=== PATIENT | male | born 1935 | race Caucasian/White ===

== ENCOUNTER 2016-10-05 08:56 | Emergency (ER) | payer OTHER, BC ==
[~2016-10-05] VITALS: Ht 175.3 cm; Wt 107.7 kg
[~2016-10-05 08:56] MED LIST: CHOLTAB3 PO; MULT-506 PO
[2016-10-05 08:59] VITALS: Ht 175.3 cm; Wt 107.7 kg
[2016-10-05] MEDS ORDERED: OXYC-57 PO (09:27)
[2016-10-05] MEDS ORDERED: METH1TAB81 PO (09:27)
[2016-10-05] MEDS ORDERED: MoRPHine SULFATE 10 MG/ML CARP/VIAL IM STA (09:44)
--- NOTE | 2016-10-05 09:45 | EMERGENCY ROOM VISIT NOTE ---
History Report prepared by Harlan: Mindy Ramsey Under the Supervision of: Dr. Michele Cornejo M.D. First contact with patient: 09:30 Chief Complaint: BACK PAIN Stated Complaint: PAIN IN MIDDLE AND LOWER BACK History of Present Illness The patient is a 81 year old male who presents to the Emergency Room with complaints of constant back pain beginning 1 month ago. The patient states that he has a history of back surgery over 30 years ago. The patient states that he saw his doctor this week and was put on oxycodone and Medrol dose pack. He notes that he has a history of prostate cancer but has 0.01 PSA after his most recent appointment. The patient complains of back swelling. He denies any radiation of the pain. He notes that sitting up straight worsens his pain and leaning to the right makes it better. Source of History: patient Onset: 1 month Position: back Timing: constant Modifying Factors (Worsening): other (sitting up straight) Modifying Factors (Relieving): other (leaning to the right) Note: He complains of swelling of the back.Pt denies radiation of the pain. Review of Systems All systems have been listed, reviewed, and are negative other than those previously mentioned. Please see Additional Medical History Sheet. Past Medical & Surgical Medical Problems: (1) Prostate CA Surgical Problems: (1) History of back surgery Family History Cancer Heart disease Social History Smoking Status: Former Smoker Smokeless Tobacco Use: No Alcohol Use: none Marital Status: Housing Status: lives with significant other Occupation Status: retired Current/Historical Medications Scheduled Methylprednisolone (Medrol), 4 MG PO DIRECTED Oxycodone/Acetaminophen 5MG/325MG (Percocet 5MG/325MG), 1 TABLET PO HS Allergies Coded Allergies: Iodine (Verified Allergy, Mild, HIVES/ITCHING, 10/05/16) Physical Exam Vital Signs Date Time Temp Pulse Resp B/P Pulse Ox O2 Delivery O2 Flow Rate FiO2 10/05/16 11:17 56 18 123/84 96 10/05/16 08:59 67 18 148/80 97 Room Air Physical Exam GENERAL: Patient awake, alert, oriented x 3. Patient follows commands. Patient does not appear toxic. Patient is adequately hydrated and well- nourished. In moderate to severe distress. SKIN: No erythema, pallor, cyanosis or rash HEENT: Normal head, pupils equal, reactive to light and accommodation. Ears normal. Oral cavity and posterior pharynx appear normal. Neck: Without adenopathy, no neck vein distention. LUNGS: Clear to auscultation. No wheezes, no rales, no rhonchi. HEART: No murmurs. No gallops. No rubs ABDOMEN: No masses, no rebound, no hepatomegaly or splenomegaly. BACK: Patient has tenderness over mid lumbar spine left greater than right, no stepoff, old scar present. EXTREMITIES: No signs of trauma. No pedal or pretibial edema. No calf or thigh tenderness. Deep tendon reflexes are brisk and motor sensory reflex functions are intact distally to both feet NEUROLOGIC: Cranial nerves II-XII within normal limits. No gross motor sensory function deficits. Medical Decision & Procedures ER Provider Diagnostic Interpretation: CT results are interpretations by the radiologist and per my review. LUMBAR SPINE CT FINDINGS: No fractures. No subluxation. Paraspinal soft tissues are unremarkable. No suspicious lytic or blastic osseous lesions. Large anterior osteophytes within the lumbar spine. Moderate facet degenerative changes within the lower lumbar spine. Severe disc space narrowing at L4-L5. Mild disc space narrowing at L2-L3 and L3-L4. Severe central canal narrowing at L3-L4 due to a broad-based posterior disc bulge and ligamentum and facet hypertrophy. Mild central canal narrowing at L2-L3 and L4-L5. L5 is demonstrated to be a transitional vertebra with partial sacralization within the right transverse process and a pseudoarthrosis with the sacrum at the left transverse process. Stable 14 mm lucent lesion within the L1 vertebral body favors a hemangioma. IMPRESSION: 1. No fracture or subluxation within the lumbar spine. 2. Degenerative changes as described above with severe central canal narrowing at L3-L4 due to a broad-based posterior disc bulge and ligamentum and facet hypertrophy. Electronically signed by: Yair Contreras M.D. 10/05/2016 10:23 AM Dictated Date/Time: 10/05/2016 10:16 AM Medications Administered Medications (Trade) Dose Ordered Sig/Toshia Route Start Time Stop Time Status Last Admin Dose Admin Morphine Sulfate (MoRPHine SULFATE INJ) 8 mg NOW STAT IM 10/05/16 09:44 10/05/16 09:46 DC 10/05/16 09:52 8 MG ED Course 929: Past medical records reviewed. The patient was evaluated in room B12B. A complete history and physical examination was performed. 0944: Morphine Sulfate 8mg IM. 1053: I reevaluated the patient, he is feeling much better. 1104: Upon reevaluation, the patient appeared to have improvement of his symptoms. I discussed today's findings with the patient. He verbalized agreement of the treatment plan. The patient was discharged home. Medical Decision Differential diagnosis includes lumbar strain, fracture, metastatic lesion, cauda equina syndrome. The patient has marked degenerative changes with canal narrowing and disc bulging. The patient is most likely not a surgical candidate but I believe he may benefit from pain management and possible injection. Patient felt significantly better after IM morphine. He will increase his use of oxycodone for now. Case management did speak with the patient about follow-up with pain management. Impression Primary Impression: Low back pain potentially associated with spinal stenosis Scribe Attestation The scribe's documentation has been prepared under my direction and personally reviewed by me in its entirety. I confirm that the note above accurately reflects all work, treatment, procedures, and medical decision making performed by me. Departure Information Dispostion Home / Self-Care Referrals Talon Galindo M.D. (PCP) Forms HOME CARE DOCUMENTATION FORM, IMPORTANT VISIT INFORMATION Patient Instructions My [facility] Additional Instructions Take 1 or 2 oxycodone every 4 hours as needed for moderate to severe pain. Continue taking all of your current medications as prescribed including a stool softener. Follow-up with pain management.
--- NOTE | 2016-10-05 10:25 | DIAGNOSTIC IMAGING REPORT ---
LUMBAR SPINE CT CT DOSE: 1595.86 mGy.cm HISTORY: low back pain prostate Ca TECHNIQUE: Multiaxial CT images of the lumbar spine were performed and reformatted in the sagittal and coronal plane without the use of contrast. COMPARISON: Abdomen and pelvis CT 07/13/2012. FINDINGS: No fractures. No subluxation. Paraspinal soft tissues are unremarkable. No suspicious lytic or blastic osseous lesions. Large anterior osteophytes within the lumbar spine. Moderate facet degenerative changes within the lower lumbar spine. Severe disc space narrowing at L4-L5. Mild disc space narrowing at L2-L3 and L3-L4. Severe central canal narrowing at L3-L4 due to a broad-based posterior disc bulge and ligamentum and facet hypertrophy. Mild central canal narrowing at L2-L3 and L4-L5. L5 is demonstrated to be a transitional vertebra with partial sacralization within the right transverse process and a pseudoarthrosis with the sacrum at the left transverse process. Stable 14 mm lucent lesion within the L1 vertebral body favors a hemangioma. IMPRESSION: 1. No fracture or subluxation within the lumbar spine. 2. Degenerative changes as described above with severe central canal narrowing at L3-L4 due to a broad-based posterior disc bulge and ligamentum and facet hypertrophy. Electronically signed by: Yair Contreras M.D. 10/05/2016 10:23 AM Dictated Date/Time: 10/05/2016 10:16 AM
[2016-10-05 11:17] VITALS: BP 123/84; PULSE 56; O2SAT 96
== END 2016-10-05 11:18 | disposition home or self-care (01) ==
LOC: C.EDB 08:57
DX: M54.5 Low back pain (principal); Z85.46 Personal history of malignant neoplasm of prostate; Z87.891 Personal history of nicotine dependence; Z82.49 Family history of ischemic heart disease and other diseases of the circulatory system

== ENCOUNTER 2016-10-15 03:05 | Inpatient (IN) | payer OTHER, BC ==
[~2016-10-15] VITALS: Ht 175.3 cm; Wt 103.5 kg
[~2016-10-15 03:05] MED LIST changes: -CHOLTAB3 PO; +METH1TAB81 PO; -MULT-506 PO; +OXYC-57 PO
[2016-10-15] MEDS ORDERED: ONDANSETRON INJ 2 MG/ML 2 ML VIAL IV STA (03:51)
[2016-10-15] MEDS ORDERED: KETOROLAC TROMETHAMINE 30 MG/ML VIAL IV STA (03:51)
[2016-10-15] MEDS ORDERED: MoRPHine SULFATE 10 MG/ML CARP/VIAL IV STA (03:51)
--- NOTE | 2016-10-15 03:53 | EMERGENCY ROOM VISIT NOTE ---
History Report prepared by Harlan: Daryl Gonzales Under the Supervision of: Dr. Sienna Beltran D.O. First contact with patient: 03:17 Chief Complaint: BACK PAIN Stated Complaint: BACK PAIN History of Present Illness The patient is an 81 year old male who presents to the Emergency Room with complaints of persistent lower back pain since being diagnosed with lumbar disc bulging 10 days ago. The pain is severe, and does not radiate to the legs or buttocks. The patient was diagnosed by CT lumbar spine. He is taking Oxycodone and OxyContin for pain, which have not helped. He was prescribed the narcotics by his family doctor. His last dose was at 0200 this morning. The patient has been unable to lay down secondary to pain. He noticed left lower extremity swelling last week, especially at the top of the left foot. The leg also feels numb but does not hurt. He denies leg weakness. He is scheduled to see Dr. Winn ([facility]). He had back surgery in 1981. Source of History: patient Onset: 10 days ago Position: back (lower) Symptom Intensity: severe Timing: other (persistent) Modifying Factors (Relieving): other (No relief from Oxycodone or OxyContin. ) Associated Symptoms: + numbness, No weakness Review of Systems See HPI for pertinent positives & negatives. A total of 10 systems reviewed and were otherwise negative. Past Medical & Surgical Medical Problems: (1) Prostate CA Surgical Problems: (1) History of back surgery Family History Cancer Heart disease Social History Smoking Status: Never Smoker Alcohol Use: none Marital Status: Housing Status: lives with significant other Occupation Status: retired Current/Historical Medications Scheduled Chlorzoxazone (Parafon Forte Dsc), 500 MG PO HS Cholecalciferol (Vitamin D3), 5,000 UNITS PO DAILY Krill Oil (Krill Oil), 1 CAP PO DAILY Methylprednisolone (Medrol), 4 MG PO DIRECTED Milk Thistle (Silybum Marianum (Milk Thistle), 1 DOSE PO DAILY Oxycodone HCl (Oxycontin), 10 MG PO Q12 [Mosoglycan], 1 TAB PO DAILY Scheduled PRN Oxycodone/Acetaminophen 5MG/325MG (Percocet 5MG/325MG), 1 TABLET PO QID PRN for Breakthrough Pain Allergies Coded Allergies: Iodine (Verified Allergy, Mild, HIVES/ITCHING, 10/15/16) Physical Exam Vital Signs Date Time Temp Pulse Resp B/P Pulse Ox O2 Delivery O2 Flow Rate FiO2 10/15/16 05:33 58 17 131/64 99 Room Air 10/15/16 03:15 90 22 148/77 98 Room Air Physical Exam General: Patient appears quite uncomfortable. HEENT: Head - normocephalic and atraumatic Pupils are equal, round, and reactive to light. Extraocular eye muscles are intact, and sclera are anicteric. Nose - moist nasal mucosa without discharge. Mouth - moist buccal mucosa. Oropharynx is nonerythematous and there is no tonsillar exudate or edema noted. Neck: Supple; no JVD, nuchal rigidity, cervical lymphadenopathy. Heart: Regular rate and rhythm. There is a normal S1 and S2 with no murmurs, clicks, or gallops appreciated. Lungs: Clear to auscultation bilaterally with no wheezes, rales, or rhonchi. Abdomen: Soft, completely nontender, nondistended, with good bowel sounds. There are no palpable pulsatile masses or hepatosplenomegaly. There is no guarding, rigidity, or rebound noted. Extremities: Edema to the left foot and calf, pain with palpation of the left calf. No evidence of cyanosis, or clubbing. There are easily palpable peripheral pulses. Skin: warm and dry with good turgor and no rashes. Neuro: Patellar reflexes are 3/4 bilaterally, Achilles reflexes 2/4 bilaterally. Patient has exquisite left lower back pain with straight leg raising. Medical Decision & Procedures ER Provider Diagnostic Interpretation: Radiology results as stated below per my review and the radiologist's interpretation: US VENOUS LEFT LOWER EXTREMITY: No evidence of deep venous thrombosis. Subcutaneous edema noted int he left calf. Radiologist: Sugey Cool MD. Laboratory Results 10/15/16 04:00 Red Blood Count 4.45, Mean Corpuscular Volume 91.7, Mean Corpuscular Hemoglobin 31.2, Mean Corpuscular Hemoglobin Concent 34.1, Mean Platelet Volume 9.8, Neutrophils (%) (Auto) 62.4, Lymphocytes (%) (Auto) 28.9, Monocytes (%) (Auto) 7.7, Eosinophils (%) (Auto) 0.6, Basophils (%) (Auto) 0.1, Neutrophils # (Auto) 6.39, Lymphocytes # (Auto) 2.96, Monocytes # (Auto) 0.79, Eosinophils # (Auto) 0.06, Basophils # (Auto) 0.01 10/15/16 04:00 Test 10/15/16 04:00 White Blood Count 10.24 K/uL (4.8-10.8) Red Blood Count 4.45 M/uL (4.7-6.1) Hemoglobin 13.9 g/dL (14.0-18.0) Hematocrit 40.8 % (42-52) Mean Corpuscular Volume 91.7 fL (80-100) Mean Corpuscular Hemoglobin 31.2 pg (25-34) Mean Corpuscular Hemoglobin Concent 34.1 g/dl (32-36) Platelet Count 187 K/uL (130-400) Mean Platelet Volume 9.8 fL (7.4-10.4) Neutrophils (%) (Auto) 62.4 % Lymphocytes (%) (Auto) 28.9 % Monocytes (%) (Auto) 7.7 % Eosinophils (%) (Auto) 0.6 % Basophils (%) (Auto) 0.1 % Neutrophils # (Auto) 6.39 K/uL (1.4-6.5) Lymphocytes # (Auto) 2.96 K/uL (1.2-3.4) Monocytes # (Auto) 0.79 K/uL (0.11-0.59) Eosinophils # (Auto) 0.06 K/uL (0-0.5) Basophils # (Auto) 0.01 K/uL (0-0.2) RDW Standard Deviation 46.2 fL (36.4-46.3) RDW Coefficient of Variation 13.7 % (11.5-14.5) Immature Granulocyte % (Auto) 0.3 % Immature Granulocyte # (Auto) 0.03 K/uL (0.00-0.02) Anion Gap 6.0 mmol/L (3-11) Est Creatinine Clear Calc Drug Dose 68.2 ml/min Estimated GFR () 81.9 Estimated GFR (Non- 70.6 BUN/Creatinine Ratio 27.0 (10-20) Calcium Level 8.9 mg/dl (8.5-10.1) Laboratory results per my review. Medications Administered Medications (Trade) Dose Ordered Sig/Toshia Route Start Time Stop Time Status Last Admin Dose Admin Ketorolac Tromethamine (Toradol Inj) 30 mg NOW STAT IV 10/15/16 03:51 10/15/16 03:52 DC 10/15/16 04:15 30 MG Ondansetron HCl (Zofran Inj) 4 mg NOW STAT IV 10/15/16 03:51 10/15/16 03:52 DC 10/15/16 04:15 4 MG Morphine Sulfate (MoRPHine SULFATE INJ) 4 mg STK-MED ONCE .ROUTE 10/15/16 04:11 10/15/16 04:12 DC 10/15/16 04:15 4 MG Morphine Sulfate (MoRPHine SULFATE INJ) 2 mg STK-MED ONCE .ROUTE 10/15/16 04:11 10/15/16 04:12 DC 10/15/16 04:15 2 MG Morphine Sulfate (MoRPHine SULFATE INJ) 4 mg NOW STAT IV 10/15/16 06:11 10/15/16 06:12 DC 10/15/16 06:18 4 MG Procedure Medications administered include Zofran IV, Toradol IV, Morphine Sulfate IV X2 ED Course 0320: Past medical records reviewed. The patient had a CT of the lumbar spine on October 05 that showed degenerative changes with central canal narrowing at L3-L4 due to a posterior disc bulge. 0325: The patient was evaluated in room B2. A complete history and physical exam was performed. An IV lock was initiated and labs were drawn as above. 0351: Zofran 4 mg IV, Toradol 30 mg IV, Morphine Sulfate 6 mg IV. 0420 the patient is comfortable and waiting to go for ultrasound. 0458: The patient is much more comfortable. I spoke with the mattress spring encaser about paging medicine to admit the patient for intractable pain. 0555: The patient's pain is now a 4/10 in severity. 0559: Discuss[facility] the [facility] The patient will be evaluated. 0610: The patient has discomfort that is increasing. He was given an additional dose of 4 mg of IV morphine. Medical Decision The patient is an 81 year old male who presents to the ED with back pain. Differential diagnosis includes cauda equina syndrome, lumbar radiculopathy, lumbar nerve root compression, DVT. Laboratory interpretation: Normal white count; stable H&H; BUN 27, creatinine 0.9, glucose 111 This is an 81-year-old male patient presents to the emergency with severe left- sided low back pain and lower extremity numbness and swelling. The patient was seen here one week ago and had a lumbar CT scan which showed a significant disc bulge which resulted in central canal narrowing. The patient has been trying to use multiple different pain medications at home but cannot tolerate the pain. He is scheduled to see Dr. Winn on November 08 but does not believe that he can make it to that time. He has also developed numbness to the left foot and lower leg. The patient has required multiple doses of pain medication to keep him comfortable here in the emergency department. Ultrasound of the leg was negative for DVT. I discussed the case [facility] and [facility] will evaluate for further management. Consults Time Called: 0550 Consulting Physician: Dr. Bullard [facility]. Returned Call: [phone]: Discuss[facility] the [facility] The patient will be evaluated. Impression Primary Impression: Lumbar back pain with radiculopathy affecting left lower extremity Scribe Attestation The scribe's documentation has been prepared under my direction and personally reviewed by me in its entirety. I confirm that the note above accurately reflects all work, treatment, procedures, and medical decision making performed by me. Departure Information Dispostion Being Evaluated By Hospitalist Referrals Talon Galindo M.D. (PCP) Patient Instructions My [facility]
[2016-10-15] MEDS ORDERED: MoRPHine SULFATE 2 MG/ML CARP ONE (04:11)
[2016-10-15] MEDS ORDERED: MoRPHine SULFATE 4 MG/ML 1 ML CARP\\VIAL ONE (04:11)
[2016-10-15] MEDS ORDERED: OXYSR/10 PO (04:22)
[2016-10-15] MEDS ORDERED: CHLOTAB3 PO (04:22)
[2016-10-15] MEDS ORDERED: CHOLCAP5 PO (04:26)
[2016-10-15] MEDS ORDERED: KRIL1000 PO (04:26)
[2016-10-15] MEDS ORDERED: [UNRECOGNIZED DRUG - OTHER] PO (04:26)
[2016-10-15] MEDS ORDERED: MILK1CAP9 PO (04:27)
[2016-10-15 05:28] LABS: BASO % 0.1 %; BASO ABS # 0.01 K/uL (0-0.2); COMPLETE YES; EOS % 0.6 %; HEMATOCRIT 40.8 % (42-52); IG% 0.3 %; LYMPH % 28.9 %; LYMPH ABS # 2.96 K/uL (1.2-3.4); MEAN CELL VOLUME 91.7 fL (80-100); MEAN CORPUSCULAR HEMOGLOBIN 31.2 pg (25-34); MEAN CORPUSCULAR HGB CONC 34.1 g/dl (32-36); MEAN PLATELET VOLUME 9.8 fL (7.4-10.4); MONO % 7.7 %; NEUT % 62.4 %; PLATELET COUNT 187 K/uL (130-400); RED BLOOD COUNT 4.45 M/uL (4.7-6.1); WHITE BLOOD COUNT 10.24 K/uL (4.8-10.8)
[2016-10-15 05:35] LABS: CALCIUM 8.9 mg/dl (8.5-10.1); CREATININE 0.99 mg/dl (0.60-1.40); POTASSIUM 4.2 mmol/L (3.5-5.1)
[2016-10-15] MEDS ORDERED: MoRPHine SULFATE 4 MG/ML 1 ML CARP\\VIAL IV STA (06:11)
[2016-10-15 06:38] LABS: THYROID STIMULATING HORMONE 1.65 uIu/ml (0.300-4.500)
[2016-10-15] MEDS ORDERED: LIDODERM (LIDOCAINE) PATCH 5% TD ONE (06:44)
[2016-10-15] MEDS ORDERED: ACETAMINOPHEN 325 MG TAB PO PRN (06:45)
[2016-10-15] MEDS ORDERED: ONDANSETRON INJ 2 MG/ML 2 ML VIAL IV PRN (06:45)
[2016-10-15] MEDS ORDERED: HYDROmorphone INJ 1 MG/ML SYR IV PRN (06:45)
[2016-10-15 06:48] LABS: PROTHROMBIN TIME (PATIENT) 10.5 SECONDS (9.0-12.0)
[2016-10-15] MEDS ORDERED: IBUPROFEN 200 MG TAB PO PRN (07:00)
--- NOTE | 2016-10-15 07:03 | DIAGNOSTIC IMAGING REPORT ---
CHEST ONE VIEW PORTABLE CLINICAL HISTORY: Bilateral leg swelling COMPARISON STUDY: No previous studies for comparison. FINDINGS: The heart is mildly enlarged. There is no failure. There is no lobar consolidation. There is minor basilar atelectasis.[ No pleural effusions are visualized. IMPRESSION: Cardiomegaly and mild basilar atelectasis. No evidence of failure. Electronically signed by: Breezy Torres M.D. 10/15/2016 7:01 AM Dictated Date/Time: 10/15/2016 7:01 AM
--- NOTE | 2016-10-15 07:07 | DIAGNOSTIC IMAGING REPORT ---
LEFT LOWER EXTREMITY VENOUS DOPPLER HISTORY: Left leg swelling. COMPARISON STUDY: None. FINDINGS: There is normal compressibility, flow, and augmentation within the left lower extremity deep venous system. IMPRESSION: No DVT within the left lower extremity. Electronically signed by: Yair Contreras M.D. 10/15/2016 7:05 AM Dictated Date/Time: 10/15/2016 7:04 AM
[2016-10-15 07:15] VITALS: BP 131/80; PULSE 61; TEMP 36.5; O2SAT 99; Ht 175.3 cm; Wt 103.5 kg
[2016-10-15] MEDS ORDERED: IV FLUIDS COMPLETED PRN (07:15)
--- NOTE | 2016-10-15 08:04 | HISTORY & PHYSICAL EXAMINATION ---
DATE OF ADMISSION: 10/15/2016 PRIMARY CARE PHYSICIAN: Dr. Galindo. Hx obtained from px and records. CHIEF COMPLAINT: Back pain. HISTORY OF PRESENT ILLNESS: Medical history significant for prostate cancer sp radiation, past tobacco abuse, history of back surgery, chronic anemia (baseline Hg 13) In the last month, px noted progressive achy low back pain radiating to the left leg, some numbness. No fever, no chills. Intentional weight loss. no incontinence. no recent trauma. Worsening symptoms in the last few days. Seen at the ER a few days ago. A lumbar spine CT showed no fracture or subluxation, degenerative changes, severe central canal narrowing, L3-L4, with broad based posterior disc bulge. Patient discharged home. Patient started outpatient narcotics, steroids, minimal relief. Outpatient [facility] code and test clerk referral next month. Intractable pain last night. Patient brought by son to Emergency Room. Legs somewhat swollen too. MEDICAL HISTORY: As above. SURGERIES: Back surgery, earlobe surgery, skin CA procedures HOME MEDICATIONS: Include Parafon, OxyContin, Medrol, Percocet. ALLERGIES: Iodine. FAMILY HISTORY: Family history of alcoholism and gynecologic cancer. PERSONAL AND SOCIAL HISTORY: Past tobacco abuse. No chronic intake of alcoholic beverages. 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 REVIEW OF SYSTEMS: As per HPI, all other ROS negative. PHYSICAL EXAMINATION: VITAL SIGNS: Blood pressure was noted to be 138/77, pulse rate 58, RR 17, temperature 36.6, sats 98 on room air. GENERAL: Noted to be obese, uncomfortable, no respiratory distress. SKIN: Pallor. HEENT: Pale palpebral conjunctivae. Dry mucosa. NECK: Short neck. LUNGS: Clear to auscultation. HEART: Bradycardic. ABDOMEN: Soft. BACK: Tenderness of low back. SLR negative. EXTREMITIES: Bilateral lower extremity edema. no tenderness NEUROLOGIC: No gross focality. LABS: Hemoglobin was noted to be 13, hematocrit 40, white cells 10, platelets 200. Sodium 140, potassium 4.2, chloride 106, CO2 28, BUN 27, creatinine 0.9, glucose 111. Lower extremity ultrasound negative for DVT, initial read. ASSESSMENT: 1. Intractable back pain w/ L radiculopathy sx history of back surgery () 2. Prostate cancer, status post radiation. 3. Chronic anemia, hemoglobin at baseline. 4. Past tobacco abuse. PLAN: Observation [facility] analgesia Orthopedics consult for intractable back pain. PT, OT evaluation. DVT prophylaxis with Lovenox subQ. Full code. MTDD
--- NOTE | 2016-10-15 08:39 | ORTHOPEDIC CONSULTATION ---
DATE OF CONSULTATION: 10/15/2016 DATE OF CONSULTATION: 10/15/2016. CHIEF COMPLAINT: Back and left leg pain. HISTORY OF PRESENT ILLNESS: Very pleasant 81-year-old male who has had symptoms for well over 4 weeks of severe back pain radiating into the left buttock and into the left leg. Markedly limiting his ability to lie supine, stand and ambulate. He denies any precipitating trauma, fall or event. He is status post lumbar surgery in 1981. At that time he had done well postoperatively. The pain has been incapacitating in nature. He has tried outpatient interventional pain management but was limited to the point of hospital admission last evening. This morning on exam he has good sensation to touch bilateral lower extremities, 5/5 plantarflexion, dorsiflexion and quadriceps bilaterally. However, anytime we maneuver him in the bed he gets shots of pain into the left flank and buttock. CAT scan dated 10/07/2016 of the lumbar spine performed at [facility] is available for review demonstrates severe multilevel spondylosis, evidence of significant spinal stenosis L3-4, previous surgery at L4-L5, autofusion L5-S1. ASSESSMENT: Spinal stenosis with left-sided radiculopathy. PLAN: At this time, I would like to obtain an MRI of the lumbar spine for further anatomic detail and evidence of neural encroachment. Ultimately, he may require lumbar decompression at L3-L4 to address his spinal issues and make further recommendations upon review of his MRI. As a precaution, I will make him n.p.o. after midnight in the event we decided to proceed.
[2016-10-15] MEDS: OXYCODONE HCL 10 MG TABCR (OXYCONTIN) PO SCH ×2 (09:06→20:45)
[2016-10-15] MEDS: DOCUSATE SODIUM 100 MG CAP PO SCH ×2 (09:07→20:09)
[2016-10-15] MEDS: ENOXAPARIN 40 MG/0.4 ML SYR SQ SCH (09:07)
[2016-10-15] MEDS ORDERED: LORAZEPAM INJ 0.5 MG in SYRINGE 0.25 ML IV SCH (11:00)
[2016-10-15] MEDS: KETOROLAC TROMETHAMINE 15 MG/ML VIAL IV. PRN ×2 (12:05→18:09)
[2016-10-15] MEDS: OXYCODONE/ACETAMINOPHEN 5-325 TAB PO PRN (14:00)
--- NOTE | 2016-10-15 14:18 | DIAGNOSTIC IMAGING REPORT ---
MRI LUMBAR SPINE W/O CONTRAST CLINICAL HISTORY: Back pain and left leg radiculopathy. SPINAL STENOSIS, PROSTATE CARCINOMA. TECHNIQUE: Sagittal and axial T1, T2 and STIR images were obtained. COMPARISON STUDY: CT scan dated 10/05/2016 OBSERVATIONS: The vertebral bodies and posterior elements appear intact. There is no abnormal bony signal present to suggest a marrow replacement process. L1-2: There is a mild circumferential disc bulge. There is mild spinal stenosis. There is no significant foraminal narrowing. L2-3: There is a mild circumferential disc bulge. There is minor triangular spinal canal narrowing. There is clumping of the nerve roots suggesting arachnoiditis. There is no significant foraminal narrowing L3-4: There is a circumferential disc bulge. There is moderate spinal stenosis. There is clumping of the nerve roots suggesting arachnoiditis. There is no significant foraminal narrowing L4-5: There is a circumferential disc bulge. There are postsurgical changes right posterior hemilaminectomy. There is minor bilateral foraminal narrowing. There is no significant spinal stenosis. There is clumping of the nerve roots consistent with arachnoiditis L5-S1: No disc protrusions or extrusions. No evidence of spinal canal or neural foraminal compromise. There is clumping of the nerve roots consistent with arachnoiditis. No abnormalities of the conus are visualized. There are suspected arachnoiditis. IMPRESSION: 1. Postsurgical changes at the L4-5 level. 2. Marked clumping of the nerve roots of the cauda equina, a finding consistent with arachnoiditis 3. Multiple levels spondylitic change with mild spinal stenosis at the L1-2 and L2-3 levels, and moderate spinal stenosis at the L3-4 level. Electronically signed by: Breezy Torres M.D. 10/15/2016 2:15 PM Dictated Date/Time: 10/15/2016 2:11 PM
--- NOTE | 2016-10-15 14:22 | Progress Note ---
Internal Med Progress Note Date of Service: Oct 15, 2016. Provider Documentation: siting on the chair comfortable. Pain controlled with pain meds. Afebrile. appreciate Ortho inputs ASSESSMENT & PLAN: [] DVT PROPHYLAXIS [] DISPOSITION [] Vital Signs: Date Time Temp Pulse Resp B/P Pulse Ox O2 Delivery O2 Flow Rate FiO2 10/15/16 09:30 Room Air 10/15/16 07:15 36.5 61 16 131/80 99 Room Air 10/15/16 07:15 99 Room Air 10/15/16 06:57 58 18 137/68 96 Room Air 10/15/16 05:33 58 17 131/64 99 Room Air 10/15/16 03:15 90 22 148/77 98 Room Air Lab Results: Results Past 24 Hours Test 10/15/16 04:00 Range/Units White Blood Count 10.24 4.8-10.8 K/uL Red Blood Count 4.45 4.7-6.1 M/uL Hemoglobin 13.9 14.0-18.0 g/dL Hematocrit 40.8 42-52 % Mean Corpuscular Volume 91.7 80-100 fL Mean Corpuscular Hemoglobin 31.2 25-34 pg Mean Corpuscular Hemoglobin Concent 34.1 32-36 g/dl Platelet Count 187 130-400 K/uL Mean Platelet Volume 9.8 7.4-10.4 fL Neutrophils (%) (Auto) 62.4 % Lymphocytes (%) (Auto) 28.9 % Monocytes (%) (Auto) 7.7 % Eosinophils (%) (Auto) 0.6 % Basophils (%) (Auto) 0.1 % Neutrophils # (Auto) 6.39 1.4-6.5 K/uL Lymphocytes # (Auto) 2.96 1.2-3.4 K/uL Monocytes # (Auto) 0.79 0.11-0.59 K/uL Eosinophils # (Auto) 0.06 0-0.5 K/uL Basophils # (Auto) 0.01 0-0.2 K/uL RDW Standard Deviation 46.2 36.4-46.3 fL RDW Coefficient of Variation 13.7 11.5-14.5 % Immature Granulocyte % (Auto) 0.3 % Immature Granulocyte # (Auto) 0.03 0.00-0.02 K/uL Prothrombin Time 10.5 9.0-12.0 SECONDS Prothromb Time International Ratio 1.0 0.9-1.1 Sodium Level 140 136-145 mmol/L Potassium Level 4.2 3.5-5.1 mmol/L Chloride Level 106 98-107 mmol/L Carbon Dioxide Level 28 21-32 mmol/L Anion Gap 6.0 3-11 mmol/L Blood Urea Nitrogen 27 7-18 mg/dl Creatinine 0.99 0.60-1.40 mg/dl Est Creatinine Clear Calc Drug Dose 68.2 ml/min Estimated GFR () 81.9 Estimated GFR (Non- 70.6 BUN/Creatinine Ratio 27.0 10-20 Random Glucose 111 70-99 mg/dl Calcium Level 8.9 8.5-10.1 mg/dl Total Bilirubin 0.4 0.2-1 mg/dl Direct Bilirubin 0.1 0-0.2 mg/dl Aspartate Amino Transf (AST/SGOT) 17 15-37 U/L Alanine Aminotransferase (ALT/SGPT) 33 12-78 U/L Alkaline Phosphatase 65 45-117 U/L Total Protein 7.4 6.4-8.2 gm/dl Albumin 4.0 3.4-5.0 gm/dl Lipase 88 73-393 U/L Thyroid Stimulating Hormone (TSH) 1.650 0.300-4.500 uIu/ml
[2016-10-15 15:15] VITALS: BP 111/68; PULSE 55; TEMP 36.3; O2SAT 97
[2016-10-15 16:00] VITALS: O2SAT 97
[2016-10-15 23:20] VITALS: BP 116/67; PULSE 51; TEMP 36.3; O2SAT 94
[2016-10-16] VITALS (7 sets, daily range): BP systolic 115–138; BP diastolic 68–86; PULSE 57–91; TEMP 36–36.7; O2SAT 92–100
[2016-10-16] MEDS: OXYCODONE/ACETAMINOPHEN 5-325 TAB PO PRN (00:13)
[2016-10-16] MEDS: OXYCODONE HCL 10 MG TABCR (OXYCONTIN) PO SCH ×2 (07:49→21:00)
[2016-10-16] MEDS: LIDODERM (LIDOCAINE) PATCH 5% TD SCH (07:50)
[2016-10-16 08:09] LABS: BASO % 0.3 %; BASO ABS # 0.02 K/uL (0-0.2); COMPLETE YES; HEMATOCRIT 40.8 % (42-52); IG% 0.3 %; LYMPH % 42.8 %; LYMPH ABS # 3.29 K/uL (1.2-3.4); MEAN CELL VOLUME 91.5 fL (80-100); MEAN CORPUSCULAR HEMOGLOBIN 31.2 pg (25-34); MEAN CORPUSCULAR HGB CONC 34.1 g/dl (32-36); MEAN PLATELET VOLUME 9.7 fL (7.4-10.4); MONO % 8.7 %; NEUT % 45.9 %; PLATELET COUNT 173 K/uL (130-400); RED BLOOD COUNT 4.46 M/uL (4.7-6.1); WHITE BLOOD COUNT 7.68 K/uL (4.8-10.8)
[2016-10-16] MEDS: ENOXAPARIN 40 MG/0.4 ML SYR SQ SCH (09:00)
--- NOTE | 2016-10-16 11:47 | PROGRESS NOTE ---
DATE: 10/16/2016 DATE: 10/16/2016. SUBJECTIVE: We had a lengthy discussion today regarding his MRI. He demonstrates significant central lateral recess stenosis L3-4, some modest disease at the adjacent levels, evidence of previous surgery at 4-5 level. However, these do not appear to have the significant neural encroachment that the 3-4 does. Again, his pain patterns are described involving the lumbosacral junction extending down the anterior lateral left thigh to the knee. This is markedly exacerbated by ambulation. PLAN: At this time, he would like to pursue surgical intervention. I would recommend a lumbar decompression, possible in situ fusion L3-L4. This would allow us adequate decompression of this region. Risks, benefits, pros, cons, and alternatives were outlined in detail. Risks include but not limited to from anesthesia, spinal cord process, nerve damage, blood loss requiring transfusion, infection requiring reoperation. 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 At this point he is n.p.o. and we will plan for surgery today.
[2016-10-16] MEDS ORDERED: NURSING VERBAL MED ORDER STA (14:47)
[2016-10-16] MEDS ORDERED: MIDAZOLAM HCL 1 MG/ML 2ML VIAL ONE (14:52)
[2016-10-16] MEDS ORDERED: ROCURONIUM BROMIDE 10 MG/ML 5 ML VIAL ONE (14:52)
[2016-10-16] MEDS ORDERED: DEXAMETHASONE SOD INJ 4 MG/ML VIAL ONE (14:52)
[2016-10-16] MEDS ORDERED: ONDANSETRON INJ 2 MG/ML 2 ML VIAL ONE (14:52)
[2016-10-16] MEDS ORDERED: LIDOCAINE HCL 2% 2 ML VIAL (20MG/ML) ONE (14:52)
[2016-10-16] MEDS ORDERED: FENTANYL CITRATE INJ 50 MCG/1 ML 2 ML VIAL ONE (14:53)
[2016-10-16] MEDS ORDERED: CEFAZOLIN IV 2,000 MG/60 ML D5W IV ONE (14:54)
[2016-10-16] MEDS ORDERED: ATROPINE SULFATE 0.1 MG/ML 5ML SYR IV PRN (15:00)
[2016-10-16] MEDS ORDERED: HYDROmorphone INJ 1 MG/ML SYR IV PRN (15:00)
[2016-10-16] MEDS ORDERED: EpHEDrine SULFATE INJ 50 MG/ML AMP IV PRN (15:00)
[2016-10-16] MEDS ORDERED: ONDANSETRON INJ 2 MG/ML 2 ML VIAL IV PRN ×2 (15:00→16:30)
[2016-10-16] MEDS ORDERED: FENTANYL CITRATE INJ 50 MCG/1 ML 2 ML VIAL IV PRN (15:00)
[2016-10-16] MEDS ORDERED: BUPIVACAINE/EPINEPHRINE 0.5% MPF 1:200,000 30 ML VIAL ONE (15:03)
[2016-10-16] MEDS ORDERED: SODIUM CHLORIDE 0.9% 1000ML 1,000 ML IV SCH (16:22)
[2016-10-16] MEDS ORDERED: PHENYLEPHRINE HCL INJ 10 MG/ML VIAL ONE (16:22)
[2016-10-16] MEDS ORDERED: GLYCOPYRROLATE INJ 0.2 MG/ML VIAL ONE (16:22)
[2016-10-16] MEDS ORDERED: EpHEDrine SULFATE INJ 50 MG/ML AMP ONE (16:22)
[2016-10-16] MEDS ORDERED: NEOSTIGMINE METHYLSULFATE 1 MG/ML 10ML VIAL ONE (16:23)
[2016-10-16] MEDS ORDERED: ESMOLOL HCL 10 MG/ML 10 ML VIAL ONE (16:24)
[2016-10-16] MEDS ORDERED: MoRPHine SULFATE 2 MG/ML CARP ONE (16:24)
[2016-10-16] MEDS ORDERED: ACETAMINOPHEN 500 MG TAB PO PRN (16:30)
[2016-10-16] MEDS ORDERED: BISACODYL 10 MG SUPP PR PRN (16:30)
[2016-10-16] MEDS ORDERED: PROMETHAZINE HCL INJ 12.5 MG in SODIUM CHLORIDE 0.9% 50ML 50 ML IV PRN (16:30)
[2016-10-16] MEDS ORDERED: FLOSEAL HEMOSTATIC MATRIX 5ML TOP ONE (16:30)
[2016-10-16] MEDS ORDERED: DO NOT ADMINISTER FLU VACCINE PRN ×3 (16:30)
[2016-10-16] MEDS ORDERED: NALOXONE HCL 0.4 MG/1 ML VIAL/CARP IV PRN ×2 (16:30)
[2016-10-16] MEDS ORDERED: FAMOTIDINE 20 MG TAB PO PRN (16:30)
[2016-10-16] MEDS ORDERED: SOD PHOSPHATE/SOD BIPHOSPHATE ENEMA 132 ML BTL PR PRN (16:30)
[2016-10-16] MEDS ORDERED: BACITRACIN 50,000 UNITS IR ONE (16:30)
[2016-10-16] MEDS ORDERED: ACETAMINOPHEN IV 100 ML IV PRN (16:30)
[2016-10-16] MEDS ORDERED: METOCLOPRAMIDE HCL INJ 5 MG/ML 2 ML VIAL IV PRN (16:30)
[2016-10-16] MEDS ORDERED: MAGNESIUM HYDROXIDE SUSP 30 ML UDC PO PRN (16:30)
[2016-10-16] MEDS ORDERED: hydrOXYzine HCL 25 MG TAB PO PRN (16:30)
[2016-10-16] MEDS ORDERED: DO NOT ADMINISTER PNEUMOCOCCAL VACCINE PRN ×2 (16:30)
[2016-10-16] MEDS ORDERED: ALUMINUM/MAGNESIUM SUSP 30 ML UDC PO PRN (16:30)
[2016-10-16] MEDS: HYDROmorphone HCL 0.5MG/ML 50 ML CASSETTE IV PRN ×3 (16:50→22:56)
--- NOTE | 2016-10-16 17:00 | OPERATIVE REPORT ---
DATE OF OPERATION: 10/16/2016 PREOPERATIVE DIAGNOSIS: Spinal stenosis. POSTOPERATIVE DIAGNOSIS: Same. PROCEDURES PERFORMED: 1. Lumbar decompression, bilateral medial facetectomies and foraminotomy L3-L4. 2. Posterior spinal fusion L3-L4. 3. Placement of Infuse collagen sponge combined with Mastergraft in the posterolateral gutters. SURGEON: Dr. Renny Magaña. DEMENTIA PROGRAM DIRECTOR: Alisia Arcos PA-C. Due to the complex nature of the procedure, the entire surgery was performed with the assistant coach of YUE Banks. The appeals assistant, under direct supervision, was involved in the actual performance of all aspects of the surgical procedure including hemostasis, tissue retraction and incision, instrument management, patient positioning, and wound closure. ANESTHESIA: General. DISPOSITION: The patient awakened and taken to PACU in stable condition. HISTORY OF PATIENT'S PROBLEMS: This 81-year-old male that presents with the above-mentioned diagnosis. After failing an extensive course of nonoperative care, elected to undergo the above-mentioned procedure. Risks, benefits, pros, cons, and alternatives were outlined in detail preoperatively. DESCRIPTION OF PROCEDURE: The patient was met with preoperatively, the case discussed and all questions were addressed. At that point the patient was taken back to operative suite and after undergoing successful general intubation by the department of anesthesia was placed in a prone position on Matthew table atop Nazario frame. All bony prominences were well padded and the eyes were inspected to ensure there was no external pressure placed upon them. At this point, the lumbar spine was prepped and draped in normal sterile fashion. Sharp dissection with the assistance of Bovie cautery performed down to and exposing the lamina and transverse processes of L3 and L4 bilaterally. A self-retaining retractor was placed. I then performed a midline decompression L3-L4 with bilateral medial facetectomies noting severe lateral recess and foraminal disease particularly on the left. After complete decompression, transverse processes of L3-L4 burred to subcortical bleeding bone. Infuse collagen sponge combined with Mastergraft was placed in the posterior gutters. A 7 flat KADEEM drain inserted and incision closed with 1-0 Vicryl in the fascia, 2-0 Vicryl subcutaneously, 4-0 Monocryl for final skin closure. Steri-Strips and sterile dressing placed. The patient was awakened and taken to PACU in stable condition. I attest to the content of the Intraoperative Record and any orders documented therein. Any exceptio ns are noted below.
--- NOTE | 2016-10-16 17:13 | DIAGNOSTIC IMAGING REPORT ---
LUMBAR SPINE, INTRAOPERATIVE FLUOROSCOPY HISTORY: L3-L4 decompression. FLUOROSCOPY TIME: 2.8 seconds. FINDINGS: Intraoperative fluoroscopy was provided for the lumbar spine. A single fluoroscopic spot image demonstrates a surgical instrument posterior to the L3-L4 level. IMPRESSION: Fluoroscopy provided for a L3-L4 decompression. Electronically signed by: Yair Contreras M.D. 10/16/2016 5:11 PM Dictated Date/Time: 10/16/2016 5:10 PM
--- NOTE | 2016-10-16 17:16 | Anesthesiology Progress Note ---
Anesthesia Post Op Note Date & Time Oct 16, 2016 at 17:15 Vital Signs Pain Intensity: 3 Vital Signs Past 12 Hours Date Time Temp Pulse Resp B/P Pulse Ox O2 Delivery O2 Flow Rate FiO2 10/16/16 17:02 68 12 100 10/16/16 17:02 68 12 10/16/16 17:01 156/65 10/16/16 16:57 71 12 10/16/16 16:57 71 12 100 10/16/16 16:56 154/69 10/16/16 16:52 74 18 10/16/16 16:52 74 18 100 10/16/16 16:51 160/68 10/16/16 16:47 75 18 98 10/16/16 16:47 75 18 10/16/16 16:46 154/71 10/16/16 16:42 81 16 99 10/16/16 16:42 82 16 10/16/16 16:41 151/65 10/16/16 16:38 162/64 10/16/16 16:37 36.3 99 16 162/64 99 Mask 10 10/16/16 07:30 36.3 70 18 115/68 96 Room Air 10/16/16 07:20 Room Air Notes Mental Status: alert / awake / arousable, participated in evaluation Pt Amnestic to Procedure: Yes Nausea / Vomiting: adequately controlled Pain: adequately controlled Airway Patency, RR, SpO2: stable & adequate BP & HR: stable & adequate Hydration State: stable & adequate Anesthetic Complications: no major complications apparent
[2016-10-16] MEDS: SODIUM CHLORIDE 0.9% 1000ML 1,000 ML IV SCH ×2 (17:30→22:46)
--- NOTE | 2016-10-16 18:45 | Progress Note ---
Internal Med Progress Note Date of Service: Oct 16, 2016. Provider Documentation: s/p back surgery today doing fine says back pain is much better no chest pain or sob afebrile no nausea or abdominal pain Exam; General-Alert and oriented ENT-normal hearing Neck-no neck masses Lungs-cta b/l no wheezing or crackles Heart-s1 and s2 heard regular rate and rhythm no murmurs Abdomen-soft bowel sounds present non tender no distension Extremities-no edema no erythema Musculoskeletal s/p back surgery dressing and drain intact Neuro-Alert and oriented moves extremities ASSESSMENT & PLAN: 1. Intractable back pain w/ L radiculopathy sx history of back surgery () MRI shows arachnoiditis and L3-4 stenosis s/p back surgery and fusion at L3 and L4 management as per ortho. 2. Prostate cancer, status post radiation. 3. Chronic anemia, hemoglobin at baseline. will f/u labs. 4. Past tobacco abuse DVT PROPHYLAXIS scds DISPOSITION to be determined Vital Signs: Date Time Temp Pulse Resp B/P Pulse Ox O2 Delivery O2 Flow Rate FiO2 10/16/16 18:32 36.0 61 18 138/77 98 Nasal Cannula 3.0 10/16/16 18:03 36.2 57 18 135/71 100 Nasal Cannula 3.0 10/16/16 17:30 100 Nasal Cannula 4.0 10/16/16 17:30 36.3 16 136/68 99 Nasal Cannula 4.0 10/16/16 17:20 36.3 62 16 144/68 100 Nasal Cannula 4 10/16/16 17:02 68 12 100 10/16/16 17:02 68 12 10/16/16 17:01 156/65 10/16/16 16:57 71 12 10/16/16 16:57 71 12 100 10/16/16 16:56 154/69 10/16/16 16:52 74 18 10/16/16 16:52 74 18 100 10/16/16 16:51 160/68 10/16/16 16:47 75 18 98 10/16/16 16:47 75 18 10/16/16 16:46 154/71 10/16/16 16:42 81 16 99 10/16/16 16:42 82 16 10/16/16 16:41 151/65 10/16/16 16:38 162/64 10/16/16 16:37 36.3 99 16 162/64 99 Mask 10 10/16/16 07:30 36.3 70 18 115/68 96 Room Air 10/16/16 07:20 Room Air 10/16/16 00:20 Room Air 10/15/16 23:20 36.3 51 17 116/67 94 Room Air Lab Results: Results Past 24 Hours Test 10/16/16 07:51 Range/Units White Blood Count 7.68 4.8-10.8 K/uL Red Blood Count 4.46 4.7-6.1 M/uL Hemoglobin 13.9 14.0-18.0 g/dL Hematocrit 40.8 42-52 % Mean Corpuscular Volume 91.5 80-100 fL Mean Corpuscular Hemoglobin 31.2 25-34 pg Mean Corpuscular Hemoglobin Concent 34.1 32-36 g/dl Platelet Count 173 130-400 K/uL Mean Platelet Volume 9.7 7.4-10.4 fL Neutrophils (%) (Auto) 45.9 % Lymphocytes (%) (Auto) 42.8 % Monocytes (%) (Auto) 8.7 % Eosinophils (%) (Auto) 2.0 % Basophils (%) (Auto) 0.3 % Neutrophils # (Auto) 3.53 1.4-6.5 K/uL Lymphocytes # (Auto) 3.29 1.2-3.4 K/uL Monocytes # (Auto) 0.67 0.11-0.59 K/uL Eosinophils # (Auto) 0.15 0-0.5 K/uL Basophils # (Auto) 0.02 0-0.2 K/uL RDW Standard Deviation 46.2 36.4-46.3 fL RDW Coefficient of Variation 13.7 11.5-14.5 % Immature Granulocyte % (Auto) 0.3 % Immature Granulocyte # (Auto) 0.02 0.00-0.02 K/uL
[2016-10-16] MEDS: DEXAMETHASONE INJ 6 MG in SYRINGE 0 ML IV SCH (20:45)
[2016-10-16] MEDS: CEFAZOLIN IV 2,000 MG in DEXTROSE 5% 50ML 50 ML IV SCH (21:17)
[2016-10-16] MEDS: DOCUSATE SODIUM/SENNA 50/8.6MG TAB PO SCH (21:26)
[2016-10-17] MEDS: DEXAMETHASONE INJ 6 MG in SYRINGE 0 ML IV SCH ×2 (01:26→10:42)
[2016-10-17 03:14] VITALS: BP 117/68; PULSE 80; TEMP 36.3; O2SAT 92
[2016-10-17] MEDS: CEFAZOLIN IV 2,000 MG in DEXTROSE 5% 50ML 50 ML IV SCH (05:24)
[2016-10-17] MEDS ORDERED: NURSING VERBAL MED ORDER ONE (05:30)
[2016-10-17] MEDS ORDERED: DC PCA SCH (06:00)
[2016-10-17] MEDS ORDERED: HYDROmorphone INJ 0.5 MG/0.5 ML SYR IV PRN (06:00)
[2016-10-17 06:56] LABS: COMPLETE YES; HEMATOCRIT 35.1 % (42-52); IG% 0.2 %; LYMPH % 5.4 %; LYMPH ABS # 0.85 K/uL (1.2-3.4); MEAN CELL VOLUME 89.1 fL (80-100); MEAN CORPUSCULAR HGB CONC 34.8 g/dl (32-36); MEAN PLATELET VOLUME 9.7 fL (7.4-10.4); MONO % 2.9 %; NEUT % 91.5 %; PLATELET COUNT 163 K/uL (130-400); RED BLOOD COUNT 3.94 M/uL (4.7-6.1); WHITE BLOOD COUNT 15.65 K/uL (4.8-10.8)
[2016-10-17 07:21] LABS: BUN/CREATININE RATIO 17.9 (10-20); CALCIUM 8.5 mg/dl (8.5-10.1); CREATININE 1.1 mg/dl (0.60-1.40); POTASSIUM 4.2 mmol/L (3.5-5.1)
[2016-10-17 07:30] VITALS: BP 102/61; PULSE 64; TEMP 36.6; O2SAT 92
--- NOTE | 2016-10-17 07:38 | Anesthesiology Progress Note ---
Anesthesia Post Op Note Date & Time Oct 17, 2016 at 07:37 Vital Signs Pain Intensity: 7.0 Vital Signs Past 12 Hours Date Time Temp Pulse Resp B/P Pulse Ox O2 Delivery O2 Flow Rate FiO2 10/17/16 03:14 36.3 80 17 117/68 92 Room Air 10/16/16 23:35 Room Air 10/16/16 23:29 36.3 75 16 127/69 92 Room Air 10/16/16 21:16 36.7 91 18 137/68 95 Nasal Cannula 3.0 Notes Mental Status: alert / awake / arousable, participated in evaluation Pt Amnestic to Procedure: Yes Nausea / Vomiting: adequately controlled Pain: adequately controlled Airway Patency, RR, SpO2: stable & adequate BP & HR: stable & adequate Hydration State: stable & adequate Anesthetic Complications: no major complications apparent
[2016-10-17] MEDS: OXYCODONE HCL 10 MG TABCR (OXYCONTIN) PO SCH ×2 (08:51→21:16)
[2016-10-17] MEDS: LIDODERM (LIDOCAINE) PATCH 5% TD SCH (09:02)
[2016-10-17] MEDS: DOCUSATE SODIUM 100 MG CAP PO SCH (09:03)
[2016-10-17] MEDS: ENOXAPARIN 40 MG/0.4 ML SYR SQ SCH (09:04)
[2016-10-17 16:00] VITALS: O2SAT 93
--- NOTE | 2016-10-17 16:00 | Progress Note ---
Internal Med Progress Note Date of Service: Oct 17, 2016. Provider Documentation: s/p back surgery 10/16/16 doing fine ambulated ok no sob eating fine no complaints Exam; General-Alert and oriented ENT-normal hearing Neck-no neck masses Lungs-cta b/l no wheezing or crackles Heart-s1 and s2 heard regular rate and rhythm no murmurs Abdomen-soft bowel sounds present non tender no distension Extremities-no edema no erythema Musculoskeletal s/p back surgery dressing and drain intact Neuro-Alert and oriented moves extremities ASSESSMENT & PLAN: 1. Intractable back pain w/ L radiculopathy sx history of back surgery () MRI shows arachnoiditis and L3-4 stenosis s/p back surgery and fusion at L3 and L4 management as per ortho. pt/ot 2. Prostate cancer, status post radiation. 3. Chronic anemia, hemoglobin at baseline. will f/u labs.hb 12.2 today 4. Past tobacco abuse DVT PROPHYLAXIS scds DISPOSITION to be determined pt/ot social service for d/c planning Vital Signs: Date Time Temp Pulse Resp B/P Pulse Ox O2 Delivery O2 Flow Rate FiO2 10/17/16 07:35 Room Air 10/17/16 07:30 36.6 64 18 102/61 92 Room Air 10/17/16 03:14 36.3 80 17 117/68 92 Room Air 10/16/16 23:35 Room Air 10/16/16 23:29 36.3 75 16 127/69 92 Room Air 10/16/16 21:16 36.7 91 18 137/68 95 Nasal Cannula 3.0 10/16/16 19:29 36.5 57 16 136/86 99 Nasal Cannula 4.0 10/16/16 18:32 36.0 61 18 138/77 98 Nasal Cannula 3.0 10/16/16 18:03 36.2 57 18 135/71 100 Nasal Cannula 3.0 10/16/16 17:30 100 Nasal Cannula 4.0 10/16/16 17:30 36.3 16 136/68 99 Nasal Cannula 4.0 10/16/16 17:30 99 Nasal Cannula 4.0 10/16/16 17:20 36.3 62 16 144/68 100 Nasal Cannula 4 10/16/16 17:02 68 12 100 10/16/16 17:02 68 12 10/16/16 17:01 156/65 10/16/16 16:57 71 12 10/16/16 16:57 71 12 100 10/16/16 16:56 154/69 10/16/16 16:52 74 18 10/16/16 16:52 74 18 100 10/16/16 16:51 160/68 10/16/16 16:47 75 18 98 10/16/16 16:47 75 18 10/16/16 16:46 154/71 10/16/16 16:42 81 16 99 10/16/16 16:42 82 16 10/16/16 16:41 151/65 10/16/16 16:38 162/64 10/16/16 16:37 36.3 99 16 162/64 99 Mask 10 Lab Results: Results Past 24 Hours Test 10/17/16 06:20 Range/Units White Blood Count 15.65 4.8-10.8 K/uL Red Blood Count 3.94 4.7-6.1 M/uL Hemoglobin 12.2 14.0-18.0 g/dL Hematocrit 35.1 42-52 % Mean Corpuscular Volume 89.1 80-100 fL Mean Corpuscular Hemoglobin 31.0 25-34 pg Mean Corpuscular Hemoglobin Concent 34.8 32-36 g/dl Platelet Count 163 130-400 K/uL Mean Platelet Volume 9.7 7.4-10.4 fL Neutrophils (%) (Auto) 91.5 % Lymphocytes (%) (Auto) 5.4 % Monocytes (%) (Auto) 2.9 % Eosinophils (%) (Auto) 0.0 % Basophils (%) (Auto) 0.0 % Neutrophils # (Auto) 14.31 1.4-6.5 K/uL Lymphocytes # (Auto) 0.85 1.2-3.4 K/uL Monocytes # (Auto) 0.46 0.11-0.59 K/uL Eosinophils # (Auto) 0.00 0-0.5 K/uL Basophils # (Auto) 0.00 0-0.2 K/uL RDW Standard Deviation 42.8 36.4-46.3 fL RDW Coefficient of Variation 13.2 11.5-14.5 % Immature Granulocyte % (Auto) 0.2 % Immature Granulocyte # (Auto) 0.03 0.00-0.02 K/uL Sodium Level 140 136-145 mmol/L Potassium Level 4.2 3.5-5.1 mmol/L Chloride Level 107 98-107 mmol/L Carbon Dioxide Level 26 21-32 mmol/L Anion Gap 7.0 3-11 mmol/L Blood Urea Nitrogen 20 7-18 mg/dl Creatinine 1.10 0.60-1.40 mg/dl Est Creatinine Clear Calc Drug Dose 61.4 ml/min Estimated GFR () 72.1 Estimated GFR (Non- 62.2 BUN/Creatinine Ratio 17.9 10-20 Random Glucose 150 70-99 mg/dl Calcium Level 8.5 8.5-10.1 mg/dl
[2016-10-17 16:11] VITALS: BP 130/74; PULSE 76; TEMP 36.9; O2SAT 93
--- NOTE | 2016-10-17 16:35 | PROGRESS NOTE ---
DATE: 10/17/2016 HISTORY OF PRESENT ILLNESS: Postop day 1. Back pain controlled. Leg pain improved. Vital signs stable. T-max 36.6. KADEEM drained 110 mL. Hematocrit stable at 35.1. PHYSICAL EXAMINATION: He has good strength to testing, appears much more comfortable. ASSESSMENT: Status post lumbar decompression and fusion. PLAN: At this time, we will continue physical therapy, maintain the KADEEM drain, possibly remove it Friday or Friday, but hopefully he will be able to return home in the next few days.
[2016-10-17] MEDS: DOCUSATE SODIUM/SENNA 50/8.6MG TAB PO SCH (21:16)
[2016-10-17 23:23] VITALS: BP 128/75; PULSE 74; TEMP 36.3; O2SAT 98
[2016-10-18] MEDS: OXYCODONE HCL IR 5 MG TAB (IMMEDIATE RELEASE) PO PRN ×2 (00:27→11:34)
[2016-10-18 03:10] VITALS: BP 157/77; TEMP 36.4
[2016-10-18] MEDS: POLYETHYLENE (MIRALAX) 17 GM PACK PO SCH ×2 (05:41→11:34)
[2016-10-18 07:30] VITALS: BP 137/77; PULSE 73; TEMP 36.4; O2SAT 97
[2016-10-18 07:38] LABS: HEMATOCRIT 37.3 % (42-52); MEAN CELL VOLUME 89.9 fL (80-100); MEAN CORPUSCULAR HEMOGLOBIN 31.1 pg (25-34); MEAN CORPUSCULAR HGB CONC 34.6 g/dl (32-36); MEAN PLATELET VOLUME 9.8 fL (7.4-10.4); PLATELET COUNT 170 K/uL (130-400); RED BLOOD COUNT 4.15 M/uL (4.7-6.1); WHITE BLOOD COUNT 16.88 K/uL (4.8-10.8)
[2016-10-18 08:11] LABS: CREATININE 1.1 mg/dl (0.60-1.40)
[2016-10-18] MEDS: OXYCODONE HCL 10 MG TABCR (OXYCONTIN) PO SCH (09:00)
[2016-10-18] MEDS: ENOXAPARIN 40 MG/0.4 ML SYR SQ SCH (09:10)
[2016-10-18] MEDS: LIDODERM (LIDOCAINE) PATCH 5% TD SCH (09:10)
[2016-10-18] MEDS: DOCUSATE SODIUM 100 MG CAP PO SCH (09:10)
--- NOTE | 2016-10-18 14:22 | Discharge Instructions ---
Discharge Instructions Date of Service Oct 18, 2016. Admission Reason for Admission: Back Pain Discharge Discharge Diagnosis / Problem: stenosis Discharge Goals Goal(s): Improve function Activity Recommendations Activity Limitations: per Instructions/Follow-up section . Instructions / Follow-Up Instructions / Follow-Up ACTIVITY RECOMMENDATIONS: SELF CARE INSTRUCTIONS AFTER THORACIC/LUMBAR FUSIONS 1. You may walk to your tolerance. It is good exercise for your legs and back. Expect some back and intermittent leg aches and pains. 2. You may perform "counter-top" level activities (make a sandwich, stacia with a project, etc.). 3. No bending or lifting of more than 10 pounds or back twisting of any nature (roll like a log when turning in bed). 4. You may ride in a car for 20-30 minutes at a time. No driving until after your first visit with your doctor. 5. Frequent changes of position and restricting sitting to 30 minutes at a time will help limit the amount of back spasms and stiffness you may experience. 6. You may discontinue the use of ambulatory aids (cane, crutches, etc.) once your strength and confidence allow. 7. You may knitting machine fixer head the shower and let water strike your incision when you arrive home at least once daily. Do not take a tub bath, sit in a hot tub or go into a swimming pool until after your first recheck in the office. SPECIAL CARE INSTRUCTIONS: VERY IMPORTANT TO READ AND REVIEW A. Your surgical incision has been closed with a cosmetic suture under the skin that will dissolve in about 6 weeks. In 14 days, you can use a pair of clean scissors and cut the suture that is left outside of the skin at the ends of your incision. 1. The small skin tapes can be removed 7 days after surgery if they have not fallen off by that point. 2. You may keep the wound open to air as much as possible to promote healing after post-op day number 5 unless told otherwise by your doctor. 3. If you think the wound looks like it is becoming infected (redness or worsening drainage) and/or you are experiencing fever, chill or worsening back pain and muscle spasms, contact the office so that we may evaluate you as soon as possible. B. Complications are uncommon, but please contact us if you have any signs or symptoms of: 1. wound infection (fever higher than 102.5 degrees F, redness, separation of wound, drainage, or increasing pain from the incision) 2. blood clots in legs (pain, swelling, redness and warmth in legs) 3. urinary tract infection (fever higher than 102.5 degrees F, burning upon urination or increased frequency of urination) 4. nerve problems (inability to walk on your toes or heels, numbness, loss of bowel or bladder control) 5. any other symptoms that concern you C. Please call the office at if you have any concerns or questions about your operation or recovery. D. No smoking! Smoking drastically decreases the chance of a solid fusion. E. Do not take any anti-inflammatory medications (Indocin, Advil, Motrin, Aspirin, Naprosyn, etc.) as these may inhibit the chance of a solid fusion. Tylenol is okay to take for pain. MANAGING PAIN AFTER SPINAL SURGERY 1. Narcotic medication is intended for short-term use and will be provided for surgical pain. Surgical pain usually lasts for a period of 4-6 weeks. Narcotic medication includes Percocet, Vicodin, Darvocet, Tylenol #3 or Lortab. 2. Longer-term pain is more appropriately treated with non-narcotic medication such as Tylenol ES. 3. Muscle spasm is not appropriately treated with narcotics. Muscle relaxers such as Soma, Flexeril or Skelaxin can be used along with Tylenol ES. 4. Remember that we all live with some "aches and pains". This is not unusual or uncommon after an injury or as we get older. a. Back pain is expected and may include muscle spasms for 4 to 6 weeks after surgery. The pain should gradually improve. If the pain worsens for no apparent reason, please contact the office. b. Intermittent leg pain may also be experienced and should not be concerned about unless it worsens for no apparent reason. If so, please contact the office. 5. We will provide appropriate medication within the normal guidelines of their prescribed use. We will also be very cautious and aware of potential abuse and extended duration of patients' medication needs. a. Pain medications are for your comfort and to assist with sleep and rest so that the tissue can heal. They are not provided in order to return to normal activity and should not be used through the day. To do so or worsening pain at night can result from ongoing tissue damage and development of tolerance to the prescribed medicine. 6. Please allow 2-3 days to process refills. Prescriptions will not be mailed but must be picked up at the office. FOLLOW UP VISIT: Keep your scheduled follow-up appointment. Any questions, please call the office at . Current Hospital Diet Patient's current hospital diet: Regular Diet Discharge Diet Recommended Diet: Regular Diet Procedures Procedures Performed: Decompression L3-L4 with In Situ Fusion Pending Studies Studies pending at discharge: no Medical Emergencies . Who to Call and When: Medical Emergencies: If at any time you feel your situation is an emergency, please call 911 immediately. . Non-Emergent Contact Non-Emergency issues call your: Primary Care Provider . "Provider Documentation" section prepared by Renny Magaña. . VTE Core Measure Inpt VTE Proph given/why not?: Rod Maldonado, SCD's
--- NOTE | 2016-10-18 14:27 | PROGRESS NOTE ---
DATE: 10/18/2016 DATE: 10/18/2016. SUBJECTIVE: Postop day 2. Back pain is controlled. Leg pain markedly improved. Vital signs stable. T-max 36.4. KADEEM drained 55 mL. Hematocrit this a.m. 37.3. OBJECTIVE: On exam, he is in chair at bedside. Has good strength to testing and appears comfortable. ASSESSMENT: Status post lumbar decompression and fusion. PLAN: At this time, we will allow him to go home today with home health. Discharge orders and instructions can be found on the chart for further review.
[2016-10-18 14:47] VITALS: BP 137/77; PULSE 73; TEMP 36.4; O2SAT 97
--- NOTE | 2016-10-18 15:54 | Progress Note ---
Internal Med Progress Note Date of Service: Oct 18, 2016. Provider Documentation: s/p back surgery 10/16/16 has some soreness at surgery site ambulating ok afebrile want to go home Exam; General-Alert and oriented ENT-normal hearing Neck-no neck masses Lungs-cta b/l no wheezing or crackles Heart-s1 and s2 heard regular rate and rhythm no murmurs Abdomen-soft bowel sounds present non tender no distension Extremities-no edema no erythema Musculoskeletal s/p back surgery dressing and drain intact Neuro-Alert and oriented moves extremities ASSESSMENT & PLAN: 1. Intractable back pain w/ L radiculopathy sx history of back surgery () MRI shows arachnoiditis and L3-4 stenosis s/p back surgery and fusion at L3 and L4 management as per ortho. pt/ot stable 2. Prostate cancer, status post radiation. 3. Chronic anemia, hemoglobin at baseline. will f/u labs.hb 12.9 today 4. Past tobacco abuse DVT PROPHYLAXIS scds DISPOSITION possible d/c today with home health Vital Signs: Date Time Temp Pulse Resp B/P Pulse Ox O2 Delivery O2 Flow Rate FiO2 10/18/16 14:47 36.4 73 18 97 Room Air 10/18/16 07:30 36.4 73 18 137/77 97 Room Air 10/18/16 07:25 Room Air 10/18/16 03:10 36.4 157/77 10/17/16 23:30 Room Air 10/17/16 23:23 36.3 74 17 128/75 98 Room Air 10/17/16 16:11 36.9 76 16 130/74 93 Room Air 10/17/16 16:00 93 Room Air Lab Results: Results Past 24 Hours Test 10/18/16 03:15 10/18/16 07:04 Range/Units Bedside Glucose 114 70-99 mg/dl White Blood Count 16.88 4.8-10.8 K/uL Red Blood Count 4.15 4.7-6.1 M/uL Hemoglobin 12.9 14.0-18.0 g/dL Hematocrit 37.3 42-52 % Mean Corpuscular Volume 89.9 80-100 fL Mean Corpuscular Hemoglobin 31.1 25-34 pg Mean Corpuscular Hemoglobin Concent 34.6 32-36 g/dl RDW Standard Deviation 44.6 36.4-46.3 fL RDW Coefficient of Variation 13.5 11.5-14.5 % Platelet Count 170 130-400 K/uL Mean Platelet Volume 9.8 7.4-10.4 fL Creatinine 1.10 0.60-1.40 mg/dl Est Creatinine Clear Calc Drug Dose 61.4 ml/min Estimated GFR () 72.1 Estimated GFR (Non- 62.2
--- NOTE | 2016-10-18 18:17 | Discharge Summary ---
Discharge Summary Date of Service Oct 18, 2016. Discharge Summary Admission Date: Oct 16, 2016 at 11:19 Discharge Date: Oct 18, 2016 Discharge Disposition: Home with services Principal Diagnosis: SEVERE BACK PAIN S/P BACK SURGERY Secondary Diagnoses/Problems: prostate cancer sp radiation, past tobacco abuse, history of back surgery, chronic anemia (baseline Hg 13) Procedures: LOWER EXTREMITY US: No DVT within the left lower extremity. LUMBAR SPINE MRI: 1. Postsurgical changes at the L4-5 level. 2. Marked clumping of the nerve roots of the cauda equina, a finding consistent with arachnoiditis 3. Multiple levels spondylitic change with mild spinal stenosis at the L1-2 and L2-3 levels, and moderate spinal stenosis at the L3-4 level. Consultations: ORTHOPEDICS Medication Reconciliation Continued Medications: Chlorzoxazone (Parafon Forte Dsc) 500 Mg Tab 500 MG PO HS, TAB Cholecalciferol (Vitamin D3) 5,000 Unit Cap 5000 UNITS PO DAILY Krill Oil (Krill Oil) 1 Cap Cap 1 CAP PO DAILY ACTIVE JOINT PLUS WITH KRILL OIL Methylprednisolone (Medrol) 4 Mg Tab 4 MG PO DIRECTED TAKE AFTER FOOD Milk Thistle (Silybum Marianum (Milk Thistle) Unknown Strength Cap 1 DOSE PO DAILY SILIPHOS MILKTHISTLE Oxycodone/Acetaminophen 5MG/325MG (Percocet 5MG/325MG) Tab 1 TABLET PO QID PRN for Breakthrough Pain PAIN [Mosoglycan] () 1 TAB PO DAILY Discontinued Medications: Oxycodone HCl (Oxycontin) 10 Mg Tabcr 10 MG PO Q12 Admission Information HPI (per Admitting provider): Medical history significant for prostate cancer sp radiation, past tobacco abuse, history of back surgery, chronic anemia (baseline Hg 13) In the last month, px noted progressive achy low back pain radiating to the left leg, some numbness. No fever, no chills. Intentional weight loss. no incontinence. no recent trauma. Worsening symptoms in the last few days. Seen at the ER a few days ago. A lumbar spine CT showed no fracture or subluxation, degenerative changes, severe central canal narrowing, L3-L4, with broad based posterior disc bulge. Patient discharged home. Patient started outpatient narcotics, steroids, minimal relief. Outpatient [facility] [place] nurse practitioner physicians assistant referral next month. Intractable pain last night. Patient brought by son to Emergency Room. Legs somewhat swollen too. Physical Exam (per Admitting): VITAL SIGNS: Blood pressure was noted to be 138/77, pulse rate 58, RR 17, temperature 36.6, sats 98 on room air. GENERAL: Noted to be obese, uncomfortable, no respiratory distress. SKIN: Pallor. HEENT: Pale palpebral conjunctivae. Dry mucosa. NECK: Short neck. LUNGS: Clear to auscultation. HEART: Bradycardic. ABDOMEN: Soft. BACK: Tenderness of low back. SLR negative. EXTREMITIES: Bilateral lower extremity edema. no tenderness NEUROLOGIC: No gross focality. Hospital Course 1. Intractable back pain w/ L radiculopathy sx history of back surgery () MRI shows arachnoiditis and L3-4 stenosis s/p back surgery and fusion at L3 and L4 management as per ortho. pt/ot stable 2. Prostate cancer, status post radiation. 3. Chronic anemia, hemoglobin at baseline. will f/u labs.hb 12.9 today 4. Past tobacco abuse DVT PROPHYLAXIS scds DISPOSITION possible d/c today with home health Total time spent on discharge = 30MINUTES This includes examination of the patient, discharge planning, medication reconciliation, and communication with other providers. Discharge Instructions Discharge Instructions Date of Service Oct 18, 2016. Admission Reason for Admission: Back Pain Discharge Discharge Diagnosis / Problem: stenosis Discharge Goals Goal(s): Improve function Activity Recommendations Activity Limitations: per Instructions/Follow-up section . Instructions / Follow-Up Instructions / Follow-Up ACTIVITY RECOMMENDATIONS: SELF CARE INSTRUCTIONS AFTER THORACIC/LUMBAR FUSIONS 1. You may walk to your tolerance. It is good exercise for your legs and back. Expect some back and intermittent leg aches and pains. 2. You may perform "counter-top" level activities (make a sandwich, stacia with a project, etc.). 3. No bending or lifting of more than 10 pounds or back twisting of any nature (roll like a log when turning in bed). 4. You may ride in a car for 20-30 minutes at a time. No driving until after your first visit with your doctor. 5. Frequent changes of position and restricting sitting to 30 minutes at a time will help limit the amount of back spasms and stiffness you may experience. 6. You may discontinue the use of ambulatory aids (cane, crutches, etc.) once your strength and confidence allow. 7. You may systems design engineer the shower and let water strike your incision when you arrive home at least once daily. Do not take a tub bath, sit in a hot tub or go into a swimming pool until after your first recheck in the office. SPECIAL CARE INSTRUCTIONS: VERY IMPORTANT TO READ AND REVIEW A. Your surgical incision has been closed with a cosmetic suture under the skin that will dissolve in about 6 weeks. In 14 days, you can use a pair of clean scissors and cut the suture that is left outside of the skin at the ends of your incision. 1. The small skin tapes can be removed 7 days after surgery if they have not fallen off by that point. 2. You may keep the wound open to air as much as possible to promote healing after post-op day number 5 unless told otherwise by your doctor. 3. If you think the wound looks like it is becoming infected (redness or worsening drainage) and/or you are experiencing fever, chill or worsening back pain and muscle spasms, contact the office so that we may evaluate you as soon as possible. B. Complications are uncommon, but please contact us if you have any signs or symptoms of: 1. wound infection (fever higher than 102.5 degrees F, redness, separation of wound, drainage, or increasing pain from the incision) 2. blood clots in legs (pain, swelling, redness and warmth in legs) 3. urinary tract infection (fever higher than 102.5 degrees F, burning upon urination or increased frequency of urination) 4. nerve problems (inability to walk on your toes or heels, numbness, loss of bowel or bladder control) 5. any other symptoms that concern you C. Please call the office at if you have any concerns or questions about your operation or recovery. D. No smoking! Smoking drastically decreases the chance of a solid fusion. E. Do not take any anti-inflammatory medications (Indocin, Advil, Motrin, Aspirin, Naprosyn, etc.) as these may inhibit the chance of a solid fusion. Tylenol is okay to take for pain. MANAGING PAIN AFTER SPINAL SURGERY 1. Narcotic medication is intended for short-term use and will be provided for surgical pain. Surgical pain usually lasts for a period of 4-6 weeks. Narcotic medication includes Percocet, Vicodin, Darvocet, Tylenol #3 or Lortab. 2. Longer-term pain is more appropriately treated with non-narcotic medication such as Tylenol ES. 3. Muscle spasm is not appropriately treated with narcotics. Muscle relaxers such as Soma, Flexeril or Skelaxin can be used along with Tylenol ES. 4. Remember that we all live with some "aches and pains". This is not unusual or uncommon after an injury or as we get older. a. Back pain is expected and may include muscle spasms for 4 to 6 weeks after surgery. The pain should gradually improve. If the pain worsens for no apparent reason, please contact the office. b. Intermittent leg pain may also be experienced and should not be concerned about unless it worsens for no apparent reason. If so, please contact the office. 5. We will provide appropriate medication within the normal guidelines of their prescribed use. We will also be very cautious and aware of potential abuse and extended duration of patients' medication needs. a. Pain medications are for your comfort and to assist with sleep and rest so that the tissue can heal. They are not provided in order to return to normal activity and should not be used through the day. To do so or worsening pain at night can result from ongoing tissue damage and development of tolerance to the prescribed medicine. 6. Please allow 2-3 days to process refills. Prescriptions will not be mailed but must be picked up at the office. FOLLOW UP VISIT: Keep your scheduled follow-up appointment. Any questions, please call the office at . Current Hospital Diet Patient's current hospital diet: Regular Diet Discharge Diet Recommended Diet: Regular Diet Procedures Procedures Performed: Decompression L3-L4 with In Situ Fusion Pending Studies Studies pending at discharge: no Medical Emergencies . Who to Call and When: Medical Emergencies: If at any time you feel your situation is an emergency, please call 911 immediately. . Non-Emergent Contact Non-Emergency issues call your: Primary Care Provider . "Provider Documentation" section prepared by Renny Magaña. . VTE Core Measure Inpt VTE Proph given/why not?: Rod Maldonado, ANA's
== END 2016-10-18 17:15 | disposition home or self-care (01) | DRG 459 ==
LOC: ENRESERVDT → ENRESERVTM → C.EDB 03:06 → C.MSN 06:24 → OBSVTOIN 10-16 11:19
PROVIDERS: ADMIT Internal Medicine; ATTEND Internal Medicine
PROC: 0SG00J1 Fusion of Lumbar Vertebral Joint with Synthetic Substitute, Posterior Approach, Posterior Column, Open Approach (ICD-10-PCS; principal; 2016-10-16 07:30)
DX: M48.06 Spinal stenosis, lumbar region (principal); G03.9 Meningitis, unspecified; C61 Malignant neoplasm of prostate; Z92.3 Personal history of irradiation; Z87.891 Personal history of nicotine dependence; D64.9 Anemia, unspecified

== ENCOUNTER 2018-07-11 13:16 | Inpatient (IN) ==
[2018-07-11] MEDS: MoRPHine SULFATE 4 MG/ML 1 ML CARP\\VIAL IV PRN ×3 (13:35→14:27)
--- NOTE | 2018-07-11 13:42 | Emergency Department Note ---
Entered by Dionne Abarca acting as a scribe for Lamberto Lopez DO History of Present Illness General Chief complaint: Fall Stated complaint: fall/ neck, back pain Time Seen by Provider: 07/11/18 13:19 Source: patient and family Mode of arrival: EMS Limitations: no limitations History of Present Illness Onset (ago): hour(s) 1 Radiation: non-radiation Pain Consistency: + now resolved Relieved By: + none Exacerbated By: + none Associated symptoms: + other (+neck pain, +low back pain, -LOC); no headaches The patient is an 83 year old male who presents to the Emergency Room with complaints of a fall that occurred [employer]. He was brought to the ED via EMS and is accompanied by his . She is unsure if the patient lost consciousness during the incident but notes he has experienced some memory loss and keeps asking her the same questions. He denies any headache but complains of neck pain and low back pain. His pain is worse with movement. EMS gave him 50 mg of Fentanyl, 4 Zofran and 250 of NSS in the field. The patient denies any knee pain or leg pain. His notes he did undergo back surgery about 1 year ago and broke his collarbone a few months ago. The patient does have a history of a previous brain bleed several years ago. Home Medications Home Medications Medication Instructions Recorded Confirmed Type cholecalciferol (vitamin D3) 5,000 unit PO QAM 07/11/18 07/11/18 History [Vitamin D3] ibuprofen 600 mg PO QID PRN 07/11/18 07/11/18 History axgmy-cv-[id number]-[id number]-ast 1 cap PO QAM 07/11/18 07/11/18 History [krill oil] milk thistle 150 mg PO QAM 07/11/18 07/11/18 History Allergies Allergy/AdvReac Type Severity Reaction Status Date / Time iodine Allergy Mild HIVES/ITCHI Verified 07/11/18 14:09 NG amoxicillin [From Augmentin] AdvReac Unknown diarrhea Verified 07/11/18 17:23 clavulanic acid AdvReac Unknown diarrhea Verified 07/11/18 17:23 [From Augmentin] Past Med/Surg History Medical History COPD (chronic obstructive pulmonary disease) H/O intracranial hemorrhage H/O: CVA (cerebrovascular accident) Multiple falls Prostate cancer (Chronic) s/p XRT only Surgical History Previous back surgery Family History Other No pertinent family history Social History Current Living Situation: Spouse Other Information That Helps Us Care for You: No Feels Safe at Home: Yes Safety Concerns: Feels Safe At This Time Smoking Status: Former smoker Tobacco Type: cigarettes Cigarettes per Day: 10 Do You Dip or Chew Tobacco: Yes Smoking End Date: 1959 Second Hand Exposure: No Tobacco Cessation Education Requested by Patient: No Hx Alcohol Use: No Hx Substance Use: No Beliefs That Will Affect Care: None Preferred Language: [place] Communication Ability: Effective Cleaning Porter Required: No Review of Systems See HPI for pertinent positives & negatives. and A total of 10 systems reviewed and were otherwise negative Physical Exam Vital Signs Vital Signs - 24 hr 07/11/18 13:40 07/11/18 14:08 07/11/18 14:28 Temperature 36.4 C L Temperature Source Oral Sepsis Recent Fever Within 48 Hours No Sepsis New/Unexplained Change in Mental Status No Sepsis Action Taken by Nursing No Action Required Pulse Rate 73 Pulse Rate [Apical] 81 78 Pulse Rhythm [Apical] Pulse Strength [Apical] Respiratory Rate 20 20 18 Respiratory Effort / Characteristics Non-Labored Spontaneous Respiratory Depth Normal Respiratory Pattern Regular Blood Pressure 133/67 Blood Pressure [Right Arm] 138/65 136/78 Blood Pressure Mean 89 Blood Pressure Mean [Right Arm] 89 97 Blood Pressure Position Lying Blood Pressure Position [Right Arm] Lying Lying Pulse Oximetry 97 99 95 Oxygen Delivery Method Room Air Nasal Cannula Nasal Cannula Oxygen Flow Rate 2 2 07/11/18 16:05 07/11/18 16:15 07/11/18 17:00 Temperature 36.6 C Temperature Source Oral Sepsis Recent Fever Within 48 Hours Sepsis New/Unexplained Change in Mental Status Sepsis Action Taken by Nursing Pulse Rate Pulse Rate [Apical] 73 70 Pulse Rhythm [Apical] Regular Pulse Strength [Apical] Normal Respiratory Rate 14 18 Respiratory Effort / Characteristics Non-Labored Spontaneous Respiratory Depth Normal Respiratory Pattern Regular Blood Pressure Blood Pressure [Right Arm] 128/65 121/75 Blood Pressure Mean Blood Pressure Mean [Right Arm] 86 90 Blood Pressure Position Blood Pressure Position [Right Arm] Lying Pulse Oximetry 99 96 Oxygen Delivery Method Nasal Cannula Nasal Cannula Room Air Oxygen Flow Rate 3 3 GENERAL: The patient is awake and alert. He appears to be very uncomfortable and anxious. He appears to be in very significant pain. EYES: The conjunctivae are clear. The pupils are round and reactive. EARS, NOSE, MOUTH AND THROAT: The nose is without any evidence of any deformity. Mucous membranes are moist tongue is midline NECK: The neck is nontender and supple. RESPIRATORY: Normal respiratory effort is noted there is no evidence of wheezing rhonchi or rales CARDIOVASCULAR: Regular rate and rhythm noted there no murmurs rubs or gallops normal S1 normal S2 GASTROINTESTINAL: The abdomen is soft. Bowel sounds are present in all quadrants. Abdomen is nontender Back: There is significant midline tenderness noted to palpation in the lower lumbar spine. Any range of motion testing elicits very significant pain. There is no step-off. There is no thoracic tenderness to palpation. MUSCULOSKELETAL/EXTREMITIES: There is no evidence of gross deformity full range of motion is noted in the hips and shoulders SKIN: There is no obvious evidence of any rash. There is trace pedal edema bilaterally. NEUROLOGIC: Patient is awake alert and oriented x3 strength is symmetric patellar reflexes are 1+ bilaterally Course 1325: Past medical records reviewed. The patient was evaluated in room C2, and a complete history and physical examination were performed. 1538: I reevaluated the patient. He is still having pain and cannot ambulate on his own. I discussed my recommendation he remain in the hospital for further evaluation and management and he verbalized complete understanding and agreement. 1745: I discussed the patients case with Te Phan. The patient will be further evaluated. Consultations Consultation #1: I discussed the patients case with Te Phan. The patient will be further evaluated. Time: 17:45 Administered Medications Discontinued Medications Ketorolac Tromethamine (Toradol) 15 mg IV ONE STA Stop: 07/11/18 17:03 Last Admin: 07/11/18 17:25 Dose: 15 mg Morphine Sulfate (Morphine Sulfate) 4 mg IV Q15M PRN PRN Reason: Pain Stop: 07/25/18 13:30 Last Admin: 07/11/18 14:27 Dose: 4 mg Admin: 07/11/18 14:06 Dose: 4 mg Admin: 07/11/18 13:35 Dose: 4 mg Medical Decision Making Differential Diagnosis Differential diagnoses include major intracranial, cervical, spinal, thoracic, abdominal, pelvic and neurologic injury. Fracture, contusion, sprain, strain, laceration, abrasions included as well. Medical Records Attestation: I reviewed the patient's medical records. Home Medications Current Medication List: was personally reviewed by me Laboratory Data Attestation: I reviewed the patient's lab results. Result diagrams: 07/11/18 14:29 07/11/18 14:29 Lab Results 07/11/18 07/11/18 07/11/18 Range/Units 14:29 14:29 14:29 WBC 11.37 H (4.8-10.8) K/uL RBC 4.40 L (4.7-6.1) M/uL Hgb 13.5 L (14.0-18.0) g/dL Hct 39.4 L (42-52) % MCV 89.5 (80-100) fL MCH 30.7 (25-34) pg MCHC 34.3 (32-36) g/dL RDW Std Deviation 41.8 (36.4-46.3) fL RDW Coeff of Ness 12.9 (11.5-14.5) % Plt Count 199 (130-400) K/uL MPV 9.9 (7.4-10.4) fL Immature Gran % (Auto) 0.4 % Neut % (Auto) 68.8 % Lymph % (Auto) 22.9 % [place] % (Auto) 7.4 % Eos % (Auto) 0.4 % Baso % (Auto) 0.1 % Immature Gran # (Auto) 0.05 H (0.00-0.02) K/uL Neut # (Auto) 7.83 H (1.4-6.5) K/uL Lymph # (Auto) 2.60 (1.2-3.4) K/uL [place] # (Auto) 0.84 H (0.11-0.59) K/uL Eos # (Auto) 0.04 (0-0.5) K/uL Baso # (Auto) 0.01 (0-0.2) K/uL PT 10.6 (9.0-12.0) Seconds INR 1.1 (0.9-1.1) Sodium 136 (136-145) mmol/L Potassium 3.8 (3.5-5.1) mmol/L Chloride 103 (98-107) mmol/L Carbon Dioxide 23 (21-32) mmol/L Anion Gap 10.0 (3-11) BUN 26 H (7-18) mg/dl Creatinine 1.05 (0.6-1.4) mg/dl Est Cr Clr Drug Dosing 65.0 ml/min Est GFR ( Amer) 75.2 Est GFR (Non-Af Amer) 64.9 BUN/Creatinine Ratio 24.3 H (10-20) Glucose 111 H (70-99) mg/dl Calcium 9.0 (8.5-10.1) mg/dl Total Bilirubin 0.3 (0.2-1) mg/dl AST 24 (15-37) U/L ALT 34 (12-78) U/L Alkaline Phosphatase 69 (45-117) U/L Troponin I 0.048 H* (0-0.045) ng/ml Total Protein 7.4 (6.4-8.2) gm/dl Albumin 3.8 (3.4-5.0) gm/dl Globulin 3.6 (2.5-4.0) gm/dl Albumin/Globulin Ratio 1.0 (0.9-2) Lipase 93 (73-393) U/L Imaging Data Radiologist's Impression: Radiology results as stated below per my review and the radiologist's interpretation: SINGLE VIEW PELVIS CLINICAL HISTORY: Fall. FINDINGS: An AP, portable, supine view of the pelvis is correlated with pelvic CT dated 07/13/2012. The skeletal structures are osteopenic. There is no radiographic evidence of fracture involving the hips or bony pelvis. Mild arthritic change and joint space narrowing is seen in the hips. Small enthesophytes arise from the anterior superior iliac spines. Mild degenerative sclerosis is seen in the sacroiliac joints. Lumbosacral spondylosis is partially visualized. The overlying soft tissues are normal in appearance. IMPRESSION: Osteopenia with no radiographic evidence of acute fracture. Electronically signed by: Claus Bowden M.D. 07/11/2018 2:[address] OF THE LUMBAR SPINE WITHOUT CONTRAST CLINICAL HISTORY: Fall. COMPARISON STUDY: Lumbar spine CT T. October 05 2016 and lumbar spine MRI October 15, 2016. TECHNIQUE: Axial images of the lumbar spine were obtained without IV contrast. Sagittal and coronal reconstructions were viewed. Study was performed utilizing automated exposure control for dose reduction and according to ALARA principles. FINDINGS: Alignment of the lumbar spine is anatomic. No acute fracture is identified. Vertebral body heights are maintained. There is marked disc space narrowing at L4-L5. There is moderate disc space narrowing at L3-L4. Posterior decompression at the L3-L4 level is noted. Central canal and neural foramen are suboptimally assessed by CT. There is moderate to severe multilevel facet arthrosis. Extensive anterior osteophytosis. Paravertebral soft tissues are unremarkable. Sacroiliac joints are intact. IMPRESSION: 1. No acute lumbar spine fracture or subluxation. 2. L3-L4 decompression. 3. Moderate to severe multilevel degenerative disc disease and facet arthrosis. Electronically signed by: Lupillo Wagner M.D. 07/11/2018 3:[address] OF THE LUMBAR SPINE WITHOUT CONTRAST CLINICAL HISTORY: Fall. COMPARISON STUDY: Lumbar spine CT T. October 05 2016 and lumbar spine MRI October 15, 2016. TECHNIQUE: Axial images of the lumbar spine were obtained without IV contrast. Sagittal and coronal reconstructions were viewed. Study was performed utilizing automated exposure control for dose reduction and according to ALARA principles. FINDINGS: Alignment of the lumbar spine is anatomic. No acute fracture is identified. Vertebral body heights are maintained. There is marked disc space narrowing at L4-L5. There is moderate disc space narrowing at L3-L4. Posterior decompression at the L3-L4 level is noted. Central canal and neural foramen are suboptimally assessed by CT. There is moderate to severe multilevel facet arthrosis. Extensive anterior osteophytosis. Paravertebral soft tissues are unremarkable. Sacroiliac joints are intact. IMPRESSION: 1. No acute lumbar spine fracture or subluxation. 2. L3-L4 decompression. 3. Moderate to severe multilevel degenerative disc disease and facet arthrosis. Electronically signed by: Lupillo Wagner M.D. 07/11/2018 3:07 PM SINGLE VIEW CHEST CLINICAL HISTORY: Fall. FINDINGS: An AP, portable, supine chest radiograph is compared to study dated and correlated with chest CT dated 06/13/2018. The examination is significantly degraded by portable technique and patient rotation. The heart is enlarged and there is atherosclerotic calcification of the thoracic aorta. There is pulmonary vascular congestion. Chronic interstitial thickening is similar to previous. Airspace opacities are present at both lung bases. No large pleural effusion or pneumothorax is seen. The skeletal structures are osteopenic. The bony thorax is grossly intact. Degenerative change is noted in the shoulders and thoracic spine. IMPRESSION: 1. Cardiomegaly with mild pulmonary vascular congestion. 2. There are dependent bibasilar airspace opacities which likely represent atelectasis. Correlate clinically for evidence of a superimposed infectious/ inflammatory pneumonitis. Electronically signed by: Claus Bowden M.D. 07/11/2018 2:[address] SCAN OF THE CERVICAL SPINE CLINICAL HISTORY: Fall. COMPARISON STUDY: CT scan of the cervical spine dated 06/13/2018. TECHNIQUE: CT scan of the cervical spine is performed from the skull base to the upper thoracic spine. Images are reviewed in the axial, sagittal, and coronal planes. IV contrast was not administered for this examination. A dose lowering technique was utilized adhering to the principles of ALARA. CT DOSE: 1123.95 mGy.cm FINDINGS: Skeletal structures: The skeletal structures are osteopenic. There is no evidence of fracture or subluxation involving the cervical spine. Vertebral body height and alignment are maintained. The odontoid process and lateral masses are intact. The atlantoaxial articulation is preserved noting advanced productive degenerative change. The spinous processes appear intact. Degenerative sclerosis is seen at C3-C4. Mild multilevel facet arthropathy is noted. Intervertebral discs: There is advanced disc space narrowing seen at C3-C4, C5- C6, and C6-C7. Central canal: Posterior discussed by complexes at C3-C4, C5-C6, and C6-C7 likely contribute to multilevel acquired compromise of the central canal. Soft tissues: The prevertebral and paraspinous soft tissues are within normal limits. There is atherosclerotic calcification of the carotid bulbs. Calvarium: The visualized calvarium at the skull base appears intact. Brain parenchyma: Partially visualized brain parenchyma the skull base is within normal limits. Sinuses and mastoids: The visualized paranasal sinuses are clear. The mastoid air cells are well pneumatized. Lung apices: Clear as visualized. IMPRESSION: 1. There is no evidence of fracture or subluxation involving the cervical spine. 2. Osteopenia and degenerative change as above. Electronically signed by: Claus Bowden M.D. 07/11/2018 2:57 PM ECG Data Attestation: I personally reviewed and interpreted this ECG as follows: Indication: weakness Rate (beats per minute): 70 Rhythm: normal sinus Findings: + other (No acute ST segments) and + PVC Comparison ECG Date: from (06/13/2018) Change: no significant change Blood Pressure Blood Pressure Findings: Elevated blood pressure Blood Pressure Disposition: Referred to patients primary care provider MDM Narrative The patient is an 83-year-old male who presented to the emergency department after a fall. The patient presented to the emergency department with cervical spine immobilization in place. He was very uncomfortable and complained about the cervical collar so this was removed at his request. The patient did not have any specific midline tenderness. He had no radiographic findings consistent with cervical spine fracture. The patient's is very concerned because the patient had a very significant fall and had severe back pain afterwards. I discussed the patient's laboratory and radiographic studies with him. He was treated with multiple doses of IV pain medication but still had very severe pain. For this reason I discussed his case with the on-call [facility] hospitalist. They have agreed to evaluate the patient in the emergency department for further management and disposition. Impression & Plan Fall, Head injury, Lumbar contusion, Cervical strain Discharge Plan Visit Data *Final* Discharge Date/Time: 07/11/18 16:15 Chief Complaint: Fall Stated Complaint: fall/ neck, back pain ED Provider: Lamberto Lopez Discharge Problem: Fall, Head injury, Lumbar contusion, Cervical strain Patient Disposition: Admitted As Inpatient Discharge Instructions Interventions: ED Discharge Assessment Last Done: 07/11/18 16:15 The scribe's documentation has been prepared under my direction and personally reviewed by me in its entirety. I confirm that the note above accurately reflects all work, treatment, procedures, and medical decision making performed by me.
--- NOTE | 2018-07-11 14:27 | XRay Report ---
SINGLE VIEW PELVIS CLINICAL HISTORY: Fall. FINDINGS: An AP, portable, supine view of the pelvis is correlated with pelvic CT dated 07/13/2012. Th e skeletal structures are osteopenic. There is no radiographic evidence of fracture involving the hip s or bony pelvis. Mild arthritic change and joint space narrowing is seen in the hips. Small enthesop hytes arise from the anterior superior iliac spines. Mild degenerative sclerosis is seen in the sacro iliac joints. Lumbosacral spondylosis is partially visualized. The overlying soft tissues are normal in appearance. IMPRESSION: Osteopenia with no radiographic evidence of acute fracture. Electronically signed by: Claus Bowden M.D. 07/11/2018 2:26 PM
--- NOTE | 2018-07-11 14:29 | XRay Report ---
SINGLE VIEW CHEST CLINICAL HISTORY: Fall. FINDINGS: An AP, portable, supine chest radiograph is compared to study dated 10/15/2016 and correlate d with chest CT dated 06/13/2018. The examination is significantly degraded by portable technique and patient rotation. The heart is enlarged and there is atherosclerotic calcification of the thoracic aorta. There is pulmonary vascular congestion. Chronic interstitial thickening is similar to previous . Airspace opacities are present at both lung bases. No large pleural effusion or pneumothorax is see n. The skeletal structures are osteopenic. The bony thorax is grossly intact. Degenerative change is noted in the shoulders and thoracic spine. IMPRESSION: 1. Cardiomegaly with mild pulmonary vascular congestion. 2. There are dependent bibasilar airspace opacities which likely represent atelectasis. Correlate cli nically for evidence of a superimposed infectious/inflammatory pneumonitis. Electronically signed by: Claus Bowden M.D. 07/11/2018 2:28 PM
[2018-07-11 14:37] LABS: Basophils # (auto) 0.01 K/uL (0-0.2); Basophils % (auto) 0.1 %; Eosinophils # (auto) 0.04 K/uL (0-0.5); Eosinophils % (auto) 0.4 %; Hematocrit (blood only) 39.4 % (42-52); Hemoglobin 13.5 g/dL (14.0-18.0); Immature Granulocytes # (auto) 0.05 K/uL (0.00-0.02); Immature Granulocytes % (auto) 0.4 %; Lymphocytes % (auto) 22.9 %; Mean Corpuscular Hgb Conc 34.3 g/dL (32-36); Mean Corpuscular Volume 89.5 fL (80-100); Mean Platelet Volume 9.9 fL (7.4-10.4); Monocytes # (auto) 0.84 K/uL (0.11-0.59); Monocytes % (auto) 7.4 %; Neutrophils # (auto) 7.83 K/uL (1.4-6.5); Neutrophils % (auto) 68.8 %; Platelet Count 199 K/uL (130-400); RDW Coefficient of Variation 12.9 % (11.5-14.5); RDW Standard Deviation 41.8 fL (36.4-46.3); White Blood Count 11.37 K/uL (4.8-10.8)
--- NOTE | 2018-07-11 14:52 | CT Scan Report ---
CT SCAN OF THE BRAIN WITHOUT IV CONTRAST CLINICAL HISTORY: Fall. COMPARISON STUDY: CT of the brain dated 06/13/2018. TECHNIQUE: Unenhanced axial CT scan of the brain is performed from the vertex to the skull base. A do se lowering technique was utilized adhering to the principles of ALARA. FINDINGS: Brain parenchyma: Foci of right frontal, temporal, and parietal encephalomalacia are unchanged and co nsistent with remote infarcts. A chronic lacunar infarct is seen in the left caudate head. There are age-related involutional changes noting mild to moderate subcortical and periventricular microangiop athic change. There is no hemorrhage, mass effect, or evidence of acute territorial ischemia by CT cr iteria. Mendez-white matter differentiation is preserved. No extra-axial fluid collection is seen. Ventricles, sulci, cisterns: Prominent secondary to involutional change. Intracranial vasculature: There is atherosclerotic calcification of the cavernous carotid and vertebr al arteries. Calvarium: The skeletal structures are osteopenic. There is no depressed calvarial fracture. Sinuses and mastoids: The visualized paranasal sinuses are clear. The mastoid air cells are well pneu matized. Orbits: The bony orbits are grossly intact. There are bilateral ocular lens implants. IMPRESSION: Senescent change and remote infarcts as above. There is no hemorrhage, mass effect, or ev idence of acute territorial ischemia by CT criteria. Electronically signed by: Claus Bowden M.D. 07/11/2018 2:51 PM
[2018-07-11 14:54] LABS: Albumin Level 3.8 gm/dl (3.4-5.0); BUN Creatinine Ratio 24.3 (10-20); Est GFR (African American) 75.2; Est GFR (Non-African American) 64.9; Potassium 3.8 mmol/L (3.5-5.1)
[2018-07-11 14:58] LABS: INR 1.1 (0.9-1.1); Prothrombin Time 10.6 Seconds (9.0-12.0)
--- NOTE | 2018-07-11 14:59 | CT Scan Report ---
CT SCAN OF THE CERVICAL SPINE CLINICAL HISTORY: Fall. COMPARISON STUDY: CT scan of the cervical spine dated 06/13/2018. TECHNIQUE: CT scan of the cervical spine is performed from the skull base to the upper thoracic spine . Images are reviewed in the axial, sagittal, and coronal planes. IV contrast was not administered fo r this examination. A dose lowering technique was utilized adhering to the principles of ALARA. CT DOSE: 1123.95 mGy.cm FINDINGS: Skeletal structures: The skeletal structures are osteopenic. There is no evidence of fracture or subl uxation involving the cervical spine. Vertebral body height and alignment are maintained. The odonto id process and lateral masses are intact. The atlantoaxial articulation is preserved noting advanced productive degenerative change. The spinous processes appear intact. Degenerative sclerosis is seen a t C3-C4. Mild multilevel facet arthropathy is noted. Intervertebral discs: There is advanced disc space narrowing seen at C3-C4, C5-C6, and C6-C7. Central canal: Posterior discussed by complexes at C3-C4, C5-C6, and C6-C7 likely contribute to multi level acquired compromise of the central canal. Soft tissues: The prevertebral and paraspinous soft tissues are within normal limits. There is athero sclerotic calcification of the carotid bulbs. Calvarium: The visualized calvarium at the skull base appears intact. Brain parenchyma: Partially visualized brain parenchyma the skull base is within normal limits. Sinuses and mastoids: The visualized paranasal sinuses are clear. The mastoid air cells are well pneu matized. Lung apices: Clear as visualized. IMPRESSION: 1. There is no evidence of fracture or subluxation involving the cervical spine. 2. Osteopenia and degenerative change as above. Electronically signed by: Claus Bowden M.D. 07/11/2018 2:57 PM
--- NOTE | 2018-07-11 15:09 | CT Scan Report ---
CT OF THE LUMBAR SPINE WITHOUT CONTRAST CLINICAL HISTORY: Fall. COMPARISON STUDY: Lumbar spine CT T. October 05 2016 and lumbar spine MRI October 15, 2016. TECHNIQUE: Axial images of the lumbar spine were obtained without IV contrast. Sagittal and coronal r econstructions were viewed. Study was performed utilizing automated exposure control for dose reducti on and according to ALARA principles. FINDINGS: Alignment of the lumbar spine is anatomic. No acute fracture is identified. Vertebral body heights are maintained. There is marked disc space narrowing at L4-L5. There is moderate disc space n arrowing at L3-L4. Posterior decompression at the L3-L4 level is noted. Central canal and neural fora men are suboptimally assessed by CT. There is moderate to severe multilevel facet arthrosis. Extensiv e anterior osteophytosis. Paravertebral soft tissues are unremarkable. Sacroiliac joints are intact. IMPRESSION: 1. No acute lumbar spine fracture or subluxation. 2. L3-L4 decompression. 3. Moderate to severe multilevel degenerative disc disease and facet arthrosis. Electronically signed by: Lupillo Wagner M.D. 07/11/2018 3:07 PM
[2018-07-11 15:16] LABS: Bilirubin,Total 0.3 mg/dl (0.2-1); Globulin 3.6 gm/dl (2.5-4.0); Total Protein 7.4 gm/dl (6.4-8.2); Troponin I 0.048 ng/ml (0-0.045)
[2018-07-11] MEDS ORDERED: MoRPHine SULFATE 4 MG/ML 1 ML CARP\\VIAL IV PRN (15:55)
[2018-07-11] MEDS ORDERED: ACETAMINOPHEN 325 MG TAB PO PRN (15:55)
[2018-07-11] MEDS ORDERED: POLYETHYLENE (MIRALAX) 17 GM PACK PO PRN (15:55)
[2018-07-11] MEDS ORDERED: KETOROLAC TROMETHAMINE 15 MG/ML VIAL IV STA (17:02)
[2018-07-11] MEDS ORDERED: KETOROLAC TROMETHAMINE 15 MG/ML VIAL IV PRN (17:05)
--- NOTE | 2018-07-11 17:09 | History & Physical Report ---
Date of Service July 11, 2018 Assessment & Plan (1) Back pain: Acute back pain likely secondary to musculoskeletal sprain after fall on ice today. Multiple imaging studies reveal no acute fracture. Morphine given in ER has not been effective. Despite 12 mg IV, he is still in extreme pain with minimal movement. Will start IV Toradol and scheduled diazepam to help with pain and muscle relaxation, respectively. PT/OT evaluation prior to discharge. (2) Elevated troponin: No chest pain or other concerning features for ACS. EKG is within normal limits. Mildly elevated troponin likely secondary to demand ischemia in setting of severe pain with intermittent tachycardia. As I was examining the patient he was attached to the cardiac care nurse and I witnessed his heart rate go to 150 with extreme pain after minimal movement several times. He has not been asked in pain for several hours. Repeat one more troponin to ensure no acute elevation. Evaluate on telemetry. Will not treat for ACS unless symptoms occur or troponin rises unexpectedly. (3) Prostate cancer: Status post XRT (4) Frequent falls: Recent collarbone fracture status post mechanical fall and multiple falls at home reported by . PT/OT evaluation this admission and would follow-up closely with primary care doctor. Of note patient reports some peripheral neuropathy symptoms. Will order B12/folate, TSH, iron studies, vitamin D to ensure no reversible causes are present. Also of note multiple areas of remote infarctions are present, however, the patient and his have no idea about a history of stroke. Would recommend close follow-up with primary care doctor and suggest aspirin and statin therapy be started as an outpatient for secondary prevention. Would defer this to primary care doctor. (5) History of back surgery: (6) DVT prophylaxis: Lovenox Full code as discussed with patient on admission Disposition-pending PT/OT evaluation. Lives at home with . Nettie Rush DO [facility] Hospitalist History of Present Illness Chief Complaint: severe back pain after a fall on ice Primary Care Provider: Talon Galindo 83-year-old man with history of frequent falls at home per his presents after slipping on ice at his home today. He landed on his back and hit his head. He was scanned with CT of lumbar and cervical spine as well as pelvic x- ray with no evidence of acute fracture. His head CT revealed no acute intracranial abnormality. His chest x-ray was within normal limits. He was subsequently given 12 mg of morphine IV with no improvement. The patient reports intense pain even with minimal movement which is evident on examination today. He notably has a dry mouth which he states is not chronic for him. He reports tolerating p.o. and having no nausea, vomiting, diarrhea or other issues. He has a history of prostate cancer treated with radiation. He has chronic shortness of breath that is possibly related to COPD, however, his does not agree with that diagnosis. She reports recently normal PFTs and echocardiogram. He worked in the [employer] and is since retired. He reports being screened for "black lung" but this was negative reportedly. He is a patient of Dr. Galindo and therefore records are limited. He was recently seen in the ER for a broken collarbone after a fall, and has taken ibuprofen for pain in his shoulder since then. He has a well-healed area of ecchymosis on his right anterior chest wall. Other skin could not be examined well secondary to significant pain. reports noticing some cognitive issues and possible memory loss, and states she thinks he has dementia. The patient is otherwise healthy and takes herbs and supplements but no prescription medications. He ambulates independently at baseline. He is not on oxygen at baseline. He states that he would like to sit up and feels he would think he would actually feel a little better if he could do so. Allergies Allergy/AdvReac Type Severity Reaction Status Date / Time iodine Allergy Mild HIVES/ITCHI Verified 07/11/18 14:09 NG amoxicillin [From Augmentin] AdvReac Unknown diarrhea Verified 07/11/18 17:23 clavulanic acid AdvReac Unknown diarrhea Verified 07/11/18 17:23 [From Augmentin] Home Medications Home Medications Medication Instructions Recorded Confirmed Type cholecalciferol (vitamin D3) 5,000 unit PO QAM 07/11/18 07/11/18 History [Vitamin D3] ibuprofen 600 mg PO QID PRN 07/11/18 07/11/18 History zmqty-dg-2-qmi-crw-[id number]-ast 1 cap PO QAM 07/11/18 07/11/18 History [krill oil] milk thistle 150 mg PO QAM 07/11/18 07/11/18 History Past Med/Surg History Medical History COPD (chronic obstructive pulmonary disease) H/O intracranial hemorrhage H/O: CVA (cerebrovascular accident) Multiple falls Prostate cancer (Chronic) s/p XRT only Surgical History Previous back surgery Family History Other No pertinent family history Social History Current Living Situation: Spouse Other Information That Helps Us Care for You: No Feels Safe at Home: Yes Safety Concerns: Feels Safe At This Time Smoking Status: Former smoker Tobacco Type: cigarettes Cigarettes per Day: 10 Do You Dip or Chew Tobacco: Yes Smoking End Date: 1959 Second Hand Exposure: No Tobacco Cessation Education Requested by Patient: No Hx Alcohol Use: No Hx Substance Use: No Beliefs That Will Affect Care: None Preferred Language: Singaporean Communication Ability: Effective Oyster Culturist Required: No Review of Systems At least ten systems were reviewed and negative except as indicated in HPI above and he reports intermittent bilateral foot numbness that is intermittent. Physical Exam 2 Vital Signs (Past 24 Hours): Last Vital Signs Temp 36.4 C L 07/11/18 13:40 Pulse 73 07/11/18 16:05 Resp 14 07/11/18 16:05 BP 128/65 07/11/18 16:05 Pulse Ox 99 07/11/18 16:05 CONSTITUTIONAL: WNWD, vitals as above, in acute distress with minimal movement EYES: PERRL, normal conjuctivae, no scleral icterus ENT: MM dry RESPIRATORY: coarse rhonchi at the L base, otherwise clear to auscultation bilaterally, normal respiratory effort. Limited exam as patient is supine and cannot move to accomodate examiner's position. CARDIOVASCULAR: regular rate and rhythm, S1 and 2 heard without murmurs, gallops or rubs, no JVD, no peripheral edema CHEST: inspection of chest revealed well-healing softball size area of ecchymosis. GASTROINTESTINAL: normal bowel sounds, soft, nontender, nondistended MUSCULOSKELETAL: strength 5/5 throughout but limited mobility 2/2 severe pain. Very TTP lower back in the superior gluteal region with no apparent paraspinal palpation. SKIN: warm and dry NEUROLOGIC: PERRL, EOMI, no facial palsy, no dysarthria. CN 2-12 grossly intact, decreased sensation on soles of feet bilaterally, normal speech PSYCHIATRIC: alert cooperative and answering questions appropriately. Results & Data Laboratory Results Short CBC 07/11/18 07/11/18 07/11/18 Range/Units 14:29 14:29 14:29 WBC 11.37 H (4.8-10.8) K/uL RBC 4.40 L (4.7-6.1) M/uL Hgb 13.5 L (14.0-18.0) g/dL Hct 39.4 L (42-52) % MCV 89.5 (80-100) fL MCH 30.7 (25-34) pg MCHC 34.3 (32-36) g/dL RDW Std Deviation 41.8 (36.4-46.3) fL RDW Coeff of Ness 12.9 (11.5-14.5) % Plt Count 199 (130-400) K/uL MPV 9.9 (7.4-10.4) fL Immature Gran % (Auto) 0.4 % Neut % (Auto) 68.8 % Lymph % (Auto) 22.9 % Marin % (Auto) 7.4 % Eos % (Auto) 0.4 % Baso % (Auto) 0.1 % Immature Gran # (Auto) 0.05 H (0.00-0.02) K/uL Neut # (Auto) 7.83 H (1.4-6.5) K/uL Lymph # (Auto) 2.60 (1.2-3.4) K/uL Marin # (Auto) 0.84 H (0.11-0.59) K/uL Eos # (Auto) 0.04 (0-0.5) K/uL Baso # (Auto) 0.01 (0-0.2) K/uL PT 10.6 (9.0-12.0) Seconds INR 1.1 (0.9-1.1) Sodium 136 (136-145) mmol/L Potassium 3.8 (3.5-5.1) mmol/L Chloride 103 (98-107) mmol/L Carbon Dioxide 23 (21-32) mmol/L Anion Gap 10.0 (3-11) BUN 26 H (7-18) mg/dl Creatinine 1.05 (0.6-1.4) mg/dl Est Cr Clr Drug Dosing 65.0 ml/min Est GFR ( Amer) 75.2 Est GFR (Non-Af Amer) 64.9 BUN/Creatinine Ratio 24.3 H (10-20) Glucose 111 H (70-99) mg/dl Calcium 9.0 (8.5-10.1) mg/dl Total Bilirubin 0.3 (0.2-1) mg/dl AST 24 (15-37) U/L ALT 34 (12-78) U/L Alkaline Phosphatase 69 (45-117) U/L Troponin I 0.048 H* (0-0.045) ng/ml Total Protein 7.4 (6.4-8.2) gm/dl Albumin 3.8 (3.4-5.0) gm/dl Globulin 3.6 (2.5-4.0) gm/dl Albumin/Globulin Ratio 1.0 (0.9-2) Lipase 93 (73-393) U/L BMP 07/11/18 14:29 Sodium 136 Potassium 3.8 Chloride 103 Carbon Dioxide 23 BUN 26 H Creatinine 1.05 Glucose 111 H Calcium 9.0 Cardiac Enzymes 07/11/18 Range/Units 14:29 Troponin I 0.048 H* (0-0.045) ng/ml Liver Function 07/11/18 Range/Units 14:29 Total Bilirubin 0.3 (0.2-1) mg/dl AST 24 (15-37) U/L ALT 34 (12-78) U/L Alkaline Phosphatase 69 (45-117) U/L Albumin 3.8 (3.4-5.0) gm/dl Diagnostic Findings PELVIC XRAY SINGLE VIEW: IMPRESSION: Osteopenia witih no radiographic evidence of acute fracture. L-SPINE CT WO CONTRAST: IMPRESSION: 1. No acute lumbar spine fracture or subluxation. 2. L3-L4 decompression. 3. Moderate to severe multilevel degenerative disc disease and facet arthrosis. CT SCAN OF THE BRAIN WITHOUT IV CONTRAST: IMPRESSION: Senescent change and remote infarcts as above. There is no hemorrhage, mass effect, or evidence of acute territorial ischemia by CT criteria. CXR: IMPRESSION: 1. Cardiomegaly with mild pulmonary vascular congestion. 2. There are dependent bibasilar airspace opacities which likely represent atelectasis. Correlate clinically for evidence of a superimposed infectious/ inflammatory pneumonitis. CT SCAN OF THE CERVICAL SPINE WO CONTRAST: IMPRESSION: 1. There is no evidence of fracture or subluxation involving the cervical spine. 2. Osteopenia and degenerative change as above. Medications Administered Current Inpatient Medications Acetaminophen (Tylenol) 650 mg PO Q4H PRN PRN Reason: Pain or Fever Stop: 08/10/18 15:54 Diazepam (Valium) 2 mg PO TID [facility] Stop: 08/10/18 20:59 Ketorolac Tromethamine (Toradol) 15 mg IV Q8H PRN PRN Reason: Pain Stop: 07/16/18 17:04 Ondansetron HCl (Zofran) 4 mg IV Q6H PRN PRN Reason: Nausea Stop: 08/10/18 15:54 Polyethylene Glycol (Miralax Powder Packet) 17 gm PO DAILY PRN PRN Reason: Constipation Stop: 08/10/18 15:54 Vitamin D (Vitamin D3) 5,000 units PO QAM [facility] Stop: 08/11/18 08:59 ECG Indication: back/shoulder pain Rhythm: normal sinus Change: no significant change Code Status & VTE Plan Code Status FULL CODE VTE Prophylaxis Plan VTE Prophylaxis will be ordered: Yes Critical Care Time Critical Care Time: No
[2018-07-11] MEDS ORDERED: DICLOFENAC SOD 1% GEL 100 GM TUBE EXT PRN (19:40)
[2018-07-11] MEDS: diazePAM 2 MG TABLET PO SCH (20:58)
[2018-07-12] MEDS: OXYCODONE/ACETAMINOPHEN 5mg/325mg TAB PO PRN ×2 (01:42→08:09)
[2018-07-12 02:14] LABS: Appearance Urine Clear (Clear); Bilirubin Urine Negative (Negative); Color Urine Dark Yellow; Glucose Urine UA Negative (Negative); Ketones Urine 1+ (Negative); Leukocyte Esterase Urine Negative (Negative); Nitrite Urine Negative (Negative); Protein Urine Negative (Negative); Urobilinogen Urine Negative (Negative)
[2018-07-12] MEDS: TRAMADOL HCL 50 MG TABLET PO PRN ×2 (05:11→18:06)
[2018-07-12 05:22] LABS: Hematocrit (blood only) 35.7 % (42-52); Hemoglobin 12.1 g/dL (14.0-18.0); Mean Corpuscular Hgb Conc 33.9 g/dL (32-36); Mean Corpuscular Volume 91.1 fL (80-100); Mean Platelet Volume 9.4 fL (7.4-10.4); Platelet Count 175 K/uL (130-400); RDW Coefficient of Variation 13.1 % (11.5-14.5); RDW Standard Deviation 43.9 fL (36.4-46.3); Red Blood Count 3.92 M/uL (4.7-6.1); White Blood Count 10.61 K/uL (4.8-10.8)
[2018-07-12 05:54] LABS: BUN Creatinine Ratio 26.5 (10-20); Calcium 8.7 mg/dl (8.5-10.1); Creatinine Clr Calc Pharmacy 57.9 ml/min; Est GFR (African American) 67.4; Est GFR (Non-African American) 58.1; Potassium 4.2 mmol/L (3.5-5.1)
[2018-07-12 06:02] LABS: Ferritin 326.8 ng/ml (8-388)
[2018-07-12] MEDS: CHOLECALCIFEROL 1,000 UNITS TAB PO SCH (08:09)
[2018-07-12] MEDS: diazePAM 2 MG TABLET PO SCH ×3 (08:09→22:22)
[2018-07-12] MEDS: ENOXAPARIN INJ 40 MG/0.4 ML SYR SQ SCH (08:09)
[2018-07-12 09:26] LABS: Folate (Folic Acid) 12.96 ng/ml (>5.38)
--- NOTE | 2018-07-12 12:57 | Hospitalist Progress Note ---
Date of Service July 12, 2018 Assessment & Plan (1) Back pain: Acute back pain likely secondary to musculoskeletal sprain after fall on ice. Multiple imaging studies reveal no acute fracture. Morphine given in ER has not been effective. Will schedule Motrin and cont scheduled diazepam. PRN Tramadol for breakthrough and call for PRN IV meds if severe. PT/OT today. Second day usually is more sore than the first; he will have pain. Unrealistic for pain to be completely gone, just want to make him comfortable. He understands this. (2) Elevated troponin: No chest pain or other concerning features for ACS. EKG is within normal limits. Mildly elevated troponin likely secondary to demand ischemia in setting of severe pain with intermittent tachycardia. Echo performed ruled out wall motion abnormality. Transfer to [facility] floor. No further workup or monitoring needed. (3) Prostate cancer: Status post XRT (4) Frequent falls: Recent collarbone fracture status post mechanical fall and multiple falls at home reported by . PT/OT evaluation this admission and would follow-up closely with primary care doctor. May be related to peripheral neuropathy- workup negative, idiopathic etiology--or cerebrovascular disease seen on imaging. Cont PT and work with PCP on this issue. Would recommend close follow -up with primary care doctor and suggest aspirin and statin therapy be started as an outpatient for secondary prevention. Would defer this to primary care doctor. (5) History of back surgery: (6) DVT prophylaxis: Lovenox Full code as discussed with patient on admission Disposition-med/surg DO [facility]ist Subjective pain somewhat improved but required PRN maeds overnight dilma PO otherwise denies CP, SOB, etc no events on telemetry review today. Physical Exam 2 Vital Signs (Past 24 Hours): Last Vital Signs Temp 36.4 C L 07/12/18 11:35 Pulse 60 07/12/18 11:35 Resp 18 07/12/18 11:35 BP 124/64 07/12/18 11:35 Pulse Ox 93 07/12/18 11:35 CONSTITUTIONAL: WNWD, vitals as above EYES: normal conjuctivae, no scleral icterus ENT: MMM RESPIRATORY: CTAB CARDIOVASCULAR: regular rate and rhythm, S1 and 2 heard without murmurs, gallops or rubs, no JVD, no peripheral edema CHEST: inspection of chest revealed well-healing softball size area of ecchymosis. GASTROINTESTINAL: normal bowel sounds, soft, nontender, nondistended MUSCULOSKELETAL: strength 5/5 throughout in lower extremities. Paraspinal muscle tenderness to palpation on the left lumbar area, no other areas are sore to touch. Good ROM, ambulating SKIN: warm and dry NEUROLOGIC: decreased sensation in feet bilaterally, +SLR test on the left PSYCHIATRIC: alert cooperative and answering questions appropriately. Results & Data Laboratory Results Short CBC 07/12/18 Range/Units 05:07 WBC 10.61 (4.8-10.8) K/uL Hgb 12.1 L (14.0-18.0) g/dL Hct 35.7 L (42-52) % Plt Count 175 (130-400) K/uL BMP 07/12/18 05:07 Sodium 135 L Potassium 4.2 Chloride 103 Carbon Dioxide 28 BUN 31 H Creatinine 1.15 Glucose 116 H Calcium 8.7 Cardiac Enzymes 07/11/18 Range/Units 19:43 Troponin I 0.047 H* (0-0.045) ng/ml Urine 07/12/18 Range/Units Unknown Urine Color Dark Yellow Urine Appearance Clear (Clear) Urine pH 5.0 (4.5-7.5) Ur Specific [place] 1.030 (1.000-1.030) Urine Protein Negative (Negative) Urine Glucose (UA) Negative (Negative) Medications Administered Current Inpatient Medications Acetaminophen (Tylenol) 650 mg PO Q4H PRN PRN Reason: Pain or Fever Stop: 08/10/18 15:54 Last Admin: 07/11/18 20:11 Dose: 650 mg Diazepam (Valium) 2 mg PO TID [facility] Stop: 08/10/18 20:59 Last Admin: 07/12/18 13:07 Dose: 2 mg Enoxaparin Sodium (Lovenox) 40 mg SQ QAM [facility] Stop: 08/11/18 08:59 Last Admin: 07/12/18 08:09 Dose: 40 mg Ibuprofen (Motrin) 800 mg PO TID [facility] Stop: 08/11/18 13:59 Last Admin: 07/12/18 13:54 Dose: 800 mg Ondansetron HCl (Zofran) 4 mg IV Q6H PRN PRN Reason: Nausea Stop: 08/10/18 15:54 Polyethylene Glycol (Miralax Powder Packet) 17 gm PO DAILY PRN PRN Reason: Constipation Stop: 08/10/18 15:54 Tramadol HCl (Ultram) 25 - 50 mg PO Q4H PRN PRN Reason: Pain Stop: 08/11/18 01:15 Last Admin: 07/12/18 18:06 Dose: 50 mg Vitamin D (Vitamin D3) 5,000 units PO QAM [facility] Stop: 08/11/18 08:59 Last Admin: 07/12/18 08:09 Dose: 5,000 units
[2018-07-12] MEDS: IBUPROFEN 800 MG TAB PO SCH ×2 (13:54→22:51)
[2018-07-13] MEDS: TRAMADOL HCL 50 MG TABLET PO PRN ×2 (00:14→11:44)
[2018-07-13] MEDS ORDERED: KETOROLAC TROMETHAMINE 15 MG/ML VIAL IV STA (02:14)
[2018-07-13] MEDS: IBUPROFEN 800 MG TAB PO SCH (07:35)
[2018-07-13] MEDS: diazePAM 2 MG TABLET PO SCH (07:35)
[2018-07-13] MEDS: LIDOCAINE 5% 1 PATCH TD SCH (08:06)
[2018-07-13] MEDS: MoRPHine SULFATE 4 MG/ML 1 ML CARP\\VIAL IV PRN (08:11)
[2018-07-13] MEDS: CHOLECALCIFEROL 1,000 UNITS TAB PO SCH (11:17)
[2018-07-13] MEDS: ENOXAPARIN INJ 40 MG/0.4 ML SYR SQ SCH (11:19)
--- NOTE | 2018-07-13 13:16 | Hospitalist Progress Note ---
Date of Service July 13, 2018 Assessment & Plan (1) Back pain: Acute back pain likely secondary to musculoskeletal sprain after fall on ice. Multiple imaging studies reveal no acute fracture. All meds tried are not working and pain is changed and is worse. Radiation is laterally through the back, but +SLR on right. Has baseline numbness in feet that is unchanged. Uncertain if MRI may be more helpful here in the setting of acute inflammation. In the setting of prior back surgery last year will consult Dr. Magaña for assistance with workup/treatment. Cont lidocaine patch. Increase valium for help with muscle relaxation, switch Motrin to Toradol, K-pad, ambulate as tolerated. (2) Elevated troponin: No chest pain or other concerning features for ACS. EKG is within normal limits. Mildly elevated troponin likely secondary to demand ischemia in setting of severe pain with intermittent tachycardia. Echo performed ruled out wall motion abnormality. Transfer to [facility] floor. No further workup or monitoring needed. (3) Prostate cancer: Status post XRT (4) Frequent falls: Recent clavicular fracture status post mechanical fall and multiple falls at home reported by . PT/OT evaluation this admission and would follow-up closely with primary care doctor. May be related to peripheral neuropathy- workup negative, idiopathic etiology--or cerebrovascular disease seen on imaging. Cont PT and work with PCP on this issue. Would recommend close follow -up with primary care doctor and suggest aspirin and statin therapy be started as an outpatient for secondary prevention. Would defer this to primary care doctor. (5) History of back surgery: (6) DVT prophylaxis: Lovenox Full code as discussed with patient on admission Disposition-med/surg Nettie Rush DO [facility] Hospitalist Subjective 83 yo M with recent mechanical fall on ice, landing on his back and head with subsequent unrelenting pain. No improvement with current therapy. Minimal inputs cause shooting, debilitating pain. Ambulating with PT but very guarded. Tolerating PO. Physical Exam 2 Vital Signs (Past 24 Hours): Last Vital Signs Temp 36.4 C L 07/13/18 07:34 Pulse 64 07/13/18 07:34 Resp 22 07/13/18 07:34 BP 112/60 07/13/18 07:34 Pulse Ox 96 07/13/18 07:34 CONSTITUTIONAL: WNWD, vitals as above EYES: normal conjuctivae, no scleral icterus ENT: MMM RESPIRATORY: CTAB CARDIOVASCULAR: regular rate and rhythm, S1 and 2 heard without murmurs, gallops or rubs, no JVD, no peripheral edema GASTROINTESTINAL: normal bowel sounds, soft, nontender, nondistended MUSCULOSKELETAL: could not examine secondary to severe pain SKIN: warm and dry NEUROLOGIC: decreased sensation in feet bilaterally, could not perform SLR testing today 2/2 pain, 2+ reflexes in knee yesterday. PSYCHIATRIC: alert cooperative and answering questions appropriately. Results & Data Medications Administered Current Inpatient Medications Acetaminophen (Tylenol) 650 mg PO Q4H PRN PRN Reason: Pain or Fever Stop: 08/10/18 15:54 Last Admin: 07/11/18 20:11 Dose: 650 mg Diazepam (Valium) 5 mg PO TID [facility] Stop: 08/12/18 13:59 Enoxaparin Sodium (Lovenox) 40 mg SQ [facility] Stop: 08/11/18 08:59 Last Admin: 07/13/18 11:19 Dose: 40 mg Ketorolac Tromethamine (Toradol) 30 mg IV Q6H PRN PRN Reason: Pain Stop: 07/18/18 13:11 Lidocaine (Lidoderm 5%) 1 patch TD [facility] Stop: 08/12/18 08:59 Last Admin: 07/13/18 08:06 Dose: 1 patch Miscellaneous (Remove Lidoderm Patch) 1 ea N/A DAILY@2100 [facility] Stop: 08/12/18 20:59 Morphine Sulfate (Morphine Sulfate) 4 mg IV Q2H PRN PRN Reason: severe breatkthrough pain Stop: 07/27/18 07:49 Last Admin: 07/13/18 08:11 Dose: 4 mg Ondansetron HCl (Zofran) 4 mg IV Q6H PRN PRN Reason: Nausea Stop: 08/10/18 15:54 Polyethylene Glycol (Miralax Powder Packet) 17 gm PO DAILY PRN PRN Reason: Constipation Stop: 08/10/18 15:54 Tramadol HCl (Ultram) 25 - 50 mg PO Q4H PRN PRN Reason: Pain Stop: 08/11/18 01:15 Last Admin: 07/13/18 11:44 Dose: 50 mg Vitamin D (Vitamin D3) 5,000 units PO [facility] Stop: 08/11/18 08:59 Last Admin: 07/13/18 11:17 Dose: 5,000 units
[2018-07-13] MEDS: diazePAM 5 MG TABLET PO SCH ×2 (14:25→23:14)
[2018-07-13] MEDS: KETOROLAC TROMETHAMINE 15 MG/ML VIAL IV PRN (17:28)
[2018-07-14] MEDS: MoRPHine SULFATE 4 MG/ML 1 ML CARP\\VIAL IV PRN ×2 (02:18→16:29)
[2018-07-14 06:58] LABS: Hematocrit (blood only) 36.8 % (42-52); Hemoglobin 12.4 g/dL (14.0-18.0); Mean Corpuscular Hgb Conc 33.7 g/dL (32-36); Mean Corpuscular Volume 90.6 fL (80-100); Platelet Count 188 K/uL (130-400); RDW Coefficient of Variation 13.1 % (11.5-14.5); RDW Standard Deviation 42.8 fL (36.4-46.3); Red Blood Count 4.06 M/uL (4.7-6.1); White Blood Count 9.19 K/uL (4.8-10.8)
[2018-07-14 07:29] LABS: BUN Creatinine Ratio 21.9 (10-20); Calcium 9.1 mg/dl (8.5-10.1); Creatinine Clr Calc Pharmacy 50.1 ml/min; Est GFR (African American) 56.5; Est GFR (Non-African American) 48.7; Potassium 4.1 mmol/L (3.5-5.1)
[2018-07-14] MEDS: CHOLECALCIFEROL 1,000 UNITS TAB PO SCH (08:52)
[2018-07-14] MEDS: diazePAM 5 MG TABLET PO SCH ×2 (08:52→13:54)
[2018-07-14] MEDS: ENOXAPARIN INJ 40 MG/0.4 ML SYR SQ SCH (08:53)
[2018-07-14] MEDS: LIDOCAINE 5% 1 PATCH TD SCH (08:54)
--- NOTE | 2018-07-14 09:53 | Orthopedic Consultation ---
Date of Consultation July 14, 2018 Assessment & Plan (1) Back pain: Plan at this time the CAT scan demonstrates severe multilevel arthritis. No fracture noted. On exam however he is exquisitely painful. I would like to obtain MRI lumbar spine to rule out an occult process. Present on Admission?: Yes History of Present Illness Reason for Consultation: Back pain Attending Physician: Nettie Rush DO History of Present Illness This is an 83-year-old male well-known to me having undergone decompression little over a year ago. He states that he fell this weekend landed on his head and now has excruciating lumbosacral back pain on the left. He denies any pain radiating into the buttock or bilateral lower extremities. He states he still is ambulate without difficulty. Unfortunately a few days of bedrest and pain control failed to improve his pain. Allergies Allergy/AdvReac Type Severity Reaction Status Date / Time iodine Allergy Mild HIVES/ITCHI Verified 07/11/18 14:09 NG amoxicillin [From Augmentin] AdvReac Mild diarrhea Verified 07/13/18 07:52 clavulanic acid AdvReac Mild diarrhea Verified 07/13/18 07:52 [From Augmentin] Home Medications Home Medications Medication Instructions Recorded Confirmed Type cholecalciferol (vitamin D3) 5,000 unit PO QAM 07/11/18 07/11/18 History [Vitamin D3] ibuprofen 600 mg PO QID PRN 07/11/18 07/11/18 History eptwx-mj-4-wsx-cfd-mvhidil-ast 1 cap PO QAM 07/11/18 07/11/18 History [krill oil] milk thistle 150 mg PO QAM 07/11/18 07/11/18 History Patient History Medical History COPD (chronic obstructive pulmonary disease) H/O intracranial hemorrhage H/O: CVA (cerebrovascular accident) Multiple falls Prostate cancer (Chronic) s/p XRT only Surgical History Previous back surgery Family History Other No pertinent family history Social History marital status: Current Living Situation: Spouse Other Information That Helps Us Care for You: No Feels Safe at Home: Yes Safety Concerns: Feels Safe At This Time Smoking Status: Former smoker Tobacco Type: cigarettes Cigarettes per Day: 10 Do You Dip or Chew Tobacco: Yes Smoking End Date: 1959 Second Hand Exposure: No Tobacco Cessation Education Requested by Patient: No Hx Alcohol Use: No Hx Substance Use: No Beliefs That Will Affect Care: None Communication Ability: Effective Physical Exam 2 Vital Signs (Past 24 Hours): Last Vital Signs Temp 36.4 C L 07/14/18 07:49 Pulse 75 07/14/18 07:49 Resp 20 07/14/18 07:49 BP 150/88 H 07/14/18 07:49 Pulse Ox 97 07/14/18 07:49 Physical Exam: On exam patient is in the chair at the bedside. He exhibits a negative logroll bilaterally. Sensory symmetric and intact. He does have some peripheral edema to bilateral extremities. I was able to have him stand for me. Standing does reproduce significant pain along the left SI joint region. Again no radicular component associated with his pain patterns. No strength deficits noticed.
[2018-07-14] MEDS: TRAMADOL HCL 50 MG TABLET PO PRN (13:56)
--- NOTE | 2018-07-14 15:04 | Magnetic Resonance Report ---
MR lumbar spine wo con CLINICAL HISTORY: 83 years-old Male presenting with back pain. TECHNIQUE: Multisequence, multiplanar MR imaging of the lumbar spine was performed without the use of intravenous contrast. IV contrast: None. COMPARISON: CT from 07/11/2018 and MR from 10/15/2016. FINDINGS: Localizer images: Cyst noted at the lower pole the right kidney. Straightening of normal lumbar lordosis. Benign hemangioma noted in the L1 vertebral body. Mild bony edema in the L2 vertebral body. Extensive multilevel fatty endplate changes. Intervertebral disc bonilla ccation from L1-2 through L4-5 with severe intervertebral disc height loss at L4-5. Additional multil evel degenerative changes further detailed below: L1-2: Trace disc bulge and ligamentum flavum thickening minimally effaces the thecal sac. Minimal seun ateral neural foraminal narrowing. L2-3: Disc osteophyte complex, facet arthropathy, and ligamentum flavum thickening mildly circumferen tially efface the thecal sac. Mild right and minimal left neural foraminal narrowing. L3-4: Disc osteophyte complex. Postsurgical changes of L3 laminectomy/laminotomy. Adequate posterior decompression. Facet arthropathy largely results in severe right and moderate left neural foraminal n arrowing. L4-5: Disc osteophyte complex and facet arthropathy. Effacement of the left posterior lateral recess due to ligamentum flavum thickening and mild effacement of the ventral thecal sac secondary to the di sc osteophyte complex. Moderate to severe right and moderate left neural foraminal narrowing. L5-S1: No significant neural foraminal or spinal canal narrowing. Spinal cord terminates in good position at L1. Crowding and adhesions of the cauda equina suggest litzy chnoiditis. Extensive paraspinal muscle fatty atrophy, likely in part age-related. Mild T2 hyperinten sity in the operative bed at the level of L3-4. No epidural collection or evidence of herniation of C SF. Flow voids within the visualized vasculature preserved. Remaining visualized soft tissues within normal limits. No fluid collection in the lumbar incision site. IMPRESSION: 1. Postsurgical changes of L3 laminectomy and/or hemilaminotomies. 2. Evidence of arachnoiditis, which is most likely postsurgical. 3. Multilevel neural foraminal narrowing most severe at L3-4 and L4-5. 4. No severe spinal canal stenosis. Electronically signed by: Vin Dupont M.D. 07/14/2018 3:03 PM
--- NOTE | 2018-07-14 16:19 | Hospitalist Progress Note ---
Date of Service July 14, 2018 Assessment & Plan (1) Back pain: Acute back pain likely secondary to musculoskeletal sprain after fall on ice. Multiple imaging studies reveal no acute fracture. All meds tried are not working and pain is again worse today. Radiation is laterally through the back, but +SLR on right. Has baseline numbness in feet that is unchanged. Since admission have tried scheduled NSAIDs with Diazepam, Lidocaine patch, Morphine, Kpad, nothing is working. Will switch gears and schedule Tylenol 1000mg q8h and Tramadol 50q8h. MRI of lumbar spine today-await Ortho spine interpretation and follow-up. Hold on Pain Management consult until we see how the TT regimen is working. (2) Elevated troponin: No chest pain or other concerning features for ACS. EKG is within normal limits. Mildly elevated troponin likely secondary to demand ischemia in setting of severe pain with intermittent tachycardia. Echo performed ruled out wall motion abnormality. Transferred to medical floor on HD2. No further workup or monitoring needed. (3) Prostate cancer: Status post XRT (4) Frequent falls: Recent clavicular fracture status post mechanical fall and multiple falls at home reported by . PT/OT evaluation this admission and would follow-up closely with primary care doctor. May be related to peripheral neuropathy- workup negative, idiopathic etiology--or cerebrovascular disease seen on imaging. Cont PT and work with PCP on this issue. Would recommend close follow -up with primary care doctor and suggest aspirin and statin therapy be started as an outpatient for secondary prevention. Would defer this to primary care doctor. (5) History of back surgery: (6) DVT prophylaxis: Lovenox Full code as discussed with patient on admission Disposition-med/surg Nettie Rush DO [facility] Hospitalist Subjective +pain getting worse denies F/C/BUCHA[place] denies n/v +tolerating PO MRI per Ortho Physical Exam 2 Vital Signs (Past 24 Hours): Last Vital Signs Temp 36.4 C L 07/14/18 15:28 Pulse 58 L 07/14/18 15:28 Resp 18 07/14/18 15:28 BP 151/82 H 07/14/18 15:28 Pulse Ox 93 07/14/18 15:28 CONSTITUTIONAL: WNWD, vitals as above, speaking more slowly than yesterday after increase in diazepam EYES: normal conjuctivae, no scleral icterus ENT: MMM RESPIRATORY: CTAB CARDIOVASCULAR: regular rate and rhythm, S1 and 2 heard without murmurs, gallops or rubs, no JVD, no peripheral edema GASTROINTESTINAL: normal bowel sounds, soft, nontender, nondistended MUSCULOSKELETAL: could not examine secondary to severe pain SKIN: warm and dry NEUROLOGIC: decreased sensation in feet bilaterally, could not perform SLR testing today 2/2 pain PSYCHIATRIC: alert cooperative and answering questions appropriately. Results & Data Laboratory Results Short CBC 07/14/18 Range/Units 06:38 WBC 9.19 (4.8-10.8) K/uL Hgb 12.4 L (14.0-18.0) g/dL Hct 36.8 L (42-52) % Plt Count 188 (130-400) K/uL BMP 07/14/18 06:38 Sodium 136 Potassium 4.1 Chloride 102 Carbon Dioxide 26 BUN 29 H Creatinine 1.33 Glucose 99 Calcium 9.1 Medications Administered Current Inpatient Medications Acetaminophen (Tylenol) 1,000 mg PO Q8H [facility] Stop: 08/13/18 17:59 Enoxaparin S[facility]ox) [facility] Stop: 08/11/18 08:59 Last Admin: 07/14/18 08:53 Dose: 40 mg Ketorolac Tromethamine (Toradol) 30 mg IV Q6H PRN; Protocol PRN Reason: Pain Stop: 07/18/18 13:11 Lidocaine (Lidoderm 5%) 1 patch [facility] Stop: 08/12/18 08:59 Last Admin: 07/14/18 08:54 Dose: 1 patch Miscellaneous (Remove Lidoderm Patch) 1 ea N/A DAILY@2100 [facility] Stop: 08/12/18 20:59 Last Admin: 07/13/18 23:08 Dose: 1 ea Morphine Sulfate (Morphine Sulfate) 4 mg IV Q2H PRN PRN Reason: severe breatkthrough pain Stop: 07/27/18 07:49 Last Admin: 07/14/18 16:29 Dose: 4 mg Ondansetron HCl (Zofran) 4 mg IV Q6H PRN PRN Reason: Nausea Stop: 08/10/18 15:54 Polyethylene Glycol (Miralax Powder Packet) 17 gm PO DAILY PRN PRN Reason: Constipation Stop: 08/10/18 15:54 Last Admin: 07/14/18 08:55 Dose: 17 gm Tramadol HCl (Ultram) 50 mg PO Q8H [facility]ESSIE Stop: 08/13/18 17:59 Vitamin D (Vitamin D3) 5,000 units PO QAM TESSIE Stop: 08/11/18 08:59 Last Admin: 07/14/18 08:52 Dose: 5,000 units
[2018-07-14] MEDS: KETOROLAC TROMETHAMINE 15 MG/ML VIAL IV PRN (17:06)
[2018-07-14] MEDS ORDERED: KETOROLAC TROMETHAMINE 15 MG/ML VIAL IV PRN (17:58)
[2018-07-14] MEDS: ACETAMINOPHEN 500 MG TAB PO SCH (18:24)
[2018-07-14] MEDS: TRAMADOL HCL 50 MG TABLET PO SCH (18:24)
[2018-07-14] MEDS ORDERED: LISINOPRIL 20 MG TAB PO STA (18:36)
[2018-07-15] MEDS: TRAMADOL HCL 50 MG TABLET PO SCH ×3 (05:58→21:57)
[2018-07-15] MEDS: ACETAMINOPHEN 500 MG TAB PO SCH ×3 (05:59→21:57)
[2018-07-15 07:36] LABS: Calcium 9.3 mg/dl (8.5-10.1); Creatinine Clr Calc Pharmacy 56.9 ml/min; Est GFR (Non-African American) 56.9
[2018-07-15] MEDS: ENOXAPARIN INJ 40 MG/0.4 ML SYR SQ SCH (08:50)
[2018-07-15] MEDS: CHOLECALCIFEROL 1,000 UNITS TAB PO SCH (08:51)
[2018-07-15] MEDS: LIDOCAINE 5% 1 PATCH TD SCH (08:51)
[2018-07-15] MEDS ORDERED: LISINOPRIL 20 MG TAB PO SCH (09:00)
--- NOTE | 2018-07-15 10:07 | Orthopedic Progress Note ---
Date of Service July 15, 2018 Assessment & Plan (1) Back pain: MRI is reviewed. Compared to previous films. 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 Did not appreciate any acute event that would contribute to his back pain. Suspect this is a sprain strain phenomenon secondary to a fall and should improve with time. There is no need for any surgical intervention. Present on Admission?: Yes Physical Exam 2 Vital Signs (Past 24 Hours): Last Vital Signs Temp 36.1 C L 07/15/18 06:58 Pulse 60 07/15/18 06:58 Resp 20 07/15/18 06:58 BP 124/77 07/15/18 06:58 Pulse Ox 97 07/15/18 06:58
--- NOTE | 2018-07-15 12:06 | Hospitalist Progress Note ---
Date of Service July 15, 2018 Assessment & Plan (1) Lumbar contusion: Persistent severe low back pain. Seen in consultation by Ortho Spine. MRI demonstrated multilevel degenerative changes, neural foraminal narrowing most severe at L3-4 and L4-5, chronic arachnoiditis, postsurgical changes, no acute findings. [place] to have back strain. Continue analgesics, PT, OT. (2) Frequent falls: Continue PT and OT. (3) Elevated troponin: Serum troponin slightly elevated at 0.048. No anginal symptoms or EKG changes. Elevated troponin probably secondary to demand ischemia. (4) DVT prophylaxis: SQ enoxaparin. Ambulate. (5) Discharge planning issues: To be determined. Internal Medicine follow-up with Dr. Finley. Subjective Recheck for back pain. Patient seen in his room around 1200. Persistent severe low back pain without radiation. Pain aggravated by any activity or movement. No fever. No chest pain. No cough or shortness of breath. Constipated. No nausea or vomiting. No urinary symptoms. Physical Exam 2 Vital Signs (Past 24 Hours): Last Vital Signs Temp 36.1 C L 07/15/18 06:58 Pulse 60 07/15/18 06:58 Resp 20 07/15/18 06:58 BP 124/77 07/15/18 06:58 Pulse Ox 97 07/15/18 06:58 Constitutional: no acute distress and + uncomfortable (severe back pain with any movement) Respiratory: no respiratory distress Auscultation: lungs clear to auscultation bilaterally Cardiovascular: Rate/Rhythm: regular rate and regular rhythm Heart Sounds: no gallop, no murmur and no cardiac rub Vessels: no JVD Extremities: + edema (chronic 1+ edema); no calf tenderness Gastrointestinal (Abdomen): normal bowel sounds, soft, nontender, no hepatosplenomegaly Musculoskeletal: Head/Neck/Chest: + evidence of head trauma (contusion occiput ) Spine: + paraspinal tenderness (left lower lumbar) Extremities: no cyanosis Skin: no rashes, warm and dry Psychiatric: Orientation: alert and oriented x 3 Results & Data Laboratory Results Laboratory Results - last 24 hr 07/15/18 07/15/18 06:42 07:40 Sodium 132 L Potassium 4.1 Chloride 103 Carbon Dioxide 24 Anion Gap 5.0 BUN 34 H Creatinine 1.17 Est Cr Clr Drug Dosing 56.9 Est GFR ( Amer) 66.0 Est GFR (Non-Af Amer) 56.9 BUN/Creatinine Ratio 29.0 H Glucose 92 Calcium 9.3 _ (1) Lumbar contusion Encounter type:
[2018-07-15] MEDS ORDERED: BISACODYL 5 MG TABEC PO ONE (18:45)
[2018-07-15] MEDS: DOCUSATE SODIUM/SENNA 50/8.6MG TAB PO SCH (20:06)
[2018-07-15] MEDS: KETOROLAC TROMETHAMINE 15 MG/ML VIAL IV PRN (20:07)
[2018-07-16] MEDS: ONDANSETRON INJ 2 MG/ML 2 ML VIAL IV PRN ×2 (01:03→07:08)
[2018-07-16] MEDS ORDERED: ONDANSETRON INJ 2 MG/ML 2 ML VIAL IV PRN (01:37)
[2018-07-16] MEDS: TRAMADOL HCL 50 MG TABLET PO SCH ×3 (06:17→20:34)
[2018-07-16] MEDS: ACETAMINOPHEN 500 MG TAB PO SCH ×3 (06:18→23:23)
[2018-07-16 07:23] LABS: BUN Creatinine Ratio 33.6 (10-20); Calcium 8.8 mg/dl (8.5-10.1); Creatinine Clr Calc Pharmacy 62.8 ml/min; Est GFR (African American) 74.3; Est GFR (Non-African American) 64.1
--- NOTE | 2018-07-16 08:39 | XRay Report ---
XR KUB CLINICAL HISTORY: 83 years-old Male presenting with n/v. constipation. TECHNIQUE: Single supine view of the abdomen was obtained. COMPARISON: CT from 07/13/2012. FINDINGS: Paucity of small bowel gas, nonspecific. Mild stool burden in the ascending and descending colon. No gross evidence of obstruction. No gross pneumoperitoneum. Allowing for bowel gas and stool, no calcifications to suggest nephrolithiasis. Extensive flowing osteophytosis may suggest diffuse idiopathic skeletal hyperostosis. Possible underl dileep osteopenia. Lung bases clear. IMPRESSION: 1. No acute intra-abdominal pathology. 2. Mild stool burden in the ascending and descending colon may suggest constipation in the appropria te clinical setting. Electronically signed by: Vin Dupont M.D. 07/16/2018 8:37 AM
[2018-07-16] MEDS: ENOXAPARIN INJ 40 MG/0.4 ML SYR SQ SCH (09:00)
[2018-07-16] MEDS: LIDOCAINE 5% 1 PATCH TD SCH (09:00)
[2018-07-16] MEDS: KETOROLAC TROMETHAMINE 15 MG/ML VIAL IV PRN ×2 (11:30→20:34)
[2018-07-16] MEDS: POLYETHYLENE (MIRALAX) 17 GM PACK PO PRN ×2 (11:32→18:08)
--- NOTE | 2018-07-16 11:52 | Hospitalist Progress Note ---
Date of Service July 16, 2018 Assessment & Plan (1) Lumbar contusion: Persistent severe low back pain. Seen in consultation by Ortho Spine. MRI demonstrated multilevel degenerative changes, neural foraminal narrowing most severe at L3-4 and L4-5, chronic arachnoiditis, postsurgical changes, no acute findings. [place] to have back strain. Continue analgesics, PT, OT. (2) Frequent falls: Continue PT and OT. (3) Elevated troponin: Serum troponin slightly elevated at 0.048. No anginal symptoms or EKG changes. Elevated troponin probably secondary to demand ischemia. (4) Constipation: No bowel movements for a few days. Nausea and vomiting last night. KUB demonstrated moderate amount of stool in the colon. Bowel regimen as ordered. (5) DVT prophylaxis: SQ enoxaparin. Ambulate. (6) Discharge planning issues: Limited mobility and ability to perform ADLs due to severe low back pain. Patient interested in considering skilled care, perhaps [facility]. Consult Case Management. Internal Medicine follow-up with Dr. Galindo. Subjective Recheck for back pain. Patient seen in his room around 1140. Back pain slightly improved, but still severe at times. Ambulating, albeit with difficulty. Episode of nausea and vomiting during the night. Still has not moved his bowels. No fever. No chest pain. No cough or shortness of breath. No urinary symptoms. Physical Exam 2 Vital Signs (Past 24 Hours): Last Vital Signs Temp 36.4 C L 07/16/18 07:32 Pulse 74 07/16/18 07:32 Resp 20 07/16/18 07:32 BP 113/67 07/16/18 07:32 Pulse Ox 96 07/16/18 07:32 Constitutional: no acute distress Respiratory: no respiratory distress Auscultation: lungs clear to auscultation bilaterally Cardiovascular: Rate/Rhythm: regular rate and regular rhythm Heart Sounds: no gallop, no murmur and no cardiac rub Vessels: no JVD Extremities: + edema (chronic 1+ edema); no calf tenderness Gastrointestinal (Abdomen): normal bowel sounds, soft, nontender, no hepatosplenomegaly Musculoskeletal: Head/Neck/Chest: + evidence of head trauma (contusion occiput ) Spine: + paraspinal tenderness (left lower lumbar) Extremities: no cyanosis Skin: no rashes, warm and dry Psychiatric: Orientation: alert and oriented x 3 Results & Data Laboratory Results [facility] 07/16/18 06:17 Sodium 135 L Potassium 4.0 Chloride 103 Carbon Dioxide 22 BUN 36 H Creatinine 1.06 Glucose 105 H Calcium 8.8 _ (1) Lumbar contusion Encounter type:
[2018-07-16] MEDS: CHOLECALCIFEROL 1,000 UNITS TAB PO SCH (12:55)
[2018-07-16] MEDS: DOCUSATE SODIUM/SENNA 50/8.6MG TAB PO SCH ×2 (12:56→20:19)
[2018-07-16] MEDS ORDERED: BISACODYL 5 MG TABEC PO ONE (16:00)
[2018-07-17] MEDS: ACETAMINOPHEN 500 MG TAB PO SCH ×3 (05:19→20:09)
[2018-07-17] MEDS: TRAMADOL HCL 50 MG TABLET PO SCH ×2 (05:19→13:34)
[2018-07-17] MEDS: KETOROLAC TROMETHAMINE 15 MG/ML VIAL IV PRN (05:19)
[2018-07-17] MEDS: CHOLECALCIFEROL 1,000 UNITS TAB PO SCH (08:28)
[2018-07-17] MEDS: ENOXAPARIN INJ 40 MG/0.4 ML SYR SQ SCH (08:29)
[2018-07-17] MEDS: DOCUSATE SODIUM/SENNA 50/8.6MG TAB PO SCH ×2 (08:29→20:09)
[2018-07-17] MEDS: LIDOCAINE 5% 1 PATCH TD SCH (08:30)
--- NOTE | 2018-07-17 11:59 | Hospitalist Progress Note ---
Date of Service July 17, 2018 Assessment & Plan (1) Lumbar contusion: Persistent severe low back pain. Seen in consultation by Ortho Spine. MRI demonstrated multilevel degenerative changes, neural foraminal narrowing most severe at L3-4 and L4-5, chronic arachnoiditis, postsurgical changes, no acute findings. [place] to have back strain. MRI pelvis ordered to rule out other process. Continue analgesics, PT, OT. (2) Frequent falls: Continue PT and OT. (3) Elevated troponin: Serum troponin slightly elevated at 0.048. No anginal symptoms or EKG changes. Elevated troponin probably secondary to demand ischemia. (4) Constipation: Experienced bowel movements for several days. Constipation secondary to analgesics and inactivity. Bowel regimen as ordered. (5) Edema: Worsening lower extremity edema. Suspect that edema primarily secondary to dependent edema from spending essentially all of the time in sitting position. Chest x-ray showed some vascular congestion. Echo showed normal LVEF. May have some degree of diastolic CHF. Importance of elevation of legs emphasized to patient; he is reluctant because of his back pain. Start diuretic therapy. (6) DVT prophylaxis: SQ enoxaparin. Ambulate. (7) Discharge planning issues: Limited mobility and ability to perform ADLs due to severe low back pain. Patient interested in considering skilled care, perhaps [facility]. Consult Case Management. Internal Medicine follow-up with Dr. Galindo. visiting and given update. Subjective Recheck for back pain. Patient seen in his room around 1115. visiting. Back pain still severe. Has been sitting and sleeping in chair because pain is too severe when in bed. Ambulating, albeit with difficulty. Bowel regimen effective- moderate stool yesterday, large stool today. Worsening dependent edema. Noted to have bullae on feet this mornig. No fever. No chest pain. No cough or shortness of breath. No urinary symptoms. Physical Exam 2 Vital Signs (Past 24 Hours): Last Vital Signs Temp 36.4 C L 07/17/18 08:09 Pulse 50 L 07/17/18 08:09 Resp 18 07/17/18 08:09 BP 102/70 07/17/18 08:09 Pulse Ox 96 07/17/18 08:09 Constitutional: no acute distress and + uncomfortable (severe back pain with any movement) Respiratory: no respiratory distress Auscultation: lungs clear to auscultation bilaterally Cardiovascular: Rate/Rhythm: regular rate and regular rhythm Heart Sounds: no gallop, no murmur and no cardiac rub Vessels: normal peripheral pulses; no JVD Extremities: normal capillary refill (toes ~ 2 sec) and + edema (2+ pretibial and pedal edema); no calf tenderness Gastrointestinal (Abdomen): normal bowel sounds, soft, nontender, no hepatosplenomegaly Musculoskeletal: Head/Neck/Chest: + evidence of head trauma (contusion occiput ) Spine: + paraspinal tenderness (left lower lumbar) Extremities: no cyanosis Skin: bullous lesions on feet, some open and weeping Psychiatric: Orientation: alert and oriented x 3 _ (1) Lumbar contusion Encounter type:
[2018-07-17] MEDS ORDERED: FUROSEMIDE 20 MG in SYRINGE 0 ML IV ONE (12:15)
[2018-07-17] MEDS ORDERED: POTASSIUM CHLORIDE 10 MEQ TABCR PO ONE (12:15)
--- NOTE | 2018-07-17 12:52 | XRay Report ---
XR chest 1V portable CLINICAL HISTORY: Edema. Possible congestive failure. COMPARISON STUDY: 07/11/2018 FINDINGS: The heart is mildly enlarged. There is resolving congestive failure. There are bibasilar in terstitial opacities, likely atelectatic or the result of residual edema. There are no significant pl eural effusions. IMPRESSION: 1. Resolving congestive failure 2. Basilar residual opacities, atelectatic or the result of residual edema. Electronically signed by: Breezy Torres M.D. 07/17/2018 12:51 PM
[2018-07-17] MEDS: fentaNYL 25 MCG/HR TDSY TD SCH (13:26)
--- NOTE | 2018-07-17 13:53 | Orthopedic Progress Note ---
Date of Service July 17, 2018 Assessment & Plan (1) Lumbar contusion: At this time he continues to have marked discomfort and and has not improved over the past week. I would like to obtain an MRI of the pelvis to rule out occult fracture or ligamentous injury. Pending his results we may need to consider orthopedic consultation. Present on Admission?: Yes Subjective Patient continues to complain of severe left upper buttock pain. He states that sitting is somewhat tolerable standing reasonably tolerable but he is unable to lie supine secondary to the severe pain. He denies any radicular complaints. He is having some modest numbness in the feet secondary to the significant swelling. Physical Exam 2 Vital Signs (Past 24 Hours): Last Vital Signs Temp 36.4 C L 07/17/18 08:09 Pulse 50 L 07/17/18 08:09 Resp 18 07/17/18 08:09 BP 102/70 07/17/18 08:09 Pulse Ox 96 07/17/18 08:09 Physical Exam: On physical exam he is able to stand for me on his own volition without assistance and comfortably. However with palpation of the left greater trochanteric region and upper buttock that was able to induce severe discomfort. He has no abnormal skin markings. Is asymptomatic to pressure along the left SI joint. No gross radicular complaints. He does have marked edema bilateral extremities. _ (1) Lumbar contusion Encounter type:
[2018-07-17] MEDS: HYDROmorphone INJ 0.5 MG/0.5 ML SYR IV PRN ×2 (16:02→20:09)
[2018-07-17] MEDS: CHECK FENTANYL PATCH PLACEMENT SCH (16:02)
--- NOTE | 2018-07-17 21:05 | Magnetic Resonance Report ---
MR pelvis wo con CLINICAL HISTORY: 83 years-old Male presenting with pelvic pain, slipped and fell on ice a few days a go, severe back and pelvic pain. TECHNIQUE: Multisequence, multiplanar MR imaging of the pelvis was performed without the use of intra venous contrast. IV contrast: None. COMPARISON: Plain radiograph from 07/11/[address] of abdomen and pelvis from 07/13/2012. FINDINGS: Localizer images: Unremarkable. Bladder: Incompletely evaluated secondary to underdistention. Pelvic organs: Prostate and seminal vesicles normal. Bowel: Normal. No bowel obstruction. Peritoneal cavity: No free fluid. Lymph nodes: No gross lymphadenopathy allowing for noncontrast technique. Vasculature: Normal noncontrast appearance. Abdominal wall: Nonspecific subcutaneous infiltration in the lumbar region. Additionally, bilateral s ubcutaneous fat infiltration in the lower lateral proximal and posterior lateral proximal lower extre mities. No soft tissue hematoma. Musculoskeletal: T1 hypointense, T2 hyperintense osseous lesions in the bilateral iliac bones subjace nt to the sacroiliac joints (series 5 images 30 and 28). Additional lesion in the right anterior medi al acetabulum. Minimal increased signal intensity in the parasymphyseal right superior and inferior p ubic rami without evidence of focal fracture planes. IMPRESSION: 1. Multiple osseous lesions raises concern for metastatic disease involving the bilateral iliac bone s and right acetabulum. 2. Vague bony edema in the parasymphyseal right superior and inferior pubic rami without evidence of focal fracture planes. Scattered be reactive to recent trauma or indicate more subtle developing les ions. Consider bone scan for further evaluation. Electronically signed by: Vin Dupont M.D. 07/17/2018 9:04 PM
[2018-07-18] MEDS: HYDROmorphone INJ 0.5 MG/0.5 ML SYR IV PRN ×3 (03:24→21:30)
[2018-07-18] MEDS: TRAMADOL HCL 50 MG TABLET PO SCH ×4 (03:24→21:30)
[2018-07-18] MEDS: CHECK FENTANYL PATCH PLACEMENT SCH ×3 (03:29→16:41)
[2018-07-18] MEDS: ACETAMINOPHEN 500 MG TAB PO SCH ×3 (04:52→21:37)
[2018-07-18] MEDS: LIDOCAINE 5% 1 PATCH TD SCH (08:29)
[2018-07-18] MEDS: ENOXAPARIN INJ 40 MG/0.4 ML SYR SQ SCH (08:29)
[2018-07-18] MEDS: DOCUSATE SODIUM/SENNA 50/8.6MG TAB PO SCH ×2 (08:29→21:34)
[2018-07-18] MEDS: CHOLECALCIFEROL 1,000 UNITS TAB PO SCH (08:29)
[2018-07-18 09:13] LABS: BUN Creatinine Ratio 24.4 (10-20); Calcium 9.3 mg/dl (8.5-10.1); Creatinine Clr Calc Pharmacy 52.9 ml/min; Est GFR (African American) 60.3; Potassium 4.3 mmol/L (3.5-5.1)
--- NOTE | 2018-07-18 13:50 | Hospitalist Progress Note ---
Date of Service July 18, 2018 Assessment & Plan (1) Lumbar contusion: Persistent severe low back pain. Seen in consultation by Ortho Spine. MRI demonstrated multilevel degenerative changes, neural foraminal narrowing most severe at L3-4 and L4-5, chronic arachnoiditis, postsurgical changes, no acute findings. [place] to have back strain. MRI pelvis ordered to rule out other process; multiple skeletal lesions noted in pelvis, worrisome for bone mets. Continue analgesics, PT, OT. Further evaluation of abnormal pelvic MRI as discussed below. (2) Frequent falls: Continue PT and OT. (3) Head injury: Head CT negative for intracranial hemorrhage or other acute process. (4) Elevated troponin: Serum troponin slightly elevated at 0.048. No anginal symptoms or EKG changes. No segmental wall motion abnormalities on echocardiogram. Elevated troponin probably secondary to demand ischemia vs trauma. (5) Edema: Worsening lower extremity edema. Suspect that edema primarily secondary to dependent edema from spending essentially all of the time in sitting position. Chest x-ray showed some vascular congestion. Echo showed normal LVEF. May have some degree of diastolic CHF. Importance of elevation of legs emphasized to patient; he is reluctant because of his back pain. Recliner chair and new bed requested. Diurese with caution. (6) Constipation: Constipation secondary to analgesics and inactivity. Bowel regimen as ordered. (7) Abnormal MRI, pelvis: MRI pelvis demonstrated multiple skeletal lesions worrisome for metastatic disease. Patient has history of prostate cancer-followed by Dr. Dubon, treated with radiation therapy several years ago. PSA was undetectable in 2017. Check PSA. Check bone scan. Discussed further evaluation and management with Orthopedics and/or Urology when results available. (8) DVT prophylaxis: SQ enoxaparin. Ambulate. (9) Discharge planning issues: Limited mobility and ability to perform ADLs due to severe low back pain. Patient interested in considering skilled care, perhaps [facility]. Consult Case Management. Internal Medicine follow-up with Dr. Galindo. and son visiting and given update. Dr. Galindo given update by phone. Subjective Recheck for back pain. Patient seen in his room around 1130 and reassessed in the afternoon when his family was visiting. Back pain still severe. Still sitting and sleeping in chair because pain is too severe when in bed. Persistent dependent edema. No fever. No chest pain. No cough or shortness of breath. Nausea improved. Moved bowels yesterday. No urinary symptoms. Physical Exam 2 Vital Signs (Past 24 Hours): Last Vital Signs Temp 36.6 C 07/18/18 07:13 Pulse 66 07/18/18 07:13 Resp 21 07/18/18 07:13 BP 148/62 H 07/18/18 07:13 Pulse Ox 98 07/18/18 07:13 Constitutional: no acute distress Respiratory: no respiratory distress Auscultation: lungs clear to auscultation bilaterally Cardiovascular: Rate/Rhythm: regular rate and regular rhythm Heart Sounds: no gallop, no murmur and no cardiac rub Vessels: normal peripheral pulses; no JVD Extremities: + edema (2-3+ pretibial and pedal edema); no calf tenderness Gastrointestinal (Abdomen): normal bowel sounds, soft, nontender, no hepatosplenomegaly Musculoskeletal: Spine: + paraspinal tenderness (left lower lumbar) Extremities: no cyanosis feet wrapped with gauze dressing Skin: no rashes, warm and dry Psychiatric: Orientation: alert and oriented x 3 _ (1) Lumbar contusion Encounter type: (2) Head injury Encounter type:
[2018-07-18] MEDS ORDERED: FUROSEMIDE 40 MG in SYRINGE 0 ML IV ONE (15:30)
[2018-07-18] MEDS ORDERED: ALUMINUM/MAGNESIUM/SIMETH (MAALOX MAX) 30 ML UDC PO PRN (16:54)
[2018-07-18] MEDS: ONDANSETRON INJ 2 MG/ML 2 ML VIAL IV PRN (19:20)
[2018-07-19] MEDS: CHECK FENTANYL PATCH PLACEMENT SCH ×4 (01:13→23:09)
[2018-07-19] MEDS: TRAMADOL HCL 50 MG TABLET PO SCH ×3 (06:13→21:22)
[2018-07-19] MEDS: ACETAMINOPHEN 500 MG TAB PO SCH ×3 (06:14→22:14)
[2018-07-19] MEDS: LIDOCAINE 5% 1 PATCH TD SCH (07:36)
[2018-07-19] MEDS: DOCUSATE SODIUM/SENNA 50/8.6MG TAB PO SCH ×2 (07:37→21:24)
[2018-07-19] MEDS: CHOLECALCIFEROL 1,000 UNITS TAB PO SCH (07:37)
[2018-07-19] MEDS: ENOXAPARIN INJ 40 MG/0.4 ML SYR SQ SCH (07:37)
[2018-07-19 08:34] LABS: BUN Creatinine Ratio 27.3 (10-20); Calcium 9.3 mg/dl (8.5-10.1); Creatinine Clr Calc Pharmacy 51.6 ml/min; Est GFR (African American) 58.1; Est GFR (Non-African American) 50.1; Potassium 4.7 mmol/L (3.5-5.1)
[2018-07-19 08:38] LABS: Prostate Specific Antigen 0.018 ng/ml (0-4)
[2018-07-19] MEDS: HYDROmorphone INJ 0.5 MG/0.5 ML SYR IV PRN ×3 (11:12→21:20)
[2018-07-19] MEDS: POLYETHYLENE (MIRALAX) 17 GM PACK PO PRN (11:30)
--- NOTE | 2018-07-19 11:39 | Hospitalist Progress Note ---
Date of Service July 19, 2018 Assessment & Plan (1) Lumbar contusion: Persistent severe low back pain. Seen in consultation by Ortho Spine. MRI demonstrated multilevel degenerative changes, neural foraminal narrowing most severe at L3-4 and L4-5, chronic arachnoiditis, postsurgical changes, no acute findings. [place] to have back strain. MRI pelvis ordered to rule out other process; multiple skeletal lesions noted in pelvis, worrisome for bone mets. Continue analgesics, PT, OT. Further evaluation of abnormal pelvic MRI as discussed below. (2) Frequent falls: Continue PT and OT. (3) Head injury: Head CT negative for intracranial hemorrhage or other acute process. (4) Elevated troponin: Serum troponin slightly elevated at 0.048. No anginal symptoms or EKG changes. No segmental wall motion abnormalities on echocardiogram. Elevated troponin probably secondary to demand ischemia vs trauma. (5) Edema: Worsening lower extremity edema. Suspect that edema primarily secondary to dependent edema from spending essentially all of the time in sitting position. Chest x-ray showed some vascular congestion. Echo showed normal LVEF. May have some degree of diastolic CHF. Importance of elevation of legs emphasized to patient; he is reluctant because of his back pain. Recliner chair and new bed requested. Received 2 doses of IV furosemide- hold further dosing today because of elevated BUN and creatinine. (6) Constipation: Constipation secondary to analgesics and inactivity. Bowel regimen as ordered. (7) Abnormal MRI, pelvis: MRI pelvis demonstrated multiple skeletal lesions worrisome for metastatic disease. Patient has history of prostate cancer-followed by Dr. Dubon, treated with radiation therapy several years ago. PSA was undetectable in 2017. PSA today = 0.018. Check bone scan. Discussed further evaluation and management with Orthopedics and/or Urology when results available. (8) DVT prophylaxis: SQ enoxaparin. Ambulate. (9) Discharge planning issues: Limited mobility and ability to perform ADLs due to severe low back pain. Patient interested in considering skilled care, perhaps [facility]. Consult Case Management. Internal Medicine follow-up with Dr. Galindo. given update by phone this evening. Subjective Recheck for back pain and other problems. Patient seen in his room around 1120. Back pain still severe. More comfortable using recliner chair. Staff obtained a new bed for him with a thicker mattress; patient tried to lie down in the bed twice, but was very uncomfortable and asked to go back to the recliner chair. No fever. No chest pain. No cough or shortness of breath. No nausea or vomiting today. Moved bowels early this morning. No urinary symptoms. Physical Exam 2 Vital Signs (Past 24 Hours): Last Vital Signs Temp 36.4 C L 07/19/18 08:47 Pulse 67 07/19/18 08:47 Resp 17 07/19/18 08:47 BP 115/67 07/19/18 08:47 Pulse Ox 98 07/19/18 08:47 Constitutional: no acute distress Respiratory: no respiratory distress Auscultation: lungs clear to auscultation bilaterally Cardiovascular: Rate/Rhythm: regular rate and regular rhythm Heart Sounds: no gallop, no murmur and no cardiac rub Vessels: normal peripheral pulses; no JVD Extremities: + edema (2+ pretibial and pedal edema); no calf tenderness Gastrointestinal (Abdomen): normal bowel sounds, soft, nontender, no hepatosplenomegaly Musculoskeletal: Spine: + paraspinal tenderness (left lower lumbar) Extremities: no cyanosis Skin: no rashes, warm and dry Psychiatric: Orientation: alert and oriented x 3 Results & Data Laboratory Results Laboratory Results - last 24 hr 07/19/18 07:46 Sodium 135 L Potassium 4.7 Chloride 99 Carbon Dioxide 32 Anion Gap 4.0 BUN 36 H Creatinine 1.30 Est Cr Clr Drug Dosing 51.6 Est GFR ( Amer) 58.1 Est GFR (Non-Af Amer) 50.1 BUN/Creatinine Ratio 27.3 H Glucose 92 Calcium 9.3 Prostate Specific Ag 0.018 _ (1) Lumbar contusion Encounter type: (2) Head injury Encounter type:
[2018-07-19] MEDS ORDERED: FUROSEMIDE 40 MG in SYRINGE 0 ML IV ONE (14:00)
[2018-07-19] MEDS ORDERED: BISACODYL 5 MG TABEC PO ONE (14:00)
[2018-07-20] MEDS: HYDROmorphone INJ 0.5 MG/0.5 ML SYR IV PRN ×2 (04:05→20:18)
[2018-07-20 06:26] LABS: BUN Creatinine Ratio 28.8 (10-20); Calcium 8.4 mg/dl (8.5-10.1); Creatinine Clr Calc Pharmacy 69.1 ml/min; Est GFR (African American) 82.7; Est GFR (Non-African American) 71.4; Potassium 4.1 mmol/L (3.5-5.1)
[2018-07-20] MEDS: TRAMADOL HCL 50 MG TABLET PO SCH ×3 (06:45→21:28)
[2018-07-20] MEDS: ACETAMINOPHEN 500 MG TAB PO SCH ×3 (06:46→21:28)
[2018-07-20] MEDS: LIDOCAINE 5% 1 PATCH TD SCH (08:12)
[2018-07-20] MEDS: CHECK FENTANYL PATCH PLACEMENT SCH ×2 (08:12→16:57)
[2018-07-20] MEDS: DOCUSATE SODIUM/SENNA 50/8.6MG TAB PO SCH ×2 (08:13→21:27)
[2018-07-20] MEDS: ENOXAPARIN INJ 40 MG/0.4 ML SYR SQ SCH (08:13)
[2018-07-20] MEDS: CHOLECALCIFEROL 1,000 UNITS TAB PO SCH (08:13)
[2018-07-20] MEDS: fentaNYL 25 MCG/HR TDSY TD SCH (08:17)
[2018-07-20] MEDS ORDERED: MICONAZOLE NITRATE POWDER 43 GM EXT PRN (11:47)
--- NOTE | 2018-07-20 12:13 | Hospitalist Progress Note ---
Date of Service July 20, 2018 Assessment & Plan (1) Lumbar contusion: Persistent severe low back pain. Seen in consultation by Ortho Spine. MRI demonstrated multilevel degenerative changes, neural foraminal narrowing most severe at L3-4 and L4-5, chronic arachnoiditis, postsurgical changes, no acute findings. [place] to have back strain. MRI pelvis ordered to rule out other process; multiple skeletal lesions noted in pelvis, worrisome for bone mets. Lidocaine patch has not been effective- DC. Try adding duloxetine. Continue analgesics, PT, OT. Further evaluation of abnormal pelvic MRI as discussed below. (2) Abnormal MRI, pelvis: MRI pelvis demonstrated multiple skeletal lesions worrisome for metastatic disease. Patient has history of prostate cancer-followed by Dr. Dubon, treated with radiation therapy several years ago. PSA was undetectable in 2017. PSA 05/[address] chest / abdomen / pelvis to look for evidence of primary malignancy. Check bone scan- scheduled for tomorrow. Discussed further evaluation and management with Orthopedics and/or Urology when results available. (3) Frequent falls: Continue PT and OT. (4) Head injury: Head CT negative for intracranial hemorrhage or other acute process. (5) Elevated troponin: Serum troponin slightly elevated at 0.048. No anginal symptoms or EKG changes. No segmental wall motion abnormalities on echocardiogram. Elevated troponin probably secondary to demand ischemia vs trauma. (6) Edema: Worsening lower extremity edema. Suspect that edema primarily secondary to dependent edema from spending essentially all of the time in sitting position. Chest x-ray showed some vascular congestion. Echo showed normal LVEF. May have some degree of diastolic CHF. Importance of elevation of legs emphasized to patient; he is reluctant because of his back pain. Recliner chair and new bed requested. Diurese as tolerated. (7) Constipation: Constipation secondary to analgesics and inactivity. Bowel regimen as ordered. (8) DVT prophylaxis: SQ enoxaparin. Ambulate. (9) Discharge planning issues: Limited mobility and ability to perform ADLs due to severe low back pain. Patient interested in considering skilled care, perhaps [facility]. Consult Case Management. Internal Medicine follow-up with Dr. Galindo. Subjective Recheck for back pain and other problems. Patient seen in his room around 1150. His was visiting. Back pain less severe. More comfortable using recliner chair. Still unable to lie down in bed to elevate his legs. No fever. No chest pain. No cough or shortness of breath. No nausea or vomiting today. Moved bowels yesterday. No urinary symptoms. Physical Exam 2 Vital Signs (Past 24 Hours): Last Vital Signs Temp 36.5 C 07/20/18 07:42 Pulse 60 07/20/18 07:42 Resp 18 07/20/18 07:42 BP 114/69 07/20/18 07:42 Pulse Ox 94 07/20/18 07:42 Constitutional: no acute distress Respiratory: no respiratory distress Auscultation: lungs clear to auscultation bilaterally Cardiovascular: Rate/Rhythm: regular rate and regular rhythm Heart Sounds: no gallop, no murmur and no cardiac rub Vessels: no JVD Extremities: normal capillary refill (toes < 2 sec) and + edema (2+ pretibial and pedal edema ); no calf tenderness Gastrointestinal (Abdomen): normal bowel sounds, soft, nontender, no hepatosplenomegaly Musculoskeletal: Extremities: no cyanosis Skin: no rashes, warm and dry Psychiatric: Orientation: alert and oriented x 3 Results & Data Laboratory Results BUN 28, creatinine 0.97. _ (1) Lumbar contusion Encounter type: (2) Head injury Encounter type:
--- NOTE | 2018-07-20 15:08 | CT Scan Report ---
CT chest wo con CLINICAL HISTORY: 83 years-old Male presenting with apparent skeletal mets, ? primary. TECHNIQUE: Multidetector CT imaging of the chest was performed without the use of intravenous contras t. IV contrast: None. A dose lowering technique was used consistent with the principles of ALARA (as low as reasonably achievable). COMPARISON: 06/13/2018. CT DOSE (mGy.cm): The estimated cumulative dose is 1536.74. FINDINGS: Pattern Grader Supervisor topogram: Extensive degenerative changes of the spine. On soft tissue windows, normal thyroid and thoracic inlet. Gynecomastia. No axillary, supraclavicular , or mediastinal lymphadenopathy. Evaluation of the yo[place] limited without intravenous contrast. Athero sclerosis of the aorta. Mild multichamber enlargement of the heart. Coronary artery and aortic valve calcification. No pericardial or pleural effusion. Upper abdomen normal. On lung windows, no pneumothorax. Bronchial wall thickening with a lower lobe predominance. Central a irways patent. Extensive interlobular septal thickening with bronchovascular bundle thickening in the lower lobes. Subpleural reticulation dependently in the lower lobes. Patchy groundglass opacity and/ or mosaic attenuation with a lower lobe predominance. Pulmonary arteries are not significantly enlarg ed relative to adjacent bronchi. Scattered largely punctate nodules in the right upper and right midd le lobes unchanged. Solid subpleural ovoid 6 mm nodule in the superior segment of the left lower lobe (series 4 image 120), unchanged. No new nodule. On bone windows, degenerative changes of the spine. No destructive osseous lesion. Osteopenia suspect ed. Comminuted fracture of the right clavicular head with trace periosteal reaction. IMPRESSION: 1. No evidence of osseous metastatic disease allowing for the sensitivity of CT. 2. Cardiomegaly. 3. Congestive changes at the lung bases may be due to volume overload versus chronic aspiration. The appearance is unchanged. 4. Stable solid small pulmonary nodules. No new nodule or infiltrate. 5. Trace interval healing of the comminuted right clavicular head fracture. Electronically signed by: Vin Dupont M.D. 07/20/2018 3:07 PM
--- NOTE | 2018-07-20 15:23 | CT Scan Report ---
CT abd pelvis oral con only CLINICAL HISTORY: 83 years-old Male presenting with apparent skeletal mets, ? primary. TECHNIQUE: Multidetector CT of the abdomen and pelvis was performed after the administration of oral contrast only. IV contrast: None. One or more dose lowering techniques were used consistent with the principles of ALARA (as low as reasonably achievable), including automatic exposure control, mA or kV adjustment to individual patient size, and/or use of iterative reconstruction. COMPARISON: MR pelvis from 07/17/[address] from 02/15/2008. CT DOSE (mGy.cm): The estimated cumulative dose is 1536.74 mGy.cm. FINDINGS: Weed Controller topogram: Unremarkable. Lung bases: Bronchovascular bundle thickening with interlobular septal prominence and scattered retic ular subpleural opacities, possibly related to congestive change and/or chronic aspiration. Multicham lurdes enlargement of the heart. Coronary artery and aortic valve calcification. No pericardial or pleur al effusion. Liver: Normal morphology. Normal density. Biliary: No gross biliary ductal dilatation allowing for noncontrast technique. Normal gallbladder. Pancreas: Moderate parenchymal atrophy. Spleen: Normal noncontrast appearance. Splenule noted. Adrenal glands: Normal noncontrast appearance. Kidneys and ureters: Normal noncontrast appearance. Parapelvic cyst at the lower pole the right kidne y. No nephrolithiasis. No hydronephrosis. Normal ureters. Bladder: Incompletely evaluated secondary to underdistention. Pelvic organs: Prostate enlargement likely secondary to benign prostatic hyperplasia. Bowel: Few scattered colonic diverticula. No evidence of associated inflammatory change. Mild stool b urden throughout normal caliber colon. The appendix is normal. No bowel obstruction. The stomach is d istended. Peritoneal cavity: No free fluid or intraperitoneal gas. Lymph nodes: Several subcentimeter retroperitoneal lymph nodes in the left periaortic region (for exa mple series 6 image 250). These measure up to 8 mm in short axis. No pathologically enlarged lymph no marci in abdomen or pelvis. Vasculature: Atherosclerosis of the normal caliber abdominal aorta. Abdominal wall: Diastasis of the rectus abdominis. Foci of gas in the right anterior abdominal wall l ikely relates to medication menstruation. Musculoskeletal: Degenerative changes of the spine. The apparent osseous lesions evident in the bilat eral iliac bones are not apparent on CT. Osteopenia. Degenerative changes of the sacroiliac joints. T he superior and inferior right pubic rami are also normal appearing allowing for osteopenia. IMPRESSION: 1. No convincing evidence of osseous metastatic disease allowing for the sensitivity of CT and the p resence of osteopenia. Degenerative changes of the sacroiliac joints may suggest an alternate diagnos is of the findings on MRI of potential geodes/intraosseous ganglion cysts related to degenerative geovanny nge. 2. Allowing for noncontrast technique, no evidence of malignancy in the abdomen or pelvis. 3. Nonspecific subcentimeter retroperitoneal lymph nodes. These may be reactive. 4. Findings suggest congestive change or chronic aspiration at the lung bases. Electronically signed by: Vin Dupont M.D. 07/20/2018 3:22 PM
[2018-07-20] MEDS: ONDANSETRON INJ 2 MG/ML 2 ML VIAL IV PRN (20:18)
[2018-07-21] MEDS: HYDROmorphone INJ 0.5 MG/0.5 ML SYR IV PRN ×2 (00:27→05:02)
[2018-07-21] MEDS: CHECK FENTANYL PATCH PLACEMENT SCH ×3 (00:28→17:02)
[2018-07-21] MEDS: ACETAMINOPHEN 500 MG TAB PO SCH ×3 (05:08→20:43)
[2018-07-21] MEDS: TRAMADOL HCL 50 MG TABLET PO SCH ×3 (05:09→20:39)
[2018-07-21] MEDS: DULOXETINE HCL 30 MG CAP PO SCH (08:09)
[2018-07-21] MEDS: DOCUSATE SODIUM/SENNA 50/8.6MG TAB PO SCH ×2 (08:09→20:43)
[2018-07-21] MEDS: CHOLECALCIFEROL 1,000 UNITS TAB PO SCH (08:10)
[2018-07-21] MEDS: ENOXAPARIN INJ 40 MG/0.4 ML SYR SQ SCH (08:10)
[2018-07-21] MEDS ORDERED: HYDROmorphone INJ 1 MG/ML SYRINGE IV PRN (09:00)
--- NOTE | 2018-07-21 10:14 | Hospitalist Progress Note ---
Date of Service July 21, 2018 Assessment & Plan (1) Lumbar contusion: Persistent severe low back pain. Seen in consultation by Ortho Spine. MRI demonstrated multilevel degenerative changes, neural foraminal narrowing most severe at L3-4 and L4-5, chronic arachnoiditis, postsurgical changes, no acute findings. [place] to have back strain. MRI pelvis ordered to rule out other process; multiple skeletal lesions noted in pelvis, worrisome for bone mets. Lidocaine patch has not been effective- DC. Try adding duloxetine. Continue analgesics, PT, OT. Further evaluation of abnormal pelvic MRI as discussed below. (2) Abnormal MRI, pelvis: MRI pelvis demonstrated multiple skeletal lesions worrisome for metastatic disease. Patient has history of prostate cancer-followed by Dr. Dubon, treated with radiation therapy several years ago. PSA was undetectable in 2017. PSA 05/[address] chest / abdomen / pelvis did not show any evidence of primary malignancy. Bone scan today. Discussed further evaluation and management with Orthopedics and/or Urology when results available. (3) Frequent falls: Continue PT and OT. (4) Head injury: Head CT negative for intracranial hemorrhage or other acute process. (5) Elevated troponin: Serum troponin slightly elevated at 0.048. No anginal symptoms or EKG changes. No segmental wall motion abnormalities on echocardiogram. Elevated troponin probably secondary to demand ischemia vs trauma. (6) Edema: Worsening lower extremity edema. Suspect that edema primarily secondary to dependent edema from spending essentially all of the time in sitting position. Chest x-ray showed some vascular congestion. Echo showed normal LVEF. May have some degree of diastolic CHF. Importance of elevation of legs emphasized to patient; he is reluctant because of his back pain. Recliner chair and new bed requested. Diurese as tolerated. (7) Constipation: Constipation secondary to analgesics and inactivity. Bowel regimen as ordered. (8) DVT prophylaxis: SQ enoxaparin. Ambulate. (9) Discharge planning issues: Limited mobility and ability to perform ADLs due to severe low back pain. Patient interested in considering skilled care, perhaps [facility]. Consult Case Management. Internal Medicine follow-up with Dr. Galindo. Subjective Recheck for back pain and other problems. Patient seen in his room around 1015. His was visiting. Waiting for bone scan. Ongoing back pain, severe at times. Trying to keep his legs elevated in recliner chair. No fever. No chest pain. No cough or shortness of breath. No nausea or vomiting. Moved bowels yesterday. No urinary symptoms. Physical Exam 2 Vital Signs (Past 24 Hours): Last Vital Signs Temp 36.9 C 07/21/18 07:52 Pulse 50 L 07/21/18 07:52 Resp 18 07/21/18 07:52 BP 111/62 07/21/18 07:52 Pulse Ox 96 07/21/18 07:52 Constitutional: no acute distress Respiratory: no respiratory distress Auscultation: lungs clear to auscultation bilaterally Cardiovascular: Rate/Rhythm: regular rate and regular rhythm Heart Sounds: no gallop, no murmur and no cardiac rub Vessels: no JVD Extremities: + edema (2+ pretibial and pedal edema); no calf tenderness Gastrointestinal (Abdomen): normal bowel sounds, soft, nontender, no hepatosplenomegaly Musculoskeletal: Head/Neck/Chest: + evidence of head trauma (contusion occiput ) Spine: + paraspinal tenderness (left lower lumbar) Extremities: no cyanosis Skin: no rashes, warm and dry Psychiatric: Orientation: alert and oriented x 3 _ (1) Lumbar contusion Encounter type: (2) Head injury Encounter type:
--- NOTE | 2018-07-21 13:30 | Nuclear Medicine Report ---
NM bone scan whole body HISTORY: abnormal MRI pelvis; history prostate Ca RADIOTRACER: 20 6. mCi Tc-99m MDP STUDY/IMAGES: Planar anterior and posterior whole body imaging was performed 3 hours following the i ntravenous administration of radiotracer. COMPARISON: Various CT exams, MRI exams, and routine images. FINDINGS: Increased activity medial aspect right clavicle the patient's known fracture site. Scattere d degenerative activity of the shoulders knees and feet bilaterally. Patchy increase in activity of the lumbar spine. This is suggestive of degenerative activity. No abnormal soft tissue activity. Bilateral renal activity is present. IMPRESSION: 1. Bone scan activity characteristics suggestive of a degenerative change as well as a healing right medial clavicle fracture. 2. Metastatic disease considered less likely given this distribution and appearance. The above report was generated using voice recognition software. It may contain grammatical, syntax or spelling errors. Electronically signed by: Gianluca Darling M.D. 07/21/2018 1:28 PM
[2018-07-22] MEDS: CHECK FENTANYL PATCH PLACEMENT SCH ×4 (00:27→23:21)
[2018-07-22] MEDS: HYDROmorphone INJ 0.5 MG/0.5 ML SYR IV PRN (03:22)
[2018-07-22] MEDS: ACETAMINOPHEN 500 MG TAB PO SCH ×2 (05:26→14:01)
[2018-07-22] MEDS: TRAMADOL HCL 50 MG TABLET PO SCH ×2 (05:26→14:01)
[2018-07-22 07:23] LABS: Alanine Aminotransferase 48 U/L (12-78); Albumin Level 3.2 gm/dl (3.4-5.0); Aspartate Aminotransferase 32 U/L (15-37); BUN Creatinine Ratio 22.5 (10-20); Bilirubin Direct < 0.1 mg/dl (0-0.2); Blood Urea Nitrogen 23 mg/dl (7-18); Calcium 8.7 mg/dl (8.5-10.1); Carbon Dioxide 25 mmol/L (21-32); Chloride 103 mmol/L (98-107); Creatinine Clr Calc Pharmacy 65.5 ml/min; Est GFR (African American) 77.9; Est GFR (Non-African American) 67.2; Glucose 83 mg/dl (70-99); Potassium 4.6 mmol/L (3.5-5.1); Sodium 134 mmol/L (136-145)
[2018-07-22 07:26] LABS: Albumin Globulin Ratio 0.9 (0.9-2); Alkaline Phosphatase 64 U/L (45-117); Bilirubin,Total 0.2 mg/dl (0.2-1); Globulin 3.6 gm/dl (2.5-4.0); Total Protein 6.8 gm/dl (6.4-8.2)
[2018-07-22] MEDS: CHOLECALCIFEROL 1,000 UNITS TAB PO SCH (09:01)
[2018-07-22] MEDS: ENOXAPARIN INJ 40 MG/0.4 ML SYR SQ SCH (09:01)
[2018-07-22] MEDS: DULOXETINE HCL 30 MG CAP PO SCH (09:02)
[2018-07-22] MEDS: DOCUSATE SODIUM/SENNA 50/8.6MG TAB PO SCH ×2 (09:06→20:19)
[2018-07-22] MEDS ORDERED: ACETAMINOPHEN 500 MG TAB PO PRN (14:18)
[2018-07-22] MEDS ORDERED: TRAMADOL HCL 50 MG TABLET PO PRN (14:18)
--- NOTE | 2018-07-22 14:19 | Hospitalist Progress Note ---
Date of Service July 22, 2018 Assessment & Plan (1) Lumbar contusion: Persistent severe low back pain. Seen in consultation by Ortho Spine. MRI demonstrated multilevel degenerative changes, neural foraminal narrowing most severe at L3-4 and L4-5, chronic arachnoiditis, postsurgical changes, no acute findings. [place] to have back strain. MRI pelvis ordered to rule out other process; multiple skeletal lesions noted in pelvis, worrisome for bone mets. Lidocaine patch has not been effective- DC. Try adding duloxetine. Continue analgesics, PT, OT. Further evaluation of abnormal pelvic MRI as discussed below. (2) Abnormal MRI, pelvis: MRI pelvis demonstrated multiple skeletal lesions worrisome for metastatic disease. Patient has history of prostate cancer-followed by Dr. Dubon, treated with radiation therapy several years ago. PSA was undetectable in 2017. PSA 05/[address] chest / abdomen / pelvis did not show any evidence of primary malignancy. Bone scan demonstrated uptake most consistent with degenerative disease and healing clavicular fracture. Images (CT, MRI, bone scan) reviewed with Ortho and Radiology. Consensus is that bone lesions most likely benign. No further evaluation at this time unless pt has worsening / ongoing symptoms in the pelvic region. (3) Frequent falls: Continue PT and OT. (4) Head injury: Head CT negative for intracranial hemorrhage or other acute process. (5) Elevated troponin: Serum troponin slightly elevated at 0.048. No anginal symptoms or EKG changes. No segmental wall motion abnormalities on echocardiogram. Elevated troponin probably secondary to demand ischemia vs trauma. (6) Edema: Worsening lower extremity edema. Suspect that edema primarily secondary to dependent edema from spending essentially all of the time in sitting position. Chest x-ray showed some vascular congestion. Echo showed normal LVEF. May have some degree of diastolic CHF (although diastolic dysfunction not noted on echo). Importance of elevation of legs emphasized to patient; he is reluctant because of his back pain. Recliner chair and new bed requested. Diurese as tolerated. (7) Constipation: Constipation secondary to analgesics and inactivity. Bowel regimen as ordered. (8) DVT prophylaxis: SQ enoxaparin. Ambulate. (9) Discharge planning issues: Limited mobility and ability to perform ADLs due to severe low back pain. Patient interested in considering skilled care, perhaps [facility]. Consult Case Management. Internal Medicine follow-up with Dr. Galindo. Subjective Recheck for back pain and other problems. Patient seen in his room around 1400. Pain gradually improving. Participating with PT & OT. Was able to spend some time in bed yesterday with legs elevated. Keeping his legs elevated in recliner chair. No fever. No chest pain. No cough or shortness of breath. No nausea or vomiting. No constipation. No urinary symptoms. Physical Exam 2 Vital Signs (Past 24 Hours): Last Vital Signs Temp 36.4 C L 07/22/18 08:00 Pulse 81 07/22/18 08:00 Resp 18 07/22/18 08:00 BP 124/72 07/22/18 08:00 Pulse Ox 90 07/22/18 08:00 Constitutional: no acute distress Respiratory: no respiratory distress Auscultation: lungs clear to auscultation bilaterally Cardiovascular: Rate/Rhythm: regular rate and regular rhythm Heart Sounds: no gallop, no murmur and no cardiac rub Vessels: no JVD Extremities: + edema (2+ pretibial and pedal edema); no calf tenderness Gastrointestinal (Abdomen): normal bowel sounds, soft, nontender, no hepatosplenomegaly Musculoskeletal: Head/Neck/Chest: + evidence of head trauma (contusion occiput ) Extremities: no cyanosis Skin: no rashes, warm and dry Psychiatric: Orientation: alert and oriented x 3 Results & Data Laboratory Results Laboratory Results - last 24 hr 07/22/18 06:26 Sodium 134 L Potassium 4.6 Chloride 103 Carbon Dioxide 25 Anion Gap 6.0 BUN 23 H Creatinine 1.02 Est Cr Clr Drug Dosing 65.5 Est GFR ( Amer) 77.9 Est GFR (Non-Af Amer) 67.2 BUN/Creatinine Ratio 22.5 H Glucose 83 Calcium 8.7 Total Bilirubin 0.2 Direct Bilirubin < 0.1 AST 32 ALT 48 Alkaline Phosphatase 64 Total Protein 6.8 Albumin 3.2 L Globulin 3.6 Albumin/Globulin Ratio 0.9 _ (1) Lumbar contusion Encounter type: (2) Head injury Encounter type:
--- NOTE | 2018-07-22 14:27 | Orthopedic Progress Note ---
Date of Service July 22, 2018 Assessment & Plan (1) Back pain: This afternoon we had a conference with the radiologist regarding the patient's body imaging and concern for pelvic disease. It was determined these lesions were most likely benign. This was conveyed to the patient. Is improving. Anticipate discharge home in the next few days. Present on Admission?: Yes Subjective Patient feels pain is well controlled. He is able to lie down. He is ambulate in halls without a walker. Physical Exam 2 Vital Signs (Past 24 Hours): Last Vital Signs Temp 36.4 C L 07/22/18 08:00 Pulse 81 07/22/18 08:00 Resp 18 07/22/18 08:00 BP 124/72 07/22/18 08:00 Pulse Ox 90 07/22/18 08:00 Physical Exam: On exam he is in the recliner chair. He is laying down. His lower extremity edema seems to be improving. He appears comfortable. Is neurologically intact.
[2018-07-22] MEDS ORDERED: FUROSEMIDE 40 MG TAB PO ONE (15:00)
[2018-07-23] MEDS: CHECK FENTANYL PATCH PLACEMENT SCH ×3 (08:33→23:40)
[2018-07-23] MEDS: FUROSEMIDE 40 MG TAB PO SCH (08:34)
[2018-07-23] MEDS: CHOLECALCIFEROL 1,000 UNITS TAB PO SCH (08:36)
[2018-07-23] MEDS: ENOXAPARIN INJ 40 MG/0.4 ML SYR SQ SCH (08:36)
[2018-07-23] MEDS: DULOXETINE HCL 30 MG CAP PO SCH (08:36)
[2018-07-23] MEDS: fentaNYL 25 MCG/HR TDSY TD SCH (08:42)
[2018-07-23] MEDS: DOCUSATE SODIUM/SENNA 50/8.6MG TAB PO SCH ×2 (09:04→21:23)
--- NOTE | 2018-07-23 19:42 | Hospitalist Progress Note ---
Date of Service July 23, 2018 Assessment & Plan (1) Lumbar contusion: Presented with severe low back pain. Seen in consultation by Ortho Spine. MRI demonstrated multilevel degenerative changes, neural foraminal narrowing most severe at L3-4 and L4-5, chronic arachnoiditis, postsurgical changes, no acute findings. [place] to have back strain. MRI pelvis ordered to rule out other process; multiple skeletal lesions noted in pelvis, worrisome for bone mets. Lidocaine patch not effective- discontinued. Added fentanyl patch + duloxetine. Continue analgesics, PT, OT. Further evaluation of abnormal pelvic MRI as discussed below. (2) Abnormal MRI, pelvis: MRI pelvis demonstrated multiple skeletal lesions worrisome for metastatic disease. Patient has history of prostate cancer-followed by Dr. Dubon, treated with radiation therapy several years ago. PSA was undetectable in 2017. PSA 05/[address] chest / abdomen / pelvis did not show any evidence of primary malignancy. Bone scan demonstrated uptake most consistent with degenerative disease and healing clavicular fracture. Images (CT, MRI, bone scan) reviewed with Ortho and Radiology. Consensus is that bone lesions most likely benign. No further evaluation at this time unless pt has worsening / ongoing symptoms in the pelvic region. (3) Frequent falls: Continue PT and OT. (4) Head injury: Head CT negative for intracranial hemorrhage or other acute process. (5) Elevated troponin: Serum troponin slightly elevated at 0.048. No anginal symptoms or EKG changes. No segmental wall motion abnormalities on echocardiogram. Elevated troponin probably secondary to demand ischemia vs trauma. (6) Edema: Worsening lower extremity edema. Suspect that edema primarily secondary to dependent edema from spending essentially all of the time in sitting position. Chest x-ray showed some vascular congestion. Echo showed normal LVEF. May have some degree of diastolic CHF (although diastolic dysfunction not noted on echo). Importance of elevation of legs emphasized to patient; he is reluctant because of his back pain. Recliner chair and new bed requested. Diurese as tolerated. (7) Constipation: Constipation secondary to analgesics and inactivity. Bowel regimen as ordered. (8) DVT prophylaxis: SQ enoxaparin. Ambulate. (9) Discharge planning issues: Anticipated discharge to home with home health services. Internal Medicine follow-up with Dr. Galindo. Subjective Recheck for back pain and other problems. Patient seen in his room around 1700. Pain improving. Keeping his legs elevated in recliner chair. No fever. No chest pain. No cough or shortness of breath. No nausea or vomiting. No constipation. No urinary symptoms. Physical Exam 2 Vital Signs (Past 24 Hours): Last Vital Signs Temp 36.7 C 07/23/18 15:13 Pulse 60 07/23/18 15:13 Resp 18 07/23/18 15:13 BP 132/74 07/23/18 15:13 Pulse Ox 97 07/23/18 15:13 Constitutional: no acute distress Respiratory: no respiratory distress Auscultation: lungs clear to auscultation bilaterally Cardiovascular: Rate/Rhythm: regular rate and regular rhythm Heart Sounds: no gallop, no murmur and no cardiac rub Vessels: no JVD Extremities: + edema (1-2+ pretibial and pedal edema); no calf tenderness Gastrointestinal (Abdomen): normal bowel sounds, soft, nontender, no hepatosplenomegaly Musculoskeletal: Extremities: no cyanosis Skin: no rashes, warm and dry Psychiatric: Orientation: alert and oriented x 3 _ (1) Lumbar contusion Encounter type: (2) Head injury Encounter type:
[2018-07-24 07:10] LABS: BUN Creatinine Ratio 20.9 (10-20); Calcium 8.7 mg/dl (8.5-10.1); Creatinine Clr Calc Pharmacy 65.6 ml/min; Est GFR (African American) 78.8
[2018-07-24] MEDS: FUROSEMIDE 40 MG TAB PO SCH (08:52)
[2018-07-24] MEDS: DULOXETINE HCL 30 MG CAP PO SCH (08:53)
[2018-07-24] MEDS: DOCUSATE SODIUM/SENNA 50/8.6MG TAB PO SCH (08:53)
[2018-07-24] MEDS: CHOLECALCIFEROL 1,000 UNITS TAB PO SCH (08:53)
[2018-07-24] MEDS: ENOXAPARIN INJ 40 MG/0.4 ML SYR SQ SCH (08:53)
[2018-07-24] MEDS: CHECK FENTANYL PATCH PLACEMENT SCH (08:54)
--- NOTE | 2018-07-24 11:59 | Hospitalist Progress Note ---
Date of Service July 24, 2018 Assessment & Plan (1) Lumbar contusion: Presented with severe low back pain. Seen in consultation by Ortho Spine. MRI demonstrated multilevel degenerative changes, neural foraminal narrowing most severe at L3-4 and L4-5, chronic arachnoiditis, postsurgical changes, no acute findings. [place] to have back strain. MRI pelvis ordered to rule out other process; multiple skeletal lesions noted in pelvis, worrisome for bone mets. Lidocaine patch not effective- discontinued. Added fentanyl patch + duloxetine. Further evaluation of abnormal pelvic MRI as discussed below. Continue analgesics, PT, OT. Discharge on fentanyl patch 25 mcg, taper as symptoms improved. (2) Abnormal MRI, pelvis: MRI pelvis demonstrated multiple skeletal lesions worrisome for metastatic disease. Patient has history of prostate cancer-followed by Dr. Dubon, treated with radiation therapy several years ago. PSA was undetectable in 2017. PSA 05/[address] chest / abdomen / pelvis did not show any evidence of primary malignancy. Bone scan demonstrated uptake most consistent with degenerative disease and healing clavicular fracture. Images (CT, MRI, bone scan) reviewed with Ortho and Radiology. Consensus is that bone lesions most likely benign. No further evaluation at this time unless pt has worsening / ongoing symptoms in the pelvic region. (3) Frequent falls: Continue PT and OT. (4) Head injury: Head CT negative for intracranial hemorrhage or other acute process. (5) Elevated troponin: Serum troponin slightly elevated at 0.048. No anginal symptoms or EKG changes. No segmental wall motion abnormalities on echocardiogram. Elevated troponin probably secondary to demand ischemia vs trauma. (6) Edema: Worsening lower extremity edema. Suspect that edema primarily secondary to dependent edema from spending essentially all of the time in sitting position. Chest x-ray showed some vascular congestion. Echo showed normal LVEF. May have some degree of diastolic CHF (although diastolic dysfunction not noted on echo). Importance of elevation of legs emphasized to patient; he is reluctant because of his back pain. Recliner chair and new bed requested. Diurese as tolerated. (7) Constipation: Constipation secondary to analgesics and inactivity. Bowel regimen as ordered. (8) Skin ulcers of both feet: Developed bullae of both feet due to pedal edema from sitting in dependent position due to back pain. Seen by Wound Care Nursing. Bullae opened, resulting in shallow ulcers. Arrangements made for home health nursing as well as follow-up at [facility]. (9) DVT prophylaxis: SQ enoxaparin. Ambulate. (10) Discharge planning issues: Discharge to home with home health services. Internal Medicine follow-up with Dr. Galindo. Orthopedics follow-up with Dr. Magaña. Subjective Recheck for back pain and other problems. Patient seen in his room around 1050. Back / pelvic pain improved. Keeping his legs elevated in recliner chair. No fever. No chest pain. No cough or shortness of breath. No nausea or vomiting. No constipation. No urinary symptoms. Ambulating. Ready to go home. Physical Exam 2 Vital Signs (Past 24 Hours): Last Vital Signs Temp 36.5 C 07/24/18 07:00 Pulse 55 L 07/24/18 07:00 Resp 21 07/24/18 07:00 BP 113/62 07/24/18 07:00 Pulse Ox 97 07/24/18 07:00 Constitutional: no acute distress Respiratory: no respiratory distress Auscultation: lungs clear to auscultation bilaterally Cardiovascular: Rate/Rhythm: regular rate and regular rhythm Heart Sounds: no gallop, no murmur and no cardiac rub Vessels: normal peripheral pulses; no JVD Extremities: normal capillary refill (toes < 2 sec) and + edema (1+ pretibial and pedal edema); no calf tenderness Gastrointestinal (Abdomen): normal bowel sounds, soft, nontender, no hepatosplenomegaly Musculoskeletal: Head/Neck/Chest: + evidence of head trauma (contusion occiput ) Spine: + paraspinal tenderness (left lower lumbar) Extremities: no cyanosis Skin: no rashes, warm and dry bullae bilateral feet, open, no erythema or drainage Psychiatric: Orientation: alert and oriented x 3 _ (1) Lumbar contusion Encounter type: (2) Head injury Encounter type:
--- NOTE | 2018-07-25 08:58 | Discharge Summary ---
Date of Service Date of admission: 07/11/18 Date of discharge: 07/24/18 Admission HPI Per Admitting Provider 83-year-old man with history of frequent falls at home per his presents after slipping on ice at his home today. He landed on his back and hit his head. He was scanned with CT of lumbar and cervical spine as well as pelvic x- ray with no evidence of acute fracture. His head CT revealed no acute intracranial abnormality. His chest x-ray was within normal limits. He was subsequently given 12 mg of morphine IV with no improvement. The patient reports intense pain even with minimal movement which is evident on examination today. He notably has a dry mouth which he states is not chronic for him. He reports tolerating p.o. and having no nausea, vomiting, diarrhea or other issues. He has a history of prostate cancer treated with radiation. He has chronic shortness of breath that is possibly related to COPD, however, his does not agree with that diagnosis. She reports recently normal PFTs and echocardiogram. He worked in the [employer] and is since retired. He reports being screened for "black lung" but this was negative reportedly. He is a patient of Dr. Galindo and therefore records are limited. He was recently seen in the ER for a broken collarbone after a fall, and has taken ibuprofen for pain in his shoulder since then. He has a well-healed area of ecchymosis on his right anterior chest wall. Other skin could not be examined well secondary to significant pain. reports noticing some cognitive issues and possible memory loss, and states she thinks he has dementia. The patient is otherwise healthy and takes herbs and supplements but no prescription medications. He ambulates independently at baseline. He is not on oxygen at baseline. He states that he would like to sit up and feels he would think he would actually feel a little better if he could do so. Admission Exam Per Admitting Provider CONSTITUTIONAL: WNWD, vitals as above, in acute distress with minimal movement EYES: PERRL, normal conjuctivae, no scleral icterus ENT: MM dry RESPIRATORY: coarse rhonchi at the L base, otherwise clear to auscultation bilaterally, normal respiratory effort. Limited exam as patient is supine and cannot move to accomodate examiner's position. CARDIOVASCULAR: regular rate and rhythm, S1 and 2 heard without murmurs, gallops or rubs, no JVD, no peripheral edema CHEST: inspection of chest revealed well-healing softball size area of ecchymosis. GASTROINTESTINAL: normal bowel sounds, soft, nontender, nondistended MUSCULOSKELETAL: strength 5/5 throughout but limited mobility 2/2 severe pain. Very TTP lower back in the superior gluteal region with no apparent paraspinal palpation. SKIN: warm and dry NEUROLOGIC: PERRL, EOMI, no facial palsy, no dysarthria. CN 2-12 grossly intact, decreased sensation on soles of feet bilaterally, normal speech PSYCHIATRIC: alert cooperative and answering questions appropriately. Principal Diagnosis fall with severe lumbar and pelvic pain Discharge Data Allergies Allergy/AdvReac Type Severity Reaction Status Date / Time iodine Allergy Mild HIVES/ITCHI Verified 07/11/18 14:09 NG amoxicillin [From Augmentin] AdvReac Mild diarrhea Verified 07/13/18 07:52 clavulanic acid AdvReac Mild diarrhea Verified 07/13/18 07:52 [From Augmentin] Consultations 07/11/18 15:50 ED Decision to Admit Stat 07/13/18 13:11 Consult Orthopedic Surgery Routine 07/17/18 01:38 Consult Case Management - Discharge Planning Routine 07/18/18 15:29 Burn CD for patient Routine Ordered Studies 07/11/18 13:31 CT cervical spine wo con Stat CT head/brain wo con Stat CT lumbar spine wo con Stat 07/14/18 09:49 MR lumbar spine wo con Urgent 07/17/18 07:46 MR pelvis wo con Urgent 07/20/18 12:14 CT abd pelvis oral con only Routine CT chest wo con Routine Hospital Course (1) Lumbar contusion: Presented with severe low back pain. Seen in consultation by Ortho Spine. MRI demonstrated multilevel degenerative changes, neural foraminal narrowing most severe at L3-4 and L4-5, chronic arachnoiditis, postsurgical changes, no acute findings. [place] to have back strain. MRI pelvis ordered to rule out other process; multiple skeletal lesions noted in pelvis, worrisome for bone mets. Lidocaine patch not effective- discontinued. Added fentanyl patch + duloxetine. Further evaluation of abnormal pelvic MRI as discussed below. Continue analgesics, PT, OT. Discharge on fentanyl patch 25 mcg, taper as symptoms improved. (2) Abnormal MRI, pelvis: MRI pelvis demonstrated multiple skeletal lesions worrisome for metastatic disease. Patient has history of prostate cancer-followed by Dr. Dubon, treated with radiation therapy several years ago. PSA was undetectable in 2017. PSA 05/[address] chest / abdomen / pelvis did not show any evidence of primary malignancy. Bone scan demonstrated uptake most consistent with degenerative disease and healing clavicular fracture. Images (CT, MRI, bone scan) reviewed with Ortho and Radiology. Consensus is that bone lesions most likely benign. No further evaluation at this time unless pt has worsening / ongoing symptoms in the pelvic region. (3) Frequent falls: Continue PT and OT. (4) Head injury: Head CT negative for intracranial hemorrhage or other acute process. (5) Elevated troponin: Serum troponin slightly elevated at 0.048. No anginal symptoms or EKG changes. No segmental wall motion abnormalities on echocardiogram. Elevated troponin probably secondary to demand ischemia vs trauma. (6) Edema: Worsening lower extremity edema. Suspect that edema primarily secondary to dependent edema from spending essentially all of the time in sitting position. Chest x-ray showed some vascular congestion. Echo showed normal LVEF. May have some degree of diastolic CHF (although diastolic dysfunction not noted on echo). Importance of elevation of legs emphasized to patient; he is reluctant because of his back pain. Recliner chair and new bed requested. Diurese as tolerated. (7) Constipation: Constipation secondary to analgesics and inactivity. Bowel regimen as ordered. (8) Skin ulcers of both feet: Developed bullae of both feet due to pedal edema from sitting in dependent position due to back pain. Seen by Wound Care Nursing. Bullae opened, resulting in shallow ulcers. Arrangements made for home health nursing as well as follow-up at [facility]. (9) DVT prophylaxis: SQ enoxaparin. Ambulate. (10) Discharge planning issues: Discharge to home with home health services. Internal Medicine follow-up with Dr. Galindo. Orthopedics follow-up with Dr. Magaña. Total Time Total Time Spent Total Time Spent (In Minutes): 45 Discharge Plan Discharge Items Patient Disposition: Home - Home Health Services Reason For Visit: severe pain back and pelvis Discharge Diagnosis: severe pain back and pelvis Condition: Good Discharge Goals: Decrease discomfort and Improve function Activity: As commented below Activity Comment: gradually increase activity as tolerated Lifting: No more than 10 pounds Non-emergency contact: Primary Care Provider, Hospitalist and Surgeon Call non-emergency contact if: you have any medication questions and your symptoms worsen Follow-up/Referrals: Renny Magaña, [Surgeon] - (Please call office for an appointment in 4 weeks.) Talon Galindo [Primary Care Provider] - (Please call office for appointment next week.) Diet: Heart Healthy Addtl Provider Instructions: OTHER INSTRUCTIONS: Keep legs elevated as much as possible. Keep pressure off heels. Reposition yourself at least every 2 hours. Care of foot ulcers as instructed by Wound Care Nursing. Fentanyl patch should be changed every 3 days. Current patch was placed morning. Please remove patch Friday morning and replace with a new one. You have enough patches for 15 days. Please discuss tapering dose with Dr. Galindo. Please have Dr. Galindo check labs next week (basic metabolic profile). Be careful with body mechanics. No heavy lifting. Seek medical attention if you have: * temperature above 101 * chest pain or trouble breathing * abdominal pain, nausea, vomiting * diarrhea, dark stools or bloody stools * worsening back pain * any unanswered questions or concerns Call [phone] if symptoms are severe. Call if you have any questions or problems. My cell # is [phone]. You can also reach a [facility] hospitalist on duty at [facility] 24 hours a day by calling [phone]. Prescriptions: New furosemide 40 mg tablet 40 mg PO DAILY Qty: 30 RF: 5 tramadol 50 mg tablet 50 mg PO Q8H PRN (Reason: pain, severe) Qty: 30 RF: 1 acetaminophen [Tylenol Extra Strength] 500 mg tablet 1,000 mg PO Q6H PRN (Reason: pain, moderate) Qty: 60 RF: 0 fentanyl 25 mcg/hr patch 72 hour 1 patch TD Q72H Qty: 5 RF: 0 duloxetine 30 mg capsule,delayed release(DR/EC) 30 mg PO DAILY Qty: 30 RF: 5 polyethylene glycol 3350 [Miralax] 17 gram powder in packet 17 gm PO DAILY PRN (Reason: constipation) Qty: 1 RF: 0 sennosides-docusate sodium [Senokot-S] 8.6-50 mg tablet 2 tab PO BID Qty: 60 RF: 0 potassium chloride 10 mEq capsule, extended release 10 meq PO DAILY Qty: 30 RF: 5 Continue milk thistle 150 mg Capsule 150 mg PO QAM RF: 0 cholecalciferol (vitamin D3) [Vitamin D3] 5,000 unit Tablet 5,000 unit PO QAM RF: 0 [id number] [krill oil] 1,923-515-52-80 mg Capsule 1 cap PO QAM RF: 0 Discontinued ibuprofen 600 mg Tablet 600 mg PO QID PRN (Reason: Pain) RF: 0 Stand-Alone Forms: [facility] Discharge Orders: Discharge Order (Routine); Ordered 07/24/18 Ordered By: Sohail Delatorre Admission Data Admit Date/Time: 07/12/18 15:26 Attending Provider: Sohail Delatorre Admit Provider: Nettie Rush Primary Care Provider: Talon Galindo Other Providers: Nettie Rush ; Renny Magaña Service: Medical Other Interventions: Discharge Summary Assessment (RN) Last Done: 07/24/18 14:16 DC Date/Time DO NOT enter until pt leaves facility: 07/24/18 14:32
== END 2018-07-24 14:32 | disposition home health service (06) | DRG 605 ==
LOC: 2S 13:16 → ED 13:16 → 2S 16:15 → 4W 07-12 15:20 → SUATTDRO 07-12 15:26

== ENCOUNTER 2019-04-01 18:23 | Inpatient (IN) ==
--- OUTSIDE RECORDS SUMMARY | 2019-04-01 18:26 | External Medical Summary | Continuity of Care Document ---
:1935 Author Name Evelin Lyn, Provider Address Unavailable Unavailable , Care Team Providers Name Role Phone Zahida Rene PA-C Unavailable [email or web address] Unavailable Unavailable Unavailable Unavailable Unavailable Assessments Assessed Problems:Actinic keratosis Problems Cough (786.2) (R05) Chronic obstructive pulmonary disease (496) (J44.9) Neoplasm of uncertain behavior of skin (238.2) (D48.5) Actinic keratosis (702.0) (L57.0) Lentigines (709.09) (L81.4) History of basal cell carcinoma (V10.83) (Z85.828) History of SCC (squamous cell carcinoma) of skin (V10.83) (Z 85.828) Prostate cancer (185) (C61) Back pain (724.5) (M54.9) Gross hematuria (599.71) (R31.0) Hyperlipidemia (272.4) (E78.5) Chronic bronchitis (491.9) (J42) Obstructive sleep apnea (327.23) (G47.33) Allergies and Adverse Reactions Iodine SOLN (Allergy) Medications Tylenol CAPS Refills: 0 Vitamin D (Ergocalciferol) CAPS Refills: 0 Multi-Vitamin TABS Refills: 0 Fluorouracil 5 % External Cream; Apply t o right restorationist and right forehead once daily at bedtime for 3 weeks LAVONNE Rene Start: 16-Sep-2017 Quantity: 1 40 GM Tube Refills: 0 Procedures History of Laminectomy Decompressive Up To Two Lumbar Segmen ts Status: Completed History of Mohs Micrographic Surgery Face Status: Completed History of Back Surgery Status: Complete d History of Prostate Surgery Status: Comp leted Immunizations Immunizations not documented Family History Mother Family history of Dementia Status: Active Father Family history of Acute Myocardial Infarction (V17.3) Status : Active Family history of cardiac disorder (V17.49) (Z82.49) Status: Active Social History - Smoking Status Former smoker Never smoker Interventions Discussion/SummaryActinic keratoses: He treated the forehead and temples with Efudex. Reaction noted. He is advised touse Polysporin or Neosporin 2-3 times daily until the redness resolves. He will use sunscreen & sun protection through the summer. Recheck areas treated at next visit in early fall.1 thicker lesion on hand is again reported as a prior work injury from acid burn - incident happenednearly 20 years ago per patient. I explained that it does appear to look similar to other actinic lesions on the hand. This lesion and 3 others are treated with cryo today (see procedure note). Recheckareas at next visit - if no improvement of thicker lesions, consider biopsy vs Efudex.He is in agreement w/ this plan. Plan of Treatment Planned Observations Planned Goals not documented Results No Known Results Results not documented Encounters Appointment; Zahida Rene PA-C 16-Sep-2017 9:00 Encounter Diagnosis: Problem not documented Appointment; Pradip Dubon M.D. 09-May-2017 11:00 Encounter Diagnosis: Problem not documented Appointment; Zahida Rene PA-C 14-Nov-2017 8:45 Encounter Diagnosis: Problem not documented
[2019-04-01] MEDS ORDERED: SODIUM CHLORIDE 0.9% 1000ML 1,000 ML IV SCH (18:45)
[2019-04-01 18:54] LABS: Basophils # (auto) 0.02 K/uL (0-0.2); Basophils % (auto) 0.2 %; Eosinophils # (auto) 0.11 K/uL (0-0.5); Eosinophils % (auto) 1.3 %; Hemoglobin 13.3 g/dL (14.0-18.0); Immature Granulocytes # (auto) 0.02 K/uL (0.00-0.02); Immature Granulocytes % (auto) 0.2 %; Lymphocytes # (auto) 3.86 K/uL (1.2-3.4); Mean Corpuscular Hemoglobin 30.7 pg (25-34); Mean Corpuscular Hgb Conc 34.1 g/dL (32-36); Mean Corpuscular Volume 90.1 fL (80-100); Mean Platelet Volume 9.7 fL (7.4-10.4); Monocytes # (auto) 0.78 K/uL (0.11-0.59); Monocytes % (auto) 8.9 %; Neutrophils # (auto) 3.98 K/uL (1.4-6.5); Neutrophils % (auto) 45.4 %; Platelet Count 225 K/uL (130-400); RDW Coefficient of Variation 12.8 % (11.5-14.5); RDW Standard Deviation 41.8 fL (36.4-46.3); Red Blood Count 4.33 M/uL (4.7-6.1); White Blood Count 8.77 K/uL (4.8-10.8)
[2019-04-01 18:58] LABS: iSTAT Creatinine 1.1 mg/dl (0.6-1.3); iSTAT Hemoglobin 12.9 g/dl (14.0-18.0); iSTAT Ionized Calcium 1.13 mmol/l (1.12-1.32); iSTAT Potassium 4.4 mEq/L (3.3-5.0)
--- NOTE | 2019-04-01 19:00 | CT Scan Report ---
HEAD CT NONCONTRAST CT DOSE: 537.48 mGy.cm HISTORY: Left-sided weakness. Stroke evaluation TECHNIQUE: Multiaxial CT images of the head were performed without the use of intravenous contrast. A utomated exposure control was utilized for this study. A dose lowering technique was utilized adheri ng to the principles of ALARA. Comparison: Head CT 07/11/2018. Findings: The paranasal sinuses and mastoid air cells are clear. The calvarium and skull base are int act. There is no mass, hematoma, midline shift, acute infarct. White matter hypodensity is nonspecifi c but suggestive of microvascular ischemic change. The ventricles and sulci demonstrate mild age-rela lele involutional changes. Encephalomalacia within the right frontal lobe and right upper lobe remains unchanged. 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 Impression: No significant change compared to the prior study. No acute intracranial abnormality. Electronically signed by: Yair Contreras M.D. 04/01/2019 6:58 PM
--- NOTE | 2019-04-01 19:24 | XRay Report ---
XR chest 1V portable HISTORY: left numbness COMPARISON: Chest 07/17/2018. FINDINGS: No pneumothorax. No pleural effusions. The heart remains mildly enlarged. Diffuse interstit ial thickening which is likely chronic. A few bibasilar linear densities suggesting subsegmental atel ectasis or scarring. No evidence for pulmonary edema. IMPRESSION: No significant change compared to the prior study. No acute process. Bibasilar linear densities favor subsegmental atelectasis/scarring. Electronically signed by: Yair Contreras M.D. 04/01/2019 7:23 PM
[2019-04-01 19:32] LABS: Albumin Level 3.8 gm/dl (3.4-5.0); BUN Creatinine Ratio 15.7 (10-20); Bilirubin,Total 0.5 mg/dl (0.2-1); Calcium 9.1 mg/dl (8.5-10.1); Creatinine Clr Calc Pharmacy 59.9 ml/min; Est GFR (African American) 72.7; Est GFR (Non-African American) 62.7; Globulin 3.7 gm/dl (2.5-4.0); Total Protein 7.5 gm/dl (6.4-8.2); Troponin I 0.707 ng/ml (0-0.045)
[2019-04-01] MEDS ORDERED: ASPIRIN CHEW 324 MG PO STA (19:38)
[2019-04-01 19:57] LABS: Potassium 4.6 mmol/L (3.5-5.1)
[2019-04-01 19:57] LABS: Partial Thromboplastin Ratio 0.9; Partial Thromboplastin Time 24.6 Seconds (21.0-31.0); Prothrombin Time 10.6 Seconds (9.0-12.0)
[2019-04-01 20:02] LABS: Magnesium 2.2 mg/dl (1.8-2.4)
--- NOTE | 2019-04-01 21:37 | History & Physical Report ---
Date of Service April 01, 2019 Assessment & Plan (1) Stroke-like symptoms: Presented with paresthesiae of left upper and left lower extremities; possible mild left-sided weakness. No acute findings on CT of head without contrast (although chronic right frontal encephalomalacia and small vessel white matter ischemic changes were noted). Neurology consultation via telestroke with [facility] [place]. Thrombolytic therapy not recommended because of (1) mild neurologic symptoms and (2) history of spontaneous intracranial hemorrhage. Recent episodes of apparent dysarthria or aphasia. Possible TIA's. Spouse concerned about recent problems with short-term memory. Check MRI brain, carotid duplex, echocardiogram. Monitor for arrhythmias. Check lipid profile and hemoglobin A1c. Antiplatelet therapy with aspirin 81 mg daily. PT/OT/WELFARE INVESTIGATOR evaluations. Consult Neurology. (2) Elevated troponin: Serum troponin I = 0.707. No chest pain. No acute EKG changes. Troponins were elevated in June in setting of a fall with musculoskeletal injuries. Check serial troponins. Check lipid profile. Check echocardiogram. Antiplatelet therapy with aspirin. Consult Cardiology. (3) Back pain: Chronic since fall in Jun 2018. Has been evaluated and followed by Ortho Spine. Symptoms stable for several months. Unable to lie in supine position due to pain- sleeps in recliner chair. (4) Carcinoma of prostate: S/P XRT. Followed by Dr. Dubon. (5) DVT prophylaxis: Will not use anticoagulants because of history of spontaneous intracranial hemorrhage. SCDs. Ambulate. (6) Discharge planning issues: Anticipated discharge to home. Internal Medicine follow-up with Dr. Galindo. History of Present Illness Chief Complaint: numbness of left arm and left leg Primary Care Provider: Talon Galindo 83-year-old male followed by Dr. Galindo. History of prostate cancer and chronic back pain. History of spontaneous/nontraumatic intracranial hemorrhage about 20 years ago. Patient and spouse indicate that etiology was uncertain. About 2 months ago the patient was noted to have an episode of garbled speech. Patient was not very concerned, but family felt that the episode was significant. He had a recurrent episode of abnormal speech a few weeks ago. This afternoon around 1630 he was shopping and developed paresthesiae of his left upper and left lower extremities. Possible mild left-sided weakness. He drove home with his spouse; she reports that driving was somewhat erratic. They got home safely, but he seemed to be weak after getting out of the car. No headache, facial droop, visual changes, abnormal speech today. concerned about recent problems with short-term memory. Patient does not take aspirin or other antiplatelet medications. He does take multiple [id number] vitamins/herbal supplements. Allergies Allergy/AdvReac Type Severity Reaction Status Date / Time iodine Allergy Mild HIVES/ITCHI Verified 04/01/19 19:47 NG amoxicillin [From Augmentin] AdvReac Mild diarrhea Verified 04/01/19 19:47 clavulanic acid AdvReac Mild diarrhea Verified 04/01/19 19:47 [From Augmentin] Home Medications Home Medications Medication Instructions Recorded Confirmed Type Other Herbals 1 ea PO QAM 04/01/19 History cholecalciferol (vitamin D3) 0 unit PO QAM 04/01/19 04/01/19 History [Vitamin D3] coQ10 (ubiquinol) 200 mg PO Q12H 04/01/19 04/01/19 History omega 1-cis-ych-fish oil [Fish Oil] 1 cap PO QAM 04/01/19 04/01/19 History vitamin E 400 unit PO QAM 04/01/19 04/01/19 History Past Med/Surg History Medical History Prostate cancer (Chronic) s/p XRT only COPD (chronic obstructive pulmonary disease) H/O intracranial hemorrhage H/O: CVA (cerebrovascular accident) Multiple falls Surgical History Previous back surgery Family History Father Coronary heart disease Sister Cancer Other No pertinent family history Social History Preferred Language: Faroese Communication Ability: Effective Radiator Tester Required: No Beliefs That Will Affect Care: None marital status: Current Living Situation: Spouse Other Information That Helps Us Care for You: No Feels Safe at Home: Yes Safety Concerns: Feels Safe At This Time Smoking Status: Former smoker Tobacco Type: cigarettes ; Cigarettes Per Day: 10 ; Do You Dip or Chew Tobacco: No ; Second Hand Exposure: No ; Hx Alcohol Use: No Hx Substance Use: No Review of Systems Constitutional: no fever and no weight loss Eyes: no diplopia and no worsening vision Ear, Nose, Mouth, Throat: no nasal congestion, no sinus pain/pressure and no sore throat (dry) Respiratory: + cough (occasional, mild); no dyspnea Cardiovascular: + edema (chronic dependent edema); no chest pain and no palpitations Gastrointestinal: + diarrhea/loose stools (few days ago, resolved); no nausea, no vomiting, no constipation, no blood in stools and no melena Genitourinary: no dysuria and no hematuria Musculoskeletal: + joint pain (chronic low back pain); no myalgia Integumentary: followed by Derm for skin lesions Neurologic: as per Subjective / HPI Psychiatric: + anxiety Endocrine: no polydipsia and no polyuria Hematologic / Lymphatic: + easy bruising; no easy bleeding and no lymphadenopathy Physical Exam Constitutional: WD/WN, vitals as above no acute distress Eyes: PERRL, conjunctivae normal, anicteric sclerae ENMT: external ear and nose normal, oropharynx normal Neck: trachea midline, no thyromegaly Respiratory: normal respiratory effort, lungs clear to auscultation Cardiovascular: Rate/Rhythm: regular rate Heart Sounds: no gallop, no murmur and no cardiac rub Vessels: no JVD Extremities: normal capillary refill and + edema (trace-1+ pretibial edema bilat); no calf tenderness Gastrointestinal (Abdomen): normal bowel sounds, soft, nontender, no hepatosplenomegaly Musculoskeletal: Head/Neck/Chest: neck supple Extremities: strength 5/5 throughout; no cyanosis and no clubbing Skin: no rashes, warm and dry Neurologic: PERRL, EOMI no facial palsy tongue midline speech hesitant; no dysarthria or aphasia motor strength upper and lower extremities 5/5 bilat patellar DTR's 1/2 bilat plantar reflexes downgoing bilaterally no difficulty with finger --> nose bilaterally alert, essentially oriented x 3 (oriented to person, place, and Mar 2019, but unable to state exact date); able to name current and last 2 presidents Psychiatric: Orientation: alert and oriented x 3 (knows that it is Mar 2019, but unable to state exact date) Affect: euthymic affect Lymphatic: no cervical lymphadenopathy Results & Data Vital Signs (Past 12 Hours) Vital Signs Temp Pulse Resp BP Pulse Ox 04/01/19 21:15 67 19 97 04/01/19 21:01 66 19 144/70 H 95 10/10/19 21:00 66 19 96 04/01/19 20:45 65 16 95 04/01/19 20:31 68 12 136/75 98 04/01/19 20:30 66 19 98 04/01/19 20:15 62 17 98 04/01/19 20:00 65 21 150/77 H 96 04/01/19 19:45 67 14 98 04/01/19 19:40 67 14 147/93 H 99 04/01/19 19:30 71 15 98 04/01/19 19:15 66 12 98 04/01/19 19:13 100 04/01/19 19:00 63 20 100 04/01/19 18:58 62 18 140/80 100 04/01/19 18:49 36.4 C L 66 18 148/59 H 99 04/01/19 18:45 63 22 100 04/01/19 18:38 66 19 95 04/01/19 18:32 70 18 148/59 H 100 Laboratory Results Laboratory Results - last 24 hr 04/01/19 04/01/19 04/01/19 18:40 18:40 18:40 WBC 8.77 RBC 4.33 L Hgb 13.3 L POC Hgb Hct 39.0 L POC Hct MCV 90.1 MCH 30.7 MCHC 34.1 RDW Std Deviation 41.8 RDW Coeff of Ness 12.8 Plt Count 225 MPV 9.7 Immature Gran % (Auto) 0.2 Neut % (Auto) 45.4 Lymph % (Auto) 44.0 Wise % (Auto) 8.9 Eos % (Auto) 1.3 Baso % (Auto) 0.2 Immature Gran # (Auto) 0.02 Neut # (Auto) 3.98 Lymph # (Auto) 3.86 H Wise # (Auto) 0.78 H Eos # (Auto) 0.11 Baso # (Auto) 0.02 PT Cancelled INR Cancelled APTT Cancelled PTT Ratio Cancelled POC Sodium Sodium 138 POC Potassium Potassium POC Chloride Chloride 105 Carbon Dioxide 25 POC Total CO2 Anion Gap 8.0 POC Anion Gap POC BUN BUN 17 Creatinine 1.08 POC Creatinine Est Cr Clr Drug Dosing 59.9 Est GFR ( Amer) 72.7 Est GFR (Non-Af Amer) 62.7 BUN/Creatinine Ratio 15.7 Glucose 81 POC Glucose POC Glucose (other) Calcium 9.1 POC Ioniz Calcium Jaida Magnesium Total Bilirubin 0.5 AST ALT 20 Alkaline Phosphatase 65 Troponin I 0.707 H* Total Protein 7.5 Albumin 3.8 Globulin 3.7 Albumin/Globulin Ratio 1.0 Blood Type Antibody Screen 04/01/19 04/01/19 04/01/19 18:42 18:45 18:46 WBC RBC Hgb POC Hgb 12.9 L Hct POC Hct 38 L MCV MCH MCHC RDW Std Deviation RDW Coeff of Ness Plt Count MPV Immature Gran % (Auto) Neut % (Auto) Lymph % (Auto) Wise % (Auto) Eos % (Auto) Baso % (Auto) Immature Gran # (Auto) Neut # (Auto) Lymph # (Auto) Wise # (Auto) Eos # (Auto) Baso # (Auto) PT INR APTT PTT Ratio POC Sodium 139 Sodium POC Potassium 4.4 Potassium POC Chloride 102 Chloride Carbon Dioxide POC Total CO2 27 Anion Gap POC Anion Gap 15.0 L POC BUN 22 H BUN Creatinine POC Creatinine 1.1 Est Cr Clr Drug Dosing Est GFR ( Amer) Est GFR (Non-Af Amer) BUN/Creatinine Ratio Glucose POC Glucose 87 POC Glucose (other) 87 Calcium POC Ioniz Calcium Jaida 1.13 Magnesium Total Bilirubin AST ALT Alkaline Phosphatase Troponin I Total Protein Albumin Globulin Albumin/Globulin Ratio Blood Type B Positive Antibody Screen NEGATIVE 04/01/19 04/01/19 04/01/19 19:31 19:32 23:24 WBC RBC Hgb POC Hgb Hct POC Hct MCV MCH MCHC RDW Std Deviation RDW Coeff of Ness Plt Count MPV Immature Gran % (Auto) Neut % (Auto) Lymph % (Auto) Wise % (Auto) Eos % (Auto) Baso % (Auto) Immature Gran # (Auto) Neut # (Auto) Lymph # (Auto) Wise # (Auto) Eos # (Auto) Baso # (Auto) PT 10.6 INR 1.0 APTT 24.6 PTT Ratio 0.9 POC Sodium Sodium POC Potassium Potassium 4.6 POC Chloride Chloride Carbon Dioxide POC Total CO2 Anion Gap POC Anion Gap POC BUN BUN Creatinine POC Creatinine Est Cr Clr Drug Dosing Est GFR ( Amer) Est GFR (Non-Af Amer) BUN/Creatinine Ratio Glucose POC Glucose POC Glucose (other) Calcium POC Ioniz Calcium Jaida Magnesium 2.2 Total Bilirubin AST 14 L ALT Alkaline Phosphatase Troponin I 0.694 H* Total Protein Albumin Globulin Albumin/Globulin Ratio Blood Type Antibody Screen Diagnostic Findings PORTABLE CHEST X-RAY FINDINGS: No pneumothorax. No pleural effusions. The heart remains mildly enlarged. Diffuse interstitial thickening which is likely chronic. A few bibasilar linear densities suggesting subsegmental atelectasis or scarring. No evidence for pulmonary edema. IMPRESSION: No significant change compared to the prior study. No acute process. Bibasilar linear densities favor subsegmental atelectasis/scarring. Electronically signed by: Yair Contreras M.D. 04/01/2019 7:[address] HEAD WITHOUT CONTRAST Findings: The paranasal sinuses and mastoid air cells are clear. The calvarium and skull base are intact. There is no mass, hematoma, midline shift, acute infarct. White matter hypodensity is nonspecific but suggestive of microvascular ischemic change. The ventricles and sulci demonstrate mild age-related involutional changes. Encephalomalacia within the right frontal lobe and right upper lobe remains unchanged. 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 Impression: No significant change compared to the prior study. No acute intracranial abnormality. Electronically signed by: Yair Contreras M.D. 04/01/2019 6:58 PM ECG Additional Comments: EKG performed at 1845 reviewed and demonstrated sinus bradycardia 59/minute, intraventricular conduction delay, left axis deviation, [address] elevation in lead I similar to EKG performed on 07/11/2018. Code Status & VTE Plan Code Status Discussed with patient and his family. states that he has a living well. He does not want extraordinary measures initiated or continued if he is terminally ill. However, he would like resuscitation attempted in the event of a cardiopulmonary arrest and other aggressive measures if there is a reasonable chance of a meaningful recovery. Resuscitation status, therefore, is full resuscitation. VTE Prophylaxis Plan VTE Prophylaxis will be ordered: Yes
[2019-04-01] MEDS ORDERED: ACETAMINOPHEN 500 MG TAB PO PRN (22:12)
[2019-04-01] MEDS ORDERED: PHARMACIST DISCHARGE MED REC CONSULT PRN (22:12)
[2019-04-01] MEDS ORDERED: OXYCODONE HCL IR 5 MG TAB (IMMEDIATE RELEASE) PO ONE (22:12)
[2019-04-01] MEDS ORDERED: TRAMADOL HCL 50 MG TABLET PO PRN (22:12)
[2019-04-02] MEDS ORDERED: OXYCODONE HCL IR 5 MG TAB (IMMEDIATE RELEASE) ONE (00:43)
--- NOTE | 2019-04-02 01:45 | Emergency Department Note ---
Entered by Spring Ernandez acting as a scribe for ED Provider Note CHIEF COMPLAINT: Neuro Symptoms HISTORY OF PRESENT ILLNESS: The patient is a 83 year old male who presents to the Emergency Room with complaints of neuro symptoms beginning around 1629 today. He is accompanied by his who reports that around 1629 today, they were at [employer] when the patient's left arm and left leg suddenly went numb. She states her was driving towards [employer] and was "going all over the highway." She reports the ambulance was then called and took him to the ED. Currently, the patient states he has numbness in his left arm and some in his left leg. His states that about 20 years ago, the patient had 3 ICH's. His also reports that 6 weeks ago, he had difficulty speaking as his speech was slurred an indecipherable She notes that her has experienced panic attacks and sudden personality changes over the past 2 weeks. His PCP is Nicolás [place] Pt denies LOC, headache, fevers, chills, diaphoresis, visual changes, neck pain, chest pain, breathing difficulties, nausea, vomiting, abdominal pain, back pain, melena, hematochezia, urinary symptoms, lymphadenopathy, rash, or other complai nts. REVIEW OF SYSTEMS: See HPI for pertinent positives and negatives. A total of ten systems were reviewed and were otherwise negative. PMHx/PSHx: Hx of ICH (3) COPD CVA History of back surgery SOCIAL HISTORY: Patient lives at home. Patient is . PHYSICAL EXAM: GENERAL: Awake, alert, well-appearing, in no distress HENT: Normocephalic, atraumatic. Oropharynx unremarkable. EYES: PERRL. Normal conjunctiva. Sclera non-icteric. NECK: Inspection normal. Non-tender. Supple. No nuchal rigidity. FROM. No masses. RESPIRATORY: Clear to auscultation. No wheezes. No rales. Normal respiratory effort. CARDIAC: Normal rate. Normal rhythm. No murmurs. No rubs. Extremities warm and well perfused. Pulses equal. No JVD. GI: Soft, non-distended. No tenderness to palpation. No rebound or guarding. No masses. RECTAL: Deferred. MUSCULOSKELETAL: Atraumatic. Chest examination reveals no tenderness. The back is symmetrical on inspection without obvious abnormality. There is no CVA tenderness to palpation. No joint edema. LOWER EXTREMITIES: Calves are equal size bilaterally and non-tender. No edema. No discoloration. NEURO: Subjective decreased sensation in the left arm. Mild weakness of the left leg. Slight 4.5/5 strength in the LLE. RLE and BUE were normal. SKIN: No rash or jaundice noted. EMERGENCY DEPARTMENT COURSE: 183: Past medical records reviewed. The patient was evaluated in room C8, and a complete history and physical examination were performed. 184: Discussed the patient's case with [facility]. She agrees he hadhasa concerning history. She will evaluate. She did not recommend mixing tPA or administering tPA given the current situation. 1926: Discussed the patient's case with [facility]. She recommends a full medical workup, MRI, and further evaluation. 1935: [facility] He recommends the patient be evaluated for further management. 2014: Discussed the patient's case with Dr. Delatorre [facility]. The patient will be evaluated for further management. MEDICAL DECISION MAKING: B1 Prior records/ancillary studies reviewed. Nursing notes reviewed and agree them. Additional history obtained from family. The patient's history was concerning for left-sided numbness. Differential diagnosis: Etiologies such as CVA, TIA, metabolic, infection, hypo/hyperglycemia, electrolyte abnormalities, cardiac sources, intracerebral event, toxicologic, neurologic, as well as others were entertained. Physical examination: As above. Mild left leg weakness noted. Subjective left arm and leg numbness. ER treatment provided: IV Lock Normal saline hydration at 50 mL an hour Oral aspirin On reassessment the patient felt that the same. Diagnostics interpretation by me: ECG: No evidence of acute ischemic change or dysrhythmia. The labs revealed an unremarkable CBC and chemistry panel. The patient's troponin is elevated. Imaging studies: Chest x-ray negative for acute process. Head CT negative for acute process. The patient presented with strokelike symptoms. He did not have any chest pain. He has been having intermittent neurologic symptoms per the family. He does have a history of ICH. Given the circumstances he did not appear to be a good candidate for TPA. Consultation: Consult placed with Dr. Gonsalez of [facility]. The case was discussed. She agreed by the history and presentation that the patient is not a ideal TPA candidate. She did evaluate the patient via tele-stroke and recommended medical admission and further work-up. No TPA recommended. A consultation was placed with the hospitalist. The case was discussed and diagnostics were reviewed. The patient was evaluated in the ER for further treatment. IMPRESSION: Stroke like symptoms Elevated troponin Left sided numbness Left leg weakness PLAN: Being evaluated by hospitalist The scribe's documentation has been prepared under my direction and personally reviewed by me in its entirety. I confirm that the note above accurately reflects all work, treatment, procedures, and medical decision making performed by me. CRITICAL CARE: I have personally spent 35 minutes of critical care time in the direct management of this patient. This includes bedside care, interpretation of d iagnostic studies, and testing, discussion with consultants, patient, and family members, and other required patient management activities. This 35 minutes is in excess of all separately billable procedures. Impression & Plan Stroke-like symptoms, Elevated troponin, Left sided numbness, Left leg weakness Past Med/Surg History Medical History Prostate cancer (Chronic) s/p XRT only COPD (chronic obstructive pulmonary disease) H/O intracranial hemorrhage H/O: CVA (cerebrovascular accident) Multiple falls Surgical History Previous back surgery Family History Other No pertinent family history Social History Preferred Language: Haitian Communication Ability: Effective Rol[employer] Supervisor Required: No Beliefs That Will Affect Care: None marital status: Current Living Situation: Spouse Other Information That Helps Us Care for You: No Feels Safe at Home: Yes Safety Concerns: Feels Safe At This Time Smoking Status: Former smoker Tobacco Type: cigarettes ; Cigarettes Per Day: 10 ; Do You Dip or Chew Tobacco: No ; Second Hand Exposure: No ; Hx Alcohol Use: No Hx Substance Use: No Results & Data Vital Signs Vital Signs - 24 hr 04/01/19 18:32 04/01/19 18:38 04/01/19 18:45 Temperature Temperature Source Sepsis Recent Fever Within 48 Hours Sepsis New/Unexplained Change in Mental Status Sepsis Action Taken by Nursing Pulse Rate 70 66 63 Pulse Rate from SpO2 Sensor 67 65 64 Respiratory Rate 18 19 22 Respiratory Effort / Characteristics Respiratory Depth Blood Pressure 148/59 H Blood Pressure Mean 88 Pulse Oximetry 100 95 100 Oxygen Delivery Method 04/01/19 18:49 04/01/19 18:58 04/01/19 19:00 Temperature 36.4 C L Temperature Source Oral Sepsis Recent Fever Within 48 Hours No Sepsis New/Unexplained Change in Mental Status No Sepsis Action Taken by Nursing No Action Required Pulse Rate 66 62 63 Pulse Rate from SpO2 Sensor 63 64 Respiratory Rate 18 18 20 Respiratory Effort / Characteristics Non-Labored Spontaneous Respiratory Depth Normal Blood Pressure 148/59 H 140/80 Blood Pressure Mean 88 100 Pulse Oximetry 99 100 100 Oxygen Delivery Method Room Air 04/01/19 19:13 04/01/19 19:15 04/01/19 19:30 Temperature Temperature Source Sepsis Recent Fever Within 48 Hours Sepsis New/Unexplained Change in Mental Status Sepsis Action Taken by Nursing Pulse Rate 66 71 Pulse Rate from SpO2 Sensor 66 71 Respiratory Rate 12 15 Respiratory Effort / Characteristics Respiratory Depth Blood Pressure Blood Pressure Mean Pulse Oximetry 100 98 98 Oxygen Delivery Method Room Air 04/01/19 19:40 04/01/19 19:45 04/01/19 20:00 Temperature Temperature Source Sepsis Recent Fever Within 48 Hours Sepsis New/Unexplained Change in Mental Status Sepsis Action Taken by Nursing Pulse Rate 67 67 65 Pulse Rate from SpO2 Sensor 65 66 62 Respiratory Rate 14 14 21 Respiratory Effort / Characteristics Respiratory Depth Blood Pressure 147/93 H 150/77 H Blood Pressure Mean 111 101 Pulse Oximetry 99 98 96 Oxygen Delivery Method 04/01/19 20:15 04/01/19 20:30 04/01/19 20:31 Temperature Temperature Source Sepsis Recent Fever Within 48 Hours Sepsis New/Unexplained Change in Mental Status Sepsis Action Taken by Nursing Pulse Rate 62 66 68 Pulse Rate from SpO2 Sensor 62 67 67 Respiratory Rate 17 19 12 Respiratory Effort / Characteristics Respiratory Depth Blood Pressure 136/75 Blood Pressure Mean 95 Pulse Oximetry 98 98 98 Oxygen Delivery Method 04/01/19 20:45 04/01/19 21:00 04/01/19 21:01 Temperature Temperature Source Sepsis Recent Fever Within 48 Hours Sepsis New/Unexplained Change in Mental Status Sepsis Action Taken by Nursing Pulse Rate 65 66 66 Pulse Rate from SpO2 Sensor 66 66 67 Respiratory Rate 16 19 19 Respiratory Effort / Characteristics Respiratory Depth Blood Pressure 144/70 H Blood Pressure Mean 94 Pulse Oximetry 95 96 95 Oxygen Delivery Method 04/01/19 21:15 04/01/19 21:30 Temperature Temperature Source Sepsis Recent Fever Within 48 Hours Sepsis New/Unexplained Change in Mental Status Sepsis Action Taken by Nursing Pulse Rate 67 60 Pulse Rate from SpO2 Sensor 66 62 Respiratory Rate 19 19 Respiratory Effort / Characteristics Respiratory Depth Blood Pressure 151/80 H Blood Pressure Mean 103 Pulse Oximetry 97 100 Oxygen Delivery Method Home Medications Current Medication List: was personally reviewed by me Laboratory Data Attestation: I reviewed the patient's lab results. Result diagrams: 04/01/19 18:40 04/01/19 19:32 Lab Results 04/01/19 04/01/19 04/01/19 Range/Units 18:40 18:40 18:40 WBC 8.77 (4.8-10.8) K/uL RBC 4.33 L (4.7-6.1) M/uL Hgb 13.3 L (14.0-18.0) g/dL POC Hgb (14.0-18.0) g/dl Hct 39.0 L (42-52) % POC Hct (42-52) % MCV 90.1 (80-100) fL MCH 30.7 (25-34) pg MCHC 34.1 (32-36) g/dL RDW Std Deviation 41.8 (36.4-46.3) fL RDW Coeff of Ness 12.8 (11.5-14.5) % Plt Count 225 (130-400) K/uL MPV 9.7 (7.4-10.4) fL Immature Gran % (Auto) 0.2 % Neut % (Auto) 45.4 % Lymph % (Auto) 44.0 % Sanders % (Auto) 8.9 % Eos % (Auto) 1.3 % Baso % (Auto) 0.2 % Immature Gran # (Auto) 0.02 (0.00-0.02) K/uL Neut # (Auto) 3.98 (1.4-6.5) K/uL Lymph # (Auto) 3.86 H (1.2-3.4) K/uL Sanders # (Auto) 0.78 H (0.11-0.59) K/uL Eos # (Auto) 0.11 (0-0.5) K/uL Baso # (Auto) 0.02 (0-0.2) K/uL PT Cancelled INR Cancelled APTT Cancelled PTT Ratio Cancelled POC Sodium (135-144) mEq/L Sodium 138 (136-145) mmol/L POC Potassium (3.3-5.0) mEq/L Potassium (3.5-5.1) mmol/L POC Chloride (101-112) mEq/L Chloride 105 (98-107) mmol/L Carbon Dioxide 25 (21-32) mmol/L POC Total CO2 (24-31) mEq/l Anion Gap 8.0 (3-11) POC Anion Gap (16-25) mmol/L POC BUN (7-18) mg/dl BUN 17 (7-18) mg/dl Creatinine 1.08 (0.6-1.4) mg/dl POC Creatinine (0.6-1.3) mg/dl Est Cr Clr Drug Dosing 59.9 ml/min Est GFR ( Amer) 72.7 Est GFR (Non-Af Amer) 62.7 BUN/Creatinine Ratio 15.7 (10-20) Glucose 81 (70-99) mg/dl POC Glucose (70-99) POC Glucose (other) (70-99) mg/dl Calcium 9.1 (8.5-10.1) mg/dl POC Ioniz Calcium Jaida (1.12-1.32) mmol/l Magnesium (1.8-2.4) mg/dl Total Bilirubin 0.5 (0.2-1) mg/dl AST (15-37) U/L ALT 20 (12-78) U/L Alkaline Phosphatase 65 (45-117) U/L Troponin I 0.707 H* (0-0.045) ng/ml Total Protein 7.5 (6.4-8.2) gm/dl Albumin 3.8 (3.4-5.0) gm/dl Globulin 3.7 (2.5-4.0) gm/dl Albumin/Globulin Ratio 1.0 (0.9-2) Blood Type Antibody Screen 04/01/19 04/01/19 04/01/19 Range/Units 18:42 18:45 18:46 WBC (4.8-10.8) K/uL RBC (4.7-6.1) M/uL Hgb (14.0-18.0) g/dL POC Hgb 12.9 L (14.0-18.0) g/dl Hct (42-52) % POC Hct 38 L (42-52) % MCV (80-100) fL MCH (25-34) pg MCHC (32-36) g/dL RDW Std Deviation (36.4-46.3) fL RDW Coeff of Ness (11.5-14.5) % Plt Count (130-400) K/uL MPV (7.4-10.4) fL Immature Gran % (Auto) % Neut % (Auto) % Lymph % (Auto) % Sanders % (Auto) % Eos % (Auto) % Baso % (Auto) % Immature Gran # (Auto) (0.00-0.02) K/uL Neut # (Auto) (1.4-6.5) K/uL Lymph # (Auto) (1.2-3.4) K/uL Sanders # (Auto) (0.11-0.59) K/uL Eos # (Auto) (0-0.5) K/uL Baso # (Auto) (0-0.2) K/uL PT INR APTT PTT Ratio POC Sodium 139 (135-144) mEq/L Sodium (136-145) mmol/L POC Potassium 4.4 (3.3-5.0) mEq/L Potassium (3.5-5.1) mmol/L POC Chloride 102 (101-112) mEq/L Chloride (98-107) mmol/L Carbon Dioxide (21-32) mmol/L POC Total CO2 27 (24-31) mEq/l Anion Gap (3-11) POC Anion Gap 15.0 L (16-25) mmol/L POC BUN 22 H (7-18) mg/dl BUN (7-18) mg/dl Creatinine (0.6-1.4) mg/dl POC Creatinine 1.1 (0.6-1.3) mg/dl Est Cr Clr Drug Dosing ml/min Est GFR ( Amer) Est GFR (Non-Af Amer) BUN/Creatinine Ratio (10-20) Glucose (70-99) mg/dl POC Glucose 87 (70-99) POC Glucose (other) 87 (70-99) mg/dl Calcium (8.5-10.1) mg/dl POC Ioniz Calcium Jaida 1.13 (1.12-1.32) mmol/l Magnesium (1.8-2.4) mg/dl Total Bilirubin (0.2-1) mg/dl AST (15-37) U/L ALT (12-78) U/L Alkaline Phosphatase (45-117) U/L Troponin I (0-0.045) ng/ml Total Protein (6.4-8.2) gm/dl Albumin (3.4-5.0) gm/dl Globulin (2.5-4.0) gm/dl Albumin/Globulin Ratio (0.9-2) Blood Type B Positive Antibody Screen NEGATIVE 04/01/19 04/01/19 Range/Units 19:31 19:32 WBC (4.8-10.8) K/uL RBC (4.7-6.1) M/uL Hgb (14.0-18.0) g/dL POC Hgb (14.0-18.0) g/dl Hct (42-52) % POC Hct (42-52) % MCV (80-100) fL MCH (25-34) pg MCHC (32-36) g/dL RDW Std Deviation (36.4-46.3) fL RDW Coeff of Ness (11.5-14.5) % Plt Count (130-400) K/uL MPV (7.4-10.4) fL Immature Gran % (Auto) % Neut % (Auto) % Lymph % (Auto) % Sanders % (Auto) % Eos % (Auto) % Baso % (Auto) % Immature Gran # (Auto) (0.00-0.02) K/uL Neut # (Auto) (1.4-6.5) K/uL Lymph # (Auto) (1.2-3.4) K/uL Sanders # (Auto) (0.11-0.59) K/uL Eos # (Auto) (0-0.5) K/uL Baso # (Auto) (0-0.2) K/uL PT 10.6 INR 1.0 APTT 24.6 PTT Ratio 0.9 POC Sodium (135-144) mEq/L Sodium (136-145) mmol/L POC Potassium (3.3-5.0) mEq/L Potassium 4.6 (3.5-5.1) mmol/L POC Chloride (101-112) mEq/L Chloride (98-107) mmol/L Carbon Dioxide (21-32) mmol/L POC Total CO2 (24-31) mEq/l Anion Gap (3-11) POC Anion Gap (16-25) mmol/L POC BUN (7-18) mg/dl BUN (7-18) mg/dl Creatinine (0.6-1.4) mg/dl POC Creatinine (0.6-1.3) mg/dl Est Cr Clr Drug Dosing ml/min Est GFR ( Amer) Est GFR (Non-Af Amer) BUN/Creatinine Ratio (10-20) Glucose (70-99) mg/dl POC Glucose (70-99) POC Glucose (other) (70-99) mg/dl Calcium (8.5-10.1) mg/dl POC Ioniz Calcium Jaida (1.12-1.32) mmol/l Magnesium 2.2 (1.8-2.4) mg/dl Total Bilirubin (0.2-1) mg/dl AST 14 L (15-37) U/L ALT (12-78) U/L Alkaline Phosphatase (45-117) U/L Troponin I (0-0.045) ng/ml Total Protein (6.4-8.2) gm/dl Albumin (3.4-5.0) gm/dl Globulin (2.5-4.0) gm/dl Albumin/Globulin Ratio (0.9-2) Blood Type Antibody Screen Administered Medications Discontinued Medications Aspirin (Aspirin) 324 mg PO NOW STA Stop: 04/01/19 19:39 Last Admin: 04/01/19 19:45 Dose: 324 mg Documented by: [id number] Sodium Chloride (Nss 1000ml) 1,000 mls @ 50 mls/hr IV .Q20H TESSIE Stop: 05/01/19 18:44 Last Infusion: 04/02/19 00:50 Dose: 0 mls/hr Documented by: [id number] Admin: 04/01/19 19:07 Dose: 50 mls/hr Documented by: [id number] Oxycodone HCl (Roxicodone Immediate Rel) 5 mg PO ONE ONE Stop: 04/01/19 22:13 Last Admin: 04/02/19 00:45 Dose: Not Given Documented by: [id number] Oxycodone HCl (Roxicodone Immediate Rel) Confirm Administered Dose 5 mg .ROUTE .K-MED ONE Stop: 04/02/19 00:44 Last Admin: 04/02/19 00:44 Dose: 5 mg Documented by: [id number] Imaging Data Radiologist's Impression: Radiology results as stated below per my review and the radiologist's interpretation: HEAD CT NONCONTRAST CT DOSE: 537.48 mGy.cm HISTORY: Left-sided weakness. Stroke evaluation TECHNIQUE: Multiaxial CT images of the head were performed without the use of intravenous contrast. Automated exposure control was utilized for this study. A dose lowering technique was utilized adhering to the principles of ALARA. Comparison: Head CT 07/11/2018. Findings: The paranasal sinuses and mastoid air cells are clear. The calvarium and skull base are intact. There is no mass, hematoma, midline shift, acute infarct. White matter hypodensity is nonspecific but suggestive of microvascular ischemic change. The ventricles and sulci demonstrate mild age-related involutional changes. Encephalomalacia within the right frontal lobe and right upper lobe remains unchanged. 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 Impression: No significant change compared to the prior study. No acute intracranial abnormality. Electronically signed by: Yair Contreras M.D. 04/01/2019 6:58 PM XR chest 1V portable HISTORY: left numbness COMPARISON: Chest 07/17/2018. FINDINGS: No pneumothorax. No pleural effusions. The heart remains mildly enlarged. Diffuse interstitial thickening which is likely chronic. A few bibasilar linear densities suggesting subsegmental atelectasis or scarring. No evidence for pulmonary edema. IMPRESSION: No significant change compared to the prior study. No acute process. Bibasilar linear densities favor subsegmental atelectasis/scarring. Electronically signed by: Yair Contreras M.D. 04/01/2019 7:23 PM Blood Pressure Blood Pressure Findings: Elevated blood pressure Blood Pressure Disposition: further management by hospitalist Discharge Plan Visit Data *Final* Discharge Date/Time: 04/01/19 21:56 Chief Complaint: Neuro Symptoms/Deficit Stated Complaint: LEFT SIDED WEAKNESS ED Provider: Sohail Faust Discharge Problem: Stroke-like symptoms, Elevated troponin, Left sided numbness, Left leg weakness Patient Disposition: Being Evaluated by Hospitalist Discharge Instructions Interventions: ED Discharge Assessment Last Done: 04/01/19 21:56 The karinibe's documentation has been prepared under my direction and personally reviewed by me in its entirety. I confirm that the note above accurately reflects all work, treatment, procedures, and medical decision making performed by me.
--- NOTE | 2019-04-02 07:13 | Ultrasound Report ---
ULTRASOUND OF THE CAROTID ARTERIES CLINICAL HISTORY: Strokelike symptoms. Left arm numbness. COMPARISON STUDY: No priors. TECHNIQUE: Real-time, grayscale, and color Doppler sonography of the carotid arteries is performed. I mages are reviewed in the transverse and longitudinal planes. FINDINGS: Blood pressure in the right arm measures 132/79 and blood pressure in the left arm measures 136/83. The carotid arteries are patent bilaterally and demonstrate antegrade flow. There is moderate atheros clerotic plaque seen in the carotid bulbs. Normal doppler arterial waveforms are seen throughout. George ocity measurements are listed below. Common carotid peak systolic velocity (cm/sec): RIGHT: 79 LEFT: 82 ICA proximal peak systolic velocity (cm/sec): RIGHT: 44 LEFT: 83 ICA mid peak systolic velocity (cm/sec): RIGHT: 65 LEFT: 84 ICA distal peak systolic velocity (cm/sec): RIGHT: 52 LEFT: 74 ICA/CC peak systolic ratio: RIGHT: 0.8 LEFT: 1.1 Antegrade flow was shown in the vertebral arteries. The external carotid arteries are patent. IMPRESSION: 1. There is no sonographic evidence of hemodynamically significant stenosis in the right or left ceron tid arterial system. 2. Antegrade flow is shown in the vertebral arteries. Electronically signed by: Claus Bowden M.D. 04/02/2019 7:12 AM
[2019-04-02 07:30] LABS: Chol HDL Ratio 4; Cholesterol 187 mg/dl (0-200); HDL Cholesterol 45 mg/dl; LDL Cholesterol Calculated 117 mg/dl; Triglycerides 123 mg/dl (0-150); VLDL Cholesterol 25 mg/dl
--- NOTE | 2019-04-02 07:44 | Magnetic Resonance Report ---
Brain MRI WITHOUT CONTRAST HISTORY: Left arm numbness. stroke-like symptoms TECHNIQUE: Multiplanar multisequence MRI of the brain was performed without the use of contrast. COMPARISON STUDY: Head CT 04/01/2019. FINDINGS: Possible focus of restricted diffusion within the right thalamus on image 12 measuring 6 mm . This could represent a subacute lacunar infarct. No additional areas of restricted diffusion within the brain. The midline structures are intact. There is no mass, hematoma, midline shift. Patchy harris ventricular white matter T2 hyperintensity is nonspecific but favors mild microvascular ischemic regalado ge. The ventricles and sulci demonstrate moderate age-related involutional changes. No significant ch denys in the focal areas of encephalitis within the right frontal lobe and right temporal lobe consist ent with old MCA territory infarcts. The major vascular flow voids at the skull base are well-maintai britton. Old lacunar infarct within the left caudate head. Small left mastoid effusion. The paranasal sin uses are clear. IMPRESSION: 1. Possible 6 mm focus of restricted diffusion within the right thalamus which raises the possibility of a subacute lacunar infarct. 2. Atrophy and microvascular ischemic changes. 3. 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 Electronically signed by: Yair Contreras M.D. 04/02/2019 7:43 AM
[2019-04-02 08:03] LABS: Estimated Average Glucose 123 mg/dl; Hemoglobin A1C 5.9 % (4.5-5.6)
[2019-04-02] MEDS ORDERED: ASPIRIN 81 MG ECTAB PO SCH (09:00)
--- NOTE | 2019-04-02 10:09 | Cardiology Consultation ---
Date of Consultation April 02, 2019 Assessment & Plan (1) Elevated troponin: Elevated troponin concentration in the absence of an acute coronary syndrome Asymptomatic EKG without acute changes Resting echocardiogram pending Recommend utilization of antiplatelet therapy, moderate intensity statin therapy, risk factor, and lifestyle modification. (2) CVA (cerebral vascular accident): Management as per hospitalist and/or neurology Continue telemetry monitoring Consider outpatient Zio monitoring (3) Dyslipidemia, goal LDL below 70: Recommend addition of moderate intensity statin therapy, rosuvastatin 20 mg/day or atorvastatin 40 mg/day Supervising Physician Co-Signing Physician Notes Patient seen and examined with Gianluca Linder PA-C. Agree with findings and assessment as above. Currently very anxious for discharge, at bedside. States that he feels fine. Denies cp, sob, palpitations. Echocardiogram re viewed; normal wall motion and overall systolic function. Troponin elevation does not represent active cardiac ischemia, likely due to cva. No further cardiac testing or intervention necessary. ok to d/c to home from cardiac standpoint. History of Present Illness Reason for Consultation: Elevated troponin Requesting Physician: Dr. Sohail Delatorre Attending Physician: Nettie Rush, History of Present Illness Mr. Keith Raygoza is an 83-year-old male followed by Dr. Galindo. Mr. Israel is being seen today in cardiology consultation at the request of Dr. Sohail Delatorre. Reason for consultation is elevated troponin. The patient notes that his Awa had an appointment around 4 PM yesterday. After having a test they went to [facility]. While walking into [facility] he notes that he started to push the cart, experiencing left upper extremity than left lower extremity numbness. He notes driving home with some difficulty though was able to make it home safely. The patient was taken to the [facility] emergency room via ambulance. CT on presentation showed no acute findings. Thrombolytic therapy was not recommended due to mild neurologic symptoms as well as his history of spontaneous intracranial hemorrhage. Carotid duplex showed no hemodynamically significant stenosis bilaterally. MRI of the brain revealed a possible 6 mm focus of restricted diffusion within the right thalamus raising concern for a subacute lacunar infarct. It also showed atrophy, microvascular ischemic changes, and old right MCA territory infarcts. Resting echocardiogram is currently pending. Continuous telemetry monitoring shows sinus/sinus bradycardia with heart rates in the 50s and 60s. No atrial arrhythmias observed. Troponin was mildly elevated on July 11, 2018. Troponin on this admission was 0.070, 0.694, and 0.602 ng/mL. EKG x2 shows no acute change. Patient asymptomatic in regards to symptoms suggestive of an acute coronary syndrome. He denies chest pain or discomfort, new or worsening dyspnea, or palpitations. He denies prior cardiac history. He specifically denies history of [place], CAD, CHF, arrhythmias, heart murmur, rheumatic fever, or scarlet fever. His son notes that 2 months ago he had an episode of garbled speech. He also had an episode of garbled speech a few weeks ago. Short-term memory issues reported by his . Past Medical and Surgical History History of spontaneous/nontraumatic intracranial hemorrhage circa 20 years ago Prostate cancer status post radiation Dyslipidemia Chart history of COPD Chart history of hereditary hemochromatosis Chart history of anemia Vitamin D deficiency Osteoarthritis Obesity Chronic back pain Status post lumbar spine surgery in the Ankylosing spondylitis Family History: Father was an alcoholic, dying at the age of 68 with a myocardial infarction. His mother lived into her mid 80s; cause of unknown. He has 7 brothers and sisters, 4 remaining. 2 with unknown forms of cancer. Social History: He is a remote tobacco abuser, smoking cigarettes in the 1950s, in the service, at the end of the [place] conflict. No smokeless tobacco use. alcohol: None. Illegal drug use: None. x61 years. 5 children. His son, who was present for the entire evaluation, has a history of atrial fibrillation. 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 Complete Review of Systems: Glasses. Cataracts. Skin cancer. Prostate cancer status post radiation. No amaurosis fugax. No thyroid issues. No history of diabetes. No kidney or liver issues. No seizure history. No history of DVT or PE. Complete review of systems is otherwise as stated above, negative, or noncontributory. Data: EKG on April 01, 2019 revealed sinus bradycardia at 59 bpm with a first-degree AV block and left axis deviation EKG this morning reveals sinus rhythm at 71 bpm with a first-degree AV block and left axis deviation Continuous telemetry monitoring reveals sinus/sinus bradycardia with heart rates in the 50s and 60s Resting echocardiography is pending interpretation by Dr. Angel Avila Allergies Allergy/AdvReac Type Severity Reaction Status Date / Time iodine Allergy Mild HIVES/ITCHI Verified 04/01/19 19:47 NG amoxicillin [From Augmentin] AdvReac Mild diarrhea Verified 04/01/19 19:47 clavulanic acid AdvReac Mild diarrhea Verified 04/01/19 19:47 [From Augmentin] Home Medications Home Medications Medication Instructions Recorded Confirmed Type Other Herbals 1 ea PO QAM 04/01/19 History cholecalciferol (vitamin D3) 0 unit PO QAM 04/01/19 04/01/19 History [Vitamin D3] coQ10 (ubiquinol) 200 mg PO Q12H 04/01/19 04/01/19 History omega 7-cvi-chd-fish oil [Fish Oil] 1 cap PO QAM 04/01/19 04/01/19 History vitamin E 400 unit PO QAM 04/01/19 04/01/19 History aspirin [Ecotrin Low Strength] 81 mg PO QAM #90 tab 04/02/19 Rx atorvastatin [Lipitor] 80 mg PO HS #30 tab 04/02/19 Rx Patient History Medical History Prostate cancer (Chronic) s/p XRT only COPD (chronic obstructive pulmonary disease) H/O intracranial hemorrhage H/O: CVA (cerebrovascular accident) Multiple falls Surgical History Previous back surgery Family History Father Coronary heart disease Sister Cancer Other No pertinent family history Social History Preferred Language: Somali Communication Ability: Effective Lead Electrical 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 NAD. HEENT: Normocephalic. Atraumatic. PER. Conjunctiva pink, sclera clear. Neck: No carotid bruits. No JVD. Heart: RRR. No murmur. No rub. No gallop. PMI is nondisplaced. Lungs: Clear to auscultation. Abdomen: Obese. +BS. Soft. Nontender. No masses or organomegaly. Extremities: Trivial edema. No clubbing. No cyanosis. Limited neurological examination is without focal deficits. Pulses: radial=2/4, posterior tibial=2/4. Results & Data Vital Signs (Past 12 Hours) Vital Signs Temp Pulse Pulse Resp BP Pulse Ox 04/02/19 07:19 66 04/02/19 07:03 36.4 C L 62 18 116/69 96 04/02/19 03:08 36.6 C 67 18 113/73 97 04/02/19 00:00 67 04/01/19 23:32 36.4 C L 66 18 135/69 95 04/01/19 22:12 36.6 C 63 18 166/86 H 99 Laboratory Results - last 24 hr 04/01/19 04/01/19 04/01/19 18:40 18:40 18:40 WBC 8.77 RBC 4.33 L Hgb 13.3 L POC Hgb Hct 39.0 L POC Hct MCV 90.1 MCH 30.7 MCHC 34.1 RDW Std Deviation 41.8 RDW Coeff of Ness 12.8 Plt Count 225 MPV 9.7 Immature Gran % (Auto) 0.2 Neut % (Auto) 45.4 Lymph % (Auto) 44.0 [place] % (Auto) 8.9 Eos % (Auto) 1.3 Baso % (Auto) 0.2 Immature Gran # (Auto) 0.02 Neut # (Auto) 3.98 Lymph # (Auto) 3.86 H [place] # (Auto) 0.78 H Eos # (Auto) 0.11 Baso # (Auto) 0.02 PT Cancelled INR Cancelled APTT Cancelled PTT Ratio Cancelled POC Sodium Sodium 138 POC Potassium Potassium POC Chloride Chloride 105 Carbon Dioxide 25 POC Total CO2 Anion Gap 8.0 POC Anion Gap POC BUN BUN 17 Creatinine 1.08 POC Creatinine Est Cr Clr Drug Dosing 59.9 Est GFR ( Amer) 72.7 Est GFR (Non-Af Amer) 62.7 BUN/Creatinine Ratio 15.7 Glucose 81 POC Glucose POC Glucose (other) Estimat Average Glucose Hemoglobin A1c Calcium 9.1 POC Ioniz Calcium Jaida Magnesium Total Bilirubin 0.5 AST ALT 20 Alkaline Phosphatase 65 Troponin I 0.707 H* Total Protein 7.5 Albumin 3.8 Globulin 3.7 Albumin/Globulin Ratio 1.0 Triglycerides Cholesterol LDL Cholesterol, Calc VLDL Cholesterol, Calc HDL Cholesterol Cholesterol/HDL Ratio Blood Type Antibody Screen 04/01/19 04/01/19 04/01/19 18:42 18:45 18:46 WBC RBC Hgb POC Hgb 12.9 L Hct POC Hct 38 L MCV MCH MCHC RDW Std Deviation RDW Coeff of Ness Plt Count MPV Immature Gran % (Auto) Neut % (Auto) Lymph % (Auto) [place] % (Auto) Eos % (Auto) Baso % (Auto) Immature Gran # (Auto) Neut # (Auto) Lymph # (Auto) [place] # (Auto) Eos # (Auto) Baso # (Auto) PT INR APTT PTT Ratio POC Sodium 139 Sodium POC Potassium 4.4 Potassium POC Chloride 102 Chloride Carbon Dioxide POC Total CO2 27 Anion Gap POC Anion Gap 15.0 L POC BUN 22 H BUN Creatinine POC Creatinine 1.1 Est Cr Clr Drug Dosing Est GFR ( Amer) Est GFR (Non-Af Amer) BUN/Creatinine Ratio Glucose POC Glucose 87 POC Glucose (other) 87 Estimat Average Glucose Hemoglobin A1c Calcium POC Ioniz Calcium Jaida 1.13 Magnesium Total Bilirubin AST ALT Alkaline Phosphatase Troponin I Total Protein Albumin Globulin Albumin/Globulin Ratio Triglycerides Cholesterol LDL Cholesterol, Calc VLDL Cholesterol, Calc HDL Cholesterol Cholesterol/HDL Ratio Blood Type B Positive Antibody Screen NEGATIVE 04/01/19 04/01/19 04/01/19 19:31 19:32 23:24 WBC RBC Hgb POC Hgb Hct POC Hct MCV MCH MCHC RDW Std Deviation RDW Coeff of Ness Plt Count MPV Immature Gran % (Auto) Neut % (Auto) Lymph % (Auto) [place] % (Auto) Eos % (Auto) Baso % (Auto) Immature Gran # (Auto) Neut # (Auto) Lymph # (Auto) [place] # (Auto) Eos # (Auto) Baso # (Auto) PT 10.6 INR 1.0 APTT 24.6 PTT Ratio 0.9 POC Sodium Sodium POC Potassium Potassium 4.6 POC Chloride Chloride Carbon Dioxide POC Total CO2 Anion Gap POC Anion Gap POC BUN BUN Creatinine POC Creatinine Est Cr Clr Drug Dosing Est GFR ( Amer) Est GFR (Non-Af Amer) BUN/Creatinine Ratio Glucose POC Glucose POC Glucose (other) Estimat Average Glucose Hemoglobin A1c Calcium POC Ioniz Calcium Jaida Magnesium 2.2 Total Bilirubin AST 14 L ALT Alkaline Phosphatase Troponin I 0.694 H* Total Protein Albumin Globulin Albumin/Globulin Ratio Triglycerides Cholesterol LDL Cholesterol, Calc VLDL Cholesterol, Calc HDL Cholesterol Cholesterol/HDL Ratio Blood Type Antibody Screen 04/02/19 04/02/19 04/02/19 06:31 06:31 06:31 WBC RBC Hgb POC Hgb Hct POC Hct MCV MCH MCHC RDW Std Deviation RDW Coeff of Ness Plt Count MPV Immature Gran % (Auto) Neut % (Auto) Lymph % (Auto) [place] % (Auto) Eos % (Auto) Baso % (Auto) Immature Gran # (Auto) Neut # (Auto) Lymph # (Auto) [place] # (Auto) Eos # (Auto) Baso # (Auto) PT INR APTT PTT Ratio POC Sodium Sodium POC Potassium Potassium POC Chloride Chloride Carbon Dioxide POC Total CO2 Anion Gap POC Anion Gap POC BUN BUN Creatinine POC Creatinine Est Cr Clr Drug Dosing Est GFR ( Amer) Est GFR (Non-Af Amer) BUN/Creatinine Ratio Glucose POC Glucose POC Glucose (other) Estimat Average Glucose 123 Hemoglobin A1c 5.9 H Calcium POC Ioniz Calcium Jaida Magnesium Total Bilirubin AST ALT Alkaline Phosphatase Troponin I 0.602 H* Total Protein Albumin Globulin Albumin/Globulin Ratio Triglycerides 123 Cholesterol 187 LDL Cholesterol, Calc 117 VLDL Cholesterol, Calc 25 HDL Cholesterol 45 Cholesterol/HDL Ratio 4 Blood Type Antibody Screen
[2019-04-02] MEDS ORDERED: ATORVASTATIN 40 MG TAB PO SCH (10:30)
--- NOTE | 2019-04-02 13:57 | Hospitalist Progress Note ---
Date of Service April 02, 2019 Assessment & Plan (1) Stroke-like symptoms: Presented with paresthesiae of left upper and left lower extremities; possible mild left-sided weakness. No acute findings on CT of head without contrast (although chronic right frontal encephalomalacia and small vessel white matter ischemic changes were noted). [place]rology [place] [facility] [place]. Thrombolytic therapy not recommended because of (1) mild neurologic symptoms and (2) history of spontaneous intracranial hemorrhage. Recent episodes of apparent dysarthria or aphasia. Possible TIA's. Spouse concerned about recent problems with short-term memory. Check MRI brain, carotid duplex, echocardiogram. Monitor for arrhythmias. Check lipid profile and hemoglobin A1c. Antiplatelet therapy with aspirin 81 mg daily. PT/OT/UNDERGROUND ELECTRICIAN evaluations. Consult Neurology. (2) Elevated troponin: Serum troponin I = 0.707. No chest pain. No acute EKG changes. Troponins were elevated in June in setting of a fall with musculoskeletal injuries. Check serial troponins. Check lipid profile. Check echocardiogram. Antiplatelet therapy with aspirin. Consult Cardiology. (3) Back pain: Chronic since fall in Jun 2018. Has been evaluated and followed by Ortho Spine. Symptoms stable for several months. Unable to lie in supine position due to pain- sleeps in recliner chair. (4) Carcinoma of prostate: S/P XRT. Followed by Dr. Dubon. (5) DVT prophylaxis: Will not use anticoagulants because of history of spontaneous intracranial hemorrhage. SCDs. Ambulate. (6) Discharge planning issues: Anticipated discharge to home. Internal Medicine follow-up with Dr. Galindo. Results & Data Vital Signs (Past 12 Hours) Vital Signs Temp Pulse Pulse Resp BP Pulse Ox 04/02/19 11:38 36.6 C 66 20 136/76 97 04/02/19 07:19 66 04/02/19 07:03 36.4 C L 62 18 116/69 96 04/02/19 03:08 36.6 C 67 18 113/73 97 Laboratory Results Short CBC 04/01/19 Range/Units 18:40 WBC 8.77 (4.8-10.8) K/uL Hgb 13.3 L (14.0-18.0) g/dL Hct 39.0 L (42-52) % Plt Count 225 (130-400) K/uL BMP 04/01/19 04/01/19 18:40 19:32 Sodium 138 Potassium 4.6 Chloride 105 Carbon Dioxide 25 BUN 17 Creatinine 1.08 Glucose 81 Calcium 9.1 Cardiac Enzymes 04/01/19 04/01/19 04/02/19 Range/Units 18:40 23:24 06:31 Total Creatine Kinase (39-308) U/L Troponin I 0.707 H* 0.694 H* 0.602 H* (0-0.045) ng/ml 04/02/19 Range/Units 06:31 Total Creatine Kinase 75 (39-308) U/L Troponin I (0-0.045) ng/ml Liver Function 04/01/19 04/01/19 Range/Units 18:40 19:32 Total Bilirubin 0.5 (0.2-1) mg/dl AST 14 L (15-37) U/L ALT 20 (12-78) U/L Alkaline Phosphatase 65 (45-117) U/L Albumin 3.8 (3.4-5.0) gm/dl Medications Administered Current Inpatient Medications Acetaminophen (Tylenol) 1,000 mg PO Q6H PRN PRN Reason: Moderate Pain Stop: 05/01/19 22:11 Aspirin (Ecotrin Ectab) 81 mg PO [facility] Stop: 05/02/19 08:59 Last Admin: 04/02/19 08:27 Dose: 81 mg Documented by: Atorvastatin Calcium ([facility]) [facility] Stop: 05/02/19 10:29 Last Admin: 04/02/19 11:25 Dose: 80 mg Documented by: Miscellaneous Information (Pharmacist Discharge Med Rec Consult) 1 ea N/A UD PRN PRN Reason: Consult Stop: 05/01/19 22:11 Tramadol HCl (Ultram) 50 mg PO Q6H PRN PRN Reason: Severe Pain Stop: 05/01/19 22:11
--- NOTE | 2019-04-02 14:16 | Neurology Consultation ---
Date of Consultation April 02, 2019 Assessment & Plan (1) CVA (cerebral vascular accident): 1. MRI brain- 6 mm focus of restricted diffusion R thalamus, sub acute lacunar infarct, old R MCA infarcts 2. TTE no ASD 3. PT/OT speech for any discharge needs 4. aspirin 81 mg and plavix 75 mg daily x 21 days then stop plavix and continue aspirin 81 mg for life 5. carotid doppler - no significant stenosis 6. optimize HTN, HLD, DM LDL <70 7. troponin elevation- cardiology on board 8. needs ZIO as outpatient follow up with Ese Moulton PAC, neurology 4-6 weeks after discharge. Supervising Physician Co-Signing Physician Notes Patient was seen and examined. I agree with Ese Moulton PA-C as note below. A 83 year old male with Hx of spontaneous ICH admitted with acute left upper and lower extremity sensory changes. MRI brain reviewed and confirms a right thalamic lacunar infarct. Patient report he has not been compliant with his ASA. He has a contrast dye allergy. On examine he has gross hearing impai rment with hearing aides. Strength is 5/5. Sensation is intact. Carotid US reviewed and showed no signs of high grade stenosis. TTE showed no cardiac source of embolism. Telemetry reported to shows no cardiac abnormalities. Patient reports feeling better. Recommend to start ASA 81 mg daily. Agree with high intensity statin. PAtient can follow up with me in [facility] ins 8-weeks or sooner if needed. History of Present Illness Reason for Consultation: stroke like symptoms Requesting Physician: Nettie Rush DO Attending Physician: Nettie Rush DO History of Present Illness Keith is an 83 year old male followed by Dr. Galindo in [place] with a PMH HLD, CVA, carcinoma of prostrate, lumbar stenosis who presented with numbness in his left arm and leg around 4 PM yesterday. He noted some left upper extremity than left lower extremity numbness and started driving home and his states he was swerving. His thought he may be having a stroke and took him to [facility] [place] and the was transported by ambulance to [facility]. MRI of the brain revealed a possible 6 mm focus of restricted diffusion within the right thalamus raising concern for a subacute lacunar infarct and old right MCA territory infarcts. He had some garbled speech a few weeks ago. He has ongoing issues with memory according to his who is bedside. He states he is still having numbness of his arm and leg denies weakness, N, V, vision changes, CP, SOB, abdominal pain, new bowel or bladder issues. Allergies Allergy/AdvReac Type Severity Reaction Status Date / Time iodine Allergy Mild HIVES/ITCHI Verified 04/01/19 19:47 NG amoxicillin [From Augmentin] AdvReac Mild diarrhea Verified 04/01/19 19:47 clavulanic acid AdvReac Mild diarrhea Verified 04/01/19 19:47 [From Augmentin] Home Medications Home Medications Medication Instructions Recorded Confirmed Type Other Herbals 1 ea PO QAM 04/01/19 History cholecalciferol (vitamin D3) 0 unit PO QAM 04/01/19 04/01/19 History [Vitamin D3] coQ10 (ubiquinol) 200 mg PO Q12H 04/01/19 04/01/19 History omega 9-asd-fkq-fish oil [Fish Oil] 1 cap PO QAM 04/01/19 04/01/19 History vitamin E 400 unit PO QAM 04/01/19 04/01/19 History aspirin [Ecotrin Low Strength] 81 mg PO QAM #90 tab 04/02/19 Rx atorvastatin [Lipitor] 80 mg PO HS #30 tab 04/02/19 Rx Patient History Medical History Prostate cancer (Chronic) s/p XRT only COPD (chronic obstructive pulmonary disease) H/O intracranial hemorrhage H/O: CVA (cerebrovascular accident) Multiple falls Surgical History Previous back surgery Family History Father Coronary heart disease Sister Cancer Other No pertinent family history Social History Preferred Language: Macedonian Communication Ability: Effective 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 Beliefs That Will Affect Care: None marital status: Current Living Situation: Spouse Other Information That Helps Us Care for You: No Feels Safe at Home: Yes Safety Concerns: Feels Safe At This Time Smoking Status: Former smoker Tobacco Type: cigarettes ; Cigarettes Per Day: 10 ; Do You Dip or Chew Tobacco: No ; Second Hand Exposure: No ; Hx Alcohol Use: No Hx Substance Use: No Physical Exam Physical Exam: Physical Exam: Constitutional: appearance over nourished Ears, Nose, Mouth and Throat: mucous membranes moist, no injection and skin normal, eyes normal Cardiovascular: normal S-1 and S-2 and regular rate and rhythm Respiratory: course breath sounds Musculoskeletal: peripheral edema and distand pulses Skin: no stigmata of neurocutaneous disease noted and normal and intact Eyes: extraocular muscles intact (EOMI) and pupils equal, round and reactive to light (PERRL) NEUROLOGIC EXAMINATION: Mental status: Alert and interactive Oriented to [place],, hospital, where he lives, [place] president Oriented to person Speech fluent with no evidence of aphasia Cranial Nerves smile slightly a symmetric Reflexes: Deep tendon reflexes were symmetrical and graded 2/5. down going toes. Sensory: decrease sensation left lateral aspect of arm, leg Coordination: finger to nose no bi pass, rapid hand movements intact Gait/Stance: Posture normal. lying bed Motor: Negative for pronator drift of out stretched arms with eyes closed. Strength: biceps triceps deltoids hand belt fixer 5/5, hip flex patellar, plantar flex ext 5/5 Results & Data Vital Signs (Past 12 Hours) Vital Signs Temp Pulse Pulse Resp BP Pulse Ox 04/02/19 11:38 36.6 C 66 20 136/76 97 04/02/19 07:19 66 04/02/19 07:03 36.4 C L 62 18 116/69 96 04/02/19 03:08 36.6 C 67 18 113/73 97 Laboratory Results Abnormal lab results 04/01/19 04/01/19 04/01/19 Range/Units 18:40 18:40 18:46 RBC 4.33 L (4.7-6.1) M/uL Hgb 13.3 L (14.0-18.0) g/dL POC Hgb 12.9 L (14.0-18.0) g/dl Hct 39.0 L (42-52) % POC Hct 38 L (42-52) % Lymph # (Auto) 3.86 H (1.2-3.4) K/uL [place] # (Auto) 0.78 H (0.11-0.59) K/uL POC Anion Gap 15.0 L (16-25) mmol/L POC BUN 22 H (7-18) mg/dl Hemoglobin A1c (4.5-5.6) % AST (15-37) U/L Troponin I 0.707 H* (0-0.045) ng/ml 04/01/19 04/01/19 04/02/19 Range/Units 19:32 23:24 06:31 RBC (4.7-6.1) M/uL Hgb (14.0-18.0) g/dL POC Hgb (14.0-18.0) g/dl Hct (42-52) % POC Hct (42-52) % Lymph # (Auto) (1.2-3.4) K/uL [place] # (Auto) (0.11-0.59) K/uL POC Anion Gap (16-25) mmol/L POC BUN (7-18) mg/dl Hemoglobin A1c 5.9 H (4.5-5.6) % AST 14 L (15-37) U/L Troponin I 0.694 H* (0-0.045) ng/ml 04/02/19 Range/Units 06:31 RBC (4.7-6.1) M/uL Hgb (14.0-18.0) g/dL POC Hgb (14.0-18.0) g/dl Hct (42-52) % POC Hct (42-52) % Lymph # (Auto) (1.2-3.4) K/uL [place] # (Auto) (0.11-0.59) K/uL POC Anion Gap (16-25) mmol/L POC BUN (7-18) mg/dl Hemoglobin A1c (4.5-5.6) % AST (15-37) U/L Troponin I 0.602 H* (0-0.045) ng/ml Diagnostic Findings CT head-No significant change compared to the prior study. No acute intracranial abnormality. CXR- No significant change compared to the prior study. No acute process. Bibasilar linear densities favor subsegmental atelectasis/scarring. carotid doppler-There is no sonographic evidence of hemodynamically significant stenosis in the right or left carotid arterial system. Antegrade flow is shown in the vertebral arteries. MRI brain - Possible 6 mm focus of restricted diffusion within the right thalamus which raises the possibility of a subacute lacunar infarct. Atrophy and microvascular ischemic changes. 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 TTE - No ASD, EF 55-60%
[2019-04-02] MEDS ORDERED: CLOPIDOGREL BISULFATE 75 MG TAB PO SCH (15:00)
--- NOTE | 2019-04-02 15:18 | Discharge Summary ---
Date of Service April 02, 2019 Admission HPI Per Admitting Provider 83-year-old male followed by Dr. Galindo. History of prostate cancer and chronic back pain. History of spontaneous/nontraumatic intracranial hemorrhage about 20 years ago. Patient and spouse indicate that etiology was uncertain. About 2 months ago the patient was noted to have an episode of garbled speech. Patient was not very concerned, but family felt that the episode was significant. He had a recurrent episode of abnormal speech a few weeks ago. This afternoon around 1630 he was shopping and developed paresthesiae of his left upper and left lower extremities. Possible mild left-sided weakness. He drove home with his spouse; she reports that driving was somewhat erratic. They got home safely, but he seemed to be weak after getting out of the car. No headache, facial droop, visual changes, abnormal speech today. concerned about recent problems with short-term memory. Patient does not take aspirin or other antiplatelet medications. He does take multiple ugwi-vbz-uokdtgy vitamins/herbal supplements. Admission Exam Per Admitting Provider Constitutional: WD/WN, vitals as above no acute distress Eyes: PERRL, conjunctivae normal, anicteric sclerae ENMT: external ear and nose normal, oropharynx normal Neck: trachea midline, no thyromegaly Respiratory: normal respiratory effort, lungs clear to auscultation Cardiovascular: Rate/Rhythm: regular rate Heart Sounds: no gallop, no murmur and no cardiac rub Vessels: no JVD Extremities: normal capillary refill and + edema (trace-1+ pretibial edema bilat); no calf tenderness Gastrointestinal (Abdomen): normal bowel sounds, soft, nontender, no hepatosplenomegaly Musculoskeletal: Head/Neck/Chest: neck supple Extremities: strength 5/5 throughout; no cyanosis and no clubbing Skin: no rashes, warm and dry Neurologic: PERRL, EOMI no facial palsy tongue midline speech hesitant; no dysarthria or aphasia motor strength upper and lower extremities 5/5 bilat patellar DTR's 1/2 bilat plantar reflexes downgoing bilaterally no difficulty with finger --> nose bilaterally alert, essentially oriented x 3 (oriented to person, place, and Mar 2019, but unable to state exact date); able to name current and last 2 presidents Psychiatric: Orientation: alert and oriented x 3 (knows that it is Mar 2019, but unable to state exact date) Affect: euthymic affect Lymphatic: no cervical lymphadenopathy Principal Diagnosis Acute R thalamic stroke Discharge Data Allergies Allergy/AdvReac Type Severity Reaction Status Date / Time iodine Allergy Mild HIVES/ITCHI Verified 04/01/19 19:47 NG amoxicillin [From Augmentin] AdvReac Mild diarrhea Verified 04/01/19 19:47 clavulanic acid AdvReac Mild diarrhea Verified 04/01/19 19:47 [From Augmentin] Consultations 04/01/19 19:39 ED Decision to Admit Stat 04/01/19 22:12 Consult Cardiology Routine Consult Case Management - Discharge Planning Routine Consult Neurology Routine Ordered Studies 04/01/19 18:42 CT head/brain wo con Stat 04/01/19 22:12 US carotid doppler BI Routine 04/02/19 01:11 MR brain wo con Routine Hospital Course (1) Acute ischemic stroke: The patient was admitted to the Hospitalist service and placed on telemetry. Cardiology was consulted secondary to his elevated troponin which was in the absence of acute coronary syndrome. As he was asymptomatic and EKG was without acute changes a resting echocardiogram was performed. This revealed an EF 55 to 60%, no segmental left ventricular wall motion abnormality is noted, grade 1 diastolic dysfunction and aortic valve sclerosis mild without significant aortic valve stenosis. Neurology was consulted. A brain MRI revealed 6 mm focus of restricted diffusion in the right thalamus consistent with a subacute left lacunar infarct. Old right MCA infarcts were present. Aspirin was recommended. Plavix was considered but not given the setting of prior reported intracranial bleed 20 years ago. Carotid Doppler revealed no significant stenosis. It was recommended to obtain an outpatient event monitor, ZIO Patch after discharge. Neurology follow-up in 4 to 6 weeks was recommended after discharge. At time of discharge the patient was reporting resolution of symptoms aside from palmar paresthesias on his left hand. He was otherwise neurologically intact and ambulating and mentating at baseline. He was tolerating p.o. Physical exam was otherwise unremarkable. He was discharged in stable condition with close primary care follow-up recommended. Total Time Total Time Spent Total Time Spent (In Minutes): 60 Total Time Includes: Examination of the Patient, Discharge Planning, Medication Reconciliation and Communication With Other Providers Discharge Plan Discharge Items Patient Disposition: Home - Self-Care Reason For Visit: STROKE-LIKE SYMPTOMS Discharge Diagnosis: Acute right thalamic stroke Condition on Discharge: Good Activity: Resume your previous activity Non-emergency contact: Primary Care Provider Call non-emergency contact if: you have any medication questions, your symptoms worsen, your pain is not controlled, your pain is worsening, your pain is unusual for you, your pain is concerning for you and you have a fever Follow-up/Referrals: Talon Galindo [Primary Care Provider] - Dominick Jaramillo DO [Physician] - Diet: Heart Healthy Addtl Attending Provider Instructions: Please take all medications as instructed on discharge list below. You are being prescribed two new medications to help prevent a future stroke i ncluding aspirin (baby) and atorvastatin. A one week follow-up with your primary care physician is recommended. It is recommended that you have an event monitor (ZIO patch) for 10-14 days to ensure you don't have an occult underlying arrhythmia that may have contributed to your stroke. This may be ordered through your primary care physician. A 4-6 week follow-up is recommended with [facility] Neurology to ensure you are doing well on medical therapy after your stroke. It was a pleasure taking care of you! Please call if you have any questions or problems. You can reach a [facility] hospitalist on duty at [facility] 24 hours a day by calling [phone]. Take care of yourself. Nettie Rush DO [facility] Hospitalist Pending Studies at Discharge: No Stand-Alone Forms: Medications to Prevent Stroke, My [facility] Medications and DC Order Prescriptions: New atorvastatin [Lipitor] 80 mg tablet 80 mg PO HS Qty: 30 RF: 1 aspirin [Ecotrin Low Strength] 81 mg Tablet,Delayed Release (Dr/Ec) 81 mg PO QAM Qty: 90 RF: 1 Continued vitamin E 400 unit Capsule 400 unit PO QAM RF: 0 cholecalciferol (vitamin D3) [Vitamin D3] 1,000 unit Capsule PO QAM RF: 0 coQ10 (ubiquinol) 200 mg Capsule 200 mg PO Q12H RF: 0 omega 9-nof-twz-fish oil [Fish Oil] 1,000 mg (120 mg-180 mg) Capsule 1 cap PO QAM RF: 0 Other Herbals 1 ea PO QAM RF: 0 Discharge Orders: Discharge Order (Routine); Ordered 04/02/19 Ordered By: Nettie Rush Admission Data Admit Date/Time: 04/01/19 21:36 Attending Provider: Nettie Rush Admit Provider: Sohail Delatorre Primary Care Provider: Talon Galindo Other Providers: Dominick Jaramillo ; Gianluca Linder Other Interventions: Discharge Summary Assessment (RN) Last Done: 04/02/19 16:54 DC Date/Time DO NOT enter until pt leaves facility: 04/02/19 17:27
[2019-04-02] MEDS ORDERED: STROKE PATIENT DISCHARGE STA (15:34)
--- NOTE | 2019-04-02 16:07 | Pharmacy Report ---
Pharmacist Stroke Counseling - Date of Service April 02, 2019 - Scope: Pharmacy has been consulted to provide medication discharge counseling for this patient admitted with [ischemic stroke] [hemorrhagic stroke] [transient ischemic attack] as per the Pharmacist Discharge Counseling for Stroke Patients Prot ocol. - Medications on Discharge: Home Medications Medication Instructions Recorded Confirmed Other Herbals 1 ea PO QAM 04/01/19 cholecalciferol (vitamin D3) 0 unit PO QAM 04/01/19 04/01/19 [Vitamin D3] coQ10 (ubiquinol) 200 mg PO Q12H 04/01/19 04/01/19 omega 0-kpe-lwv-fish oil [Fish Oil] 1 cap PO QAM 04/01/19 04/01/19 vitamin E 400 unit PO QAM 04/01/19 04/01/19 New Rx's Medication Instructions Recorded aspirin [Ecotrin Low Strength] 81 mg PO QAM #90 tab 04/02/19 atorvastatin [Lipitor] 80 mg PO HS #30 tab 04/02/19 - Action: The above medications, specifically ones for stroke treatment/prophylaxis, have been reviewed in detail with the patient and/or patient customer field representative(s) prior to discharge. This includes indication, common adverse reactions, drug interactions, and medication administration. Medication counseling has been employed using the teach-back method to ensure understanding. - Outcome: The patient and/or patient customer field representative(s) have demonstrated understanding of the medications. Please note, they are aware that the pharmacist will call them within 72 hours post-discharge to confirm that the appropriate medications are being taken and answer any further medication related questions the patient might have at that time. Contact information Individual to be contacted: [] Relationship to patient (if applicable): [] Phone number: [] Best time to call: [] Additional comments: [] Thank you for allowing pharmacy to be involved in the care of this patient. Please call [phone] or [phone] with any additional questions
--- NOTE | 2019-04-02 19:15 | Pharmacy Report ---
Pharmacist Stroke Counseling - Date of Service April 02, 2019 - Scope: Pharmacy has been consulted to provide medication discharge counseling for this patient admitted with ischemic stroke as per the Pharmacist Discharge Counseling for Stroke Patients Protocol. - Medications on Discharge: Home Medications Medication Instructions Recorded Confirmed Other Herbals 1 ea PO QAM 04/01/19 cholecalciferol (vitamin D3) 0 unit PO QAM 04/01/19 04/01/19 [Vitamin D3] coQ10 (ubiquinol) 200 mg PO Q12H 04/01/19 04/01/19 omega 1-jvu-ogn-fish oil [Fish Oil] 1 cap PO QAM 04/01/19 04/01/19 vitamin E 400 unit PO QAM 04/01/19 04/01/19 New Rx's Medication Instructions Recorded aspirin [Ecotrin Low Strength] 81 mg PO QAM #90 tab 04/02/19 atorvastatin [Lipitor] 80 mg PO HS #30 tab 04/02/19 - Action: The above medications, specifically ones for stroke treatment/prophylaxis, have been reviewed in detail with the patient and/or patient bottling equipment sales representative(s) prior to discharge. This includes indication, common adverse reactions, drug interactions, and medication administration. Medication counseling has been employed using the teach-back method to ensure understanding. - Outcome: The patient and/or patient bottling equipment sales representative(s) have demonstrated understanding of the medications. Please note, they are aware that the pharmacist will call them within 72 hours post-discharge to confirm that the appropriate medications are being taken and answer any further medication related questions the patient might have at that time. Contact information Individual to be contacted: Keith (patient is hard of hearing); may also speak with patient's , Awa. Phone number: Best time to call: Afternoon Additional comments: - Patient was educated on new medications - atorvastatin 80 mg PO daily and aspirin 81 mg PO daily (no dual-antiplatelet therapy with clopidogrel due to history of ICH) - Instructions for use and potential side effects of these new medications discussed with patient - Of note: Patient currently takes several OTC vitamins and herbal supplements. I reviewed that fish oil, krill oil, CoQ10, and vitamin E are not recommended by ACC/AHA to help prevent stroke or heart attack and may increase the bleeding risk with his aspirin. I recommended that he discuss with his primary care doctor, but he dismissed this idea since he started taking them on his own accord and not under the supervision of a physician in the first place. Patient agreeable to discontinuation of these drugs upon discharge due to potential cost-savings and lack of potential benefit. Patient's very much in favor of discontinuation of these medications. Thank you for allowing pharmacy to be involved in the care of this patient. Please call [phone] or [phone] with any additional questions
--- NOTE | 2019-04-05 14:06 | Pharmacy Report ---
Pharmacist Post D/C Phone Note - Phone Note: Date of phone call: April 05, 2019. Individual with whom pharmacist spoke to: AWA HADLEY (pt's ) The following questions were reviewed during the phone call with responses listed below each: Can you tell me the medications that you are currently taking as well as when and how you take each medication? -See Table Below When have you missed any doses of your medications? - none What side effects are you having from your medications, specifically, the new medications you were started on? - none What questions do you have about your medications? - none What problems are you having obtaining your medications? - none When is your next appointment with your primary care doctor? - 04/14 @ 2pm Additional comments: - Had a very pleasant conversation with Awa Raygoza. Keith is no longer taking his OTC meds (fish oil, vitamin E). He has been taking his new Rx daily and willingly. They both seemed very positive. As per the Pharmacist Discharge Counseling for Stroke Patients Protocol, this phone call has been completed within 72 hours of discharge. Thank you for allowing us to be involved in the care of this patient. - Home Medications: Home Medications Medication Instructions Recorded Confirmed Other Herbals 1 ea PO QAM 04/01/19 cholecalciferol (vitamin D3) 0 unit PO QAM 04/01/19 04/01/19 [Vitamin D3] coQ10 (ubiquinol) 200 mg PO Q12H 04/01/19 04/01/19 omega 1-kaa-ppx-fish oil [Fish Oil] 1 cap PO QAM 04/01/19 04/01/19 vitamin E 400 unit PO QAM 04/01/19 04/01/19 New Rx's Medication Instructions Recorded aspirin [Ecotrin Low Strength] 81 mg PO QAM #90 tab 04/02/19 atorvastatin [Lipitor] 80 mg PO HS #30 tab 04/02/19
== END 2019-04-02 17:27 | disposition home or self-care (01) | DRG 66 ==
LOC: ED 18:23 → SUATTDRO 21:36 → 2N 21:36

== ENCOUNTER 2020-03-07 07:32 | Observation (INO) ==
--- NOTE | 2020-02-15 08:54 | History & Physical Report ---
Date of Service February 15, 2020 date of procedure: 03/07/20 Right Total Knee Arthroplasty Assessment & Plan (1) Arthritis of right knee: Further care discussed with patient and at this point in time has failed conservative measures and would like to proceed with a Right total knee replace ment. Plan on discharge will be home with home health physical therapy. DVT prophalaxis with TEDs, SCDs and will also place on aspirin 81 mg p.o. b.i.d. for a month postop. Patient will have follow up appointment in our office two weeks post op for staple removal and re-evaluation. Patient otherwise has no other questions or concerns. History of Present Illness Chief Complaint: Right knee pain Primary Care Provider: Talon Galindo Mr Israel is a 84 year old male who is here for a follow up of right knee pain, presents for preop eval prior to a right total knee replacement at [facility]. He presents with pain and stiffness on the right side. He states that the symptoms have been chronic non-traumatic and his symptoms have gradually worsened.Currently the patient states that the symptoms are moderate-severe and is described as aching, sharp and throbbing. His symptoms are aggravated by ascending stairs, descending stairs, daily activities, driving, exercise, first steps while awake, jumping, kneeling, movement, repetitive activities, sleeping on the affected side, squatting, standing, walking and weight bearing. In addition to right knee pain the patient is also experiencing decreased mobility, difficulty bending, difficulty going to sleep, instability, limping, nighttime awakening, pain, stiffness, tenderness and weakness. He has been treated with a corticosteroid injection on the right side. Patient has been teated with previous visco supplementation, Gel One. No relief with injections. Allergies Allergy/AdvReac Type Severity Reaction Status Date / Time iodine Allergy Mild HIVES/ITCHI Verified 04/01/19 19:47 NG amoxicillin [From Augmentin] AdvReac Mild diarrhea Verified 04/01/19 19:47 clavulanic acid AdvReac Mild diarrhea Verified 04/01/19 19:47 [From Augmentin] Home Medications Home Medications Medication Instructions Recorded Confirmed Type Other Herbals 1 ea PO QAM 04/01/19 History cholecalciferol (vitamin D3) 0 unit PO QAM 04/01/19 04/01/19 History [Vitamin D3] coQ10 (ubiquinol) 200 mg PO Q12H 04/01/19 04/01/19 History omega 0-hay-guq-fish oil [Fish Oil] 1 cap PO QAM 04/01/19 04/01/19 History vitamin E 400 unit PO QAM 04/01/19 04/01/19 History aspirin [Ecotrin Low Strength] 81 mg PO QAM #90 tab 04/02/19 Rx atorvastatin [Lipitor] 80 mg PO HS #30 tab 04/02/19 Rx Past Med/Surg History Medical History COPD (chronic obstructive pulmonary disease) H/O intracranial hemorrhage H/O: CVA (cerebrovascular accident) Multiple falls Prostate cancer s/p XRT only Surgical History Previous back surgery Family History Father Coronary heart disease Sister Cancer Other No pertinent family history Social History Smoking Status: Former smoker Cigarettes Per Day: 10; Second Hand Exposure: No; Hx Alcohol Use: No Hx Substance Use: No Preferred Language: Micronesian Communication Ability: Effective Pest Control Service Technician Required: No Beliefs That Will Affect Care: None marital status: Current Living Situation: Spouse Feels Safe at Home: Yes Review of Systems Review of Systems: All systems reviewed & are unremarkable except as noted in HPI & below Constitutional: no fever, no chills and no sweats Respiratory: no cough and no dyspnea Cardiovascular: no chest pain, no dyspnea and no orthopnea Gastrointestinal: no abdominal pain, no nausea and no vomiting Musculoskeletal: as per Subjective / HPI Physical Exam Physical Exam: Ht: 70in Wt: 235lb BP: 122/68 Constitutional: WD/WN, vitals as above no acute distress Respiratory: normal respiratory effort, lungs clear to auscultation no respiratory distress, no labored breathing and does not use accessory muscles Cardiovascular: RRR, no murmur, no edema Gastrointestinal (Abdomen): normal bowel sounds, soft, nontender, no hepatosplenomegaly Musculoskeletal: Knee: + knee abnormal to inspection (Right knee- ), + effusion (+1 effusion), + limited ROM of knee (ROM 0/3/110), + knee ROM with crepitation, + joint line tenderness (medial joint line) and + Betty's sign positive; no deformity, no skin erythema, no ecchymosis, no valgus laxity, no varus laxity, anterior drawer test negative, Tiara's sign negative and pivot shift test negative Results & Data Results & Data ([facility]) Diagnostic Findings Right Knee X-ray: Right knee series showing advanced degenerative changes to the right knee, narrowing of the medial compartment and patello-femoral joint with patellar spurring noted, findings showing joint space narrowing of the medial compartment and patello-femoral joint, osteophyte formation and subchondral sclerosis noted. overall varus alignment. no acute bony pathology noted.
--- NOTE | 2020-02-18 15:49 | PAT Medication Instructions ---
Medication Instructions Date of Service February 18, 2020 Home Medications Medication Instructions Recorded aspirin [Ecotrin Low Strength] 81 mg PO QAM #90 tab 04/02/19 atorvastatin [Lipitor] 80 mg PO HS #30 tab 04/02/19 cholecalciferol (vitamin D3) [Vitamin D3] 0 unit PO QAM coQ10 (ubiquinol) 200 mg PO Q12H omega 6-qtb-oxa-fish oil [Fish Oil] 1 cap PO QAM vitamin E 400 unit PO QAM aspirin [Ecotrin Low Strength] 81 mg PO QAM atorvastatin [Lipitor] 80 mg PO HS Gsh Defense 3 1 dose PO QAM Joint Comfort Supplement 1 dose PO QAM [place] Aged Black Garlic 1 dose PO QAM Neuro Support Plus 1 dose PO QAM Synergistic Eye Health 1 dose PO QAM Vision Essentials 1 dose PO QAM apple cider vinegar 1 dose PO QAM calcium 1 dose PO QAM gabapentin 100 mg PO HS STOP taking 2 weeks before surgery If surgery is within 2 weeks, stop taking as soon as possible. coQ10 (ubiquinol) 200 mg PO Q12H omega 7-pbv-tpv-fish oil [Fish Oil] 1 cap PO QAM vitamin E 400 unit PO QAM Gsh Defense 3 1 dose PO QAM Joint Comfort Supplement 1 dose PO QAM [place] Aged Black Garlic 1 dose PO QAM Neuro Support Plus 1 dose PO QAM Synergistic Eye Health 1 dose PO QAM Vision Essentials 1 dose PO QAM apple cider vinegar 1 dose PO QAM DO NOT take the morning of surgery cholecalciferol (vitamin D3) [Vitamin D3] 0 unit PO QAM aspirin [Ecotrin Low Strength] 81 mg PO QAM calcium 1 dose PO QAM Take morning of surgery With a small sip of water, OTHERWISE NOTHING TO EAT OR DRINK AFTER MIDNIGHT: aspirin [Ecotrin Low Strength] 81 mg PO QAM Take evening before surgery atorvastatin [Lipitor] 80 mg PO HS gabapentin 100 mg PO HS Other Notes If you have any questions please call us at [phone] or [phone] or [phone] or [phone]
--- NOTE | 2020-02-22 09:37 | Anesthesiology Consultation ---
Date of Service February 22, 2020 Assessment & Plan (1) Encounter for pre-operative examination: COVID Status: As of 02/21 assessment, patient denies travel to endemic area, known exposure/sick contacts, or symptoms of COVID19. Patient instructed that they and their household members must follow strict social distancing guidelines, wear a mask in public and avoid travel for 14 days prior to surgery. Preoperative COVID19 testing to be completed prior to surgery per surgeon's arr angements. Patient made aware to self-isolate as much as possible between COVID testing and surgery. A1C ordered by surgeon for pre-op. Due to lab error, A1C not completed. Patient does not have h/o DM, and pre-op glucose 105. A1C from 04/02/19 5.9%. Spoke to surgeon's office. Still need to do A1C, but OK to do AM DOS. Chart Review Chart Review: Acceptable Risk for Surgery and Patient seen in Pre Admission Testing Teaching & Discussion Instructed NPO after midnight before surgery, except medications with 15 cc of water. Medication instructions provided according to the PAT guidelines. History Surgery Operation Date: 03/07/20 11:00 Proposed Procedures p Right Total Knee Arthroplasty - Nii Motta DO Height/Weight Height: 5 ft 8.5 in Weight: 104.9 kg Allergies Allergy/AdvReac Type Severity Reaction Status Date / Time iodine Allergy Mild HIVES/ITCHI Verified 02/18/20 10:57 NG amoxicillin [From Augmentin] AdvReac Mild diarrhea Verified 02/18/20 10:57 clavulanic acid AdvReac Mild diarrhea Verified 02/18/20 10:57 [From Augmentin] Medications Home Medications Medication Instructions Recorded Confirmed Last Taken cholecalciferol (vitamin D3) 0 unit PO QAM 04/01/19 02/18/20 04/01/19 [Vitamin D3] coQ10 (ubiquinol) 200 mg PO Q12H 04/01/19 02/18/20 04/01/19 omega 8-ngb-jmm-fish oil [Fish Oil] 1 cap PO QAM 04/01/19 02/18/20 04/01/19 vitamin E 400 unit PO QAM 04/01/19 02/18/20 04/01/19 aspirin [Ecotrin Low Strength] 81 mg PO QAM #90 tab 04/02/19 02/18/20 Unknown atorvastatin [Lipitor] 80 mg PO HS #30 tab 04/02/19 02/18/20 Unknown Gsh Defense 3 1 dose PO QAM 02/18/20 02/18/20 Unknown Joint Comfort Supplement 1 dose PO QAM 02/18/20 02/18/20 Unknown [place] Aged Black Garlic 1 dose PO QAM 02/18/20 02/18/20 Unknown Neuro Support Plus 1 dose PO QAM 02/18/20 02/18/20 Unknown Synergistic Eye Health 1 dose PO QAM 02/18/20 02/18/20 Unknown Vision Essentials 1 dose PO QAM 02/18/20 02/18/20 Unknown apple cider vinegar 1 dose PO QAM 02/18/20 02/18/20 Unknown calcium 1 dose PO QAM 02/18/20 02/18/20 Unknown gabapentin 100 mg PO HS 02/18/20 02/18/20 Unknown Past Medical History Medical History Anemia Chronic back pain Chronic bronchitis Chronic cough COPD (chronic obstructive pulmonary disease) history obtained from ; reports prescibed inhalers but pt doesn't use them. H/O intracranial hemorrhage 20 + years ago H/O: CVA (cerebrovascular accident) 03/2019 -- [facility]; memory problems Hearing deficit [place] Hereditary hemochromatosis Labs WNL, no longer following with heme, no current treatment. History of basal cell carcinoma History of squamous cell carcinoma History of TIA (transient ischemic attack) 1.5 years ago Hyperlipidemia Obesity Osteoarthritis Poor historian Prostate cancer s/p XRT only - 15 years ago Exercise / Class Metabolic Activity III < 4 Walking/Shop/Light housework (Gets SOB due to COPD, denies any chest pain, does light exercise at the gym weekly) Has not been able to go to the gym for the past 2 months due to knee pain, but was previously walking on treadmill and lifting weights several times per week. Past Family History Family History Father Coronary heart disease Sister Cancer Other No family history of adverse response to anesthesia No pertinent family history Past Surgical History Surgical History History of basal cell carcinoma (BCC) excision History of cataract surgery History of colonoscopy History of lumbar surgery History of prostate biopsy History of squamous cell carcinoma excision History of tooth extraction Past Anesthesia History No Hx of Anesthesia Complications and No Family Hx of Anesthesia Complications (unsure) History of PONV No Hx of PONV and No Hx of Motion Sickness Social History Smoking Status: Former smoker tobacco type: cigarettes Smoking cigarettes per day: 10 Do You Dip or Chew Tobacco: No Smoking End Date: 60 years ago - cigars Hx Alcohol Use: No Hx Substance Use: No substance use type: does not use Review of Systems Pt denies any recent chest pain, shortness of breath, palpitations, cough, fever, URI, or uncontrolled acid reflux. Physical Exam Vital Signs BP: 108/68 P: 66bpm SPO2: 98% RA T: 98.1 F R: 18 ENMT Mouth: + dental restorations (few crowns on molars) and + chipped teeth; no loose teeth Thyromental Distance: < 3.5 Finger Breadths (3) Mallampati Class: II Neck normal visual inspection and + limited neck extension (pain with extension) Respiratory normal respiratory effort Auscultation: lungs clear to auscultation bilaterally Cardiovascular Rate/Rhythm: regular rate and regular rhythm Heart Sounds: no murmur Testing Laboratory Results PT 10.9 Seconds (9.0-12.0) 02/22/20 10:00 INR 1.0 (0.9-1.1) 02/22/20 10:00 APTT 24.3 Seconds (21.0-31.0) 02/22/20 10:00 Hemoglobin A1c Cancelled 02/22/20 10:00 Urine Color Dark Yellow 02/22/20 10:00 Urine Appearance Clear (Clear) 02/22/20 10:00 Urine pH 5.5 (4.5-7.5) 02/22/20 10:00 Ur Specific [place] 1.017 (1.000-1.030) 02/22/20 10:00 Urine Protein Negative (Negative) 02/22/20 10:00 Urine Glucose (UA) Negative (Negative) 02/22/20 10:00 Urine Ketones Negative (Negative) 02/22/20 10:00 Urine Nitrite Negative (Negative) 02/22/20 10:00 Ur Leukocyte Esterase Negative (Negative) 02/22/20 10:00 Blood Type B Positive 02/22/20 10:00 Antibody Screen NEGATIVE 02/22/20 10:00 Electrocardiogram Date: 04/02/19 Findings: + NSR @ (71bpm with 1st degree AV block) Left axis deviation. Chest X-Ray Date: 04/01/19 No significant change compared to the prior study. No acute process. Bibasilar linear densities favor subsegmental atelectasis/scarring. Echocardiogram Date: 04/02/19 EF: 55-60% Normal LV chamber size with mild concentric LVH. No segmental LV wall motion abnormalities are noted. Grade 1 diastolic dysfunction. Aortic valve sclerosis mild, without significant aortic valvular stenosis.
[2020-02-22 10:52] LABS: Appearance Urine Clear (Clear); Bilirubin Urine Negative (Negative); Blood Urine Negative (Negative); Color Urine Dark Yellow; Glucose Urine UA Negative (Negative); Ketones Urine Negative (Negative); Leukocyte Esterase Urine Negative (Negative); Nitrite Urine Negative (Negative); Protein Urine Negative (Negative); Specific Gravity Urine 1.017 (1.000-1.030); Urobilinogen Urine Negative (Negative); pH Urine 5.5 (4.5-7.5)
[2020-02-22 11:02] LABS: Partial Thromboplastin Ratio 0.9; Partial Thromboplastin Time 24.3 Seconds (21.0-31.0); Prothrombin Time 10.9 Seconds (9.0-12.0)
[~2020-03-07 07:32] MED LIST changes: +ACETAMINOPHEN 500 MG TAB PO SCH; +BUPIVACAINE 0.5 % 5 MG/1 ML PF 10ML VIAL ONE; +CEFAZOLIN 2000MG 2,000 MG/15 ML SYR IV SCH; +CeleBREX 200 MG CAP PO SCH; +FAMOTIDINE 20 MG TAB PO SCH; +GABAPENTIN 300 MG CAP PO SCH; +LR 500ML BOLUS, THEN 15ML/HR IV SCH; -METH1TAB81 PO; +METOCLOPRAMIDE HCL 10 MG TABLET PO SCH; -OXYC-57 PO; +ROPIVACAINE 0.5% HCL/PF 150 MG, BUPIVACAINE 0.5% MPF 30 ML, EPINEPHrine 30MG/30ML (OR U... INSTIL SCH; +TRANEXAMIC ACID 1,000 MG **IV Intra-op IV SCH; +TRANEXAMIC ACID 1,000 MG **IV Pre-op IV SCH; +dexAMETHasone 4 MG TAB PO SCH
--- NOTE | 2020-03-07 08:01 | History & Physical Bridge Note ---
Date of Service March 07, 2020 History & Physical Bridge Note I have examined the patient, reviewed the History & Physical and in the interval since the performance of the History & Physical I have noted the following changes of clinical significance: no changes noted
[2020-03-07] MEDS ORDERED: MIDAZOLAM HCL 1 MG/ML 2ML VIAL ONE ×2 (08:23→10:23)
[2020-03-07] MEDS ORDERED: BACITRACIN INJ 50,000 UNIT VIAL ONE (08:33)
[2020-03-07] MEDS ORDERED: ORTHO JOINT ANESTHETIC ONE (08:33)
[2020-03-07] MEDS ORDERED: fentaNYL citrate 100 MCG/2 ML VIAL IV PRN (08:37)
[2020-03-07] MEDS ORDERED: ePHEDrine sulfate 50 MG/ML AMP IV PRN (08:37)
[2020-03-07] MEDS ORDERED: ATROPINE SULFATE 0.1 MG/ML 10ML SYR IV PRN (08:37)
[2020-03-07] MEDS ORDERED: ONDANSETRON INJ 2 MG/ML 2 ML VIAL IV PRN ×2 (08:37→12:24)
[2020-03-07 08:38] LABS: Estimated Average Glucose 123 mg/dl; Hemoglobin A1C 5.9 % (4.5-5.6)
[2020-03-07] MEDS ORDERED: PHENYLEPHRINE HCL 10 MG/ML VIAL ONE (09:17)
[2020-03-07] MEDS ORDERED: PROPOFOL IV EMULSION 10 MG/ML 20 ML VIAL IV ONE (10:04)
--- NOTE | 2020-03-07 10:21 | Operative Report ---
Post Operative Report Pre & Post Diagnosis Operation Date: 03/07/20 10:35 Pre-Op Diagnosis: Osteoarthritis, Right Knee Post-Op Diagnosis: Osteoarthritis, Right Knee I identified the patient and participated in the time-out.: Yes Procedure Operation Date: 03/07/20 10:35 Actual Procedures p Right Total Knee Arthroplasty(Right)utilizing Positron journey 2 non blockFemur 8 tibia 7 poly 9 pat 38 - Nii Motta DO Surgeon Nii Motta DO Willow Worker Nehemias TURNER Estimated Blood Loss 5 Findings Consistent with Post-Op Diagnosis sever djd subchondral cysta eburnated bone marginal osteophytes large effusion Specimens bone and cartilage Drains medium bore hemovac Anesthesia Type MAC Spinal Regional Complications none Disposition Accompanied Patient To Recovery: No Disposition: Recovery Room Indications patient failed attempts at conservatiove management including injections PT rest activity modification Description of Procedure After proper prepping and draping of the Right lower extremity anterior midline incision was made over the region of the extensor extensor mechanism after meticulous hemostasis was obtained and maintained in subcutaneous tissues a medial parapatellar incision was made The patella was subluxed lateralward the medial lateral gutter were cleaned from any hypertrophic synovitis and scar tissue of the distal femoral block was placed and the distal femoral osteotomy cut was made subsequently the chamfers anterior and posterior osteotomy cuts were made utilizing the 4-in-1 block the tibia was subsequently subluxed anteriorward medial and ateral meniscal remnants were excised in their entirety remnants of the anterior and posterior cruciate ligaments were excised in their entirety excellent exposure of the proximal tibia was obtained the tibial osteotomy guide was placed on the proximal tibial osteotomy cut was made once again the knee was irrigated with copious amounts of sterile saline solution the patella was subsequently everted lateralward thickened scar tissue around the patella was removed the patella was subsequently cut utilizing a freehand technique and was drilled prepared for final preparation and placement of patella socially flexion-extension gaps were checked and the equal and symmetric trials were placed to the appropriate femoral and tibial trials with poly-spacer being placed for equal flexion and extension gaps and full range of motion including extension to 0 and flexion to 140 the trial components after having been taken to recovery range of motion was subsequently removed meticulous hemostasis was obtained and maintained subsequently a knee block injection of joint cocktail including ropivacaine 0.5% 150 mg. Bupivacaine 0.5% epinephrine 1-200,030 mL's toradol 30 mg dexamethasone 4 mg ketamine 10 mg clonidine 100 micrograms normal saline solution 30 mg was infiltrated into the soft tissues of the posterior knee medial lateral gutters and periosteal synovium special attention was paid to protect neurovascular structures at all times subsequently trial components having been removed the knee was irrigated with sterile saline solution. debris was removed the proximal tibia was subsequently prepared and was made ready for the placement of the tibial component tibial component was also cemented and tamped into position the femoral component was subsequently placed and cemented in the position the patellar component was subsequently cemented in position because hemostasis once again obtained and maintained wound having been thoroughly irrigated with debridement and debridement lavage was performed as well as a medial parapatellar incision closed with #1 Vicryl in interrupted fashion subcutaneous was closed with #2 Vicryl skin was closed with skin clips. PA-C was necessary for prepping and drapping as well as wound closure of deep fascia Sub cutaneous tissue and skin and was necessary for the case. A sterile compressive dressing was placed patient was taken to recovery in stable condition of report dictated by Kalia I attest to the content of the Intraoperative Record and any orders documented therein. Any exceptions are noted below. I attest to the content of the Intraoperative Record and any orders documented therein. Any exceptions are noted below.
[2020-03-07] MEDS ORDERED: GLYCOPYRROLATE 0.2 MG/ML VIAL ONE (10:25)
--- NOTE | 2020-03-07 11:31 | XRay Report ---
XR knee RT 1 or 2V routine CLINICAL HISTORY: Surgical Post Op COMPARISON: None. DISCUSSION: There are postsurgical changes of a total right knee arthroplasty and patellar resurfacin g. Overlying skin moiz and surgical drains are evident. The femoral tibial components appear well seated. There is gas present within the soft tissues consistent with recent surgery. IMPRESSION: Postsurgical changes of a total right knee arthroplasty. ACT 112: Negative or not required by law. Electronically signed by: Breezy Torres M.D. 03/07/2020 11:30 AM
--- NOTE | 2020-03-07 11:51 | Anesthesiology Progress Note ---
Date of Service March 07, 2020 Anesthesia Post Procedure Vital Signs Vital Signs: Temp Pulse Pulse Resp BP BP Pulse Ox 03/07/20 11:45 73 15 122/61 96 03/07/20 11:35 75 17 109/57 L 92 03/07/20 11:25 77 18 110/57 L 95 03/07/20 11:20 97.3 F L 03/07/20 11:15 79 22 105/61 95 03/07/20 11:05 80 22 103/55 L 95 03/07/20 10:55 97.0 F L 95 H 24 97/60 L 100 03/07/20 08:49 65 18 128/62 98 03/07/20 08:12 97.9 F 70 18 144/66 H 94 Pain Intensity Right Knee: Pain Intensity: 0 Transfer of Care Handoff Completed per policy Notes Mental Status: alert / awake / arousable and participated in evaluation Patient Amnestic to Procedure: Yes Nausea / Vomiting: adequately controlled Pain: adequately controlled Airway Patency, RR, SpO2: stable & adequate BP & HR: stable & adequate Hydration State: stable & adequate Neuraxial Anesthesia: was administered and sensory block is resolving Anesthetic Complications: no major complications apparent and Pt Satisfied with anesthetic care
[2020-03-07] MEDS ORDERED: NON-FORMULARY MEDICATION (Coq10 (Ubiquinol) 200 MG) PO SCH (12:24)
[2020-03-07] MEDS ORDERED: NALOXONE HCL 0.4 MG/1 ML VIAL/CARP IV PRN (12:24)
[2020-03-07] MEDS ORDERED: bisacodyL 10 MG SUPP PR PRN (12:24)
[2020-03-07] MEDS ORDERED: OXYCODONE HCL IR 5 MG TAB (IMMEDIATE RELEASE) PO PRN (12:24)
[2020-03-07] MEDS ORDERED: HYDROmorphone INJ 0.5 MG/0.5 ML SYR IV PRN (12:24)
[2020-03-07] MEDS ORDERED: MAGNESIUM HYDROXIDE SUSP 30 ML UDC PO PRN (12:24)
[2020-03-07] MEDS: SODIUM CHLORIDE 0.9% 1000ML 1,000 ML IV SCH ×2 (12:30→21:37)
--- NOTE | 2020-03-07 13:19 | Hospitalist Consultation ---
Date of Consultation March 07, 2020 Assessment & Plan (1) Status post knee replacement: This is an 84yo M with a PMH of COPD, h/o remote ICH 20 + years ago, h/o CVA in 2019 with residual memory deficit, HLD and other medical problems listed below who is POD#0 s/p R TKA by Dr. Motta. -POD#0 s/p R TKA by Dr. Motta -Pt is doing well post-operatively -Per ortho for pain control, wound care, anticoagulation and activities -Monitor H&H (EBL: 5ml), continue incentive spirometry, PT/OT when appropriate (2) COPD (chronic obstructive pulmonary disease): At respiratory baseline. Does not use home inhalers (3) H/O: CVA (cerebrovascular accident): CVA in 2019 with residual memory deficit. Receiving ASA 81mg BID for VTE ppx. Continue statin (4) Dyslipidemia, goal LDL below 70: Continue statin DVT Ppx: ASA 81mg BID per primary service PCP: Mateo Patient seen in collaboration with Dr. Leblanc. Please see addendum. Supervising Physician Co-Signing Physician Notes Pt seen and examined. Agreed with Eugenie BANERJEE exam, assessment and plan. 84yo M with a PMH of COPD, h/o remote ICH 20 + years ago, h/o CVA in 2019 with residual memory deficit, HLD, S/P right Total Knee Arthroplasty performed today by Dr. Motta. Pt said that he feels ok. Denies any pain, palpitation, dizziness and SOB. No pos-op complication. Continue pain control as per ortho. Incentive spirometry. Will monitor H/H and transfuse if needs. PT/OT evaluation. Fall precaution. Continue monitor closely during the hospital course. MD Benji History of Present Illness Reason for Consultation: post op medical mgmt Attending Physician: Nii Motta DO History of Present Illness This is an 84yo M with a PMH of COPD, h/o remote ICH 20 + years ago, h/o CVA in 2019 with residual memory deficit, HLD and other medical problems listed below who is POD#0 s/p R TKA by Dr. Motta. Patient is feeling well postoperatively. Still has some residual numbness in lower extremities from anesthesia but able to move BLE. Denies any fever, chills, lightheadedness, visual changes, chest pain, palpitation shortness of breath. No nausea vomiting or abdominal pain. No urinary difficulties. Last bowel movement was yesterday evening. PCP is Dr. Galindo. Allergies Allergy/AdvReac Type Severity Reaction Status Date / Time iodine Allergy Mild HIVES/ITCHI Verified 03/07/20 07:53 NG amoxicillin [From Augmentin] AdvReac Mild diarrhea Verified 03/07/20 07:53 clavulanic acid AdvReac Mild diarrhea Verified 03/07/20 07:53 [From Augmentin] Home Medications Home Medications Medication Instructions Recorded Confirmed Type cholecalciferol (vitamin D3) 0 unit PO QAM 04/01/19 03/07/20 History [Vitamin D3] coQ10 (ubiquinol) 200 mg PO Q12H 04/01/19 03/07/20 History omega 7-egi-eda-fish oil [Fish Oil] 1 cap PO QAM 04/01/19 03/07/20 History vitamin E 400 unit PO QAM 04/01/19 03/07/20 History aspirin [Ecotrin Low Strength] 81 mg PO QAM #90 tab 04/02/19 03/07/20 Rx atorvastatin [Lipitor] 80 mg PO HS #30 tab 04/02/19 03/07/20 Rx Gsh Defense 3 1 dose PO QAM 02/18/20 03/07/20 History Joint Comfort Supplement 1 dose PO QAM 02/18/20 03/07/20 History [place] Aged Black Garlic 1 dose PO QAM 02/18/20 03/07/20 History Neuro Support Plus 1 dose PO QAM 02/18/20 03/07/20 History Synergistic Eye Health 1 dose PO QAM 02/18/20 03/07/20 History Vision Essentials 1 dose PO QAM 02/18/20 03/07/20 History apple cider vinegar 1 dose PO QAM 02/18/20 03/07/20 History calcium 1 dose PO QAM 02/18/20 03/07/20 History gabapentin 100 mg PO HS 02/18/20 03/07/20 History Patient History Medical History (Updated 03/07/20 @ 13:27 by Eugenie Gutierrez PA-C) Anemia Chronic back pain Chronic bronchitis Chronic cough COPD (chronic obstructive pulmonary disease) history obtained from ; reports prescibed inhalers but pt doesn't use them. H/O intracranial hemorrhage 20 + years ago H/O: CVA (cerebrovascular accident) 03/2019 -- [facility]; memory problems Hearing deficit [place] Hereditary hemochromatosis Labs WNL, no longer following with heme, no current treatment. History of basal cell carcinoma History of squamous cell carcinoma History of TIA (transient ischemic attack) 1.5 years ago Hyperlipidemia Obesity Osteoarthritis Poor historian Prostate cancer s/p XRT only - 15 years ago Surgical History (Updated 03/07/20 @ 13:27 by Eugenie Gutierrez PA-C) History of basal cell carcinoma (BCC) excision History of cataract surgery History of colonoscopy History of lumbar surgery History of prostate biopsy History of squamous cell carcinoma excision History of tooth extraction Family History (Updated 03/07/20 @ 13:25 by Eugenie Gutierrez PA-C) Father Coronary heart disease Sister Cancer Other No family history of adverse response to anesthesia Social History Smoking Status: Former smoker Cigarettes Per Day: 10; Smoking End Date: 60 years ago - cigars; Second Hand Exposure: No; Do You Dip or Chew Tobacco: No; Tobacco Cessation Education Requested by Patient: No Hx Alcohol Use: No Hx Substance Use: No Preferred Language: Tuvaluan Communication Ability: Effective It Network Architect Required: No Beliefs That Will Affect Care: None marital status: Current Living Situation: Spouse Feels Safe at Home: Yes Safety Concerns: Feels Safe At This Time Review of Systems Review of Systems: At least ten systems reviewed and negative except as noted in the HPI. Physical Exam Physical Exam: General Appearance: WD/WN, vitals as above, NAD, sitting up in bed, pleasant, conversing easily Head: normocephalic, atraumatic Eyes: normal inspection, PERRL, anicteric sclerae ENT: external ear and nose normal, oropharynx normal Neck: normal visual inspection, trachea midline, no thyromegaly Respiratory: normal respiratory effort, lungs clear to auscultation, no wheeze, rales, rhonchi Cardiovascular: regular rate, rhythm, no murmur, normal peripheral pulses, no BLE edema Abdomen/GI: normal bowel sounds, soft, nontender, no hepatosplenomegaly Extremities/Musculoskeletal: + R knee surgical dressing in place, drain visualized. Bilateral LE NVI. No cyanosis or clubbing, extremities motor strength 5/5 Neurologic: PERRL, CN's II-XI intact bilaterally and moves all extremities Psychiatric: A+Ox3, euthymic affect Skin: no rashes, normal color, warm/dry Results & Data Results & Data ([facility]) Vital Signs (Past 12 Hours) Vital Signs Temp Pulse Pulse Resp BP BP Pulse Ox 03/07/20 12:44 35.9 C L 67 16 115/69 92 03/07/20 12:05 73 17 106/55 L 93 03/07/20 11:55 36.3 C L 73 17 111/57 L 94 03/07/20 11:45 73 15 122/61 96 03/07/20 11:35 75 17 109/57 L 92 03/07/20 11:25 77 18 110/57 L 95 03/07/20 11:20 36.3 C L 03/07/20 11:15 79 22 105/61 95 03/07/20 11:05 80 22 103/55 L 95 03/07/20 10:55 36.1 C L 95 H 24 97/60 L 100 03/07/20 08:49 65 18 128/62 98 03/07/20 08:12 36.6 C 70 18 144/66 H 94 Laboratory Results Short CBC 03/07/20 Range/Units 07:52 Estimat Average Glucose 123 mg/dl
[2020-03-07] MEDS: ACETAMINOPHEN 500 MG TAB PO SCH ×2 (14:37→21:35)
[2020-03-07] MEDS ORDERED: CHLORASEPTIC 1.4% SOLN 180 ML BTL MT PRN (16:27)
[2020-03-07] MEDS: CEFAZOLIN 2000MG 2,000 MG/15 ML SYR IV SCH (17:45)
[2020-03-07] MEDS: FERROUS GLUCONATE 324 MG TAB PO SCH (17:45)
[2020-03-07] MEDS: SENNA 8.6 MG TAB PO SCH (19:53)
[2020-03-07] MEDS: DOCUSATE SODIUM 100 MG CAP PO SCH (19:53)
[2020-03-07] MEDS: ASPIRIN 81 MG ECTAB PO SCH (19:53)
[2020-03-07] MEDS: GABAPENTIN 100 MG CAP PO SCH (19:53)
[2020-03-07] MEDS: ATORVASTATIN 40 MG TAB PO SCH (19:54)
[2020-03-07] MEDS ORDERED: COUGH DROP (SUGAR FREE) LOZ 24 LOZ/1 BOX BUCCAL ONE (21:34)
[2020-03-08] MEDS: CEFAZOLIN 2000MG 2,000 MG/15 ML SYR IV SCH (00:44)
[2020-03-08 05:21] LABS: Hematocrit (blood only) 33.6 % (42-52); Hemoglobin 11.4 g/dL (14.0-18.0); Mean Corpuscular Hgb Conc 33.9 g/dL (32-36); Mean Corpuscular Volume 91.3 fL (80-100); Mean Platelet Volume 9.3 fL (7.4-10.4); Platelet Count 213 K/uL (130-400); RDW Coefficient of Variation 12.8 % (11.5-14.5); RDW Standard Deviation 42.9 fL (36.4-46.3); Red Blood Count 3.68 M/uL (4.7-6.1); White Blood Count 18.32 K/uL (4.8-10.8)
[2020-03-08 05:47] LABS: BUN Creatinine Ratio 18.9 (10-20); Calcium 8.3 mg/dl (8.5-10.1); Creatinine Clr Calc Pharmacy 60.5 ml/min; Est GFR (African American) 72.2; Est GFR (Non-African American) 62.3; Potassium 4.2 mmol/L (3.5-5.1)
[2020-03-08] MEDS: ACETAMINOPHEN 500 MG TAB PO SCH ×3 (06:19→21:32)
--- NOTE | 2020-03-08 08:43 | Orthopedic Progress Note ---
Date of Service March 08, 2020 Assessment & Plan (1) Arthritis of right knee: POD 1 s/p Right TKA PT/OT protocols. WBAT DVT prophylaxis - ASA bid, SCD's,IRENE's Pain management as written. Leukocytosis - Likely due to surgical stress/preop steroids. Pt currently asymptomatic. DC planning - pt to decide btw HH vs Outpt. Admission and Anticipated Discharge Date Admission Date: March 07, 2020 Subjective POD 1 Pt sitting up in chair at bedside. Alert, oriented. Having some knee pain this AM but tolerating well. Discussed use of pain medications. Denies SOB,CP,LH. Physical Exam Physical Exam: Dressings C/D/I. Calves soft,NT. NV intact. Toes mobile. Good DF/PF. HV drainage 125ml from the latest shift. Results & Data ([facility]) Vital Signs (Past 12 Hours) Vital Signs Temp Pulse Pulse Resp BP Pulse Ox 03/08/20 07:37 36.5 C 76 18 144/65 H 95 03/08/20 03:50 36.6 C 64 16 120/59 L 97 03/07/20 23:09 36.5 C 64 16 116/67 96 Laboratory Results Laboratory Results WBC 18.32 K/uL (4.8-10.8) H 03/08/20 05:00 RBC 3.68 M/uL (4.7-6.1) L 03/08/20 05:00 Hgb 11.4 g/dL (14.0-18.0) L 03/08/20 05:00 Hct 33.6 % (42-52) L 03/08/20 05:00 MCV 91.3 fL (80-100) 03/08/20 05:00 MCH 31.0 pg (25-34) 03/08/20 05:00 MCHC 33.9 g/dL (32-36) 03/08/20 05:00 RDW Std Deviation 42.9 fL (36.4-46.3) 03/08/20 05:00 RDW Coeff of Ness 12.8 % (11.5-14.5) 03/08/20 05:00 Plt Count 213 K/uL (130-400) 03/08/20 05:00 MPV 9.3 fL (7.4-10.4) 03/08/20 05:00 PT 10.9 Seconds (9.0-12.0) 02/22/20 10:00 INR 1.0 (0.9-1.1) 02/22/20 10:00 APTT 24.3 Seconds (21.0-31.0) 02/22/20 10:00 PTT Ratio 0.9 02/22/20 10:00 Sodium 140 mmol/L (136-145) 03/08/20 05:00 Potassium 4.2 mmol/L (3.5-5.1) 03/08/20 05:00 Chloride 110 mmol/L (98-107) H 03/08/20 05:00 Carbon Dioxide 23 mmol/L (21-32) 03/08/20 05:00 Anion Gap 7.0 (3-11) 03/08/20 05:00 BUN 20 mg/dl (7-18) H 03/08/20 05:00 Creatinine 1.08 mg/dl (0.6-1.4) 03/08/20 05:00 Est Cr Clr Drug Dosing 60.5 ml/min 03/08/20 05:00 Est GFR ( Amer) 72.2 03/08/20 05:00 Est GFR (Non-Af Amer) 62.3 03/08/20 05:00 BUN/Creatinine Ratio 18.9 (10-20) 03/08/20 05:00 Glucose 125 mg/dl (70-99) H 03/08/20 05:00 Estimat Average Glucose 123 mg/dl 03/07/20 07:52 Hemoglobin A1c 5.9 % (4.5-5.6) H 03/07/20 07:52 Calcium 8.3 mg/dl (8.5-10.1) L 03/08/20 05:00 Urine Color Dark Yellow 02/22/20 10:00 Urine Appearance Clear (Clear) 02/22/20 10:00 Urine pH 5.5 (4.5-7.5) 02/22/20 10:00 Ur Specific [place] 1.017 (1.000-1.030) 02/22/20 10:00 Urine Protein Negative (Negative) 02/22/20 10:00 Urine Glucose (UA) Negative (Negative) 02/22/20 10:00 Urine Ketones Negative (Negative) 02/22/20 10:00 Urine Blood Negative (Negative) 02/22/20 10:00 Urine Nitrite Negative (Negative) 02/22/20 10:00 Urine Bilirubin Negative (Negative) 02/22/20 10:00 Urine Urobilinogen Negative (Negative) 02/22/20 10:00 Ur Leukocyte Esterase Negative (Negative) 02/22/20 10:00 Blood Type B Positive 02/22/20 10:00 Antibody Screen NEGATIVE 02/22/20 10:00
[2020-03-08] MEDS: ASPIRIN 81 MG ECTAB PO SCH ×2 (09:12→21:32)
[2020-03-08] MEDS: DOCUSATE SODIUM 100 MG CAP PO SCH ×2 (09:12→21:33)
[2020-03-08] MEDS: MULTIVITAMIN TAB PO SCH (09:12)
[2020-03-08] MEDS: FERROUS GLUCONATE 324 MG TAB PO SCH ×2 (09:12→17:40)
--- NOTE | 2020-03-08 18:43 | Hospitalist Progress Note ---
Date of Service March 08, 2020 Assessment & Plan (1) Status post knee replacement: POD # 1. (2) COPD (chronic obstructive pulmonary disease): Pulmonary status stable. (3) H/O: CVA (cerebrovascular accident): Neuro status stable. (4) Leukocytosis: WBC 18,000. No fever. No signs or symptoms of infection. Leukocytosis probably due to dexamethasone. Follow. (5) DVT prophylaxis: Per Ortho protocol. (6) Discharge planning issues: Medical follow-up with Dr. Galindo. (7) Encounter for consultation: Thank you for this consultation. We will follow the patient with you during their hospital stay. My cell # is [phone]. You can reach a member of the [facility] Medicine Team 13/01 via pager @ [phone]. Admission and Anticipated Discharge Date Admission Date: March 07, 2020 Subjective Recheck for medical management. Patient seen in their room around 0940. Experiencing postop pain, otherwise doing well. Passing flatus and stool. Voiding without difficulty. Review of Systems: Constitutional- no fever. Cardiac- no chest pain. Pulmonary- no cough or SOB. GI- no nausea, vomiting, diarrhea, melena, hematochezia. - no urinary symptoms. Otherwise, as noted above. Physical Exam Constitutional: no acute distress Respiratory: no respiratory distress Auscultation: lungs clear to auscultation bilaterally Cardiovascular: Rate/Rhythm: regular rate and regular rhythm Vessels: no JVD Extremities: + edema (trace pretibial); no calf tenderness Gastrointestinal (Abdomen): normal bowel sounds, soft, nontender, no hepatosp lenomegaly Musculoskeletal: Extremities: no cyanosis IRENE stocking applied to LLE, RLE wrapped with elastic bandage Skin: no rashes, warm and dry Psychiatric: Orientation: alert and oriented x 3 Results & Data Results & Data ([facility]) Vital Signs (Past 12 Hours) Vital Signs Temp Pulse Pulse Resp BP Pulse Ox 03/08/20 15:17 36.8 C 61 18 127/67 98 03/08/20 12:20 36.6 C 73 16 136/71 99 03/08/20 07:37 36.5 C 76 18 144/65 H 95 03/08/20 05:00 03/08/20 05:00
[2020-03-08] MEDS: GABAPENTIN 100 MG CAP PO SCH (21:32)
[2020-03-08] MEDS: ATORVASTATIN 40 MG TAB PO SCH (21:32)
[2020-03-08] MEDS: SENNA 8.6 MG TAB PO SCH (21:33)
[2020-03-09] MEDS: ACETAMINOPHEN 500 MG TAB PO SCH (04:59)
[2020-03-09] MEDS: MULTIVITAMIN TAB PO SCH (07:29)
[2020-03-09] MEDS: FERROUS GLUCONATE 324 MG TAB PO SCH (07:29)
[2020-03-09] MEDS: DOCUSATE SODIUM 100 MG CAP PO SCH (07:29)
[2020-03-09] MEDS: ASPIRIN 81 MG ECTAB PO SCH (08:38)
--- NOTE | 2020-03-09 10:28 | Orthopedic Progress Note ---
Date of Service March 09, 2020 Assessment & Plan (1) Arthritis of right knee: POD 2 s/p Right TKA PT/OT protocols. WBAT DVT prophylaxis - ASA bid, SCD's,IRENE's Pain management as written. Leukocytosis - Likely due to surgical stress/preop steroids. Pt currently asymptomatic. DC planning - Home with HHPT later today Admission and Anticipated Discharge Date Admission Date: March 07, 2020 Subjective POD#2. Doing okay this morning, has pain but controlled. He is sitting in bedside chair, daughter is present. No complaints. Denies chest pain, sob, n/v/d, fever or chills. Review of Systems Review of Systems: All systems reviewed & are unremarkable except as noted in HPI & below Physical Exam Physical Exam: Right knee-Tiesha wound vac is functioning, c/d/i. Dressing to hemovac site. No calf tenderness, calves soft. Toes are mobile with good dorsiflexion. Distally n/v status and sensation intact. Constitutional: well developed and well nourished; no acute distress Results & Data ([facility]) Vital Signs (Past 12 Hours) Vital Signs Temp Pulse Resp BP Pulse Ox 03/09/20 06:52 36.6 C 69 16 132/70 97
--- NOTE | 2020-03-13 08:20 | Discharge Summary ---
Date of Service March 13, 2020 Admission HPI Per Admitting Provider Mr Israel is a 84 year old male who is here for a follow up of right knee pain, presents for preop eval prior to a right total knee replacement at [facility]. He presents with pain and stiffness on the right side. He states that the symptoms have been chronic non-traumatic and his symptoms have gradually worsened.Currently the patient states that the symptoms are moderate-severe and is described as aching, sharp and throbbing. His symptoms are aggravated by ascending stairs, descending stairs, daily activities, driving, exercise, first steps while awake, jumping, kneeling, movement, repetitive activities, sleeping on the affected side, squatting, standing, walking and weight bearing. In addition to right knee pain the patient is also experiencing decreased mobility, difficulty bending, difficulty going to sleep, instability, limping, nighttime awakening, pain, stiffness, tenderness and weakness. He has been treated with a corticosteroid injection on the right side. Patient has been teated with previous visco supplementation, Gel One. No relief with injections. Admission Exam Per Admitting Provider Physical Exam: Ht: 70in Wt: 235lb BP: 122/68 Constitutional: WD/WN, vitals as above no acute distress Respiratory: normal respiratory effort, lungs clear to auscultation no respiratory distress, no labored breathing and does not use accessory muscles Cardiovascular: RRR, no murmur, no edema Gastrointestinal (Abdomen): normal bowel sounds, soft, nontender, no hepatosplenomegaly Musculoskeletal: Knee: + knee abnormal to inspection (Right knee- ), + effusion (+1 effusion), + limited ROM of knee (ROM 0/3/110), + knee ROM with crepitation, + joint line tenderness (medial joint line) and + Betty's sign positive; no deformity, no skin erythema, no ecchymosis, no valgus laxity, no varus laxity, anterior drawer test negative, Tiara's sign negative and pivot shift test negative Principal Diagnosis Right knee DJD Discharge Data Allergies Allergy/AdvReac Type Severity Reaction Status Date / Time iodine Allergy Mild HIVES/ITCHI Verified 03/07/20 07:53 NG amoxicillin [From Augmentin] AdvReac Mild diarrhea Verified 03/07/20 07:53 clavulanic acid AdvReac Mild diarrhea Verified 03/07/20 07:53 [From Augmentin] Consultations 03/07/20 12:24 Consult Case Management - Discharge Planning Routine Consult Hospitalist Routine Procedures Performed Operation Date: 03/07/20 10:35 Actual Procedures p Right Total Knee Arthroplasty(Right) - Nii Motta DO Ordered Studies 03/07/20 05:00 US - OR guided needle placemen Routine US guide needle placement Routine Hospital Course (1) Arthritis of right knee: Patient was admitted on the above-noted date and had the above-noted surgery performed which he tolerated well. On his first postoperative day, he was remaining stable. Alert and oriented. Complaining of some knee pain in the operative knee. No other complaints. Dressings were intact and dry, calves soft nontender. Neurovascular intact. Toes mobile. Vital signs were stable. Patient was started on PT and OT protocols and continued on DVT prophylaxis and pain management. Patient was noted to have an increased white count but was asymptomatic and was felt to be secondary to surgical stress and preoperative steroids. Hemoglobin was 11.4. By his second postoperative day, he continue remained stable. He was progressing with his physical therapy. Alvarez dressing was remaining intact. Pain was controlled. It was felt that he could be discharged home with home health services. Total Time Total Time Spent Total Time Spent (In Minutes): 5 Discharge Plan Discharge Items Patient Disposition: Home - Home Health Services Reason For Visit: Osteoarthritis, Right Knee Discharge Diagnosis: Right Knee Osteoarthritis Activity: Per Instructions section Weightbearing: Right weightbearing Weightbearing Comment: as tolerated with walker Non-emergency contact: Surgeon Call non-emergency contact if: your pain is not controlled, you have a fever, your temperature is above 101.5, your wound has increased redness and your wound has increased drainage Follow-up/Referrals: Talon Galindo [Primary Care Provider] - Diet: Regular Addtl Attending Provider Instructions: ACTIVITY RECOMMENDATIONS: SELF CARE INSTRUCTIONS AFTER TOTAL KNEE REPLACEMENT A. You may need to continue a physical therapy program after discharge from the hospital. There are several options available to you. Your doctor will assist you in selecting the best one for you. 1. An out-patient facility 2 to 3 times a week for therapy or home therapy. 2. Continue working on all exercises taught to you in the hospital. Your goals should be to increase bending of your knee to 90 degrees and beyond and to fully straighten your knee. B. You may progress at your own pace from walking with a walker or crutches to a cane; then to no assistive devices. C. Make walking a part of your daily routine. Be up as much as comfortable with rest periods throughout the day. Rest with leg elevation is very important. Use the ice wrap frequently for the first 3-4 weeks. D. There are no restrictions on activities. You may ride in a car, shop, participate in director of environmental services and all social activities. E. Wear the long elastic stockings (IRENE hose) 20 hours a day for 2 weeks after surgery. They can be removed several times a day for laundering and for a bath. F. You may shower, no tub baths until cleared by your doctor. SPECIAL CARE INSTRUCTIONS: VERY IMPORTANT TO READ AND REVIEW A. There are a few signs you need to watch for after you are home. Call [facility] if you notice any of the followin. Increased severe knee pain. Some pain is expected especially when you exercise. 2. Increased swelling in your leg or knee; pain or swelling of the calf muscle in either lower leg. 3. Any fluid drainage from the incision. 4. Shortness of breath or chest pain. B. Please call [facility] at if you have any concerns or questions about your operation or recovery. The doctor or his nurse will return your call promptly. C. You must take antibiotics before dental work, bladder, bowel or other surgery. Your doctor will provide you with a permanent care to carry describing this precaution. IMPORTANT: * REMEMBER TO TAKE ASPIRIN, 81 MG, TWICE DAILY FOR 4 WEEKS UNLESS OTHERWISE DIRECTED. THIS IS YOUR BLOOD THINNER. * CALL IF INCREASED PAIN, REDNESS, DRAINAGE OR FEVER GREATER THAT 101. * WEAR IRENE HOSE 20 HOURS PER DAY FOR 2 WEEKS. ALVAREZ Dressing - This is a large suction dressing covering your incision. This will help pull any excess drainage from the wound and allow your incision to heal properly. You may shower with this if you can keep the unit outside of the shower. If any bleeding or leakage is noted please call your doctor's office. This will remain on your incision for 7 days and then should be removed. This can be done yourself or by the home nursing staff if applicable. The entire unit is disposable once removed. Once removed, keep incision clean and dry. If redness or drainage is noted, please call your surgeon. . FOLLOW UP VISIT: If appointment is not already scheduled: Please call [facility] to make a follow-up appointment for 2 weeks after your surgery at . Stand-Alone Forms: My [employer], Opioid Pain Management, Smoking Cessation Medications and DC Order Prescriptions: New aspirin 81 mg Tablet,Delayed Release (Dr/Ec) 81 mg PO BID 30 Days Qty: 60 RF: 0 acetaminophen 500 mg Tablet 1,000 mg PO Q8 14 Days Qty: 84 RF: 0 polyethylene glycol 3350 [Miralax] 17 gram powder in packet 17 g PO DAILY PRN (Reason: constipation) Qty: 5 RF: 0 oxycodone 5 mg Tablet 5 - 10 mg PO .Q4h-6h MDD 6 PRN (Reason: pain) Qty: 30 RF: 0 Continued vitamin E 400 unit Capsule 400 unit PO QAM RF: 0 cholecalciferol (vitamin D3) [Vitamin D3] 1,000 unit Capsule 0 unit PO QAM RF: 0 coQ10 (ubiquinol) 200 mg Capsule 200 mg PO Q12H RF: 0 atorvastatin [Lipitor] 80 mg tablet 80 mg PO HS Qty: 30 RF: 1 gabapentin 100 mg Tablet 100 mg PO HS RF: 0 Gsh Defense 3 1 dose PO QAM RF: 0 [place] Aged Black Garlic 1 dose PO QAM RF: 0 Neuro Support Plus 1 dose PO QAM RF: 0 Synergistic Eye Health 1 dose PO QAM RF: 0 Vision Essentials 1 dose PO QAM RF: 0 apple cider vinegar 1 dose PO QAM RF: 0 calcium 1 dose PO QAM RF: 0 Discontinued omega 9-dss-sti-fish oil [Fish Oil] 1,000 mg (120 mg-180 mg) Capsule 1 cap PO QAM RF: 0 aspirin [Ecotrin Low Strength] 81 mg Tablet,Delayed Release (Dr/Ec) 81 mg PO QAM Qty: 90 RF: 1 Joint Comfort Supplement 1 dose PO QAM RF: 0 Discharge Orders: Discharge Order (Routine); Ordered 03/09/20 Ordered By: Sohail Patel/Other Patient Handouts: After Knee Replacement: Back at Home, Knee Replace After Hospital Admission Data Admit Date/Time: 03/07/20 11:06 Attending Provider: Nii Motta Admit Provider: Nii Motta Primary Care Provider: Talon Galindo Other Providers: Eugenie Gutierrez ; Sohail Delatorre Other Interventions: Discharge Summary Assessment (RN) Last Done: 03/09/20 10:40
== END 2020-03-09 12:00 | disposition home health service (06) ==
LOC: ASU 07:32 → 3N 07:32

== ENCOUNTER 2024-01-01 06:55 | Inpatient (IN) ==
--- NOTE | 2024-01-01 07:14 | Emergency Department Note ---
Impression & Plan Acute knee pain, Ambulatory dysfunction, Fall, Abrasion ED Provider Note NAME: ARCHANA HADLEY AGE: 88 SEX: M : 1935 ARRIVES VIA: Ambulance INFORMANT: Patient ED PROVIDER(S): Jose Rubio DO CHIEF COMPLAINT: Unable to walk HPI: Patient is an 88-year-old male with a past medical history of constipation, back surgery, CVA who presents the ER following a fall on 12 December. Shortly after then he started having pain in his knee and left leg. He no longer could walk and get around. He cannot make it to the bathroom. The pain has gotten worse over the past 7 to 10 days. Denies any fevers. No headache or change in vision. No chest pain or shortness of breath. No nausea vomiting or diarrhea. No dysuria urgency or frequency. No new weakness or numbness. ADDITIONAL HISTORY OBTAINED: Per HPI Chronic Medical/Social Conditions Affecting Care: Per HPI PAST MEDICAL HISTORY:See Below PAST SURGICAL HISTORY:See Below FAMILY HISTORY:See Below SOCIAL HISTORY:See Below HOME MEDICATIONS:See Below ALLERGIES:See Below VITALS:See Below PHYSICAL EXAMINATION: GENERAL: Sitting up in bed, alert, well appearing, well nourished, no distress, non-toxic EYE EXAM: normal conjunctiva. PERRL and EOM's grossly intact. OROPHARYNX: no exudate, no erythema, lips, buccal mucosa, and tongue normal and mucous membranes are moist NECK: supple, no nuchal rigidity, no adenopathy, non-tender LUNGS: Clear to auscultation. Normal chest wall mechanics HEART: no murmurs, S1 normal and S2 normal ABDOMEN: abdomen soft, non-tender, normo-active bowel sounds, no masses, no rebound or guarding. BACK: Back is symmetrical on inspection and there is no deformity, no midline tenderness, no CVA tenderness. SKIN: no rashes and no bruising UPPER EXTREMITIES: upper extremities are grossly normal. LOWER EXTREMITIES: Flexion-extension right hip knee ankle and EHL intact. Flexion of the left hip without tenderness. Moderate pain with flexion of the right and left knee. No pain with flexion or extension of the left ankle. DP and PT 2 out of 4 bilaterally. Gross sensation intact. Abrasions over the patella and left lateral tibial plateau. No surrounding erythema or induration. NEURO EXAM: Normal sensorium, cranial nerves II-XII grossly intact, normal speech, no gross weakness of arms, no gross weakness of legs. MEDICAL DECISION MAKING: Patient is an 88-year-old male who presents the ER for left knee pain. Patient notes that he is unable to walk as the pain has been getting worse since the fall. X-rays of the knee and tib-fib showed no acute fractures. Venous duplex was negative. X-rays of the hip and pelvis and ribs show a questionable rib fracture. IV was established blood work was obtained. Labs show no significant leukocytosis and a mild anemia at 12.1. BMP along with LFTs bilirubin was unremarkable. Patient was given IV morphine updated bedside discussed with the hospitalist for further evaluation management treatment as he was unable to ambulate. Consults/Care Managements Discussions: Per [facility] Triage Nursing notes reviewed. Limited review of prior medical records performed Vital Signs: reviewed and remarkable for no significant abnormalities Differential diagnosis: Fracture, subluxation, dislocation, contusion, ligamentous injury, neurovascular, compartment syndrome, rhabdomyolysis, as well as other pathologies. ER treatment provided: See below Diagnostics interpreted by me include EKG and cardiac monitoring as listed below: -Cardiac Monitoring: An order was placed for continuous cardiac monitoring. The monitor shows a rate of 80 with sinus rhythm. -ECG: none -Laboratory studies:Interpreted by me as stated above in MDM and shown below. Imaging studies: Xrays: As interpreted by me: X-ray of the left knee shows no acute fracture or dislocation X-ray of the tib-fib shows no acute fracture or dislocation X-rays of the chest shows a questionable 10th rib fracture Venous duplex was unremarkable for any DVT in the left lower extremity CTs show: none Procedures:none Critical Care: None Past Med/Surg History Problem List (Updated 01/01/24 @ 12:46 by Jose Rubio DO) Abrasion (Acute) Fall (Acute) Ambulatory dysfunction (Acute) Acute knee pain (Acute) Right rib fracture Ambulatory dysfunction Left leg pain Left knee pain Encounter for pre-operative examination Back pain Lumbar stenosis with neurogenic claudication (Chronic) Head injury (Acute) Lumbar contusion (Acute) Frequent falls (Chronic) Constipation Edema (Chronic) Abnormal MRI, pelvis Skin ulcers of both feet Traumatic wound (Acute) Stroke-like symptoms (Acute) Elevated troponin (Acute) Left sided numbness (Acute) Left leg weakness (Acute) Carcinoma of prostate (Chronic) DVT prophylaxis Discharge planning issues CVA (cerebral vascular accident) Dyslipidemia, goal LDL below 70 Arthritis of right knee Status post knee replacement Encounter for consultation Leukocytosis Urethral stricture Acute urinary retention COPD (chronic obstructive pulmonary disease) H/O: CVA (cerebrovascular accident) 2019 ([facility]), residual memory problems and shuffling of feet Medical History History of urinary incontinence "wears depends" History of COVID-19 Approximately 2020 > all symptoms resolved Poor historian History of squamous cell carcinoma History of basal cell carcinoma Hearing deficit B/L [place] Chronic bronchitis Chronic cough "worked in the [employer]" Osteoarthritis Obesity Hereditary hemochromatosis Monitoring, labs have been "WNL" History of TIA (transient ischemic attack) 3.5 years ago Anemia Chronic back pain Hyperlipidemia H/O intracranial hemorrhage 20 + years ago Prostate cancer s/p XRT only - 15 years ago Surgical History History of total knee arthroplasty History of colonoscopy History of prostate biopsy History of tooth extraction History of cataract surgery History of lumbar surgery History of squamous cell carcinoma excision History of basal cell carcinoma (BCC) excision Family History Father Coronary heart disease Sister Cancer Other No family history of adverse response to anesthesia Social History Smoking Status: Never smoker Cigarettes Per Day: on on occasion; Second Hand Exposure: No; Do You Dip or Chew Tobacco: No; Hx Alcohol Use: No Hx Substance Use: No Preferred Language: Serbian Communication Ability: Effective Claims Sorter Required: No Beliefs That Will Affect Care: None marital status: Current Living Situation: Spouse Other Information That Helps Us Care for You: No Feels Safe at Home: Yes Safety Concerns: Feels Safe At This Time Assistive Devices: Glasses, Hearing Aid - Bilateral and Walker Allergies Allergies Allergy/AdvReac Type Severity Reaction Status Date / Time amoxicillin [From Augmentin] Allergy Mild diarrhea Verified 01/01/24 08:35 clavulanic acid Allergy Mild diarrhea Verified 01/01/24 08:35 [From Augmentin] mirtazapine [From Remeron] Allergy Confusion Unverified 01/01/24 08:35 Home Meds Home Medications Medication Instructions Recorded Confirmed aspirin 81 mg tablet,delayed 81 mg PO QAM 04/11/22 01/01/24 release atorvastatin 10 mg tablet 10 mg PO QAM 04/11/22 01/01/24 cholecalciferol (vitamin D3) 125 125 mcg PO QAM 04/11/22 01/01/24 mcg (5,000 unit) tablet (Vitamin D3) melatonin 10 mg tablet 20 mg PO HS 04/11/22 01/01/24 vit C 250 mg-vit E 90 mg-zinc 40 1 tab PO QAM 04/11/22 01/01/24 mg-copper 1 [id number] capsule (PreserVision AREDS-2) clopidogrel 75 mg tablet 75 mg PO QAM 06/09/22 01/01/24 acetaminophen 500 mg tablet 500 mg PO Q6H PRN PAIN/FEVER 01/01/24 01/01/24 ciclopirox 8 % topical solution 1 applic topical BID 01/01/24 01/01/24 diclofenac sodium 1 % topical gel 1 g topical DAILY 01/01/24 01/01/24 psyllium 1 tbsp PO QAM 01/01/24 01/01/24 Results & Data (ED) Vital Signs Vital Signs - 24 hr 01/01/24 07:06 01/01/24 07:18 01/01/24 07:33 Temperature 36.6 C Temperature Source Oral Pulse Rate 70 65 Pulse Rate from SpO2 Sensor 65 Pulse Rhythm Regular Regular Pulse Strength Normal Respiratory Rate 20 14 Respiratory Effort / Characteristics Non-Labored Respiratory Depth Normal Respiratory Pattern Regular Blood Pressure 150/83 H Blood Pressure Mean 105 Blood Pressure Position Lying Pulse Oximetry 98 98 99 Oxygen Delivery Method Room Air Room Air Sepsis Recent Fever Within 48 Hours No Sepsis New/Unexplained Change in Mental Status N/A Sepsis Action Taken by Nursing No Action Required 01/01/24 07:42 01/01/24 07:48 01/01/24 08:32 Temperature Temperature Source Pulse Rate 64 61 Pulse Rate from SpO2 Sensor 64 62 Pulse Rhythm Pulse Strength Respiratory Rate 17 22 Respiratory Effort / Characteristics Respiratory Depth Respiratory Pattern Blood Pressure 165/91 H Blood Pressure Mean 130 Blood Pressure Position Pulse Oximetry 98 99 Oxygen Delivery Method Sepsis Recent Fever Within 48 Hours Sepsis New/Unexplained Change in Mental Status Sepsis Action Taken by Nursing 01/01/24 08:32 01/01/24 08:33 Temperature Temperature Source Pulse Rate 65 Pulse Rate from SpO2 Sensor Pulse Rhythm Pulse Strength Respiratory Rate 15 Respiratory Effort / Characteristics Respiratory Depth Respiratory Pattern Blood Pressure 165/91 H Blood Pressure Mean 130 Blood Pressure Position Pulse Oximetry Oxygen Delivery Method Sepsis Recent Fever Within 48 Hours Sepsis New/Unexplained Change in Mental Status Sepsis Action Taken by Nursing Laboratory Data 01/01/24 07:19 01/01/24 07:19 Lab Results 01/01/24 Range/Units 07:19 WBC 8.86 (4.8-10.8) K/ul RBC 4.13 L (4.70-6.10) M/uL Hgb 12.1 L (14.0-18.0) g/dl Hct 37.1 L (42.0-52.0) % MCV 89.8 (80.0-100.0) fL MCH 29.3 (25.0-34.0) pg MCHC 32.6 (32.0-36.0) g/dL RDW Std Deviation 44.3 (36.4-46.3) fL RDW Coeff of Ness 13.4 (11.5-14.5) % Plt Count 286 (130-400) K/uL MPV 9.2 L (9.4-12.4) fL Immature Gran % (Auto) 0.5 % Neut % (Auto) 47.8 % Lymph % (Auto) 39.4 % Reynolds % (Auto) 10.2 % Eos % (Auto) 1.8 % Baso % (Auto) 0.3 % Neut # (Auto) 4.24 (1.40-6.50) K/uL Lymph # (Auto) 3.49 H (1.20-3.40) K/uL Reynolds # (Auto) 0.90 H (0.11-0.59) K/uL Eos # (Auto) 0.16 (0.00-0.50) K/uL Baso # (Auto) 0.03 (0.00-0.20) K/uL Immature Gran # (Auto) 0.04 (0.01-0.20) K/uL Sodium 139 (136-145) mmol/L Potassium 4.8 (3.5-5.1) mmol/L Chloride 104 (98-107) mmol/L Carbon Dioxide 28 (21-32) mmol/L Anion Gap 7 (3-11) BUN 21 (6-23) mg/dl Creatinine 0.99 (0.6-1.4) mg/dl Est Cr Clr Drug Dosing 63.1 ml/min Est GFR ( Amer) 77.9 ml/min Est GFR (Non-Af Amer) 67.2 ml/min BUN/Creatinine Ratio 21.2 H (10-20) Glucose 100 H (70-99(Fasting)) mg/dl Calcium 9.1 (8.6-10.3) mg/dl Total Bilirubin 0.4 (0.2-1.0) mg/dl AST 15 (13-39) U/L ALT 12 (7-52) U/L Alkaline Phosphatase 105 H (34-104) U/L Total Protein 6.9 (6.0-8.3) gm/dl Albumin 3.8 (3.4-5.0) gm/dl Globulin 3.1 (2.5-4.0) gm/dl Albumin/Globulin Ratio 1.2 (0.9-2) Administered Medications Discontinued Medications Morphine Sulfate (Morphine Sulfate 2 Mg/Ml Carp) 2 mg IV NOW STA Stop: 01/01/24 08:48 Last Admin: 01/01/24 08:49 Dose: 2 mg Documented By: [facility] [place] Imaging Data Radiologist's Impression: Knee X-Ray 01/01/24 07:10 LEFT KNEE 3 VIEWS CLINICAL HISTORY: Left knee pain. FINDINGS: AP, crosstable lateral, and sunrise views of the left knee are compared to study dated 12/13/2023. The skeletal structures are osteopenic. No acute fracture is seen. There is [id number] tricompartmental degenerative joint space narrowing, greatest in the medial and patellofemoral compartments. There is chondrocalcinosis within the medial and lateral compartments. Nonspecific sclerotic change in the medial tibial metaphysis is similar to previous. Patellar enthesophytes are observed. There is no significant joint effusion. Mild soft tissue swelling is seen around the knee. Atherosclerotic calcification is observed in the popliteal artery. IMPRESSION: 1. No acute bony abnormality is identified. 2. Osteopenia with degenerative change and chondrocalcinosis as above. Electronically signed by: Claus Bowden M.D. 01/01/2024 9:12 AM Tibia/Fibula X-Ray 01/01/24 07:11 XR tibia fibula LT 2V HISTORY: 88 years-old Male [place] pain acute pain in the left lower leg COMPARISON: Knee radiographs 12/13/2023 TECHNIQUE: 2 views of the left tibia and fibula FINDINGS: Diffuse soft tissue swelling. Demineralized appearance of the bones. Osteoarthritis of the knee and ankle. 1.4 cm sclerotic focus in the medial proximal tibia is unchanged. No acute fracture or dislocation identified. IMPRESSION: No acute fracture or dislocation. ACT 112: Negative or not required by law. The above report was generated using voice recognition software. It may contain grammatical, syntax or spelling errors. Electronically signed by: William Chan M.D. 01/01/2024 8:55 AM Venous Doppler Study 01/01/24 07:11 ULTRASOUND LEFT LOWER EXTREMITY VENOUS CLINICAL HISTORY: Left calf pain. Recent injury. COMPARISON STUDY: Left lower extremity venous ultrasound dated 10/15/2016. TECHNIQUE: Real-time, grayscale, and color Doppler sonography of the deep veins of the left lower extremity was performed from the inguinal crease to the calf. Compression and augmentation were utilized. FINDINGS: There is no sonographic evidence of deep venous thrombosis identified in the left lower extremity. The common femoral, superficial femoral, and popliteal veins are patent and normally compressible. The greater saphenous vein and the profunda femoris vein at the junction with the common femoral vein are clear. The visualized calf veins are patent. IMPRESSION: There is no sonographic evidence of deep venous thrombosis identified in the left lower extremity. ACT 112: Negative or not required by law. Electronically signed by: Claus Bowden M.D. 01/01/2024 8:17 AM Hip/Pelvis X-Ray 01/01/24 08:46 XR hip VEE 2v w pelvis HISTORY: 88 years-old Male fall acute pelvic pain status post fall COMPARISON: CT 04/11/2022 TECHNIQUE: AP view of the pelvis with 2 views of the hips FINDINGS: Demineralized appearance of the bones. Mild osteoarthritis of the hips. No acute fracture, dislocation or avascular necrosis. IMPRESSION: No acute fracture identified. ACT 112: Negative or not required by law. The above report was generated using voice recognition software. It may contain grammatical, syntax or spelling errors. Electronically signed by: William Chan M.D. 01/01/2024 9:48 AM Ribs w/Chest X-Ray 01/01/24 08:46 AP CHEST WITH RIGHT-SIDED RIB SERIES CLINICAL HISTORY: Recent fall. Right-sided chest wall pain. FINDINGS: An AP upright chest radiograph with 4 additional views from a right sided rib series is compared to study dated 06/19/2022. Correlation is made with chest CT dated 07/20/2018. The heart is enlarged noting atherosclerotic calcification of the thoracic aorta. The pulmonary vasculature is noncongested. Chronic interstitial thickening is similar to previous. There is chronic elevation of the left hemidiaphragm noting bibasilar scarring/atelectasis. No airspace consolidation or large pleural effusion is identified. No pneumothorax is seen. The skeletal structures are osteopenic. Question nondisplaced fracture of the right anterior 10th rib. No additional findings are suspicious for acute/displaced right-sided rib fractures on the rib series. The remainder of the bony thorax is grossly intact. Degenerative change is noted in the shoulders and spine. IMPRESSION: 1. Cardiomegaly with no acute cardiopulmonary abnormality identified. 2. Question a nondisplaced fracture of the right anterior 10th rib. Correlate for point tenderness. 3. No additional findings are suspicious for acute/displaced right-sided rib fracture on the rib series. ACT 112: Negative or not required by law. Electronically signed by: Claus Bowden M.D. 01/01/2024 9:43 AM Discharge Plan Visit Data Chief Complaint: Leg Injury/Pain Stated Complaint: LEG PAIN ED Provider: Jose Rubio Discharge Problem: Acute knee pain, Ambulatory dysfunction, Fall, Abrasion Patient Disposition: Admitted As Inpatient Discharge Instructions Interventions: ED Discharge Assessment Last Done: 01/01/24 10:14 Discharge Problem: Acute knee pain Qualifiers: Laterality: left Qualified Code(s): M25.562 - Pain in left knee Fall Qualifiers: Encounter type: initial encounter Qualified Code(s): W19.XXXA - Unspecified fall, initial encounter
[2024-01-01 07:48] LABS: Basophils # (auto) 0.03 K/uL (0.00-0.20); Basophils % (auto) 0.3 %; Eosinophils # (auto) 0.16 K/uL (0.00-0.50); Eosinophils % (auto) 1.8 %; Hematocrit (blood only) 37.1 % (42.0-52.0); Hemoglobin 12.1 g/dl (14.0-18.0); Immature Granulocytes # (auto) 0.04 K/uL (0.01-0.20); Immature Granulocytes % (auto) 0.5 %; Lymphocytes # (auto) 3.49 K/uL (1.20-3.40); Lymphocytes % (auto) 39.4 %; Mean Corpuscular Hemoglobin 29.3 pg (25.0-34.0); Mean Corpuscular Hgb Conc 32.6 g/dL (32.0-36.0); Mean Corpuscular Volume 89.8 fL (80.0-100.0); Mean Platelet Volume 9.2 fL (9.4-12.4); Monocytes % (auto) 10.2 %; Neutrophils # (auto) 4.24 K/uL (1.40-6.50); Neutrophils % (auto) 47.8 %; Platelet Count 286 K/uL (130-400); RDW Coefficient of Variation 13.4 % (11.5-14.5); RDW Standard Deviation 44.3 fL (36.4-46.3); Red Blood Count 4.13 M/uL (4.70-6.10); White Blood Count 8.86 K/ul (4.8-10.8)
[2024-01-01 08:00] LABS: Albumin Level 3.8 gm/dl (3.4-5.0); Bilirubin,Total 0.4 mg/dl (0.2-1.0); Calcium 9.1 mg/dl (8.6-10.3); Potassium 4.8 mmol/L (3.5-5.1)
[2024-01-01 08:06] LABS: Albumin Globulin Ratio 1.2 (0.9-2); BUN Creatinine Ratio 21.2 (10-20); Creatinine Clr Calc Pharmacy 63.1 ml/min; Est GFR (African American) 77.9 ml/min; Est GFR (Non-African American) 67.2 ml/min; Globulin 3.1 gm/dl (2.5-4.0); Total Protein 6.9 gm/dl (6.0-8.3)
--- NOTE | 2024-01-01 08:19 | Ultrasound Report ---
ULTRASOUND LEFT LOWER EXTREMITY VENOUS CLINICAL HISTORY: Left calf pain. Recent injury. COMPARISON STUDY: Left lower extremity venous ultrasound dated 10/15/2016. TECHNIQUE: Real-time, grayscale, and color Doppler sonography of the deep veins of the left lower ext remity was performed from the inguinal crease to the calf. Compression and augmentation were utilized . FINDINGS: There is no sonographic evidence of deep venous thrombosis identified in the left lower ext remity. The common femoral, superficial femoral, and popliteal veins are patent and normally compress ible. The greater saphenous vein and the profunda femoris vein at the junction with the common femora l vein are clear. The visualized calf veins are patent. IMPRESSION: There is no sonographic evidence of deep venous thrombosis identified in the left lower e xtremity. ACT 112: Negative or not required by law. Electronically signed by: Claus Bowden M.D. 01/01/2024 8:17 AM
[2024-01-01] MEDS: MoRPHine SULFATE 2 MG/ML CARP IV STA (08:49)
--- NOTE | 2024-01-01 08:58 | XRay Report ---
XR tibia fibula LT 2V HISTORY: 88 years-old Male [place] pain acute pain in the left lower leg COMPARISON: Knee radiographs 12/13/2023 TECHNIQUE: 2 views of the left tibia and fibula FINDINGS: Diffuse soft tissue swelling. Demineralized appearance of the bones. Osteoarthritis of the knee and a nkle. 1.4 cm sclerotic focus in the medial proximal tibia is unchanged. No acute fracture or dislocat ion identified. IMPRESSION: No acute fracture or dislocation. ACT 112: Negative or not required by law. The above report was generated using voice recognition software. It may contain grammatical, syntax o r spelling errors. Electronically signed by: William Chan M.D. 01/01/2024 8:55 AM
--- NOTE | 2024-01-01 09:03 | History & Physical Report ---
Date of Service January 01, 2024 Assessment & Plan (1) Ambulatory dysfunction: (2) Right rib fracture: Plan Keith Israel is an 88y/o M with PMHx of hyperlipidemia, history of CVA, COPD and other problems listed below who presented to the ED for evaluation secondary to left knee and leg pain. Patient had a fall that occurred on December 12 - shortly after that fall, he started having pain in his left knee and leg. Patient was seen and evaluated in the ED on 12/12 following the fall. Patient never lost consciousness during the fall or struck his head. He was ultimately trying to stand up and ambulate with his walker and subsequently tripped and landed on his left knee. X-ray of the left knee at that time was negative. Ambulatory Dysfunction Left Knee & Lower Leg Pain L tibia/fibula XR reveals diffuse soft tissue swelling, no acute fracture or dislocation. L knee XR w/ no acute bony abnormality. LLE venous doppler negative for DVT. L hip XR showing no acute fracture, dislocation or avascular necrosis. Pt w/ L ankle swelling on exam; XR L ankle ordered - follow results. Ordered CT of L hip, femur and knee - results pending, follow. No evidence of leukocytosis, Hgb stable at 12.1 (baseline ~11-13). No acute electrolyte abnormalities; Alk Phos only slightly bumped at 105. Repeat CBC in AM; CMP, mag and phos in AM as well - trend LFTs. Pt received 2mg of IV morphine in ED - pt notes improvement in pain. PRN pain regimen ordered; IV morphine 2mg for breakthrough pain PRN. OOB w/ assistance, fall precautions. PT/OT evaluations. R 10th Rib Fracture Pt c/o R-sided rib pain in ED - XR was ordered. Pt w/ R-sided tenderness overlying ribs on exam. AP chest w/ R-sided rib series showing the following: * Cardiomegaly w/ no acute cardiopulmonary abnormality, nondisplaced fracture of the right anterior 10th rib. Pt received 2mg of IV morphine in ED - pt notes improvement in pain. PRN pain regimen in place; IV morphine 2mg for breakthrough pain PRN. Incentive spirometry Q2H ordered; pt denies any SOB or chest pain. 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 H/O CVA: Can continue B[employer] OPERATOR aspirin and clopidogrel; monitor Hgb. DVT Prophylaxis: SCDs/TEDs - For now Code Status: FULL CODE - Per discussion w/ patient at bedside. PCP: Ewa Galindo MD Disposition: Admit to Med/Surg Patient seen in collaboration with Dr. Romero. Please see addendum. I spent a total of 60 minutes coordinating, documenting, and providing care for this patient excluding time spent in the performance of separately billed services. This included personally reviewing all current laboratories and imaging studies, medical reconciliation, outpatient chart review and discussion with specialists. This chart was completed in part utilizing Speech Voice Recognition Software. Grammatical errors, random word insertions, pronoun errors, and incomplete sentences are an occasional consequence of this system due to software limitations, ambient noise, and hardware issues. Any formal questions or concerns about the content, text, or information contained within the body of this dictation should be directly addressed to the provider for clarification. History of Present Illness Chief Complaint: Left Knee & Lower Leg Pain Primary Care Provider: Ewa Galindo MD Keith Israel is an 88y/o M with PMHx of hyperlipidemia, history of CVA, COPD and other problems listed below who presented to the ED for evaluation secondary to left knee and leg pain. History obtained from patient and associated chart review. Patient had a fall that occurred on December 12 - shortly after that fall, he started having pain in his left knee and leg. Patient was seen and evaluated in the ED on 12/12 following the fall. Patient never lost consciousness during the fall or struck his head. He was ultimately trying to stand up and ambulate with his walker and subsequently tripped and landed on his left knee. X-ray of the left knee at that time was negative and patient was discharged home with instructions for supportive care. Now - the pain in his left knee has gotten significantly worse over the past 7-10 days. He can no longer ambulate without difficulty. States "he no longer can get around or walk." Of note, patient does use a walker at baseline. He reports having at-home caregivers who visit him intermittently to help with ADLs. Spoke with his over the phone. She has a video of this fall available on her phone - states it was "really bad." She reports that his walking has been worse ever since - pain uncontrollable when walking. Mentions his left knee and ankle have become increasingly more swollen. Can hardly walk to the restroom and subsequently he has been dealing with incontinence secondary to that. mentions that he is a very active individual at baseline, so this is very abnormal for him to have this much difficulty ambulating/moving around. Patient reports limited movement of the left lower extremity secondary to pain and swelling. He denies any SOB, chest pain or urinary/bowel habit issues. No recent illnesses, fevers or sick c ontacts. Allergies Allergy/AdvReac Type Severity Reaction Status Date / Time amoxicillin [From Augmentin] Allergy Mild diarrhea Verified 01/01/24 08:35 clavulanic acid Allergy Mild diarrhea Verified 01/01/24 08:35 [From Augmentin] mirtazapine [From Remeron] Allergy Confusion Unverified 01/01/24 08:35 Home Medications Medication Instructions Recorded Confirmed Type aspirin 81 mg tablet,delayed 81 mg PO QAM 04/11/22 01/01/24 History release atorvastatin 10 mg tablet 10 mg PO QAM 04/11/22 01/01/24 History cholecalciferol (vitamin D3) 125 125 mcg PO QAM 04/11/22 01/01/24 History mcg (5,000 unit) tablet (Vitamin D3) melatonin 10 mg tablet 20 mg PO HS 04/11/22 01/01/24 History vit C 250 mg-vit E 90 mg-zinc 40 1 tab PO QAM 04/11/22 01/01/24 History mg-copper 1 no-eorqef-qsvlst capsule (PreserVision AREDS-2) clopidogrel 75 mg tablet 75 mg PO QAM 06/09/22 01/01/24 History acetaminophen 500 mg tablet 500 mg PO Q6H PRN PAIN/FEVER 01/01/24 01/01/24 History ciclopirox 8 % topical solution 1 applic topical BID 01/01/24 01/01/24 History diclofenac sodium 1 % topical gel 1 g topical DAILY 01/01/24 01/01/24 History psyllium 1 tbsp PO QAM 01/01/24 01/01/24 History Past Med/Surg History Problem List (Updated 01/01/24 @ 12:46 by Jose Rubio DO) Abrasion (Acute) Fall (Acute) Ambulatory dysfunction (Acute) Acute knee pain (Acute) Right rib fracture Ambulatory dysfunction Left leg pain Left knee pain Encounter for pre-operative examination Back pain Lumbar stenosis with neurogenic claudication (Chronic) Head injury (Acute) Lumbar contusion (Acute) Frequent falls (Chronic) Constipation Edema (Chronic) Abnormal MRI, pelvis Skin ulcers of both feet Traumatic wound (Acute) Stroke-like symptoms (Acute) Elevated troponin (Acute) Left sided numbness (Acute) Left leg weakness (Acute) Carcinoma of prostate (Chronic) DVT prophylaxis Discharge planning issues CVA (cerebral vascular accident) Dyslipidemia, goal LDL below 70 Arthritis of right knee Status post knee replacement Encounter for consultation Leukocytosis Urethral stricture Acute urinary retention COPD (chronic obstructive pulmonary disease) H/O: CVA (cerebrovascular accident) 2019 ([facility]), residual memory problems and shuffling of feet Medical History History of urinary incontinence "wears depends" History of COVID-19 Approximately 2020 > all symptoms resolved Poor historian History of squamous cell carcinoma History of basal cell carcinoma Hearing deficit B/L [place] Chronic bronchitis Chronic cough "worked in the [employer]" Osteoarthritis Obesity Hereditary hemochromatosis Monitoring, labs have been "WNL" History of TIA (transient ischemic attack) 3.5 years ago Anemia Chronic back pain Hyperlipidemia H/O intracranial hemorrhage 20 + years ago Prostate cancer s/p XRT only - 15 years ago Surgical History History of total knee arthroplasty History of colonoscopy History of prostate biopsy History of tooth extraction History of cataract surgery History of lumbar surgery History of squamous cell carcinoma excision History of basal cell carcinoma (BCC) excision Family History Father Coronary heart disease Sister Cancer Other No family history of adverse response to anesthesia Social History Smoking Status: Never smoker Cigarettes Per Day: on on occasion; Second Hand Exposure: No; Do You Dip or Chew Tobacco: No; Hx Alcohol Use: No Hx Substance Use: No Preferred Language: Divehi Communication Ability: Effective 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 Physical Exam Physical Exam: General: NAD, sitting up in bed, pleasant, conversing appropriately. A+Ox3, euthymic affect. HEENT: Normocephalic, atraumatic. Normal inspection, PERRL, conjunctivae normal, anicteric sclerae. External ear and nose normal, oropharynx normal. Respiratory: Normal respiratory effort, lungs clear to auscultation, no wheeze, rales, rhonchi. No accessory muscle use. Cardiovascular: Regular rate, rhythm, no murmur, normal peripheral pulses, no BLE edema. Vessels: No JVD. Abdomen/GI: Normal bowel sounds, soft, nontender, no hepatosplenomegaly. Extremities/Musculoskeletal: No cyanosis or clubbing. Limited mobility of LLE, pain w/ movement of LLE. Neurologic: PERRL, EOMI, accommodation nl, no face palsy, no dysarthria. Skin: No rashes, normal color, warm/dry. Swelling of L knee and ankle, no overlying erythema. Results & Data Results & Data Vital Signs (Past 12 Hours) Vital Signs Temp Pulse Resp BP Pulse Ox O2 Del Method 01/01/24 08:33 65 15 01/01/24 08:32 165/91 H 01/01/24 08:32 165/91 H 01/01/24 07:48 61 22 99 01/01/24 07:42 64 17 98 01/01/24 07:33 99 Room Air 01/01/24 07:18 65 14 98 01/01/24 07:06 36.6 C 70 20 150/83 H 98 Room Air Laboratory Results Short CBC 01/01/24 Range/Units 07:19 WBC 8.86 (4.8-10.8) K/ul Hgb 12.1 L (14.0-18.0) g/dl Hct 37.1 L (42.0-52.0) % Plt Count 286 (130-400) K/uL BMP 01/01/24 07:19 Sodium 139 Potassium 4.8 Chloride 104 Carbon Dioxide 28 BUN 21 Creatinine 0.99 Glucose 100 H Calcium 9.1 Liver Function 01/01/24 Range/Units 07:19 Total Bilirubin 0.4 (0.2-1.0) mg/dl AST 15 (13-39) U/L ALT 12 (7-52) U/L Alkaline Phosphatase 105 H (34-104) U/L Albumin 3.8 (3.4-5.0) gm/dl Diagnostic Findings Knee X-Ray 01/01/24 07:10 LEFT KNEE 3 VIEWS CLINICAL HISTORY: Left knee pain. FINDINGS: AP, crosstable lateral, and sunrise views of the left knee are compared to study dated 12/13/2023. The skeletal structures are osteopenic. No acute fracture is seen. There is [id number] tricompartmental degenerative joint space narrowing, greatest in the medial and patellofemoral compartments. There is chondrocalcinosis within the medial and lateral compartments. Nonspecific sclerotic change in the medial tibial metaphysis is similar to previous. Patellar enthesophytes are observed. There is no significant joint effusion. Mild soft tissue swelling is seen around the knee. Atherosclerotic calcification is observed in the popliteal artery. IMPRESSION: 1. No acute bony abnormality is identified. 2. Osteopenia with degenerative change and chondrocalcinosis as above. Electronically signed by: Claus Bowden M.D. 01/01/2024 9:12 AM Tibia/Fibula X-Ray 01/01/24 07:11 XR tibia fibula LT 2V HISTORY: 88 years-old Male [place] pain acute pain in the left lower leg COMPARISON: Knee radiographs 12/13/2023 TECHNIQUE: 2 views of the left tibia and fibula FINDINGS: Diffuse soft tissue swelling. Demineralized appearance of the bones. Osteoarthritis of the knee and ankle. 1.4 cm sclerotic focus in the medial proximal tibia is unchanged. No acute fracture or dislocation identified. IMPRESSION: No acute fracture or dislocation. ACT 112: Negative or not required by law. The above report was generated using voice recognition software. It may contain grammatical, syntax or spelling errors. Electronically signed by: William Chan M.D. 01/01/2024 8:55 AM Venous Doppler Study 01/01/24 07:11 ULTRASOUND LEFT LOWER EXTREMITY VENOUS CLINICAL HISTORY: Left calf pain. Recent injury. COMPARISON STUDY: Left lower extremity venous ultrasound dated 10/15/2016. TECHNIQUE: Real-time, grayscale, and color Doppler sonography of the deep veins of the left lower extremity was performed from the inguinal crease to the calf. Compression and augmentation were utilized. FINDINGS: There is no sonographic evidence of deep venous thrombosis identified in the left lower extremity. The common femoral, superficial femoral, and popliteal veins are patent and normally compressible. The greater saphenous vein and the profunda femoris vein at the junction with the common femoral vein are clear. The visualized calf veins are patent. IMPRESSION: There is no sonographic evidence of deep venous thrombosis identified in the left lower extremity. ACT 112: Negative or not required by law. Electronically signed by: Claus Bowden M.D. 01/01/2024 8:17 AM Hip/Pelvis X-Ray 01/01/24 08:46 XR hip VEE 2v w pelvis HISTORY: 88 years-old Male fall acute pelvic pain status post fall COMPARISON: CT 04/11/2022 TECHNIQUE: AP view of the pelvis with 2 views of the hips FINDINGS: Demineralized appearance of the bones. Mild osteoarthritis of the hips. No acute fracture, dislocation or avascular necrosis. IMPRESSION: No acute fracture identified. ACT 112: Negative or not required by law. The above report was generated using voice recognition software. It may contain grammatical, syntax or spelling errors. Electronically signed by: William Chan M.D. 01/01/2024 9:48 AM Ribs w/Chest X-Ray 01/01/24 08:46 AP CHEST WITH RIGHT-SIDED RIB SERIES CLINICAL HISTORY: Recent fall. Right-sided chest wall pain. FINDINGS: An AP upright chest radiograph with 4 additional views from a right sided rib series is compared to study dated 06/19/2022. Correlation is made with chest CT dated 07/20/2018. The heart is enlarged noting atherosclerotic calcification of the thoracic aorta. The pulmonary vasculature is noncongested. Chronic interstitial thickening is similar to previous. There is chronic elevation of the left hemidiaphragm noting bibasilar scarring/atelectasis. No airspace consolidation or large pleural effusion is identified. No pneumothorax is seen. The skeletal structures are osteopenic. Question nondisplaced fracture of the right anterior 10th rib. No additional findings are suspicious for acute/displaced right-sided rib fractures on the rib series. The remainder of the bony thorax is grossly intact. Degenerative change is noted in the shoulders and spine. IMPRESSION: 1. Cardiomegaly with no acute cardiopulmonary abnormality identified. 2. Question a nondisplaced fracture of the right anterior 10th rib. Correlate for point tenderness. 3. No additional findings are suspicious for acute/displaced right-sided rib fracture on the rib series. ACT 112: Negative or not required by law. Electronically signed by: Claus Bowden M.D. 01/01/2024 9:43 AM Medications Administered Discontinued Medications Morphine Sulfate (Morphine Sulfate 2 Mg/Ml Carp) 2 mg IV NOW STA Stop: 01/01/24 08:48 Last Admin: 01/01/24 08:49 Dose: 2 mg Documented By: VME Code Status & VTE Plan Code Status FULL CODE VTE Prophylaxis Plan VTE Prophylaxis will be ordered: Yes Supervising Physician Co-Signing Physician Notes Attending Addendum: Case reviewed with the advanced practitioner. I have personally performed a history and physical examination on the patient. I have reviewed the advanced practitioner's documentation on the date of service referenced in note, and I agree with, and take responsibility for the plan of care. please refer to her notes for full details patient seen and examined, records reviewed by myself as well on exam, patient Seen sitting up in bed, comfortable, not in distress Having some right upper leg discomfort as well as knee Pain medications helping No chest pain, shortness of breath, palpitations, dizziness, abdominal pain, nausea no other symptoms VS noted and reviewed oriented x 3 , not in distress, speaks in sentences with no effort nor accessory muscle use normal rate, regular rhythm, no murmurs clear breath sounds bilaterally non distended, soft, nontender Mild left lower extremity edema, no warmth, no tenderness, no erythema no neuro deficits all labs, imaging noted and reviewed ASSESSMENT AND PLAN Status post mechanical fall Right Lower Extremity Pain Ambulatory dysfunction CT hip, femur, knee: No acute fractures Continue pain control with scheduled Tylenol, as needed Toradol, as needed oxycodone PT and OT evaluation Right 10th rib fracture incentive spirometry, pain control other diagnoses and plan of care as per advanced practitioner's notes Sincere Romero MD (2) Right rib fracture Encounter type: initial encounter Fracture type: closed Rib fracture type: single rib Qualified Code(s): S22.31XA - Fracture of one rib, right side, initial encounter for closed fracture
--- NOTE | 2024-01-01 09:14 | XRay Report ---
LEFT KNEE 3 VIEWS CLINICAL HISTORY: Left knee pain. FINDINGS: AP, crosstable lateral, and sunrise views of the left knee are compared to study dated 12/12. The skeletal structures are osteopenic. No acute fracture is seen. There is [id number] t ricompartmental degenerative joint space narrowing, greatest in the medial and patellofemoral compart ments. There is chondrocalcinosis within the medial and lateral compartments. Nonspecific sclerotic c hange in the medial tibial metaphysis is similar to previous. Patellar enthesophytes are observed. Th ere is no significant joint effusion. Mild soft tissue swelling is seen around the knee. Atherosclero tic calcification is observed in the popliteal artery. IMPRESSION: 1. No acute bony abnormality is identified. 2. Osteopenia with degenerative change and chondrocalcinosis as above. Electronically signed by: Claus Bowden M.D. 01/01/2024 9:12 AM
--- NOTE | 2024-01-01 09:45 | XRay Report ---
AP CHEST WITH RIGHT-SIDED RIB SERIES CLINICAL HISTORY: Recent fall. Right-sided chest wall pain. FINDINGS: An AP upright chest radiograph with 4 additional views from a right sided rib series is com pared to study dated 06/19/2022. Correlation is made with chest CT dated 07/20/2018. The heart is enla rged noting atherosclerotic calcification of the thoracic aorta. The pulmonary vasculature is noncong ested. Chronic interstitial thickening is similar to previous. There is chronic elevation of the left hemidiaphragm noting bibasilar scarring/atelectasis. No airspace consolidation or large pleural effu solo is identified. No pneumothorax is seen. The skeletal structures are osteopenic. Question nondisp laced fracture of the right anterior 10th rib. No additional findings are suspicious for acute/displa con right-sided rib fractures on the rib series. The remainder of the bony thorax is grossly intact. Degenerative change is noted in the shoulders and spine. IMPRESSION: 1. Cardiomegaly with no acute cardiopulmonary abnormality identified. 2. Question a nondisplaced fracture of the right anterior 10th rib. Correlate for point tenderness. 3. No additional findings are suspicious for acute/displaced right-sided rib fracture on the rib seri es. ACT 112: Negative or not required by law. Electronically signed by: Claus Bowden M.D. 01/01/2024 9:43 AM
--- NOTE | 2024-01-01 09:49 | XRay Report ---
XR hip VEE 2v w pelvis HISTORY: 88 years-old Male fall acute pelvic pain status post fall COMPARISON: CT 04/11/2022 TECHNIQUE: AP view of the pelvis with 2 views of the hips FINDINGS: Demineralized appearance of the bones. Mild osteoarthritis of the hips. No acute fracture, dislocatio n or avascular necrosis. IMPRESSION: No acute fracture identified. ACT 112: Negative or not required by law. The above report was generated using voice recognition software. It may contain grammatical, syntax o r spelling errors. Electronically signed by: William Chan M.D. 01/01/2024 9:48 AM
[2024-01-01] MEDS ORDERED: POLYETHYLENE (MIRALAX) 17 GM PACK PO PRN (10:58)
[2024-01-01] MEDS ORDERED: KETOROLAC TROMETHAMINE 15 MG/ML VIAL IV PRN (10:58)
[2024-01-01] MEDS ORDERED: ONDANSETRON INJ 2 MG/ML 2 ML VIAL IV PRN (10:58)
[2024-01-01] MEDS ORDERED: MoRPHine SULFATE 2 MG/ML CARP IV PRN (10:58)
[2024-01-01] MEDS ORDERED: ACETAMINOPHEN 325 MG TAB PO PRN (10:58)
[2024-01-01] MEDS ORDERED: MELATONIN 3 MG TAB PO PRN (11:07)
[2024-01-01] MEDS ORDERED: oxyCODONE HCL IR 5 MG TAB (IMMEDIATE RELEASE) PO PRN (12:31)
--- NOTE | 2024-01-01 13:40 | XRay Report ---
LEFT ANKLE 3 VIEWS CLINICAL HISTORY: Fall. Left ankle injury. FINDINGS: 3 views of the left ankle are obtained. No prior studies are available for comparison at th e time of dictation. The skeletal structures are osteopenic. No fracture is seen. The ankle mortise i s intact. There is no significant joint effusion. Soft tissue swelling is seen around the ankle. Ther e is a large plantar heel spur. Soft tissue calcifications are seen along the course of the plantar f ascia. IMPRESSION: Soft tissue swelling with no fracture identified. Electronically signed by: Claus Bowden M.D. 01/01/2024 1:39 PM
[2024-01-01] MEDS: LIDOCAINE 5% 1 PATCH TD SCH (14:14)
[2024-01-01] MEDS: ACETAMINOPHEN 500 MG TAB PO SCH (14:15)
--- NOTE | 2024-01-01 14:37 | CT Scan Report ---
CT hip LT wo con HISTORY: 88 years-old Male Recent fall, pain acute left hip pain status post fall COMPARISON: Femur CT of same day TECHNIQUE: Multiple axial CT images of the left hip were obtained without IV contrast. A dose lowerin g technique was used consistent with the principals of MARVIN. FINDINGS: Colonic diverticulosis. No acute intrapelvic abnormality. No intramuscular fluid collections. Mild la teral subcutaneous edema. Demineralized appearance of the bones. Mild left hip osteoarthritis. No acu te fracture, dislocation or avascular necrosis. Likely benign 3 cm sclerotic focus of the left iliac bone on image 37 series 3. IMPRESSION: No acute fracture or dislocation. ACT 112: Negative or not required by law. The above report was generated using voice recognition software. It may contain grammatical, syntax o r spelling errors. Electronically signed by: William Chan M.D. 01/01/2024 2:35 PM
--- NOTE | 2024-01-01 14:54 | CT Scan Report ---
CT knee LT wo con HISTORY: 88 years-old Male Recent fall, pain/swelling acute pain of the left knee status post fall COMPARISON: Radiographs of same day TECHNIQUE: Multiple axial CT images of the left knee were obtained without IV contrast. A dose loweri ng technique was used consistent with the principals of MARVIN. FINDINGS: Demineralization appearance of the bones. Trace joint effusion. Chondrocalcinosis tricompartment oste oarthritis, moderate moderate within the medial and patellofemoral compartments and mild within the l ateral compartment. No intra-articular loose body. Arterial calcifications.. Benign-appearing linear sclerosis of the medial proximal tibia. No acute fracture or dislocation. IMPRESSION: Tricompartmental osteoarthritis without acute fracture or dislocation. ACT 112: Negative or not required by law. The above report was generated using voice recognition software. It may contain grammatical, syntax o r spelling errors. Electronically signed by: William Chan M.D. 01/01/2024 2:53 PM
--- NOTE | 2024-01-01 15:12 | CT Scan Report ---
CT SCAN OF THE LEFT FEMUR WITHOUT IV CONTRAST CLINICAL HISTORY: Fall. Left leg pain. COMPARISON STUDY: Radiographs of the left knee dated 01/01/2024. TECHNIQUE: CT scan of the left femur is performed from the bony pelvis to the knee. Images are review ed in the axial, sagittal, and coronal planes. IV contrast was not administered for this examination. A dose lowering technique was utilized adhering to the principles of ALARA. Note that interpretation is suboptimal without plain film correlate. FINDINGS: The skeletal structures are osteopenic. There is no evidence of left femoral fracture. The visualized left hemipelvis appears intact. The hip and knee joints appear maintained noting mild arth ritic change. A benign-appearing sclerotic focus is again seen in the medial aspect of the proximal t ibial metaphysis. There is no avascular necrosis of the left femoral head. There is a trace knee join t effusion. Generalized atrophy is observed in the regional musculature. Atherosclerotic calcificatio n is noted in the femoral artery. No left inguinal lymphadenopathy is seen. Imaged portions of the bl adder are normal in appearance. IMPRESSION: There is no evidence of left femoral fracture. ACT 112: Negative or not required by law. Dictated: 01/01/2024 2:03 PM Transcribed: 01/01/2024 2:10 PM Rafael [id number] [email or web address] Electronically signed by: Claus Bowedn M.D. 01/01/2024 3:11 PM
[2024-01-01] MEDS: KETOROLAC TROMETHAMINE 15 MG/ML VIAL IV PRN (21:06)
[2024-01-02] MEDS ORDERED: ARTIFICIAL TEARS OP PRN (04:29)
[2024-01-02 06:52] LABS: Hematocrit (blood only) 35.1 % (42.0-52.0); Hemoglobin 11.6 g/dl (14.0-18.0); Mean Corpuscular Hemoglobin 29.3 pg (25.0-34.0); Mean Corpuscular Volume 88.6 fL (80.0-100.0); Mean Platelet Volume 9.3 fL (9.4-12.4); Platelet Count 272 K/uL (130-400); RDW Coefficient of Variation 13.4 % (11.5-14.5); RDW Standard Deviation 43.8 fL (36.4-46.3); Red Blood Count 3.96 M/uL (4.70-6.10)
[2024-01-02 07:15] LABS: Alanine Aminotransferase 12 U/L (7-52); Albumin Globulin Ratio 1.2 (0.9-2); Albumin Level 3.4 gm/dl (3.4-5.0); Alkaline Phosphatase 92 U/L (34-104); Anion Gap 7 (3-11); BUN Creatinine Ratio 23.1 (10-20); Bilirubin,Total 0.4 mg/dl (0.2-1.0); Blood Urea Nitrogen 27 mg/dl (6-23); Calcium 8.7 mg/dl (8.6-10.3); Carbon Dioxide 25 mmol/L (21-32); Chloride 104 mmol/L (98-107); Creatinine Clr Calc Pharmacy 51.1 ml/min; Est GFR (African American) 63.7 ml/min; Est GFR (Non-African American) 54.9 ml/min; Globulin 2.9 gm/dl (2.5-4.0); Glucose 95 mg/dl (70-99(Fasting)); Magnesium 2.2 mg/dl (1.7-2.4); Phosphorus 4.6 mg/dl (2.5-4.9); Sodium 136 mmol/L (136-145); Total Protein 6.3 gm/dl (6.0-8.3)
[2024-01-02] MEDS: [UNRECOGNIZED DRUG - OTHER] OP PRN (08:20)
[2024-01-02] MEDS: PSYLLIUM or GUAR GUM FIBER 4GM PACKET PO SCH (08:20)
[2024-01-02] MEDS: CLOPIDOGREL BISULFATE 75 MG TAB PO SCH (08:20)
[2024-01-02] MEDS: CHOLECALCIFEROL 125 MCG (5,000 UNITS) TAB PO SCH (08:20)
[2024-01-02] MEDS: ATORVASTATIN 10 MG TAB PO SCH (08:20)
[2024-01-02] MEDS: ASPIRIN 81 MG ECTAB PO SCH (08:20)
[2024-01-02 09:00] LABS: Potassium 4.5 mmol/L (3.5-5.1)
--- NOTE | 2024-01-02 14:47 | Hospitalist Progress Note ---
Date of Service January 02, 2024 Assessment & Plan (1) Ambulatory dysfunction: (2) Right rib fracture: Plan Patient with multiple contusions, rib fracture and musculoskeletal pain due to arthritis exacerbated by recent fall significantly of limiting his ability to ambulate Continue therapies Care management to pursue possible placement options Pain control Admission and Anticipated Discharge Date Admission Date: January 01, 2024 Subjective Patient frustrated by the fact that he has multiple pains and is difficult for him to ambulate Physical Exam Physical Exam: Constitutional: Alert HEENT: Mucous membranes moist. Lungs: Clear to auscultation, decreased, no wheezes rales or rhonchi CV: S1-S2, regular Chest: Tenderness chest wall Abdomen: Soft, nontender, nondistended Extremities: No significant edema, tenderness left knee, no erythema, no warmth Neuro: No focal deficits Psych: Cooperative, normal mood Results & Data Results & Data Vital Signs (Past 12 Hours) Vital Signs Temp Pulse Resp BP Pulse Ox O2 Del Method 01/02/24 07:51 36.4 C L 57 L 16 149/75 H 95 Room Air Diagnostic Findings Reviewed imaging, laboratory and diagnostic studies. Pertinent findings as below. Reviewed imaging reports, significant arthritis, rib fracture, no other additional fractures (2) Right rib fracture Encounter type: initial encounter Rib fracture type: single rib Fracture type: closed Qualified Code(s): S22.31XA - Fracture of one rib, right side, i nitial encounter for closed fracture
[2024-01-02] MEDS ORDERED: oxyCODONE HCL IR 5 MG TAB (IMMEDIATE RELEASE) PO PRN ×2 (14:48→14:50)
[2024-01-02] MEDS: CELECOXIB 100 MG CAP PO SCH (21:11)
[2024-01-02] MEDS: ACETAMINOPHEN 500 MG TAB PO SCH (21:11)
--- NOTE | 2024-01-03 12:20 | Discharge Summary ---
Discharge Summary Date of Service January 03, 2024 Principal Dx & Hospital Course #1 = Principal Diagnosis (1) Ambulatory dysfunction: (2) Right rib fracture: (3) Contusion of left knee: (4) Osteoarthritis involving multiple joints on both sides of body: Plan Patient presented to the emergency room with increasing pain and ambulatory dysfunction after sustaining a fall multiple days prior to presentation. Patient was admitted to the hospital. He was placed on scheduled pain medication regimen including Tylenol, Celebrex and Lidoderm patch. With these interventions his pain significantly improved. Did not require any narcotic as needed medications. He is seen by physical therapy and Occupational Therapy. His mobility improved with his pain control improving. However he still required a fair amount of assistance. Case management was involved in his care. Discussions were held with the patient and the family. Ultimately everyone felt he would do better with some short-term rehabilitation. This was arranged for him to go to the [facility] for ongoing therapies as he continues to recover from acute exacerbation of his chronic joint pains and a rib fracture after his recent fall. Notes For Next Care Provider Medication Changes From Visit Tylenol scheduled Celebrex scheduled Lidoderm patch scheduled Admission HPI Per Admitting Provider Keith Israel is an 88y/o M with PMHx of hyperlipidemia, history of CVA, COPD and other problems listed below who presented to the ED for evaluation secondary to left knee and leg pain. History obtained from patient and associated chart review. Patient had a fall that occurred on December 12 - shortly after that fall, he started having pain in his left knee and leg. Patient was seen and evaluated in the ED on 12/12 following the fall. Patient never lost consciousness during the fall or struck his head. He was ultimately trying to stand up and ambulate with his walker and subsequently tripped and landed on his left knee. X-ray of the left knee at that time was negative and patient was discharged home with instructions for supportive care. Now - the pain in his left knee has gotten significantly worse over the past 7-10 days. He can no longer ambulate without difficulty. States "he no longer can get around or walk." Of note, patient does use a walker at baseline. He reports having at-home caregivers who visit him intermittently to help with ADLs. Spoke with his over the phone. She has a video of this fall available on her phone - states it was "really bad." She reports that his walking has been worse ever since - pain uncontrollable when walking. Mentions his left knee and ankle have become increasingly more swollen. Can hardly walk to the restroom and subsequently he has been dealing with incontinence secondary to that. mentions that he is a very active individual at baseline, so this is very abnormal for him to have this much difficulty ambulating/moving around. Patient reports limited movement of the left lower extremity secondary to pain and swelling. He denies any SOB, chest pain or urinary/bowel habit issues. No recent illnesses, fevers or sick contacts. Admission Exam Per Admitting Provider I refer you to the spine physical Discharge Exam Constitutional: Alert HEENT: Mucous membranes moist. Lungs: Clear to auscultation, decreased, no wheezes rales or rhonchi CV: S1-S2, regular Abdomen: Soft, nontender, nondistended Extremities: No significant edema, Musculoskeletal: Left knee tenderness significantly improved, chest/rib tenderness minimal to palpation Neuro: No focal deficits Psych: Cooperative, normal mood Updated Medication List Medication Instructions Recorded Confirmed Type aspirin 81 mg tablet,delayed 81 mg PO QAM 04/11/22 01/01/24 History release atorvastatin 10 mg tablet 10 mg PO QAM 04/11/22 01/01/24 History cholecalciferol (vitamin D3) 125 125 mcg PO QAM 04/11/22 01/01/24 History mcg (5,000 unit) tablet (Vitamin D3) melatonin 10 mg tablet 20 mg PO HS 04/11/22 01/01/24 History vit C 250 mg-vit E 90 mg-zinc 40 1 tab PO QAM 04/11/22 01/01/24 History mg-copper 1 [id number] capsule (PreserVision AREDS-2) clopidogrel 75 mg tablet 75 mg PO QAM 06/09/22 01/01/24 History acetaminophen 500 mg tablet 500 mg PO Q6H PRN PAIN/FEVER 01/01/24 01/01/24 History ciclopirox 8 % topical solution 1 applic topical BID 01/01/24 01/01/24 History diclofenac sodium 1 % topical gel 1 g topical DAILY 01/01/24 01/01/24 History psyllium 1 tbsp PO QAM 01/01/24 01/01/24 History acetaminophen 500 mg tablet 1,000 mg (2 x 500 mg) PO TID #90 01/03/24 Rx (Tylenol Extra Strength) tabs celecoxib 100 mg capsule (Celebrex) 100 mg PO BID 30 days #60 caps 01/03/24 Rx lidocaine 5 % topical patch 1 patch transdermal QAM #10 ea 01/03/24 Rx Hospital Stay Data Consultations 01/01/24 08:40 ED Decision to Admit Stat Diagnostic Imagining Performed 01/01/24 07:11 US venous doppler LE LT Stat 01/01/24 12:28 CT femur LT wo con Stat CT hip LT wo con Stat CT knee LT wo con Stat [facility] Multiple imaging revealed only 10th rib fracture. Hemoglobin 11.6 Creatinine 1.17 Pending Results Patient Have Any Pending Studies at Discharge: No Discharge Instructions Given to Patient (Per Discharging Provider) Recommend ongoing therapies Total Time Total Time Spent Total Time Spent (In Minutes): 25
== END 2024-01-03 16:27 | DRG 605 ==
LOC: ED 06:55 → 3N 08:51 → SUATTDRO 08:51 → 3N 10:14

== ENCOUNTER 2024-02-11 08:24 | Inpatient (IN) ==
--- NOTE | 2024-02-11 08:40 | Emergency Department Note ---
Impression & Plan Lumbar contusion, Frequent falls, Spinal stenosis, Sciatica, Closed fracture of left proximal tibia ED Provider Note NAME: ARCHANA HADLEY AGE: 88 SEX: M : 1935 ARRIVES VIA: Ambulance INFORMANT: Patient, EMS ED PROVIDER(S): Lamberto Lopez DO CHIEF COMPLAINT: Back pain HPI: The patient is an 88-year-old male who presented to the emergency department for back pain. The patient states he had a fall several weeks ago. He was seen in our facility initially. He fell onto his left leg. Ever since that time he has been having low back pain. The patient states the pain goes to his left leg. He denies having any nausea or vomiting. He denies having any chest pain. Over the last 3 days the pain has become severe and the patient is unable to ambulate without significant difficulty. He denies having any numbness or weakness in the legs but he does have trouble walking because of the pain. The patient has not recently been seen by his doctor. He was taking pain medication but he is unsure what he is taking. He denies having any head injury. He denies having any headache. The patient arrived via ambulance. ROS: See above HPI for pertinent positives & negatives. A total of 10 systems reviewed and were otherwise negative. PAST MEDICAL HISTORY: See Below PAST SURGICAL HISTORY: See Below FAMILY HISTORY: See Below SOCIAL HISTORY: See Below HOME MEDICATIONS: See Below ALLERGIES: See Below VITALS: See Below PHYSICAL EXAMINATION: GENERAL: The patient is awake and alert. The patient is very anxious and appears to be uncomfortable. EYES: The conjunctivae are clear. The pupils are round and reactive. EARS, NOSE, MOUTH AND THROAT: The nose is without any evidence of any deformity. NECK: The neck is nontender and supple. RESPIRATORY: Normal respiratory effort is noted there is no evidence of wheezing rhonchi or rales CARDIOVASCULAR: Regular rate and rhythm noted there no murmurs rubs or gallops normal S1 normal S2. GASTROINTESTINAL: The abdomen is soft. Abdomen is nontender. BACK: There is midline tenderness in the low lumbar spine. Range of motion elicits severe pain. There is no definite step-off. MUSCULOSKELETAL/EXTREMITIES: There is no evidence of gross deformity full range of motion is noted in the hips and shoulders. The patient does have palpable tenderness over the left thigh and left leg but range of motion appears intact. SKIN: Skin was warm and dry. Pedal edema was noted bilaterally. Pulses are symmetric in both feet. NEUROLOGIC: Patient is awake alert and oriented x3. There is no facial droop. Speech is clear. MEDICAL DECISION MAKING: The patient is an 88-year-old male who presented to the emergency department for an evaluation of lower extremity pain and back pain. He had a fall in December. He was seen in our facility twice at that time. He was admitted to the hospital the second time and then was discharged to [facility] for inpatient therapy. The patient has not been doing well especially over the last few days. He did not have any reinjury but has severe pain especially in his low back into his left leg. I discussed the patient's laboratory and radiographic studies with him. He was found to have significant degenerative disease in the lumbar spine. He was also found to have a possible fracture in the left proximal tibia. I discussed the patient's condition with the keycase assembler. She was evaluated by the keycase assembler. He does not appear to be a good candidate for outpatient management and there are no rooms at inpatient rehab. For this reason I discussed his condition with the [facility]. They have agreed to evaluate the patient in the emergency department for further management and disposition. Triage Nursing notes reviewed. Prior medical records reviewed Vital Signs: reviewed and remarkable for no significant abnormalities Differential diagnosis: Musculoskeletal, disc herniation, fracture, metastatic disease, cord compression, discitis, sciatica, cauda equina, infection, aortic disease, renal colic, gastrointestinal, as well as other pathologies. ER treatment provided: See below Diagnostics interpreted by me: ECG: EKG was obtained in the emergency department. My interpretation is sinus rhythm at 83 bpm. First-degree AV block was noted. There was no ectopy. Early transition was noted. This was compared to a tracing from June 19, 2022. No changes were noted. Cardiac Monitoring: An order was placed for continuous cardiac monitoring. The monitor shows a rate of 85 bpm with sinus rhythm. Laboratory studies: As stated above and show below. Imaging studies: See below. Radiographic imaging was reviewed by myself Consultation(s): I discussed this case with Manohar who is on-call for the [facility] group. Past Med/Surg History Problem List (Updated 02/11/24 @ 12:15 by Shannan Aldana PA-C) Bilateral lower extremity edema Closed fracture of left proximal tibia (Acute) Sciatica (Acute) Spinal stenosis (Acute) Closed left tibial fracture Osteoarthritis involving multiple joints on both sides of body Contusion of left knee Abrasion (Acute) Fall (Acute) Ambulatory dysfunction (Acute) Acute knee pain (Acute) Right rib fracture Ambulatory dysfunction Left leg pain Left knee pain Encounter for pre-operative examination Back pain Lumbar stenosis with neurogenic claudication (Chronic) Head injury (Acute) Lumbar contusion (Acute) Frequent falls (Chronic) Constipation Edema (Chronic) Abnormal MRI, pelvis Skin ulcers of both feet Traumatic wound (Acute) Stroke-like symptoms (Acute) Elevated troponin (Acute) Left sided numbness (Acute) Left leg weakness (Acute) Carcinoma of prostate (Chronic) DVT prophylaxis Discharge planning issues CVA (cerebral vascular accident) Dyslipidemia, goal LDL below 70 Arthritis of right knee Status post knee replacement Encounter for consultation Leukocytosis Urethral stricture Acute urinary retention COPD (chronic obstructive pulmonary disease) H/O: CVA (cerebrovascular accident) 2019 ([facility]), residual memory problems and shuffling of feet Medical History History of urinary incontinence "wears depends" History of COVID-19 Approximately 2020 > all symptoms resolved Poor historian History of squamous cell carcinoma History of basal cell carcinoma Hearing deficit B/L [place] Chronic bronchitis Chronic cough "worked in the [employer]" Osteoarthritis Obesity Hereditary hemochromatosis Monitoring, labs have been "WNL" History of TIA (transient ischemic attack) 3.5 years ago Anemia Chronic back pain Hyperlipidemia H/O intracranial hemorrhage 20 + years ago Prostate cancer s/p XRT only - 15 years ago Surgical History History of total knee arthroplasty History of colonoscopy History of prostate biopsy History of tooth extraction History of cataract surgery History of lumbar surgery History of squamous cell carcinoma excision History of basal cell carcinoma (BCC) excision Family History Father Coronary heart disease Sister Cancer Other No family history of adverse response to anesthesia Social History Smoking Status: Never smoker Cigarettes Per Day: on on occasion; Second Hand Exposure: No; Do You Dip or Chew Tobacco: No; Hx Alcohol Use: No Hx Substance Use: No Preferred Language: Erit[place]an Communication Ability: Effective Medical Attendant Required: No Beliefs That Will Affect Care: None marital status: Current Living Situation: Spouse Feels Safe at Home: Yes Safety Concerns: Feels Safe At This Time Assistive Devices: Walker Allergies Allergies Allergy/AdvReac Type Severity Reaction Status Date / Time amoxicillin [From Augmentin] Allergy Mild diarrhea Verified 02/11/24 10:34 clavulanic acid Allergy Mild diarrhea Verified 02/11/24 10:34 [From Augmentin] mirtazapine [From Remeron] Allergy Confusion Unverified 02/11/24 10:34 Home Meds Home Medications Medication Instructions Recorded Confirmed aspirin 81 mg tablet,delayed 81 mg PO QAM 04/11/22 02/11/24 release atorvastatin 10 mg tablet 10 mg PO QAM 04/11/22 02/11/24 cholecalciferol (vitamin D3) 125 125 mcg PO QAM 04/11/22 02/11/24 mcg (5,000 unit) tablet (Vitamin D3) melatonin 10 mg tablet 20 mg PO HS 04/11/22 02/11/24 vit C 250 mg-vit E 90 mg-zinc 40 1 tab PO QAM 04/11/22 02/11/24 mg-copper 1 [id number] capsule (PreserVision AREDS-2) clopidogrel 75 mg tablet 75 mg PO QAM 06/09/22 02/11/24 ciclopirox 8 % topical solution 1 applic topical BID 01/01/24 02/11/24 psyllium 1 tbsp PO QAM 01/01/24 02/11/24 celecoxib 200 mg capsule 200 mg PO DAILY 02/11/24 02/11/24 prednisone 20 mg tablet See Rx Instructions .Route .COMPLEX 02/11/24 02/11/24 Previous Rx's Medication Instructions Recorded acetaminophen 500 mg tablet 1,000 mg (2 x 500 mg) PO TID #90 01/03/24 (Tylenol Extra Strength) tabs lidocaine 5 % topical patch 1 patch transdermal QAM #10 ea 01/03/24 Results & Data (ED) Vital Signs Vital Signs - 24 hr 02/11/24 08:39 02/11/24 08:39 02/11/24 08:45 Temperature 36.4 C L Temperature Source Oral Pulse Rate 91 H 89 Pulse Rate [Apical] Pulse Rate from SpO2 Sensor Respiratory Rate 18 Blood Pressure 175/86 H Blood Pressure [Right Arm] Blood Pressure Mean 115 Blood Pressure Mean [Right Arm] Pulse Oximetry 96 Oxygen Delivery Method Room Air Room Air Sepsis New/Unexplained Change in Mental Status No Sepsis Action Taken by Nursing No Action Required 02/11/24 09:19 02/11/24 09:30 02/11/24 09:30 Temperature Temperature Source Pulse Rate 79 Pulse Rate [Apical] 71 Pulse Rate from SpO2 Sensor 79 Respiratory Rate 14 20 Blood Pressure 147/77 H Blood Pressure [Right Arm] 139/72 Blood Pressure Mean 99 Blood Pressure Mean [Right Arm] 94 Pulse Oximetry 94 98 Oxygen Delivery Method Room Air Sepsis New/Unexplained Change in Mental Status Sepsis Action Taken by Nursing 02/11/24 09:45 02/11/24 10:00 02/11/24 10:06 Temperature Temperature Source Pulse Rate 92 H 87 Pulse Rate [Apical] Pulse Rate from SpO2 Sensor 89 Respiratory Rate 25 H 21 Blood Pressure 140/85 Blood Pressure [Right Arm] Blood Pressure Mean 102 Blood Pressure Mean [Right Arm] Pulse Oximetry 99 Oxygen Delivery Method Room Air Sepsis New/Unexplained Change in Mental Status Sepsis Action Taken by Nursing 02/11/24 10:21 02/11/24 10:30 02/11/24 10:45 Temperature Temperature Source Pulse Rate 86 79 Pulse Rate [Apical] Pulse Rate from SpO2 Sensor 77 Respiratory Rate 16 20 Blood Pressure 146/87 H Blood Pressure [Right Arm] Blood Pressure Mean 102 Blood Pressure Mean [Right Arm] Pulse Oximetry 98 Oxygen Delivery Method Sepsis New/Unexplained Change in Mental Status Sepsis Action Taken by Nursing 02/11/24 11:00 Temperature Temperature Source Pulse Rate 83 Pulse Rate [Apical] Pulse Rate from SpO2 Sensor 83 Respiratory Rate 19 Blood Pressure Blood Pressure [Right Arm] Blood Pressure Mean Blood Pressure Mean [Right Arm] Pulse Oximetry 95 Oxygen Delivery Method Sepsis New/Unexplained Change in Mental Status Sepsis Action Taken by [facility]dc Medications Current Medication List: was personally reviewed by me Laboratory Data Attestation: I reviewed the patient's lab results. 02/11/24 08:47 02/11/24 08:47 Lab Results 02/11/24 02/11/24 Range/Units 08:41 08:47 WBC 12.05 H (4.8-10.8) K/ul RBC 4.10 L (4.70-6.10) M/uL Hgb 11.9 L (14.0-18.0) g/dl Hct 36.7 L (42.0-52.0) % MCV 89.5 (80.0-100.0) fL MCH 29.0 (25.0-34.0) pg MCHC 32.4 (32.0-36.0) g/dL RDW Std Deviation 45.7 (36.4-46.3) fL RDW Coeff of Ness 14.1 (11.5-14.5) % Plt Count 233 (130-400) K/uL MPV 9.5 (9.4-12.4) fL Immature Gran % (Auto) 0.3 % Neut % (Auto) 68.1 % Lymph % (Auto) 22.2 % [place] % (Auto) 8.5 % Eos % (Auto) 0.7 % Baso % (Auto) 0.2 % Neut # (Auto) 8.21 H (1.40-6.50) K/uL Lymph # (Auto) 2.67 (1.20-3.40) K/uL [place] # (Auto) 1.03 H (0.11-0.59) K/uL Eos # (Auto) 0.08 (0.00-0.50) K/uL Baso # (Auto) 0.02 (0.00-0.20) K/uL Immature Gran # (Auto) 0.04 (0.01-0.20) K/uL PT 10.9 (9.0-12.0) Seconds INR 1.0 (0.9-1.1) APTT 25 (21-31) Seconds PTT Ratio 0.9 Sodium 139 (136-145) mmol/L Potassium 4.4 (3.5-5.1) mmol/L Chloride 105 (98-107) mmol/L Carbon Dioxide 27 (21-32) mmol/L Anion Gap 7 (3-11) BUN 22 (6-23) mg/dl Creatinine 0.99 (0.6-1.4) mg/dl Est Cr Clr Drug Dosing 62.7 ml/min Est GFR ( Amer) 77.9 ml/min Est GFR (Non-Af Amer) 67.2 ml/min BUN/Creatinine Ratio 22.2 H (10-20) Glucose 132 H (70-99(Fasting)) mg/dl Calcium 9.3 (8.6-10.3) mg/dl Total Bilirubin 0.5 (0.2-1.0) mg/dl AST 14 (13-39) U/L ALT 12 (7-52) U/L Alkaline Phosphatase 98 (34-104) U/L Troponin I High Sens 7.0 (0-20) pg/ml B-Natriuretic Peptide 104 H (0-100) pg/ml Total Protein 7.1 (6.0-8.3) gm/dl Albumin 4.1 (3.4-5.0) gm/dl Globulin 3.0 (2.5-4.0) gm/dl Albumin/Globulin Ratio 1.4 (0.9-2) Lipase 18 (11-82) U/L Procalcitonin 0.03 (0-0.5) ng/ml Urine Color Yellow Urine Appearance Clear (Clear) Urine pH 6.0 (4.5-7.5) Ur Specific [place] 1.010 (1.000-1.030) Urine Protein Negative (Negative) Urine Glucose (UA) Negative (Negative) Urine Ketones Negative (Negative) Urine Blood Negative (Negative) Urine Nitrite Negative (Negative) Urine Bilirubin Negative (Negative) Urine Urobilinogen Negative (Negative) Ur Leukocyte Esterase Negative (Negative) Administered Medications Discontinued Medications Morphine Sulfate (Morphine Sulfate 4 Mg/Ml 1 Ml Carp\\Vial) 4 mg IV Q15M PRN PRN Reason: Pain Stop: 02/25/24 08:32 Last Admin: 02/11/24 11:23 Dose: 4 mg Documented By: Admin: 02/11/24 08:47 Dose: 4 mg Documented By: ADARSH Ondansetron HCl (Ondansetron Inj 2 Mg/Ml 2 Ml Vial) 4 mg IV NOW STA Stop: 02/11/24 08:34 Last Admin: 02/11/24 08:47 Dose: 4 mg Documented By: ADARSH Imaging Data Attestation: I personally reviewed and interpreted this imaging study as follows: My Impression: CT scan of the abdomen pelvis was obtained in the emergency department. My interpretation is no free air or signs of bowel obstruction, final report below. X-ray of the left femur was obtained in the emergency department. My interpretation is no definite fracture, final report below. X-ray of the tib-fib was obtained in the emergency department. My interpretation is cortical abnormality noted in the proximal tibia, final report below. Radiologist's Impression: Abdomen/Pelvis CT 02/11/24 08:34 CT SCAN OF THE ABDOMEN AND PELVIS WITHOUT IV CONTRAST CLINICAL HISTORY: Recent fall. Low back pain. COMPARISON STUDY: Abdominal CT dated 04/11/2022. TECHNIQUE: CT scan of the abdomen and pelvis is performed from the lung bases to the proximal femora. Images are reviewed in the axial, sagittal, and coronal planes. IV contrast was not administered for this examination. A dose lowering technique was utilized adhering to the principles of ALARA. CT DOSE: 1475.07 mGy.cm FINDINGS: Lung bases: The heart is mildly enlarged and without pericardial effusion. The coronary arteries are densely calcified. There is elevation of the left hemidiaphragm. Scarring/atelectasis is seen at both lung bases. There are scattered calcified granulomas. No pleural effusion is identified. Liver: The unenhanced liver is normal in size, contour, and attenuation. There is no intrahepatic biliary ductal dilatation. Gallbladder: Unremarkable. Spleen: Normal in size and attenuation. Pancreas: The unenhanced pancreas is atrophic and grossly unremarkable. Adrenal glands: Unremarkable. Kidneys: The unenhanced kidneys demonstrate cortical atrophy and are without hydronephrosis. A 2.1 cm renal sinus cyst is seen on the right. No renal calculi are identified and there is no ureteral stone. There is no evidence of contour deforming renal mass lesion. Abdominal vasculature: The abdominal aorta is normal in course and caliber noting [id number] atherosclerotic calcification. Bowel: There is mild colonic fecal retention. No bowel obstruction is seen. The appendix is well-visualized and normal. Peritoneum: There is no intraperitoneal free air or abdominal ascites. There is a small fat-containing umbilical hernia. Lymphadenopathy: None. Pelvic viscera: The prostate gland is diminutive and heterogeneous. The bladder is normal as visualized. Skeletal structures: The skeletal structures are osteopenic. There is no evidence of acute fracture involving the lumbosacral spine, bony pelvis, or proximal femora. There is advanced lumbosacral spondylosis. Laminectomy change is degenerative change and fusion is seen in the sacroiliac joints. Suggested in the lower lumbar region. Sclerotic change in the medial michelle is similar to previous. No lytic or blastic lesions are seen. IMPRESSION: 1. No acute infectious or inflammatory findings are identified in the abdomen or pelvis. 2. There is no evidence of solid organ injury in the abdomen or pelvis on this unenhanced examination. 3. Additional findings as above. ACT 112: Negative or not required by law. Electronically signed by: Claus Bowden M.D. 02/11/2024 9:40 AM Chest X-Ray 02/11/24 08:34 XR chest 1V portable CLINICAL HISTORY: fall TECHNIQUE: Single frontal radiograph of the chest was obtained. Comparison: Comparison is made to rib series 01/01/2024 FINDINGS: No lines and tubes are seen. Cardiomegaly is noted. Reticular interstitial opacities are seen. No evidence of pleural effusion or pneumothorax. IMPRESSION: No acute chest disease. Cardiomegaly is noted. ACT 112: Negative or not required by law. Electronically signed by: Adrian Sands M.D. 02/11/2024 10:09 AM Femur X-Ray 02/11/24 08:40 LEFT FEMUR 3 VIEWS CLINICAL HISTORY: Fall. Left leg pain. FINDINGS: AP, frog-leg, and lateral views of the left femur are obtained. No prior studies are available for comparison at the time of dictation. The skeletal structures are osteopenic. There is no radiographic evidence of left femoral fracture. The visualized left hemipelvis appears intact. Degenerative change is seen in the hip and knee joints. There is a acute to subacute appearing fracture of the proximal tibial metadiaphysis. Soft tissue swelling is seen in the distal thigh. Atherosclerotic calcification is observed in the regional arteries. IMPRESSION: 1. There is no radiographic evidence of left femoral fracture. 2. There is a acute to subacute appearing horizontal fracture of the proximal left tibial metadiaphysis. Electronically signed by: Claus Bowden M.D. 02/11/2024 10:24 AM Tibia/Fibula X-Ray 02/11/24 08:40 XR tibia fibula LT 2V CLINICAL HISTORY: fall COMPARISON STUDY: None. FINDINGS: There is an acute to subacute nondisplaced transverse fracture within the proximal metadiaphysis of the left tibia. The fibula appears intact. Soft tissue swelling within the proximal left lower leg. Plantar and posterior calcaneal spurs are noted. No knee effusion. IMPRESSION: An acute to subacute transverse fracture within the proximal left tibial metadiaphysis. This may represent an insufficiency fracture. ACT 112: Negative or not required by law. Electronically signed by: Yair Contreras M.D. 02/11/2024 10:[address] 02/11/24 11:03 CT SCAN OF THE LEFT KNEE WITHOUT IV CONTRAST CLINICAL HISTORY: Tibial fracture. COMPARISON STUDY: Radiographs of the left tibia and fibula dated 02/11/2024. TECHNIQUE: CT scan of the left knee is performed from the distal femur to the proximal tibia and fibula. Images are reviewed in the axial, sagittal, and coronal planes. IV contrast was not administered for this examination. A dose lowering technique was utilized adhering to the principles of ALARA. CT DOSE: 1659.61 mGy.cm FINDINGS: The skeletal structures are heterogeneously osteopenic. The distal femur, the patella, and the proximal fibula appear intact. A horizontal/transverse fracture of the proximal tibial metadiaphysis is partially imaged. Question hemorrhage within the medullary cavity. A component of this fracture likely extends superiorly to the articular surface of the lateral tibial plateau. This is best seen on axial images #207 and #208. The tibial plateau is not depressed. There is no knee joint effusion or lipohemarthrosis. Soft tissue edema is seen in the upper calf. Degenerative joint space narrowing is seen in the knee. There is generalized atrophy of the regional musculature. There is atherosclerotic calcification of the regional arteries. IMPRESSION: 1. An acute to subacute transverse fracture of the proximal tibial metadiaphysis is partially imaged. 2. A component of this fracture likely extends to the articular surface of the lateral tibial plateau. This is difficult to evaluate due to the degree of severe osteopenia. 3. No additional fracture is seen. 4. There is no knee joint effusion or lipohemarthrosis. 5. Soft tissue edema is noted in the upper calf. ACT 112: Negative or not required by law. Dictated: 02/11/2024 12:51 PM Transcribed: 02/11/2024 1:05 PM Breana [id number] JACQUIE_Stephon [id number] Electronically signed by: Claus Bowden M.D. 02/11/2024 2:13 PM Discharge Plan Visit Data Chief Complaint: Illness Stated Complaint: BACK PAIN, LEG PAIN ED Provider: Lamberto Lopez Discharge Problem: Lumbar contusion, Frequent falls, Spinal stenosis, Sciatica, Closed fracture of left proximal tibia Patient Disposition: Admitted As Inpatient Discharge Instructions Interventions: ED Discharge Assessment Last Done: 02/11/24 11:56 Discharge Problem: Lumbar contusion Qualifiers: Encounter type: subsequent encounter Qualified Code(s): S30.0XXD - Contusion of lower back and pelvis, subsequent encounter Spinal stenosis Qualifiers: Spinal region: lumbar Neurogenic claudication status: unspecified Qualified Code(s): M48.061 - Spinal stenosis, lumbar region without neurogenic claudication Sciatica Qualifiers: Laterality: left Qualified Code(s): M54.32 - Sciatica, left side Closed fracture of left proximal tibia Qualifiers: Encounter type: initial encounter Fracture morphology: unspecified fracture morphology Qualified Code(s): S82.102A - Unspecified fracture of upper end of left tibia, initial encounter for closed fracture
[2024-02-11] MEDS: MoRPHine SULFATE 4 MG/ML 1 ML CARP\\VIAL IV PRN (08:47)
[2024-02-11] MEDS: ONDANSETRON INJ 2 MG/ML 2 ML VIAL IV STA (08:47)
[2024-02-11 08:59] LABS: Appearance Urine Clear (Clear); Bilirubin Urine Negative (Negative); Blood Urine Negative (Negative); Color Urine Yellow; Glucose Urine UA Negative (Negative); Ketones Urine Negative (Negative); Leukocyte Esterase Urine Negative (Negative); Nitrite Urine Negative (Negative); Protein Urine Negative (Negative); Urobilinogen Urine Negative (Negative)
[2024-02-11 09:17] LABS: Albumin Globulin Ratio 1.4 (0.9-2); Albumin Level 4.1 gm/dl (3.4-5.0); BUN Creatinine Ratio 22.2 (10-20); Bilirubin,Total 0.5 mg/dl (0.2-1.0); Calcium 9.3 mg/dl (8.6-10.3); Creatinine Clr Calc Pharmacy 62.7 ml/min; Est GFR (African American) 77.9 ml/min; Est GFR (Non-African American) 67.2 ml/min; Potassium 4.4 mmol/L (3.5-5.1); Total Protein 7.1 gm/dl (6.0-8.3)
[2024-02-11 09:20] LABS: Basophils # (auto) 0.02 K/uL (0.00-0.20); Basophils % (auto) 0.2 %; Eosinophils # (auto) 0.08 K/uL (0.00-0.50); Eosinophils % (auto) 0.7 %; Hematocrit (blood only) 36.7 % (42.0-52.0); Hemoglobin 11.9 g/dl (14.0-18.0); Immature Granulocytes # (auto) 0.04 K/uL (0.01-0.20); Immature Granulocytes % (auto) 0.3 %; Lymphocytes # (auto) 2.67 K/uL (1.20-3.40); Lymphocytes % (auto) 22.2 %; Mean Corpuscular Hgb Conc 32.4 g/dL (32.0-36.0); Mean Corpuscular Volume 89.5 fL (80.0-100.0); Mean Platelet Volume 9.5 fL (9.4-12.4); Monocytes # (auto) 1.03 K/uL (0.11-0.59); Monocytes % (auto) 8.5 %; Neutrophils # (auto) 8.21 K/uL (1.40-6.50); Neutrophils % (auto) 68.1 %; Platelet Count 233 K/uL (130-400); RDW Coefficient of Variation 14.1 % (11.5-14.5); RDW Standard Deviation 45.7 fL (36.4-46.3); White Blood Count 12.05 K/ul (4.8-10.8)
[2024-02-11 09:27] LABS: Partial Thromboplastin Ratio 0.9; Partial Thromboplastin Time 25 Seconds (21-31); Prothrombin Time 10.9 Seconds (9.0-12.0)
--- NOTE | 2024-02-11 09:41 | CT Scan Report ---
CT SCAN OF THE ABDOMEN AND PELVIS WITHOUT IV CONTRAST CLINICAL HISTORY: Recent fall. Low back pain. COMPARISON STUDY: Abdominal CT dated 04/11/2022. TECHNIQUE: CT scan of the abdomen and pelvis is performed from the lung bases to the proximal femora. Images are reviewed in the axial, sagittal, and coronal planes. IV contrast was not administered for this examination. A dose lowering technique was utilized adhering to the principles of ALARA. CT DOSE: 1475.07 mGy.cm FINDINGS: Lung bases: The heart is mildly enlarged and without pericardial effusion. The coronary arteries are densely calcified. There is elevation of the left hemidiaphragm. Scarring/atelectasis is seen at both lung bases. There are scattered calcified granulomas. No pleural effusion is identified. Liver: The unenhanced liver is normal in size, contour, and attenuation. There is no intrahepatic seun iary ductal dilatation. Gallbladder: Unremarkable. Spleen: Normal in size and attenuation. Pancreas: The unenhanced pancreas is atrophic and grossly unremarkable. Adrenal glands: Unremarkable. Kidneys: The unenhanced kidneys demonstrate cortical atrophy and are without hydronephrosis. A 2.1 cm renal sinus cyst is seen on the right. No renal calculi are identified and there is no ureteral ston e. There is no evidence of contour deforming renal mass lesion. Abdominal vasculature: The abdominal aorta is normal in course and caliber noting [id number] at herosclerotic calcification. Bowel: There is mild colonic fecal retention. No bowel obstruction is seen. The appendix is well-vis ualized and normal. Peritoneum: There is no intraperitoneal free air or abdominal ascites. There is a small fat-containin g umbilical hernia. Lymphadenopathy: None. Pelvic viscera: The prostate gland is diminutive and heterogeneous. The bladder is normal as visualiz ed. Skeletal structures: The skeletal structures are osteopenic. There is no evidence of acute fracture i nvolving the lumbosacral spine, bony pelvis, or proximal femora. There is advanced lumbosacral spondy losis. Laminectomy change is degenerative change and fusion is seen in the sacroiliac joints. Suggest ed in the lower lumbar region. Sclerotic change in the medial michelle is similar to previous. No lytic o r blastic lesions are seen. IMPRESSION: 1. No acute infectious or inflammatory findings are identified in the abdomen or pelvis. 2. There is no evidence of solid organ injury in the abdomen or pelvis on this unenhanced examination . 3. Additional findings as above. ACT 112: Negative or not required by law. Electronically signed by: Claus Bowden M.D. 02/11/2024 9:40 AM
--- NOTE | 2024-02-11 10:11 | XRay Report ---
XR chest 1V portable CLINICAL HISTORY: fall TECHNIQUE: Single frontal radiograph of the chest was obtained. Comparison: Comparison is made to rib series 01/01/2024 FINDINGS: No lines and tubes are seen. Cardiomegaly is noted. Reticular interstitial opacities are seen. No torsten dence of pleural effusion or pneumothorax. IMPRESSION: No acute chest disease. Cardiomegaly is noted. ACT 112: Negative or not required by law. Electronically signed by: Adrian Sands M.D. 02/11/2024 10:09 AM
--- NOTE | 2024-02-11 10:26 | XRay Report ---
LEFT FEMUR 3 VIEWS CLINICAL HISTORY: Fall. Left leg pain. FINDINGS: AP, frog-leg, and lateral views of the left femur are obtained. No prior studies are availa ble for comparison at the time of dictation. The skeletal structures are osteopenic. There is no radi ographic evidence of left femoral fracture. The visualized left hemipelvis appears intact. Degenerati ve change is seen in the hip and knee joints. There is a acute to subacute appearing fracture of the proximal tibial metadiaphysis. Soft tissue swelling is seen in the distal thigh. Atherosclerotic calc ification is observed in the regional arteries. IMPRESSION: 1. There is no radiographic evidence of left femoral fracture. 2. There is a acute to subacute appearing horizontal fracture of the proximal left tibial metadiaphys is. Electronically signed by: Claus Bowden M.D. 02/11/2024 10:24 AM
--- NOTE | 2024-02-11 10:39 | XRay Report ---
XR tibia fibula LT 2V CLINICAL HISTORY: fall COMPARISON STUDY: None. FINDINGS: There is an acute to subacute nondisplaced transverse fracture within the proximal metadiap hysis of the left tibia. The fibula appears intact. Soft tissue swelling within the proximal left low er leg. Plantar and posterior calcaneal spurs are noted. No knee effusion. IMPRESSION: An acute to subacute transverse fracture within the proximal left tibial metadiaphysis. This may represent an insufficiency fracture. ACT 112: Negative or not required by law. Electronically signed by: Yair Contreras M.D. 02/11/2024 10:38 AM
--- NOTE | 2024-02-11 10:40 | History & Physical Report ---
Date of Service February 11, 2024 Assessment & Plan (1) Ambulatory dysfunction: (2) Closed left tibial fracture: (3) Bilateral lower extremity edema: Plan Keith Israel is an 88y/o M with PMHx of hyperlipidemia, history of CVA [2019], COPD, osteoarthritis, hereditary hemochromatosis, history of prostate cancer, urinary incontinence and other problems listed below who presented from home to the ED via EMS for evaluation secondary to back pain and ambulatory difficulty. Most recent confinement 12/31-01/02 for ambulatory dysfunction and right rib fracture. He was ultimately discharged to [facility] for rehabilitation services. Patient had a fall that occurred on December 12. He was seen and evaluated in the ED following that fall. X-ray of the left knee at that time was negative and patient was discharged home with instructions for supportive care. Ambulatory Dysfunction Closed Left Tibial Fracture CTAP negative. CXR negative, though cardiomegaly is noted. L femur XR w/ an acute to subacute fx of the proximal tibial metadiaphysis. L tib/fib XR once again shows the tibial fx, may represent an insufficiency fracture. MRI lumbar spine, CT LLE pending - follow results. Leukocytosis likely reactive ISO pain, UA neg. Hgb stable (baseline ~11-13). Routine ortho consult, PT/OT evals, pain regimen, fall precautions, orthostatic vitals. Condom catheter ordered given limited mobility. NPO for now pending ortho evaluation. Will resume normal diet if no surgery is required. BLE Edema Pt w/ 1-2+ pitting edema in BLE on exam. 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 BNP and echo pending - follow results. Hyperlipidemia: Continue SPONGE PACKER atorvastatin, LFTs WNL. H/O CVA: Continue SPONGE PACKER aspirin and clopidogrel. DVT Prophylaxis: TEDs for now pending orthopedic evaluation. Will initiate either SQ Lovenox or Heparin if no surgical intervention is warranted. Code Status: FULL CODE PCP: Ewa Galindo MD Disposition: Admit to Med/Surg + Telemetry Patient seen in collaboration with Dr. Arita. Please see addendum. I spent a total of 55 minutes coordinating, documenting, and providing care for this patient excluding time spent in the performance of separately billed services. This included personally reviewing all current laboratories and imaging studies, medical reconciliation, outpatient chart review and discussion with specialists. This chart was completed in part utilizing Speech Voice Recognition Software. Grammatical errors, random word insertions, pronoun errors, and incomplete sentences are an occasional consequence of this system due to software limitations, ambient noise, and hardware issues. Any formal questions or concerns about the content, text, or information contained within the body of this dictation should be directly addressed to the provider for clarification. History of Present Illness Chief Complaint: Back Pain, Ambulatory Difficulty Primary Care Provider: Ewa Galindo MD Keith Israel is an 88y/o M with PMHx of hyperlipidemia, history of CVA [2019], COPD, osteoarthritis, hereditary hemochromatosis, history of prostate cancer, urinary incontinence and other problems listed below who presented from home to the ED via EMS for evaluation secondary to back pain and ambulatory difficulty. History obtained from patient, family at bedside and associated chart review. Most recent confinement 12/31-01/02 for ambulatory dysfunction and right rib fracture. He was ultimately discharged to [facility] for rehabilitation services. Patient had a fall that occurred on December 12. He was seen and evaluated in the ED following that fall. X-ray of the left knee at that time was negative and patient was discharged home with instructions for supportive care. He is back in for evaluation today due to low back pain and ambulatory difficulty. Patient reports that he has had ongoing lower back pain for the past couple of months since his fall in November, but it is now getting worse and he is complaining of radiculopathy symptoms down his left lower extremity. reports that he is unable to ambulate much at all, he has a bedside commode available and sleeps in the recliner in their living room primarily with limited mobility overall. Son states that he can no longer bear any weight on his left lower extremity. mentions that he almost fell last night when he stood up from his recliner, but she ended up catching him and he did not strike his body off of the floor. No recent falls since being home from [facility] reported. Patient denies any lightheadedness or dizziness when standing. No SOB, chest pain or abdominal pain. Patient has been dealing with urinary incontinence secondary to his immobility. expresses that his ambulation has not significantly improved since his stay at [facility] for rehabilitation therapy. Patient wears an incontinence diaper at baseline due to his urinary incontinence and also some stool incontinence as well. Allergies Allergy/AdvReac Type Severity Reaction Status Date / Time amoxicillin [From Augmentin] Allergy Mild diarrhea Verified 02/11/24 10:34 clavulanic acid Allergy Mild diarrhea Verified 02/11/24 10:34 [From Augmentin] mirtazapine [From Remeron] Allergy Confusion Unverified 02/11/24 10:34 Home Medications Medication Instructions Recorded Confirmed Type aspirin 81 mg tablet,delayed 81 mg PO QAM 04/11/22 02/11/24 History release atorvastatin 10 mg tablet 10 mg PO QAM 04/11/22 02/11/24 History cholecalciferol (vitamin D3) 125 125 mcg PO QAM 04/11/22 02/11/24 History mcg (5,000 unit) tablet (Vitamin D3) melatonin 10 mg tablet 20 mg PO HS 04/11/22 02/11/24 History vit C 250 mg-vit E 90 mg-zinc 40 1 tab PO QAM 04/11/22 02/11/24 History mg-copper 1 [id number] capsule (PreserVision AREDS-2) clopidogrel 75 mg tablet 75 mg PO QAM 06/09/22 02/11/24 History ciclopirox 8 % topical solution 1 applic topical BID 01/01/24 02/11/24 History psyllium 1 tbsp PO QAM 01/01/24 02/11/24 History acetaminophen 500 mg tablet 1,000 mg (2 x 500 mg) PO TID #90 01/03/24 02/11/24 Rx (Tylenol Extra Strength) tabs lidocaine 5 % topical patch 1 patch transdermal QAM #10 ea 01/03/24 02/11/24 Rx celecoxib 200 mg capsule 200 mg PO DAILY 02/11/24 02/11/24 History prednisone 20 mg tablet See Rx Instructions .Route .COMPLEX 02/11/24 02/11/24 History Past Med/Surg History Problem List (Updated 02/11/24 @ 12:15 by Shannan Aldana PA-C) Bilateral lower extremity edema Closed fracture of left proximal tibia (Acute) Sciatica (Acute) Spinal stenosis (Acute) Closed left tibial fracture Osteoarthritis involving multiple joints on both sides of body Contusion of left knee Abrasion (Acute) Fall (Acute) Ambulatory dysfunction (Acute) Acute knee pain (Acute) Right rib fracture Ambulatory dysfunction Left leg pain Left knee pain Encounter for pre-operative examination Back pain Lumbar stenosis with neurogenic claudication (Chronic) Head injury (Acute) Lumbar contusion (Acute) Frequent falls (Chronic) Constipation Edema (Chronic) Abnormal MRI, pelvis Skin ulcers of both feet Traumatic wound (Acute) Stroke-like symptoms (Acute) Elevated troponin (Acute) Left sided numbness (Acute) Left leg weakness (Acute) Carcinoma of prostate (Chronic) DVT prophylaxis Discharge planning issues CVA (cerebral vascular accident) Dyslipidemia, goal LDL below 70 Arthritis of right knee Status post knee replacement Encounter for consultation Leukocytosis Urethral stricture Acute urinary retention COPD (chronic obstructive pulmonary disease) H/O: CVA (cerebrovascular accident) 2019 ([facility]), residual memory problems and shuffling of feet Medical History History of urinary incontinence "wears depends" History of COVID-19 Approximately 2020 > all symptoms resolved Poor historian History of squamous cell carcinoma History of basal cell carcinoma Hearing deficit B/L [place] Chronic bronchitis Chronic cough "worked in the [employer]" Osteoarthritis Obesity Hereditary hemochromatosis Monitoring, labs have been "WNL" History of TIA (transient ischemic attack) 3.5 years ago Anemia Chronic back pain Hyperlipidemia H/O intracranial hemorrhage 20 + years ago Prostate cancer s/p XRT only - 15 years ago Surgical History History of total knee arthroplasty History of colonoscopy History of prostate biopsy History of tooth extraction History of cataract surgery History of lumbar surgery History of squamous cell carcinoma excision History of basal cell carcinoma (BCC) excision Family History Father Coronary heart disease Sister Cancer Other No family history of adverse response to anesthesia Social History Smoking Status: Former smoker Cigarettes Per Day: on on occasion; Second Hand Exposure: No; Do You Dip or Chew Tobacco: No; Hx Alcohol Use: No Hx Substance Use: No Preferred Language: Albanian Communication Ability: Effective 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 Physical Exam Physical Exam: General: NAD, laying down in bed, pleasant, conversing appropriately, appears uncomfortable w/ movement. A+Ox3, euthymic affect. HEENT: Normocephalic, atraumatic. PERRL, conjunctivae normal, anicteric sclerae. External ear and nose normal, oropharynx normal. Respiratory: Normal respiratory effort, lung sounds decreased throughout, no wheeze, rales, rhonchi. No accessory muscle use. Cardiovascular: Regular rate, rhythm, no murmur, normal peripheral pulses, no BLE edema. Vessels: No JVD. Abdomen/GI: Normal bowel sounds, soft, nontender, no hepatosplenomegaly. Extremities/Musculoskeletal: Very limited mobility of LLE, significant pain w/ palpation of L park region. Neurologic: EOMI, accommodation nl, no face palsy, no dysarthria. CN's II-XI not formally tested but appear grossly intact bilaterally. Skin: No rashes, normal color, warm/dry. Area of swelling overlying anterior proximal L park region, minor bruising noted as well. Results & Data Results & Data Vital Signs (Past 12 Hours) Vital Signs Temp Pulse Pulse Resp BP BP Pulse Ox 02/11/24 10:06 87 21 02/11/24 10:00 140/85 02/11/24 09:45 92 H 25 H 99 02/11/24 09:30 79 20 98 02/11/24 09:30 147/77 H 02/11/24 09:19 71 14 139/72 94 02/11/24 08:45 89 02/11/24 08:39 02/11/24 08:39 36.4 C L 91 H 18 175/86 H 96 O2 Del Method 02/11/24 10:06 02/11/24 10:00 02/11/24 09:45 Room Air 02/11/24 09:30 Room Air 02/11/24 09:30 02/11/24 09:19 02/11/24 08:45 02/11/24 08:39 Room Air 02/11/24 08:39 Room Air Laboratory Results Short CBC 02/11/24 Range/Units 08:47 WBC 12.05 H (4.8-10.8) K/ul Hgb 11.9 L (14.0-18.0) g/dl Hct 36.7 L (42.0-52.0) % Plt Count 233 (130-400) K/uL BMP 02/11/24 08:47 Sodium 139 Potassium 4.4 Chloride 105 Carbon Dioxide 27 BUN 22 Creatinine 0.99 Glucose 132 H Calcium 9.3 Liver Function 02/11/24 Range/Units 08:47 Total Bilirubin 0.5 (0.2-1.0) mg/dl AST 14 (13-39) U/L ALT 12 (7-52) U/L Alkaline Phosphatase 98 (34-104) U/L Albumin 4.1 (3.4-5.0) gm/dl Urine 02/11/24 Range/Units 08:47 Urine Color Yellow Urine Appearance Clear (Clear) Urine pH 6.0 (4.5-7.5) Ur Specific [place] 1.010 (1.000-1.030) Urine Protein Negative (Negative) Urine Glucose (UA) Negative (Negative) Diagnostic Findings Abdomen/Pelvis CT 02/11/24 08:34 CT SCAN OF THE ABDOMEN AND PELVIS WITHOUT IV CONTRAST CLINICAL HISTORY: Recent fall. Low back pain. COMPARISON STUDY: Abdominal CT dated 04/11/2022. TECHNIQUE: CT scan of the abdomen and pelvis is performed from the lung bases to the proximal femora. Images are reviewed in the axial, sagittal, and coronal planes. IV contrast was not administered for this examination. A dose lowering technique was utilized adhering to the principles of ALARA. CT DOSE: 1475.07 mGy.cm FINDINGS: Lung bases: The heart is mildly enlarged and without pericardial effusion. The coronary arteries are densely calcified. There is elevation of the left hemidiaphragm. Scarring/atelectasis is seen at both lung bases. There are scattered calcified granulomas. No pleural effusion is identified. Liver: The unenhanced liver is normal in size, contour, and attenuation. There is no intrahepatic biliary ductal dilatation. Gallbladder: Unremarkable. Spleen: Normal in size and attenuation. Pancreas: The unenhanced pancreas is atrophic and grossly unremarkable. Adrenal glands: Unremarkable. Kidneys: The unenhanced kidneys demonstrate cortical atrophy and are without hydronephrosis. A 2.1 cm renal sinus cyst is seen on the right. No renal calculi are identified and there is no ureteral stone. There is no evidence of contour deforming renal mass lesion. Abdominal vasculature: The abdominal aorta is normal in course and caliber noting [id number] atherosclerotic calcification. Bowel: There is mild colonic fecal retention. No bowel obstruction is seen. The appendix is well-visualized and normal. Peritoneum: There is no intraperitoneal free air or abdominal ascites. There is a small fat-containing umbilical hernia. Lymphadenopathy: None. Pelvic viscera: The prostate gland is diminutive and heterogeneous. The bladder is normal as visualized. Skeletal structures: The skeletal structures are osteopenic. There is no evidence of acute fracture involving the lumbosacral spine, bony pelvis, or p roximal femora. There is advanced lumbosacral spondylosis. Laminectomy change is degenerative change and fusion is seen in the sacroiliac joints. Suggested in the lower lumbar region. Sclerotic change in the medial michelle is similar to previous. No lytic or blastic lesions are seen. IMPRESSION: 1. No acute infectious or inflammatory findings are identified in the abdomen or pelvis. 2. There is no evidence of solid organ injury in the abdomen or pelvis on this unenhanced examination. 3. Additional findings as above. ACT 112: Negative or not required by law. Electronically signed by: Claus Bowden M.D. 02/11/2024 9:40 AM Chest X-Ray 02/11/24 08:34 XR chest 1V portable CLINICAL HISTORY: fall TECHNIQUE: Single frontal radiograph of the chest was obtained. Comparison: Comparison is made to rib series 01/01/2024 FINDINGS: No lines and tubes are seen. Cardiomegaly is noted. Reticular interstitial opacities are seen. No evidence of pleural effusion or pneumothorax. IMPRESSION: No acute chest disease. Cardiomegaly is noted. ACT 112: Negative or not required by law. Electronically signed by: Adrian Sands M.D. 02/11/2024 10:09 AM Femur X-Ray 02/11/24 08:40 LEFT FEMUR 3 VIEWS CLINICAL HISTORY: Fall. Left leg pain. FINDINGS: AP, frog-leg, and lateral views of the left femur are obtained. No prior studies are available for comparison at the time of dictation. The skeletal structures are osteopenic. There is no radiographic evidence of left femoral fracture. The visualized left hemipelvis appears intact. Degenerative change is seen in the hip and knee joints. There is a acute to subacute appearing fracture of the proximal tibial metadiaphysis. Soft tissue swelling is seen in the distal thigh. Atherosclerotic calcification is observed in the regional arteries. IMPRESSION: 1. There is no radiographic evidence of left femoral fracture. 2. There is a acute to subacute appearing horizontal fracture of the proximal left tibial metadiaphysis. Electronically signed by: Claus Bwoden M.D. 02/11/2024 10:24 AM Tibia/Fibula X-Ray 02/11/24 08:40 XR tibia fibula LT 2V CLINICAL HISTORY: fall COMPARISON STUDY: None. FINDINGS: There is an acute to subacute nondisplaced transverse fracture within the proximal metadiaphysis of the left tibia. The fibula appears intact. Soft tissue swelling within the proximal left lower leg. Plantar and posterior calcaneal spurs are noted. No knee effusion. IMPRESSION: An acute to subacute transverse fracture within the proximal left tibial metadiaphysis. This may represent an insufficiency fracture. ACT 112: Negative or not required by law. Electronically signed by: Yair Contreras M.D. 02/11/2024 10:38 AM Medications Administered Morphine Sulfate (Morphine Sulfate 4 Mg/Ml 1 Ml Carp\\Vial) 4 mg IV Q15M PRN PRN Reason: Pain Stop: 02/25/24 08:32 Last Admin: 02/11/24 08:47 Dose: 4 mg Documented By: ADARSH Discontinued Medications Ondansetron HCl (Ondansetron Inj 2 Mg/Ml 2 Ml Vial) 4 mg IV NOW STA Stop: 02/11/24 08:34 Last Admin: 02/11/24 08:47 Dose: 4 mg Documented By: ADARSH Code Status & VTE Plan Code Status FULL CODE Supervising Physician Co-Signing Physician Notes 88-year-old male with PMH of HLD, CVA 2019, COPD, osteoarthritis, hereditary hemochromatosis, prostate cancer, urinary incontinence presented with complaint of progressive ambulatory dysfunction. 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 He was admitted in the hospital and had been discharged to rehab. Patient reports worsening ambulatory dysfunction in the form of severe left lower extremity pain and some back pain since 2 days ago SPONGE PACKER. patient denies any febrile illness or increased cough from baseline or sore throat or chest pain or lightheadedness or dizziness or palpitation. Patient denies any acute changes in his appetite/bowel/bladder habit. Patient denies incontinence symptoms. Patient denies any headache/dizziness/chest pain/palpitation during fall about 3 to 4 weeks ago SPONGE PACKER, he reports he missed his walker and then lost balance and fell hitting left side of his body as described already. Denied hitting head. Admitting labs fairly WNL, leukocytosis likely secondary to acute pain. Will get Pro-Fernando. Monitor off antibiotic. Admitting imaging with closed left tibial fracture, CT LLE pending. Orthopedic consult. PT/OT when able. BLE edema noted during exam, 1+2 pitting edema, BNP elevated, will get echo. Given ambulatory dysfunction, will get BLE venous Doppler to rule out DVT. Given history of fall, will get orthostatic vitals. Patient also reports low back pain with numbness and tingling down LLE. Will get MRI lumbar spine. Pain management, as needed bowel regimen. On examination: GENERAL: Alert and oriented x3. NAD, on 2L NC O2. HEENT: No pallor, no icterus. Pupils equal, round and reactive to light. Oral mucosa moist. NECK: No JVD, no neck masses. HEART: S1 and S2 heard. Regular rate and rhythm. No murmur, no gallop. RESPIRATORY SYSTEM: Normal AP diameter. No accessory muscle use. No wheezing, no crackles. ABDOMEN: Soft, bowel sounds present, nontender, no distention. CENTRAL NERVOUS SYSTEM: No facial droop. Speech is clear. Obeys simple commands. Moves extremities. EXTREMITIES: 1-2+ BLE edema, no erythema seen. Left proximal tibia tenderness, painful rom at left knee. Lower back non tender on palpation, couldn't inspect as pt not able to roll due to severe LLE pain. I have seen and examined the patient and have discussed the case with the provider above. I agree with the assessment and plan as stated. (2) Closed left tibial fracture Encounter type: initial encounter Fracture morphology: unspecified fracture m orphology Tibia location: proximal Qualified Code(s): S82.102A - Unspecified fracture of upper end of left tibia, initial encounter for closed fracture
--- NOTE | 2024-02-11 10:45 | Electrocardiogram Report ---
Test Reason : Blood Pressure : */* mmHG Vent. Rate : 82 BPM Atrial Rate : 82 BPM P-R Int : 320 ms QRS Dur : 94 ms QT Int : 370 ms P-R-T Axes : 77 -42 43 degrees QTcB Int : 432 ms Sinus rhythm with 1st degree A-V block Left axis deviation Abnormal ECG When compared with ECG of 19-Jun-2022 12:30, No significant change was found Confirmed by Heraclio Jovel ([id number]) on 02/11/2024 10:45:25 AM Referred By: Confirmed By: Heraclio Jovel
--- NOTE | 2024-02-11 13:13 | CT Scan Report ---
LEFT TIBIA/FIBULA CT CT DOSE: HISTORY: L tibial fx, ambulatory dysfunction TECHNIQUE: Multiaxial CT images of the left tibia/fibula were performed and reformatted in the sagitt al and coronal plane without the use of contrast. A dose lowering technique was utilized adhering to the principles of ALARA. COMPARISON: Left lower leg radiograph 02/11/2024. FINDINGS: Confirmation of the proximal left tibial fracture to slightly comminuted. The fracture appe ars to be subacute/healing and is nondisplaced. There is mild surrounding callus formation. There is a transverse component involving the proximal metadiaphysis of the tibia with a vertical component th at extends to the articular surface at the lateral tibial spine. No significant knee effusion. No dis location. Subcutaneous edema within the left lower leg. The fibula appears intact. IMPRESSION: Slightly comminuted and healing proximal left tibial fracture as described above which extends to the articular surface. ACT 112: Negative or not required by law. Electronically signed by: Yair Contreras M.D. 02/11/2024 1:12 PM
[2024-02-11] MEDS ORDERED: MAGNESIUM HYDROXIDE SUSP 30 ML UDC PO PRN (13:40)
[2024-02-11] MEDS ORDERED: ONDANSETRON INJ 2 MG/ML 2 ML VIAL IV PRN (13:40)
--- NOTE | 2024-02-11 13:43 | Magnetic Resonance Report ---
MR lumbar spine wo con CLINICAL HISTORY: Low back pain TECHNIQUE: Multiplanar sequences through the lumbar spine were obtained, without intravenous contrast . Comparison: Comparison is made to MRI lumbar spine 07/14/2018 FINDINGS: Exam is limited by patient motion. The alignment is anatomical. L1-L2: No significant abnormality. L2-L3: Degenerative changes are seen with no significant canal or neuroforaminal stenosis. L3-L4: Disc osteophyte complexes seen with moderate bilateral neural foraminal stenosis. L4-L5: Disc osteophyte complex is seen with moderate bilateral neuroforaminal stenosis. L5-S1: No significant abnormality. The spinal ligaments are intact, without evidence of disruption or abnormal signal intensity. The spi nal cord is normal in signal intensity and there is no evidence of cord contusion. There is no eviden ce of an extradural, intradural, extramedullary or intramedullary lesion. Visualized soft tissues are normal. IMPRESSION: Limited exam due to patient intolerance. Multilevel degenerative changes are seen with up to moderate canal stenosis, similar to prior exam. ACT 112: Negative or not required by law. Electronically signed by: Adrian Sands M.D. 02/11/2024 1:42 PM
--- NOTE | 2024-02-11 14:14 | CT Scan Report ---
CT SCAN OF THE LEFT KNEE WITHOUT IV CONTRAST CLINICAL HISTORY: Tibial fracture. COMPARISON STUDY: Radiographs of the left tibia and fibula dated 02/11/2024. TECHNIQUE: CT scan of the left knee is performed from the distal femur to the proximal tibia and fibu la. Images are reviewed in the axial, sagittal, and coronal planes. IV contrast was not administered for this examination. A dose lowering technique was utilized adhering to the principles of ALARA. CT DOSE: 1659.61 mGy.cm FINDINGS: The skeletal structures are heterogeneously osteopenic. The distal femur, the patella, and the proximal fibula appear intact. A horizontal/transverse fracture of the proximal tibial metadiaphy sis is partially imaged. Question hemorrhage within the medullary cavity. A component of this fractur e likely extends superiorly to the articular surface of the lateral tibial plateau. This is best seen on axial images #207 and #208. The tibial plateau is not depressed. There is no knee joint effusion or lipohemarthrosis. Soft tissue edema is seen in the upper calf. Degenerative joint space narrowing is seen in the knee. There is generalized atrophy of the regional musculature. There is atherosclerot ic calcification of the regional arteries. IMPRESSION: 1. An acute to subacute transverse fracture of the proximal tibial metadiaphysis is partially imaged. 2. A component of this fracture likely extends to the articular surface of the lateral tibial plateau . This is difficult to evaluate due to the degree of severe osteopenia. 3. No additional fracture is seen. 4. There is no knee joint effusion or lipohemarthrosis. 5. Soft tissue edema is noted in the upper calf. ACT 112: Negative or not required by law. Dictated: 02/11/2024 12:51 PM Transcribed: 02/11/2024 1:05 PM Breana [id number] JACQUIE_Stephon [id number] Electronically signed by: Claus Bowden M.D. 02/11/2024 2:13 PM
[2024-02-11] MEDS: ACETAMINOPHEN 325 MG TAB PO SCH (14:32)
[2024-02-11] MEDS: DICLOFENAC SOD 1% GEL 100 GM TUBE EXT SCH (14:33)
--- NOTE | 2024-02-11 15:30 | Ultrasound Report ---
US venous doppler LE BI CLINICAL HISTORY: ambu dysfxn, ro dvt TECHNIQUE: Bilateral lower extremity real-time compression venous ultrasound with Color Doppler imagi ng. Utilizing real-time ultrasonic imaging multiple real time high-resolution ultrasonic images with compression and noncompression maneuvers of the deep venous system in addition to color doppler imagi ng were performed from the common femoral vein through the proximal calf veins. COMPARISON: Comparison is made to venous ultrasound 01/19/2024 FINDINGS/IMPRESSION: Currently there is normal compressibility of the deep venous system from the common femoral vein thro ugh the proximal calf veins. No superficial venous thrombosis is identified. Soft tissue edema is se en. ACT 112: Negative or not required by law. Electronically signed by: Adrian Sands M.D. 02/11/2024 3:28 PM
[2024-02-11] MEDS: HYDROmorphone INJ 0.5 MG/0.5 ML SYR IV PRN (16:18)
--- NOTE | 2024-02-11 20:23 | Orthopedic Consultation ---
Date of Service February 11, 2024 Assessment & Plan (1) Closed fracture of left proximal tibia: He is doing with a nondisplaced insufficiency fracture of his proximal tibia. This should heal well on its own. It has been 8 weeks since his initial fall. I am unsure how long this fracture has been here. He continues to have pain. He has continued to ambulate on it throughout the process and has not gotten better. Fortunately this will not require surgery. It should heal. I think he needs some time off his leg to give it a chance to heal. I want a keep him nonweightbearing on his left leg. He can use a knee immobilizer for comfort only. He can eat a full diet from my point of view. With regards to his lumbar MRI and his spine workup, please consult the orthopedic spine to take a look at the MRI. History of Present Illness Reason for Consultation: Insufficiency fracture left proximal tibia. Requesting Physician: . Attending Physician: Ko Arita MD Keith is a 88-year-old male who fell about 2 months ago. He was having left leg pain. He was admitted to [facility] about a month ago. He was here for generalized ambulatory dysfunction and leg pain. He was then discharged to [facility] and then discharged to home. I spoke with his son. He normally ambulates at home with a walker. He lives in a house with his . Unfortunately his leg pain was getting worse. He returned to [facility] and x-rays of his left leg showed an insufficiency fracture of the metadiaphyseal region of the left proximal tibia. He is also complaining of pain rating down the left leg. He had an MRI of his lumbar spine. He was admitted to the medical service. Orthopedics was consulted to evaluate and treat.. Allergies Allergy/AdvReac Type Severity Reaction Status Date / Time amoxicillin [From Augmentin] Allergy Mild diarrhea Verified 02/11/24 10:34 clavulanic acid Allergy Mild diarrhea Verified 02/11/24 10:34 [From Augmentin] mirtazapine [From Remeron] Allergy Confusion Unverified 02/11/24 10:34 Home Medications Medication Instructions Recorded Confirmed Type aspirin 81 mg tablet,delayed 81 mg PO QAM 04/11/22 02/11/24 History release atorvastatin 10 mg tablet 10 mg PO QAM 04/11/22 02/11/24 History cholecalciferol (vitamin D3) 125 125 mcg PO QAM 04/11/22 02/11/24 History mcg (5,000 unit) tablet (Vitamin D3) melatonin 10 mg tablet 20 mg PO HS 04/11/22 02/11/24 History vit C 250 mg-vit E 90 mg-zinc 40 1 tab PO QAM 04/11/22 02/11/24 History mg-copper 1 [id number] capsule (PreserVision AREDS-2) clopidogrel 75 mg tablet 75 mg PO QAM 06/09/22 02/11/24 History ciclopirox 8 % topical solution 1 applic topical BID 01/01/24 02/11/24 History psyllium 1 tbsp PO QAM 01/01/24 02/11/24 History acetaminophen 500 mg tablet 1,000 mg (2 x 500 mg) PO TID #90 01/03/24 02/11/24 Rx (Tylenol Extra Strength) tabs lidocaine 5 % topical patch 1 patch transdermal QAM #10 ea 01/03/24 02/11/24 Rx celecoxib 200 mg capsule 200 mg PO DAILY 02/11/24 02/11/24 History prednisone 20 mg tablet See Rx Instructions .Route .COMPLEX 02/11/24 02/11/24 History Past Med/Surg History Problem List Bilateral lower extremity edema Closed fracture of left proximal tibia (Acute) Sciatica (Acute) Spinal stenosis (Acute) Closed left tibial fracture Osteoarthritis involving multiple joints on both sides of body Contusion of left knee Abrasion (Acute) Fall (Acute) Ambulatory dysfunction (Acute) Acute knee pain (Acute) Right rib fracture Ambulatory dysfunction Left leg pain Left knee pain Encounter for pre-operative examination Back pain Lumbar stenosis with neurogenic claudication (Chronic) Head injury (Acute) Lumbar contusion (Acute) Frequent falls (Chronic) Constipation Edema (Chronic) Abnormal MRI, pelvis Skin ulcers of both feet Traumatic wound (Acute) Stroke-like symptoms (Acute) Elevated troponin (Acute) Left sided numbness (Acute) Left leg weakness (Acute) Carcinoma of prostate (Chronic) DVT prophylaxis Discharge planning issues CVA (cerebral vascular accident) Dyslipidemia, goal LDL below 70 Arthritis of right knee Status post knee replacement Encounter for consultation Leukocytosis Urethral stricture Acute urinary retention COPD (chronic obstructive pulmonary disease) H/O: CVA (cerebrovascular accident) 2019 ([facility]), residual memory problems and shuffling of feet Medical History History of urinary incontinence "wears depends" History of COVID-19 Approximately 2020 > all symptoms resolved Poor historian History of squamous cell carcinoma History of basal cell carcinoma Hearing deficit B/L [place] Chronic bronchitis Chronic cough "worked in the [place]" Osteoarthritis Obesity Hereditary hemochromatosis Monitoring, labs have been "WNL" History of TIA (transient ischemic attack) 3.5 years ago Anemia Chronic back pain Hyperlipidemia H/O intracranial hemorrhage 20 + years ago Prostate cancer s/p XRT only - 15 years ago Surgical History History of total knee arthroplasty History of colonoscopy History of prostate biopsy History of tooth extraction History of cataract surgery History of lumbar surgery History of squamous cell carcinoma excision History of basal cell carcinoma (BCC) excision Family History Father Coronary heart disease Sister Cancer Other No family history of adverse response to anesthesia Social History Smoking Status: Never smoker Cigarettes Per Day: on on occasion; Second Hand Exposure: No; Do You Dip or Chew Tobacco: No; Hx Alcohol Use: No Hx Substance Use: No Preferred Language: Brazilian Communication Ability: Effective 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 Physical Exam On physical examination of the left leg, he is lying comfortably with his knee flexed at about 30 degrees. He is a lot of tenderness palpation over the proximal tibia. I am unable to move his leg much due to his tibial pain. He can do active dorsiflexion plantarflexion of his left ankle.. Constitutional WD/WN, vitals as above Eyes PERRL, conjunctivae normal, anicteric sclerae ENMT external ear and nose normal, oropharynx normal Neck trachea midline, no thyromegaly Respiratory normal respiratory effort Cardiovascular RRR, no murmur, no edema Gastrointestinal (Abdomen) normal bowel sounds, soft, nontender, no hepatosplenomegaly Psychiatric A+Ox3, euthymic affect Results & Data Results & Data Laboratory Results . Diagnostic Findings X-rays of the left tib-fib show signs of insufficiency fracture in the metadiaphyseal region of the left tibia.. PG Care Time/CCT Total # of Minutes Spent Total Time Spent with Patient: Total time spent is greater than 50% in coordination of care (as documented) at patient's floor/unit and/or counseling patient: Coding Level of Care Code 58490 IN/OBS CONSULT LVL 4,60M Diagnoses Closed fracture of left proximal tibia S82.102A Encounter type: initial encounter Fracture morphology: unspecified fracture morphology (1) Closed fracture of left proximal tibia Encounter type: initial encounter Fracture morphology: unspecified fracture morphology Qualified Code(s): S82.102A - Unspecified fracture of upper end of left tibia, initial encounter for closed fracture
[2024-02-11] MEDS: KETOROLAC TROMETHAMINE 15 MG/ML VIAL IV PRN (23:01)
[2024-02-12] MEDS: oxyCODONE HCL IR 5 MG TAB (IMMEDIATE RELEASE) PO PRN (05:08)
[2024-02-12 06:44] LABS: Hemoglobin 11.1 g/dl (14.0-18.0); Mean Corpuscular Hgb Conc 32.6 g/dL (32.0-36.0); Mean Corpuscular Volume 88.8 fL (80.0-100.0); Mean Platelet Volume 10.1 fL (9.4-12.4); Platelet Count 217 K/uL (130-400); RDW Standard Deviation 45.3 fL (36.4-46.3); Red Blood Count 3.83 M/uL (4.70-6.10); White Blood Count 16.13 K/ul (4.8-10.8)
[2024-02-12 07:08] LABS: BUN Creatinine Ratio 25.2 (10-20); Calcium 9.1 mg/dl (8.6-10.3); Creatinine Clr Calc Pharmacy 47.4 ml/min; Est GFR (African American) 55.6 ml/min; Est GFR (Non-African American) 47.9 ml/min; Magnesium 2.1 mg/dl (1.7-2.4); Phosphorus 4.1 mg/dl (2.5-4.9); Potassium 4.5 mmol/L (3.5-5.1)
[2024-02-12] MEDS ORDERED: PSYLLIUM PO SCH (09:00)
[2024-02-12] MEDS: HYDROmorphone INJ 0.5 MG/0.5 ML SYR IV PRN (09:41)
[2024-02-12] MEDS: POLYETHYLENE (MIRALAX) 17 GM PACK PO SCH (09:45)
[2024-02-12] MEDS: ATORVASTATIN 10 MG TAB PO SCH (09:46)
[2024-02-12] MEDS: CHOLECALCIFEROL 125 MCG (5,000 UNITS) TAB PO SCH (09:46)
[2024-02-12] MEDS: ASPIRIN 81 MG ECTAB PO SCH (09:46)
[2024-02-12] MEDS: CLOPIDOGREL BISULFATE 75 MG TAB PO SCH (09:46)
[2024-02-13] MEDS: MoRPHine SULFATE 2 MG/ML CARP IV PRN ×2 (05:20→15:03)
--- NOTE | 2024-02-13 11:05 | Orthopedic Consultation ---
Date of Consultation February 13, 2024 Assessment & Plan (1) Spinal stenosis: Patient presents with moderate spinal stenosis at several levels. He has a history similar for back surgery 15 to 20 years ago and said chronic back pain ever since. With only an incomplete MRI would not recommend any acute surgical intervention. He is more of a candidate for outpatient treatment through pain management with different types of injections. He has significant medical comorbidities that would preclude him from being an ideal patient for surgical intervention. Dr. Magaña and I have reviewed the films and he agrees. History of Present Illness Attending Physician: Sincere Romero MD History of Present Illness Patient is an 88-year-old male who is brought to the emergency room on 02/11/2024. He presented with ambulatory dysfunction and left leg pain. Through his workup they had found a left proximal tibia fracture the patient also complained of pain going further down his leg into the park and foot and an MRI of his lumbar spine was obtained. There are MRI is very limited secondary to patient's intolerance to lie still. He was seen today bedside in room 375. Unfortunately the patient's hearing aids while available were not charged and was difficult significative. He states he has had back pain for a number of years having had a surgery 15 to 20 years ago. Is always had some degree of aching back pain but has recently worsened. He has not had any recent treatments for his back he has not had any physical therapy or pain management. He is not having much in the way of symptoms on the right-hand side he denies any other numbness, tingling, or paresthesias. Allergies Allergy/AdvReac Type Severity Reaction Status Date / Time amoxicillin [From Augmentin] Allergy Mild diarrhea Verified 02/11/24 10:34 clavulanic acid Allergy Mild diarrhea Verified 02/11/24 10:34 [From Augmentin] mirtazapine [From Remeron] Allergy Confusion Unverified 02/11/24 10:34 Home Medications Medication Instructions Recorded Confirmed Type aspirin 81 mg tablet,delayed 81 mg PO QAM 04/11/22 02/11/24 History release atorvastatin 10 mg tablet 10 mg PO QAM 04/11/22 02/11/24 History cholecalciferol (vitamin D3) 125 125 mcg PO QAM 04/11/22 02/11/24 History mcg (5,000 unit) tablet (Vitamin D3) melatonin 10 mg tablet 20 mg PO 04/11/22 02/11/24 History vit C 250 mg-vit E 90 mg-zinc 40 1 tab PO QAM 04/11/22 02/11/24 History mg-copper 1 [id number] capsule (PreserVision AREDS-2) clopidogrel 75 mg tablet 75 mg PO QAM 06/09/22 02/11/24 History ciclopirox 8 % topical solution 1 applic topical BID 01/01/24 02/11/24 History psyllium 1 tbsp PO QAM 01/01/24 02/11/24 History acetaminophen 500 mg tablet 1,000 mg (2 x 500 mg) PO TID #90 01/03/24 02/11/24 Rx (Tylenol Extra Strength) tabs lidocaine 5 % topical patch 1 patch transdermal QAM #10 ea 01/03/24 02/11/24 Rx celecoxib 200 mg capsule 200 mg PO DAILY 02/11/24 02/11/24 History prednisone 20 mg tablet See Rx Instructions .Route .COMPLEX 02/11/24 02/11/24 History Patient History Medical History History of urinary incontinence "wears depends" History of COVID-19 Approximately 2019 > all symptoms resolved Poor historian History of squamous cell carcinoma History of basal cell carcinoma Hearing deficit B/L [place] Chronic bronchitis Chronic cough "worked in the [place]" Osteoarthritis Obesity Hereditary hemochromatosis Monitoring, labs have been "WNL" History of TIA (transient ischemic attack) 3.5 years ago Anemia Chronic back pain Hyperlipidemia H/O intracranial hemorrhage 20 + years ago Prostate cancer s/p XRT only - 15 years ago Surgical History History of total knee arthroplasty History of colonoscopy History of prostate biopsy History of tooth extraction History of cataract surgery History of lumbar surgery History of squamous cell carcinoma excision History of basal cell carcinoma (BCC) excision Family History Father Coronary heart disease Sister Cancer Other No family history of adverse response to anesthesia Social History Smoking Status: Never smoker Cigarettes Per Day: on on occasion; Second Hand Exposure: No; Do You Dip or Chew Tobacco: No; Hx Alcohol Use: No Hx Substance Use: No Preferred Language: South Korean Communication Ability: Effective Remotely Operated Vehicle Required: No Beliefs That Will Affect Care: None marital status: Current Living Situation: Spouse Feels Safe at Home: Yes Safety Concerns: Feels Safe At This Time Assistive Devices: Glasses, Hearing Aid - Bilateral and Walker Physical Exam Physical Exam: On exam he is lying in bed. He is alert and oriented but hard of hearing without his hearing aids. His abdomen soft and nontender. Any motion in the left lower extremity creates severe pain. He has full strength on the right- hand side the left lower extremity motor exam was very limited secondary to his pain. His sensations intact distally. His calves are supple and nontender. Visual shaver are grossly intact cardiovascular exam reveals no gross abnormalities breathing is even and nonlabored. Results & Data Vital Signs (Past 12 Hours) Vital Signs Temp Pulse Pulse Resp BP Pulse Ox O2 Del Method 02/13/24 07:35 36.4 C L 71 18 168/81 H 92 Room Air 02/13/24 03:00 36.4 C L 68 18 129/69 94 Room Air Diagnostic Findings Partial MRI of the lumbar spine is available for review. This reveals a lot of motion artifact. There are only sagittal cuts available no axial cuts are available. There is moderate stenosis at multiple levels secondary to facet arthropathy no fractures are noted. No acute disc herniations or severe spinal stenosis is noted. (1) Spinal stenosis Neurogenic claudication status: unspecified Spinal region: lumbar Qualified Code(s): M48.061 - Spinal stenosis, lumbar region without neurogenic claudication
--- NOTE | 2024-02-13 13:21 | Hospitalist Progress Note ---
Date of Service February 13, 2024 Assessment & Plan (1) Ambulatory dysfunction: (2) Closed left tibial fracture: (3) Bilateral lower extremity edema: Plan per admitting service notes with addendum: Keith Israel is an 88y/o M with PMHx of hyperlipidemia, history of CVA [2019], COPD, osteoarthritis, hereditary hemochromatosis, history of prostate cancer, urinary incontinence and other problems listed below who presented from home to the ED via EMS for evaluation secondary to back pain and ambulatory difficulty. Most recent confinement 12/31-01/02 for ambulatory dysfunction and right rib fracture. He was ultimately discharged to [facility] for rehabilitation services. Patient had a fall that occurred on December 12. He was seen and evaluated in the ED following that fall. X-ray of the left knee at that time was negative and patient was discharged home with instructions for supportive care. Ambulatory Dysfunction Closed Left Tibial Fracture CTAP negative. CXR negative, though cardiomegaly is noted. L femur XR w/ an acute to subacute fx of the proximal tibial metadiaphysis. L tib/fib XR once again shows the tibial fx, may represent an insufficiency fracture. MRI lumbar spine, CT LLE pending - follow results. Leukocytosis likely reactive ISO pain, UA neg. Hgb stable (baseline ~11-13). Routine ortho consult, PT/OT evals, pain regimen, fall precautions, orthostatic vitals. Condom catheter ordered given limited mobility. NPO for now pending ortho evaluation. Will resume normal diet if no surgery is required. 02/12 Evaluated by orthopedic service, does not recommend surgical intervention for tibial fracture at this point Nonweightbearing left lower extremity, pain control, PT and OT evaluation Intractable low back pain, bilateral moderate canal stenosis Orthopedic spine surgery consulted, does not recommend surgical intervention Pain management service consulted Left LE Edema Pt w/ 1-2+ pitting edema in BLE on exam. 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 BNP and echo pending - follow results. 02/12 Echocardiogram: No signs of CHF Doppler studies: Negative for DVT Left lower extremity edema likely secondary to fracture Continue leg elevation Hyperlipidemia: Continue LIGHT FIXTURE SERVICER atorvastatin, LFTs WNL. H/O CVA: Continue LIGHT FIXTURE SERVICER aspirin and clopidogrel. DVT Prophylaxis: TEDs for now pending orthopedic evaluation. Heparin SC BID Code Status: FULL CODE PCP: Ewa Galindo MD Disposition: discussed with patient's son family prefers patient to return to acute rehab after hospitalization Admission and Anticipated Discharge Date Admission Date: February 11, 2024 Subjective Follow-up for intractable back pain, dysfunction, etc. Seen resting in bed, sleeping but easily awakened States he still having significant low back pain, with radiation to bilateral lower extremities No paresthesias, numbness No other new symptoms Review of Systems Review of Systems: all noted and negative except for above Physical Exam Physical Exam: General- oriented x 3, not in distress, speaks in sentences with no effort or accessory muscle use Eyes- anicteric Neck- no JVD Lungs- clear breath sounds bilaterally, no rales/wheezes Heart- normal rate, regular rhythm; no murmurs Abdomen- normal bowel sounds, nondistended, soft, nontender Extremities- no pretibial edema, no calf tenderness Neuro- alert, oriented x 3; no gross focal neurologic deficits Skin- warm & dry Results & Data Results & Data Vital Signs (Past 12 Hours) Vital Signs Temp Pulse Pulse Resp BP Pulse Ox O2 Del Method 02/13/24 11:30 36.5 C 72 18 124/68 95 Room Air 02/13/24 07:35 36.4 C L 71 18 168/81 H 92 Room Air 02/13/24 03:00 36.4 C L 68 18 129/69 94 Room Air all noted and reviewed including below (2) Closed left tibial fracture Encounter type: initial encounter Tibia location: proximal Fracture morphology: unspecified fracture morphology Qualified Code(s): S82.102A - Unspecified fracture of upper end of left tibia, initial encounter for closed fracture
--- NOTE | 2024-02-13 14:03 | Pain Management Consultation ---
Date of Consultation February 13, 2024 Assessment & Plan (1) Left lumbar radiculopathy: (2) Ambulatory dysfunction: (3) Acute exacerbation of chronic low back pain: (4) Closed fracture of left proximal tibia: Encounter type: initial encounter Fracture morphology: u nspecified fracture morphology Qualified Code(s): S82.102A - Unspecified fracture of upper end of left tibia, initial encounter for closed fracture Plan 1. Patient with a recent fall in November with progressive difficulties with low back pain and left lower extremity radicular pain with resultant ambulatory dysfunction with suspected lumbar radiculopathy etiology. MRI was of significantly poor quality when completed on 02/11/2024 and therefore interpretation was unable to be reliable. Potentially consider updating imaging with the patient being premedicated versus sedated and attempt to better define potential etiology of a radicular pattern pain to determine his potential candidacy for interventional treatment with persisting pain complaints 2. Will initiate Medrol Dosepak after discussion with hospitalist team. 3. Would defer gabapentin due to his age and concerns over side effect profile 4. He will continue with as needed breakthrough pain medications as currently written with slight dose adjustment per hospitalist service 5. Will monitor response to above. History of Present Illness Reason for Consultation: Intractable low back and left lower extremity pain Requesting Physician: Sincere Romero MD Attending Physician: Sincere Romero MD History of Present Illness Mr. Hadley is an 88-year-old white male with past medical history significant for hyperlipidemia, history of CVA in 2019, COPD, osteoarthritis, hereditary hemochromatosis, history of prostate cancer, urinary incontinence who was admitted due to back pain and ambulatory dysfunction. The patient had a fall occurring in late November and was admitted in early December for ambulatory dysfunction and right rib fracture who was ultimately discharged to [facility] for rehabilitative services.. The patient has had progressive difficulties with with his ambulatory dysfunction which led to this admission. He is complaining of left-sided low back pain and left lower extremity radicular pain to the level of the ankle which appears to be traveling in a predominant L4 distribution. Patient describes the pain as sharp, burning and shooting in characteristic aggravated with any movement. He reports his pain is 50% axial in the left lumbosacral region to 50% radicular as described above. He denies any overt weaknesses but reports significant difficulty with any ambulation due to pain with movement and any attempted weightbearing. An MRI was attempted during this admission but he had difficulty lying still and the images were of poor quality. The patient was found to have a closed fracture of the left proximal tibia upon this admission which is nondisplaced and no surgical intervention has been recommended. The patient denies any right sided low back pain or right lower extremity radicular pain. He does report a remote history of lumbar spine surgery and prior injection therapies greater than 15 years ago. He is uncertain as to the levels previously treated. He denies bowel/bladder incontinence or saddle anesthesia. Patient has no further constitutional complaints. Plan of care discussed with Dr. Veda Braga. Pain Assessment Full Body Front + Back: 2 1. Left lower extremity radicular pain-predominant L4 distribution 2. Left-sided lumbosacral pain extending into the gluteal region Pain scale - at its best (0-10): 4 Pain scale - at its worst (0-10): 10 Allergies Allergy/AdvReac Type Severity Reaction Status Date / Time amoxicillin [From Augmentin] Allergy Mild diarrhea Verified 02/11/24 10:34 clavulanic acid Allergy Mild diarrhea Verified 02/11/24 10:34 [From Augmentin] mirtazapine [From Remeron] Allergy Confusion Unverified 02/11/24 10:34 Home Medications Medication Instructions Recorded Confirmed Type aspirin 81 mg tablet,delayed 81 mg PO QAM 04/11/22 02/11/24 History release atorvastatin 10 mg tablet 10 mg PO QAM 04/11/22 02/11/24 History cholecalciferol (vitamin D3) 125 125 mcg PO QAM 04/11/22 02/11/24 History mcg (5,000 unit) tablet (Vitamin D3) melatonin 10 mg tablet 20 mg PO HS 04/11/22 02/11/24 History vit C 250 mg-vit E 90 mg-zinc 40 1 tab PO QAM 04/11/22 02/11/24 History mg-copper 1 [id number] capsule (PreserVision AREDS-2) clopidogrel 75 mg tablet 75 mg PO QAM 06/09/22 02/11/24 History ciclopirox 8 % topical solution 1 applic topical BID 01/01/24 02/11/24 History psyllium 1 tbsp PO QAM 01/01/24 02/11/24 History acetaminophen 500 mg tablet 1,000 mg (2 x 500 mg) PO TID #90 01/03/24 02/11/24 Rx (Tylenol Extra Strength) tabs lidocaine 5 % topical patch 1 patch transdermal QAM #10 ea 01/03/24 02/11/24 Rx celecoxib 200 mg capsule 200 mg PO DAILY 02/11/24 02/11/24 History prednisone 20 mg tablet See Rx Instructions .Route .COMPLEX 02/11/24 02/11/24 History Pain History Pain Intensity Pain scale - at its best (0-10): 4 Pain scale - at its worst (0-10): 10 Patient History Medical History History of urinary incontinence "wears depends" History of COVID-19 Approximately 2019 > all symptoms resolved Poor historian History of squamous cell carcinoma History of basal cell carcinoma Hearing deficit B/L [place] Chronic bronchitis Chronic cough "worked in the [employer]" Osteoarthritis Obesity Hereditary hemochromatosis Monitoring, labs have been "WNL" History of TIA (transient ischemic attack) 3.5 years ago Anemia Chronic back pain Hyperlipidemia H/O intracranial hemorrhage 20 + years ago Prostate cancer s/p XRT only - 15 years ago Surgical History History of total knee arthroplasty History of colonoscopy History of prostate biopsy History of tooth extraction History of cataract surgery History of lumbar surgery History of squamous cell carcinoma excision History of basal cell carcinoma (BCC) excision Family History Father Coronary heart disease Sister Cancer Other No family history of adverse response to anesthesia Social History Smoking Status: Never smoker Cigarettes Per Day: on on occasion; Second Hand Exposure: No; Do You Dip or Chew Tobacco: No; Hx Alcohol Use: No Hx Substance Use: No Preferred Language: Kinyarwanda Communication Ability: Effective Tobacco Grader Required: No Beliefs That Will Affect Care: None marital status: Current Living Situation: Spouse Feels Safe at Home: Yes Safety Concerns: Feels Safe At This Time Assistive Devices: Glasses, Hearing Aid - Bilateral and Walker Physical Exam 2 Physical Exam: General: Patient sitting quietly in exam room in no acute distress. Speech and thought process appropriate. Mood and affect appropriate. Cognition intact. Patient extremely hard of hearing but communication was moderately effective. Head: Normocephalic and atraumatic. ENT: No evidence of nasal or oral mucosal lesions. Mucous membranes are moist. Poor dentition. Eyes: Pupils equal round reactive to light. Neck: Supple without adenopathy and full range of motion. Abdomen: Soft and nondistended. No organomegaly. Bowel sounds active. Back/spine: Patient able to logroll towards his right side with notable discomfort. He has complete loss of lumbar lordosis. He is diffusely tender in the left lumbosacral and gluteal region to palpation. There is no evidence of skin breakdown or rash. Lower extremities: SLR positive at approximately 10-15 degrees reproducing L4 radicular pain aggravated with dorsiflexion. Any attempted active motion of the left lower extremity reproduced radicular pattern pain. Sensation was intact to sharp and dull. He is no allodynia or hyperpathia. He has trace-1+ pitting edema of the ankle pretibial location bilaterally. Patient is able to dorsiflex and plantarflex with slight increase in discomfort with strength noted to be 5/5 and equal. EHL testing was 5/5 and equal. Neurologic: Cranial nerves grossly intact. Ambulatory function not witnessed. Results (Pain Clinic) Diagnostic Review MRI Findings: [place], [place] [phone] Magnetic Resonance Report Patient: ARCHANA HADLEY Admit Date: 02/11/24 MR#: [id number] Address1: [facility] [address] Acct ID:[id number] Address2: Date: 1935 [facility] Zip: [place] [address] Age: 88 Location: 2N Sex: M Room/Bed: [facility] Att Phy: Ko Arita MD Diagnosis: AMBULATORY DYSFUNCTION, l TIBIAL FX Dalila Phy: Talon Galindo M.D. Service Date: 02/11/24 Fam Phy: Interpreting Phy: Adrian Sands MDAdmit Phy: Ko Arita MD Ordering Phy: Shannan Aldana PA-C cc: ~ MR lumbar spine wo con CLINICAL HISTORY: Low back pain TECHNIQUE: Multiplanar sequences through the lumbar spine were obtained, without intravenous contrast. Comparison: Comparison is made to MRI lumbar spine 07/14/2018 FINDINGS: Exam is limited by patient motion. The alignment is anatomical. L1-L2: No significant abnormality. L2-L3: Degenerative changes are seen with no significant canal or neuroforaminal stenosis. L3-L4: Disc osteophyte complexes seen with moderate bilateral neural foraminal stenosis. L4-L5: Disc osteophyte complex is seen with moderate bilateral neuroforaminal stenosis. L5-S1: No significant abnormality. The spinal ligaments are intact, without evidence of disruption or abnormal signal intensity. The spinal cord is normal in signal intensity and there is no evidence of cord contusion. There is no evidence of an extradural, intradural, extramedullary or intramedullary lesion. Visualized soft tissues are normal. IMPRESSION: Limited exam due to patient intolerance. Multilevel degenerative changes are seen with up to moderate canal stenosis, similar to prior exam. ACT 112: Negative or not required by law. Electronically signed by: Adrian Sands M.D. 02/11/2024 1:42 PM Dictated: 02/11/24 1335 Transcribed: 02/11/[address] Findings: [facility], [place] [phone] CT Scan Report Patient: ARCHANA HADLEY Admit Date: 02/11/24 MR#: [id number] Address1: [facility] [address] Acct ID:[id number] Address2: Date: 1935 [facility] Zip: [place] [address] Age: 88 Location: ED Sex: M Room/Bed: Att Phy: Diagnosis: BACK PAIN, LEG PAIN Dalila Phy: Talon Galindo M.D. Service Date: 02/11/24 [facility] Phy: Interpreting Phy: Yair Contreras MDAdmit Phy: Ordering Phy: Shannan Aldana PA-C cc: ~ LEFT TIBIA/FIBULA CT CT DOSE: HISTORY: L tibial fx, ambulatory dysfunction TECHNIQUE: Multiaxial CT images of the left tibia/fibula were performed and reformatted in the sagittal and coronal plane without the use of contrast. A dose lowering technique was utilized adhering to the principles of ALARA. COMPARISON: Left lower leg radiograph 02/11/2024. FINDINGS: Confirmation of the proximal left tibial fracture to slightly comminuted. The fracture appears to be subacute/healing and is nondisplaced. There is mild surrounding callus formation. There is a transverse component involving the proximal metadiaphysis of the tibia with a vertical component that extends to the articular surface at the lateral tibial spine. No significant knee effusion. No dislocation. Subcutaneous edema within the left lower leg. The fibula appears intact. IMPRESSION: Slightly comminuted and healing proximal left tibial fracture as described above which extends to the articular surface. ACT 112: Negative or not required by law. Electronically signed by: Yair Contreras M.D. 02/11/2024 1:12 PM Dictated: 02/11/24 1309 Transcribed: 02/11/24 1309
[2024-02-13] MEDS ORDERED: HYDROmorphone INJ 0.5 MG/0.5 ML SYR IV PRN (14:04)
[2024-02-13] MEDS ORDERED: methylPREDNISolone 4 MG TAB, 6 DAY TAPER PO SCH (14:15)
[2024-02-13] MEDS: methylPREDNISolone 4 MG TAB PO ONE (15:04)
[2024-02-13] MEDS: methylPREDNISolone 4 MG TAB PO SCH ×2 (19:20→22:04)
[2024-02-14] MEDS ORDERED: OLANZapine 10 MG/2.1 ML SDV IM PRN (05:25)
[2024-02-14] MEDS: OLANZapine 10 MG/2.1 ML SDV IM STA (05:35)
[2024-02-14] MEDS: methylPREDNISolone 4 MG TAB PO SCH ×2 (08:35→21:47)
--- NOTE | 2024-02-14 15:06 | Hospitalist Progress Note ---
Date of Service February 14, 2024 Assessment & Plan (1) Ambulatory dysfunction: (2) Closed left tibial fracture: (3) Bilateral lower extremity edema: Plan per admitting service notes with addendum: Keith Israel is an 88y/o M with PMHx of hyperlipidemia, history of CVA [2019], COPD, osteoarthritis, hereditary hemochromatosis, history of prostate cancer, urinary incontinence and other problems listed below who presented from home to the ED via EMS for evaluation secondary to back pain and ambulatory difficulty. Most recent confinement 12/31-01/02 for ambulatory dysfunction and right rib fracture. He was ultimately discharged to [facility] for rehabilitation services. Patient had a fall that occurred on December 12. He was seen and evaluated in the ED following that fall. X-ray of the left knee at that time was negative and patient was discharged home with instructions for supportive care. Ambulatory Dysfunction Closed Left Tibial Fracture CTAP negative. CXR negative, though cardiomegaly is noted. L femur XR w/ an acute to subacute fx of the proximal tibial metadiaphysis. L tib/fib XR once again shows the tibial fx, may represent an insufficiency fracture. MRI lumbar spine, CT LLE pending - follow results. Leukocytosis likely reactive ISO pain, UA neg. Hgb stable (baseline ~11-13). Routine ortho consult, PT/OT evals, pain regimen, fall precautions, orthostatic vitals. Condom catheter ordered given limited mobility. NPO for now pending ortho evaluation. Will resume normal diet if no surgery is required. 02/12 Evaluated by orthopedic service, does not recommend surgical intervention for tibial fracture at this point Nonweightbearing left lower extremity, pain control, PT and OT evaluation Intractable low back pain, bilateral moderate canal stenosis Orthopedic spine surgery consulted, does not recommend surgical intervention Pain management service consulted 02/13 Currently on Solu-Medrol Dosepak As needed oxycodone, morphine Monitor closely for confusion, delirium May need steroid injections if above regimen proved to be ineffective Pain management service on board Left LE Edema Pt w/ 1-2+ pitting edema in BLE on exam. Not on any diuretic therapy TERMINOLOGIST. BNP and echo pending - follow results. 02/12 Echocardiogram: No signs of CHF Doppler studies: Negative for DVT Left lower extremity edema likely secondary to fracture Continue leg elevation Hyperlipidemia: Continue TERMINOLOGIST atorvastatin, LFTs WNL. H/O CVA: Continue TERMINOLOGIST aspirin and clopidogrel. DVT Prophylaxis: Heparin SC BID Code Status: FULL CODE PCP: Ewa Galindo MD Disposition: discussed with patient's son family prefers patient to return to acute rehab after hospitalization Admission and Anticipated Discharge Date Admission Date: February 11, 2024 Subjective Follow-up for intractable back pain, etc. Seen resting in bed, not in distress States he still has low back pain, about the same as yesterday Noted to be somewhat confused this morning by RN Answering most questions appropriately on my exam No headache, dizziness, chest pain, shortness of breath, abdominal pain No other new symptoms Review of Systems Review of Systems: all noted and negative except for above Physical Exam Physical Exam: General- oriented x 3, not in distress, speaks in sentences with no effort or accessory muscle use Eyes- anicteric Neck- no JVD Lungs- clear breath sounds bilaterally, no rales/wheezes Heart- normal rate, regular rhythm; no murmurs Abdomen- normal bowel sounds, nondistended, soft, no tenderness Extremities- no pretibial edema, no calf tenderness Neuro- alert, oriented x 3; no gross focal neurologic deficits Skin- warm & dry Results & Data Results & Data Vital Signs (Past 12 Hours) Vital Signs Temp Pulse Resp BP Pulse Ox O2 Del Method 02/14/24 07:52 36.3 C L 83 18 132/78 94 Room Air 02/14/24 04:30 36.6 C 96 H 20 148/82 H 93 Room Air all noted and reviewed including below (2) Closed left tibial fracture Encounter type: initial encounter Tibia location: proximal Fracture morphology: unspecified fracture morphology Qualified Code(s): S82.102A - Unspecified fracture of upper end of left tibia, initial encounter for closed fracture
[2024-02-14] MEDS: MELATONIN 3 MG TAB PO PRN (21:47)
[2024-02-14] MEDS: FAMOTIDINE 20 MG TAB PO SCH (21:47)
[2024-02-14] MEDS: HEPARIN SOD 5,000 UNIT/0.5 ML VIAL SQ SCH (21:48)
[2024-02-14] MEDS: POLYETHYLENE (MIRALAX) 17 GM PACK PO PRN (22:00)
[2024-02-15] MEDS: methylPREDNISolone 4 MG TAB PO SCH (06:24)
--- NOTE | 2024-02-15 15:24 | Hospitalist Progress Note ---
Date of Service February 15, 2024 Assessment & Plan (1) Ambulatory dysfunction: (2) Closed left tibial fracture: (3) Bilateral lower extremity edema: Plan per admitting service notes with addendum: Keith Israel is an 88y/o M with PMHx of hyperlipidemia, history of CVA [2019], COPD, osteoarthritis, hereditary hemochromatosis, history of prostate cancer, urinary incontinence and other problems listed below who presented from home to the ED via EMS for evaluation secondary to back pain and ambulatory difficulty. Most recent confinement 12/31-01/02 for ambulatory dysfunction and right rib fracture. He was ultimately discharged to [facility] for rehabilitation services. Patient had a fall that occurred on December 12. He was seen and evaluated in the ED following that fall. X-ray of the left knee at that time was negative and patient was discharged home with instructions for supportive care. Ambulatory Dysfunction Closed Left Tibial Fracture CTAP negative. CXR negative, though cardiomegaly is noted. L femur XR w/ an acute to subacute fx of the proximal tibial metadiaphysis. L tib/fib XR once again shows the tibial fx, may represent an insufficiency fracture. MRI lumbar spine, CT LLE pending - follow results. Leukocytosis likely reactive ISO pain, UA neg. Hgb stable (baseline ~11-13). Routine ortho consult, PT/OT evals, pain regimen, fall precautions, orthostatic vitals. Condom catheter ordered given limited mobility. NPO for now pending ortho evaluation. Will resume normal diet if no surgery is required. 02/12 Evaluated by orthopedic service, does not recommend surgical intervention for tibial fracture at this point Nonweightbearing left lower extremity, pain control, PT and OT evaluation Intractable low back pain, bilateral moderate canal stenosis Orthopedic spine surgery consulted, does not recommend surgical intervention Pain management service consulted 02/13 Currently on Solu-Medrol Dosepak As needed oxycodone, morphine Monitor closely for confusion, delirium May need steroid injections if above regimen proved to be ineffective Pain management service on board 02/14 pain level about the same will discuss with Pain Mgt re: inpatient steroid injection Left LE Edema Pt w/ 1-2+ pitting edema in BLE on exam. Not on any diuretic therapy TOOTH CUTTER CONTACT WHEEL. BNP and echo pending - follow results. 02/12 Echocardiogram: No signs of CHF Doppler studies: Negative for DVT Left lower extremity edema likely secondary to fracture Continue leg elevation Hyperlipidemia: Continue TOOTH CUTTER CONTACT WHEEL atorvastatin, LFTs WNL. H/O CVA: Continue TOOTH CUTTER CONTACT WHEEL aspirin and clopidogrel. DVT Prophylaxis: Heparin SC BID Code Status: FULL CODE PCP: Ewa Galindo MD Disposition: discussed with patient's son family prefers patient to return to acute rehab after hospitalization Admission and Anticipated Discharge Date Admission Date: February 11, 2024 Subjective ff up for intractable back pain, etc seen resting in bed, comfortable sleeping but easily awakened still having low back pain no leg weakness/numbness/paresthesias no other symptoms Review of Systems Review of Systems: all noted and negative except for above Physical Exam Physical Exam: General- oriented x 3, not in distress, speaks in sentences with no effort or accessory muscle use Eyes- anicteric Neck- no JVD Lungs- clear breath sounds bilaterally, no rales/wheezes Heart- normal rate, regular rhythm; no murmurs Abdomen- normal bowel sounds, nondistended, soft, nontender Extremities- no pretibial edema, no calf tenderness Neuro- alert, oriented x 3; no gross focal neurologic deficits Skin- warm & dry Results & Data Results & Data Vital Signs (Past 12 Hours) Vital Signs Temp Pulse Resp BP Pulse Ox O2 Del Method 02/15/24 15:21 36.5 C 56 L 18 116/70 94 Room Air 02/15/24 07:46 36.5 C 61 16 158/75 H 94 Room Air all noted and reviewed including below (2) Closed left tibial fracture Encounter type: initial encounter Fracture morphology: unspecified fracture morphology Tibia location: proximal Qualified Code(s): S82.102A - Unspecified fracture of upper end of left tibia, initial encounter for closed fracture
[2024-02-16] MEDS: methylPREDNISolone 4 MG TAB PO SCH (06:08)
--- NOTE | 2024-02-16 08:39 | Pain Management Progress Note ---
Date of Service February 16, 2024 Assessment & Plan (1) Left lumbar radiculopathy: (2) Ambulatory dysfunction: (3) Acute exacerbation of chronic low back pain: (4) Closed fracture of left proximal tibia: Encounter type: initial encounter Fracture morphology: unspecified fracture morphology Qualified Code(s): S82.102A - Unspecified fracture of upper end of left tibia, initial encounter for closed fracture (5) CVA (cerebral vascular accident): Plan 1. Recommend reimaging of his lumbar spine without contrast with utilization of Oxy IR prior to study. If patient is again unable to tolerate the procedure recommend consideration of sedation versus study with anesthesia support. 2. Recommend he continue his Medrol Dosepak to completion. 3. Continue Oxy IR on an as-needed basis. 4. Once MRI imaging is complete we will review the images and plan for possible interventional pain management with a lumbar epidural steroid injection but he will need to withhold his Plavix for 7 days prior to consideration of that injection. This is likely best accomplished as an outpatient due to the need to withhold Plavix for 7 days. 5. Would be happy to see the patient in my office as an outpatient postdischarge to coordinate care. Admission and Anticipated Discharge Date Admission Date: February 11, 2024 Subjective 88-year-old white male who fell late November and has had left-sided axial and left lower extremity radicular symptoms along L4 and 5. 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 He utilizes clopidogrel chronically for a history of CVA in 2019. Pain is rated at 7 out of 10 described as sharp burning shooting to the level of the ankle 50% axial 50% radicular. He admits to modest benefit with oral steroids at this time. Previous history of lumbar spine surgery at least 15 to 20 years ago. He denies bowel or bladder incontinence, foot drop, fever, chills, night sweats at this time. He does admit to history of prostate cancer and chronic urinary incontinence intermittently. In addition, he has a noted closed fracture of the left proximal tibia upon this admission which is nondisplaced and no surgical intervention has been recommended by orthopedics. Physical Exam Physical Exam: General: Patient sitting quietly in his hospital bed in no acute distress. Speech and thought process appropriate. Mood and affect appropriate. Cognition intact. Patient extremely hard of hearing Head: Normocephalic and atraumatic. Abdomen: Soft and nondistended. No organomegaly. Bowel sounds active. Back/spine: Patient able to flex his lumbar spine with moderate difficulty secondary to pain. He has complete loss of lumbar lordosis. He is diffusely tender in the left lumbosacral and gluteal region to palpation. There is no evidence of skin breakdown or rash. Lower extremities: SLR positive left lower extremity negative on the right strength testing grossly 5 out of 5 with intact sensation. Trace to 1+ edema at the ankle. Neurologic: Cranial nerves grossly intact. Ambulatory function not witnessed. Results (Pain Clinic) Diagnostic Review MRI Findings: 02/11/24 MR lumbar spine wo con CLINICAL HISTORY: Low back pain TECHNIQUE: Multiplanar sequences through the lumbar spine were obtained, without intravenous contrast. Comparison: Comparison is made to MRI lumbar spine 07/14/2018 FINDINGS: Exam is limited by patient motion. The alignment is anatomical. L1-L2: No significant abnormality. L2-L3: Degenerative changes are seen with no significant canal or neuroforaminal stenosis. L3-L4: Disc osteophyte complexes seen with moderate bilateral neural foraminal stenosis. L4-L5: Disc osteophyte complex is seen with moderate bilateral neuroforaminal stenosis. L5-S1: No significant abnormality. The spinal ligaments are intact, without evidence of disruption or abnormal signal intensity. The spinal cord is normal in signal intensity and there is no evidence of cord contusion. There is no evidence of an extradural, intradural, extramedullary or intramedullary lesion. Visualized soft tissues are normal. IMPRESSION: Limited exam due to patient intolerance. Multilevel degenerative changes are seen with up to moderate canal stenosis, similar to prior exam.
--- NOTE | 2024-02-16 13:49 | Magnetic Resonance Report ---
MRI OF THE LUMBAR SPINE WITHOUT CONTRAST CLINICAL HISTORY: Left lower extremity radiculopathy. COMPARISON STUDY: Lumbar spine MRI February 11, 2024. Lumbar spine MRI July 14, 2018. CT of the abd omen and pelvis February 11, 2024. TECHNIQUE: Utilizing a 1.5 Beena magnet and dedicated coil, multiplanar, multiecho imaging of the [facility] spine was performed without IV contrast. FINDINGS: For purposes of numbering on this exam, the L5-S1 disc space is assigned to axial image 31 of 36. John tebral body heights are maintained. There is an oblique nondisplaced fracture which extends through t he L2 vertebral body. This extends to the anterior cortex and superior endplate. There is no retropul solo or loss of vertebral body height. Moderate associated marrow edema is present. There is minimal paravertebral edema. No additional lumbar spine fractures are present. There is no suspicious marrow replacement. A 1.9 cm hemangioma within L1 vertebral body is incidentally noted. There are discogenic changes at multiple levels. There are stable postoperative findings following L3-L4 laminectomy. Pro minent epidural fat within the lower lumbar and sacral canal cyst is unchanged. L1-2: There is mild facet arthrosis with ligamentous hypertrophy. Central canal and neural foramen ar e patent. L2-3: There is moderate facet arthrosis with ligamentous hypertrophy. There is disc space narrowing w ith mild disc bulge. There is mild narrowing of the central canal. The neural foramen are patent. L3-4: Moderate disc space narrowing is noted. Postoperative findings following laminectomy. This cent ral canal stenosis. There is mild right neural foraminal stenosis. Left neural foramen is patent. L4-5: There is moderate to space narrowing. Facet arthrosis with ligamentous hypertrophy is present. Postoperative findings are noted. Mild central canal stenosis as well as mild during of both neural f oramen. L5-S1: The central canal and neural foramen are patent. IMPRESSION: 1. Oblique nondisplaced L2 vertebral body fracture with associated marrow edema and mild paravertebra l edema. No retropulsion. No extension into the posterior elements. This is suggestive of a subacute fracture. No additional lumbar spine fractures. 2. Stable postoperative findings following L3-L4 laminectomy. 3. Moderate multilevel degenerative disc disease and facet arthrosis within the lumbar spine. No kate re central canal stenosis. ACT 112: Negative or not required by law. Electronically signed by: Lupillo Wagner M.D. 02/16/2024 1:48 PM
[2024-02-16] MEDS: ARTIFICIAL TEARS OPB PRN (14:00)
--- NOTE | 2024-02-16 17:52 | Hospitalist Progress Note ---
Date of Service February 16, 2024 delayed entry date of service noted above Assessment & Plan (1) Ambulatory dysfunction: (2) Closed left tibial fracture: (3) Bilateral lower extremity edema: Plan per admitting service notes with addendum: Keith Israel is an 88y/o M with PMHx of hyperlipidemia, history of CVA [2019], COPD, osteoarthritis, hereditary hemochromatosis, history of prostate cancer, urinary incontinence and other problems listed below who presented from home to the ED via EMS for evaluation secondary to back pain and ambulatory difficulty. Most recent confinement 12/31-01/02 for ambulatory dysfunction and right rib fracture. He was ultimately discharged to [facility] for rehabilitation services. Patient had a fall that occurred on December 12. He was seen and evaluated in the ED following that fall. X-ray of the left knee at that time was negative and patient was discharged home with instructions for supportive care. Ambulatory Dysfunction Closed Left Tibial Fracture CTAP negative. CXR negative, though cardiomegaly is noted. L femur XR w/ an acute to subacute fx of the proximal tibial metadiaphysis. L tib/fib XR once again shows the tibial fx, may represent an insufficiency fracture. MRI lumbar spine, CT LLE pending - follow results. Leukocytosis likely reactive ISO pain, UA neg. Hgb stable (baseline ~11-13). Routine ortho consult, PT/OT evals, pain regimen, fall precautions, orthostatic vitals. Condom catheter ordered given limited mobility. NPO for now pending ortho evaluation. Will resume normal diet if no surgery is required. 02/12 Evaluated by orthopedic service, does not recommend surgical intervention for ti bial fracture at this point Nonweightbearing left lower extremity, pain control, PT and OT evaluation Intractable low back pain, bilateral moderate canal stenosis Orthopedic spine surgery consulted, does not recommend surgical intervention Pain management service consulted 02/13 Currently on Solu-Medrol Dosepak As needed oxycodone, morphine Monitor closely for confusion, delirium May need steroid injections if above regimen proved to be ineffective Pain management service on board 02/14 pain level about the same will discuss with Pain Mgt re: inpatient steroid injection 02/15 repeat MRI ordered by Pain Mgt Left LE Edema Pt w/ 1-2+ pitting edema in BLE on exam. 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 02/12 Echocardiogram: No signs of CHF Doppler studies: Negative for DVT Left lower extremity edema likely secondary to fracture Continue leg elevation Hyperlipidemia: Continue ABRASIVE WORKER atorvastatin, LFTs WNL. 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 DVT Prophylaxis: Heparin SC BID Code Status: FULL CODE PCP: Ewa Galindo MD Disposition: discussed with patient's son family prefers patient to return to acute rehab after hospitalization Admission and Anticipated Discharge Date Admission Date: February 11, 2024 Subjective ff up for back pain etc seen resting in bed, comfortable pain about the same no leg weakness/paresthesia no other symptoms Review of Systems Review of Systems: all noted and negative except for above Physical Exam Physical Exam: General- oriented x 3, not in distress, speaks in sentences with no effort or accessory muscle use Eyes- anicteric Neck- no JVD Lungs- clear breath sounds bilaterally, no rales/wheezes Heart- normal rate, regular rhythm; no murmurs Abdomen- normal bowel sounds, nondistended, soft, nontender Extremities- no pretibial edema, no calf tenderness Neuro- alert, oriented x 3; no gross focal neurologic deficits Skin- warm & dry Results & Data Results & Data Vital Signs (Past 12 Hours) Vital Signs Temp Pulse Pulse Resp BP Pulse Ox O2 Del Method 02/16/24 14:40 36.4 C L 69 16 125/71 96 Room Air 02/16/24 12:49 36.5 C 78 16 144/74 H 95 Room Air 02/16/24 07:52 36.4 C L 60 17 162/74 H 95 Room Air all noted and reviewed including below (2) Closed left tibial fracture Encounter type: initial encounter Fracture morphology: unspecified fracture morphology Tibia location: proximal Qualified Code(s): S82.102A - Unspecified fracture of upper end of left tibia, initial encounter for closed fracture
[2024-02-17] MEDS: methylPREDNISolone 4 MG TAB PO SCH (06:30)
[2024-02-17] MEDS: CEROVITE ADV FORMULA TAB PO SCH (10:09)
--- NOTE | 2024-02-17 17:07 | Hospitalist Progress Note ---
Date of Service February 17, 2024 Assessment & Plan (1) Ambulatory dysfunction: (2) Closed left tibial fracture: (3) Bilateral lower extremity edema: Plan per admitting service notes with addendum: Keith Israel is an 88y/o M with PMHx of hyperlipidemia, history of CVA [2019], COPD, osteoarthritis, hereditary hemochromatosis, history of prostate cancer, urinary incontinence and other problems listed below who presented from home to the ED via EMS for evaluation secondary to back pain and ambulatory difficulty. Most recent confinement 12/31-01/02 for ambulatory dysfunction and right rib fracture. He was ultimately discharged to [facility] for rehabilitation services. Patient had a fall that occurred on December 12. He was seen and evaluated in the ED following that fall. X-ray of the left knee at that time was negative and patient was discharged home with instructions for supportive care. Ambulatory Dysfunction Closed Left Tibial Fracture CTAP negative. CXR negative, though cardiomegaly is noted. L femur XR w/ an acute to subacute fx of the proximal tibial metadiaphysis. L tib/fib XR once again shows the tibial fx, may represent an insufficiency fracture. MRI lumbar spine, CT LLE pending - follow results. Leukocytosis likely reactive ISO pain, UA neg. Hgb stable (baseline ~11-13). Routine ortho consult, PT/OT evals, pain regimen, fall precautions, orthostatic vitals. Condom catheter ordered given limited mobility. NPO for now pending ortho evaluation. Will resume normal diet if no surgery is required. 02/12 Evaluated by orthopedic service, does not recommend surgical intervention for tibial fracture at this point Nonweightbearing left lower extremity, pain control, PT and OT evaluation Intractable low back pain, bilateral moderate canal stenosis Orthopedic spine surgery consulted, does not recommend surgical intervention Pain management service consulted Started on Solu-Medrol Dosepak As needed oxycodone, morphine Steroid injection contemplated if Solu-Medrol deemed to be ineffective Repeat MRI as per pain management service request: 1. Oblique nondisplaced L2 vertebral body fracture with associated marrow edema and mild paravertebral edema. No retropulsion. No extension into the posterior elements. This is suggestive of a subacute fracture. No additional lumbar spine fractures. 2. Stable postoperative findings following L3-L4 laminectomy. 3. Moderate multilevel degenerative disc disease and facet arthrosis within the lumbar spine. No severe central canal stenosis. Awaiting pain management service recommendations Pain level seems to be improved today, patient at the bedside chair for the first time Continue to complete Solu-Medrol Dosepak Plavix held today as per pain management service request, needs to be held for 7 days before steroid injection, hopefully next week Continue as needed oxycodone, morphine Left LE Edema Pt w/ 1-2+ pitting edema in BLE on exam. 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 DVT Prophylaxis: Heparin SC BID Code Status: FULL CODE PCP: Ewa Galindo MD Disposition: discussed with patient's son and family prefers patient to return to acute rehab after hospitalization Admission and Anticipated Discharge Date Admission Date: February 11, 2024 Subjective Follow-up for intractable low back pain, etc. Seen sitting up in bedside chair, comfortable, attempting to his bills, writing checks States he feels improved today Lower back pain seems to be improved today No weakness or numbness No chest pain, palpitations, dizziness Patient's son and at the bedside, agrees he looks better today Review of Systems Review of Systems: all noted and negative except for above Physical Exam Physical Exam: General- oriented x 2-3, not in distress, speaks in sentences with no effort or accessory muscle use Eyes- anicteric Neck- no JVD Lungs- clear breath sounds bilaterally, No crackles, no wheezing Heart- normal rate, regular rhythm; no murmurs Abdomen- normal bowel sounds, nondistended, soft, No tenderness Extremities- no pretibial edema, no calf tenderness Neuro- alert, oriented x 2-3; no gross focal neurologic deficits Skin- warm & dry Results & Data Results & Data Vital Signs (Past 12 Hours) Vital Signs Temp Pulse Pulse Resp BP Pulse Ox O2 Del Method 02/17/24 14:50 36.3 C L 74 16 100/66 94 Room Air 02/17/24 07:54 36.5 C 58 L 16 146/79 H 96 Room Air all noted and reviewed including below (2) Closed left tibial fracture Encounter type: initial encounter Tibia location: proximal Fracture morphology: unspecified fracture morphology Qualified Code(s): S82.102A - Unspecified fracture of upper end of left tibia, initial encounter for closed fracture
[2024-02-18] MEDS: methylPREDNISolone 4 MG TAB PO SCH (06:00)
--- NOTE | 2024-02-18 08:48 | Pain Management Progress Note ---
Date of Service February 18, 2024 Assessment & Plan (1) L2 vertebral fracture: Encounter type: initial encounter Fracture type: closed Fracture morphology: unspecified fracture morphology Qualified Code(s): S32.029A - Unspecified fracture of second lumbar vertebra, initial encounter for closed fracture (2) Closed fracture of left proximal tibia: Encounter type: initial encounter Fracture morphology: unspecified fracture morphology Qualified Code(s): S82.102A - Unspecified fracture of upper end of left tibia, initial encounter for closed fracture (3) Fall: Encounter type: initial encounter Qualified Code(s): W19.XXXA - Unspecified fall, initial encounter (4) Ambulatory dysfunction: Plan 1. Orthotics order was placed for LSO back brace fitting. 2. Continue Oxycodone 5mg x 4 hours and Morphine 3mg x 4 hours if needed for breakthrough pain. 3. Recommend physical therapy to avoid deconditioning. He does plan to be discharged to [facility] rehab facility. 4. With this recent find of an acute L2 fracture an epidural steroid injection is not warranted. He is able to resume Plavix from a pain management perspective. I did discuss the findings and the plan with the patient's son Wade and answered his questions and concerns. Please contact with any questions or concerns. Admission and Anticipated Discharge Date Admission Date: February 11, 2024 Subjective Mr. Israel was found to have an oblique nondisplaced L2 vertebral body fracture on recent lumbar MRI. He is currently receiving Oxycodone 5 mg x 4 hours with mild pain relief. He denies any drowsiness or constipation with the medication. He has been trying to get out of bed to ambulate but finding it difficult given that there is to be no weight bearing on the left leg due to tibial fracture. Currently pain is 4/10 but it goes up to 9/10 with movement. Case discussed with Dr. Veda Braga Physical Exam Physical Exam: GENERAL: This is an 88 year old male in no acute distress, eating breakfast in hospital bed. HEAD/FACE: Normocephalic and atraumatic. EYES: No drainage or conjunctival injection. RESPIRATORY: Patient with unlabored breathing. No signs of respiratory distress. CHEST/AXILLA: Chest movement symmetrical. No deformities noted. ABDOMEN/GI: No distension SKIN: [place], warm and dry. No rash noted. MS/EXTREMITY: No swelling, no deformities. Moving extremities appropriately. NEURO: Alert and appears oriented. Speech is fluent. Cranial Nerves are grossly intact. PSYCH: Alert, pleasant, affect is calm Results (Pain Clinic) Diagnostic Review MRI Findings: MRI OF THE LUMBAR SPINE WITHOUT CONTRAST CLINICAL HISTORY: Left lower extremity radiculopathy. COMPARISON STUDY: Lumbar spine MRI February 11, 2024. Lumbar spine MRI July 14, 2018. CT of the abdomen and pelvis February 11, 2024. TECHNIQUE: Utilizing a 1.5 Beena magnet and dedicated coil, multiplanar, multiecho imaging of the lumbar spine was performed without IV contrast. FINDINGS: For purposes of numbering on this exam, the L5-S1 disc space is assigned to axial image 31 of 36. Vertebral body heights are maintained. There is an oblique nondisplaced fracture which extends through the L2 vertebral body. This extends to the anterior cortex and superior endplate. There is no retropulsion or loss of vertebral body height. Moderate associated marrow edema is present. There is minimal paravertebral edema. No additional lumbar spine fractures are present. There is no suspicious marrow replacement. A 1.9 cm hemangioma within L1 vertebral body is incidentally noted. There are discogenic changes at multiple levels. There are stable postoperative findings following L3-L4 laminectomy. Prominent epidural fat within the lower lumbar and sacral canal cyst is unchanged. L1-2: There is mild facet arthrosis with ligamentous hypertrophy. Central canal and neural foramen are patent. L2-3: There is moderate facet arthrosis with ligamentous hypertrophy. There is disc space narrowing with mild disc bulge. There is mild narrowing of the c entral canal. The neural foramen are patent. L3-4: Moderate disc space narrowing is noted. Postoperative findings following laminectomy. This central canal stenosis. There is mild right neural foraminal stenosis. Left neural foramen is patent. L4-5: There is moderate to space narrowing. Facet arthrosis with ligamentous hypertrophy is present. Postoperative findings are noted. Mild central canal stenosis as well as mild during of both neural foramen. L5-S1: The central canal and neural foramen are patent. IMPRESSION: 1. Oblique nondisplaced L2 vertebral body fracture with associated marrow edema and mild paravertebral edema. No retropulsion. No extension into the posterior elements. This is suggestive of a subacute fracture. No additional lumbar spine fractures. 2. Stable postoperative findings following L3-L4 laminectomy. 3. Moderate multilevel degenerative disc disease and facet arthrosis within the lumbar spine. No severe central canal stenosis. ACT 112: Negative or not required by law. Electronically signed by: Lupillo Wagner M.D. 02/16/2024 1:48 PM
--- NOTE | 2024-02-18 16:31 | Hospitalist Progress Note ---
Date of Service February 18, 2024 Assessment & Plan (1) Ambulatory dysfunction: (2) Closed left tibial fracture: (3) Bilateral lower extremity edema: Plan Keith Israel is an 88y/o M with PMHx of hyperlipidemia, history of CVA [2019], COPD, osteoarthritis, hereditary hemochromatosis, history of prostate cancer, urinary incontinence and other problems listed below who presented from home to the ED via EMS for evaluation secondary to back pain and ambulatory difficulty. Most recent confinement 12/31-01/02 for ambulatory dysfunction and right rib fracture. He was ultimately discharged to [facility] for rehabilitation services. Patient had a fall that occurred on December 12. He was seen and evaluated in the ED following that fall. X-ray of the left knee at that time was negative and patient was discharged home with instructions for supportive care. Ambulatory Dysfunction Closed Left Tibial Fracture Oblique Nondisplaced L2 vertebral body fracture CTAP negative. CXR negative, though cardiomegaly is noted. L femur XR w/ an acute to subacute fx of the proximal tibial metadiaphysis. L tib/fib XR once again shows the tibial fx, may represent an insufficiency fracture. MRI lumbar spine, CT LLE - Oblique nondisplaced L2 vertebral body fracture with associated marrow edema and mild paravertebral edema Leukocytosis likely reactive ISO pain, UA neg. Hgb stable (baseline ~11-13). Routine ortho consult, PT/OT evals, pain regimen, fall precautions, orthostatic vitals. Evaluated by pain management; recommend brace Also on oxycodone and morphine for pain control. Left LE Edema Pt w/ 1-2+ pitting edema in BLE on exam. 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 02/12 Echocardiogram: No signs of CHF Doppler studies: Negative for DVT Left lower extremity edema likely secondary to fracture Continue leg elevation Hyperlipidemia: Continue FIELD SUPERINTENDENT atorvastatin, LFTs WNL. H/O CVA: Continue FIELD SUPERINTENDENT aspirin and clopidogrel. DVT Prophylaxis: Heparin SC BID Code Status: FULL CODE PCP: Ewa Galindo MD Disposition: discussed with patient's son and family prefers patient to return to rehab after hospitalization Time spent evaluating patient, direct bedside care, chart review, placing orders, interpretation of diagnostic studies, discussion with consultants, patient, and family members, as well as other required patient management activities is 50 minutes Please note the above document was generated using voice recognition software. It may contain grammatical, syntax or spelling errors. Any formal questions or concerns about the content, text or information contained within the body of this dictation should be directly addressed to the provider for clarification Admission and Anticipated Discharge Date Admission Date: February 11, 2024 Subjective Patient continues to report back pain and right leg pain on slight movement No significant events overnight Review of Systems Review of Systems: All systems reviewed & are unremarkable except as noted in Subjective Physical Exam Physical Exam: General- oriented x 3, hard of hearing Eyes- anicteric Neck- no JVD Lungs- clear breath sounds bilaterally, No crackles, no wheezing Heart- normal rate, regular rhythm; no murmurs Abdomen- normal bowel sounds, nondistended, soft, No tenderness Extremities- no pretibial edema, no calf tenderness Neuro- alert, oriented x 3; no gross focal neurologic deficits Skin- warm & dry Results & Data Results & Data Vital Signs (Past 12 Hours) Vital Signs Temp Pulse Pulse Resp BP Pulse Ox O2 Del Method 02/18/24 14:24 36.4 C L 66 18 148/60 H 97 Room Air 02/18/24 11:59 36.5 C 62 16 102/66 98 Room Air 02/18/24 08:03 36.4 C L 59 L 18 132/70 97 Room Air (2) Closed left tibial fracture Encounter type: initial encounter Tibia location: proximal Fracture morphology: unspecified fracture morphology Qualified Code(s): S82.102A - Unspecified fracture of upper end of left tibia, initial encounter for closed fracture
[2024-02-19 06:26] LABS: Hematocrit (blood only) 37.5 % (42.0-52.0); Hemoglobin 12.1 g/dl (14.0-18.0); Mean Corpuscular Hemoglobin 29.2 pg (25.0-34.0); Mean Corpuscular Hgb Conc 32.3 g/dL (32.0-36.0); Mean Corpuscular Volume 90.6 fL (80.0-100.0); Mean Platelet Volume 9.8 fL (9.4-12.4); Platelet Count 242 K/uL (130-400); RDW Coefficient of Variation 14.1 % (11.5-14.5); RDW Standard Deviation 47.2 fL (36.4-46.3); Red Blood Count 4.14 M/uL (4.70-6.10); White Blood Count 12.24 K/ul (4.8-10.8)
[2024-02-19 06:39] LABS: BUN Creatinine Ratio 37.7 (10-20); Creatinine Clr Calc Pharmacy 44.6 ml/min; Est GFR (African American) 52.2 ml/min
[2024-02-19 07:18] LABS: Basophils # (auto) 0.05 K/uL (0.00-0.20); Basophils % (auto) 0.4 %; Eosinophils # (auto) 0.32 K/uL (0.00-0.50); Eosinophils % (auto) 2.6 %; Immature Granulocytes # (auto) 0.26 K/uL (0.01-0.20); Immature Granulocytes % (auto) 2.1 %; Lymphocytes # (auto) 5.34 K/uL (1.20-3.40); Lymphocytes % (auto) 43.6 %; Monocytes # (auto) 1.12 K/uL (0.11-0.59); Monocytes % (auto) 9.2 %; Neutrophils # (auto) 5.15 K/uL (1.40-6.50); Neutrophils % (auto) 42.1 %
--- NOTE | 2024-02-19 10:02 | Hospitalist Progress Note ---
Date of Service February 19, 2024 Assessment & Plan (1) Ambulatory dysfunction: (2) Closed left tibial fracture: (3) Bilateral lower extremity edema: Plan Keith Israel is an 88y/o M with PMHx of hyperlipidemia, history of CVA [2019], COPD, osteoarthritis, hereditary hemochromatosis, history of prostate cancer, urinary incontinence and other problems listed below who presented from home to the ED via EMS for evaluation secondary to back pain and ambulatory difficulty. Most recent confinement 12/31-01/02 for ambulatory dysfunction and right rib fracture. He was ultimately discharged to [facility] for rehabilitation services. Patient had a fall that occurred on December 12. He was seen and evaluated in the ED following that fall. X-ray of the left knee at that time was negative and patient was discharged home with instructions for supportive care. Ambulatory Dysfunction Closed Left Tibial Fracture Oblique Nondisplaced L2 vertebral body fracture CTAP negative. CXR negative, though cardiomegaly is noted. L femur XR w/ an acute to subacute fx of the proximal tibial metadiaphysis. L tib/fib XR once again shows the tibial fx, may represent an insufficiency fracture. MRI lumbar spine, CT LLE - Oblique nondisplaced L2 vertebral body fracture with associated marrow edema and mild paravertebral edema Leukocytosis likely reactive ISO pain, UA neg. Hgb stable (baseline ~11-13). Routine ortho consult, PT/OT evals, pain regimen, fall precautions, orthostatic vitals. Evaluated by pain management; recommend brace Also on oxycodone and morphine for pain control. Left LE Edema Pt w/ 1-2+ pitting edema in BLE on exam. 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 02/12 Echocardiogram: No signs of CHF Doppler studies: Negative for DVT Left lower extremity edema likely secondary to fracture Continue leg elevation Hyperlipidemia: Continue PULP MILL SUPERVISOR atorvastatin, LFTs WNL. H/O CVA: Continue PULP MILL SUPERVISOR aspirin and clopidogrel. DVT Prophylaxis: Heparin SC BID Code Status: FULL CODE PCP: Ewa Galindo MD Disposition: discussed with patient's son and family prefers patient to return to rehab after hospitalization Please note the above document was generated using voice recognition software. It may contain grammatical, syntax or spelling errors. Any formal questions or concerns about the content, text or information contained within the body of this dictation should be directly addressed to the provider for clarification Admission and Anticipated Discharge Date Admission Date: February 11, 2024 Subjective Patient continues to report lower back pain and leg pain. He has been requiring oxycodone frequently. No significant overnight events. Review of Systems Review of Systems: All systems reviewed & are unremarkable except as noted in Subjective Physical Exam Physical Exam: General- oriented x 3, hard of hearing Eyes- anicteric Neck- no JVD Lungs- clear breath sounds bilaterally, No crackles, no wheezing Heart- normal rate, regular rhythm; no murmurs Abdomen- normal bowel sounds, nondistended, soft, No tenderness Extremities- no pretibial edema, no calf tenderness.Tenderness in left leg. Tenderness in lower back. Neuro- alert, oriented x 3; no gross focal neurologic deficits Skin- warm & dry Results & Data Results & Data Vital Signs (Past 12 Hours) Vital Signs Temp Pulse Resp BP Pulse Ox O2 Del Method 02/19/24 07:24 36.4 C L 56 L 18 117/67 96 Room Air 02/18/24 23:00 Room Air (2) Closed left tibial fracture Encounter type: initial encounter Fracture morphology: unspecified fracture morphology Tibia location: proximal Qualified Code(s): S82.102A - Unspecified fracture of upper end of left tibia, initial encounter for closed fracture
[2024-02-20] MEDS: KETOROLAC TROMETHAMINE 15 MG/ML VIAL IV ONE (00:36)
--- NOTE | 2024-02-20 10:15 | Discharge Summary ---
Date of Service February 20, 2024 Admission HPI Per Admitting Provider Keith Israel is an 88y/o M with PMHx of hyperlipidemia, history of CVA [2019], COPD, osteoarthritis, hereditary hemochromatosis, history of prostate cancer, urinary incontinence and other problems listed below who presented from home to the ED via EMS for evaluation secondary to back pain and ambulatory difficulty. History obtained from patient, family at bedside and associated chart review. Most recent confinement 12/31-01/02 for ambulatory dysfunction and right rib fracture. He was ultimately discharged to [facility] for rehabilitation services. Patient had a fall that occurred on December 12. He was seen and evaluated in the ED following that fall. X-ray of the left knee at that time was negative and patient was discharged home with instructions for supportive care. He is back in for evaluation today due to low back pain and ambulatory difficulty. Patient reports that he has had ongoing lower back pain for the past couple of months since his fall in November, but it is now getting worse and he is complaining of radiculopathy symptoms down his left lower extremity. reports that he is unable to ambulate much at all, he has a bedside commode available and sleeps in the recliner in their living room primarily with limited mobility overall. Son states that he can no longer bear any weight on his left lower extremity. mentions that he almost fell last night when he stood up from his recliner, but she ended up catching him and he did not strike his body off of the floor. No recent falls since being home from [facility] reported. Patient denies any lightheadedness or dizziness when standing. No SOB, chest pain or abdominal pain. Patient has been dealing with urinary incontinence secondary to his immobility. expresses that his ambulation has not significantly improved since his stay at [facility] for rehabilitation therapy. Patient wears an incontinence diaper at baseline due to his urinary incontinence and also some stool incontinence as well. Admission Exam Per Admitting Provider General: NAD, laying down in bed, pleasant, conversing appropriately, appears uncomfortable w/ movement. A+Ox3, euthymic affect. HEENT: Normocephalic, atraumatic. PERRL, conjunctivae normal, anicteric sclerae. External ear and nose normal, oropharynx normal. Respiratory: Normal respiratory effort, lung sounds decreased throughout, no wheeze, rales, rhonchi. No accessory muscle use. Cardiovascular: Regular rate, rhythm, no murmur, normal peripheral pulses, no BLE edema. Vessels: No JVD. Abdomen/GI: Normal bowel sounds, soft, nontender, no hepatosplenomegaly. Extremities/Musculoskeletal: Very limited mobility of LLE, significant pain w/ palpation of L park region. Neurologic: EOMI, accommodation nl, no face palsy, no dysarthria. CN's II-XI not formally tested but appear grossly intact bilaterally. Skin: No rashes, normal color, warm/dry. Area of swelling overlying anterior proximal L park region, minor bruising noted as we Principal Diagnosis Ambulatory Dysfunction Closed Left Tibial Fracture Oblique Nondisplaced L2 vertebral body fracture Discharge Exam General- oriented x 3, hard of hearing Eyes- anicteric Neck- no JVD Lungs- clear breath sounds bilaterally, No crackles, no wheezing Heart- normal rate, regular rhythm; no murmurs Abdomen- normal bowel sounds, nondistended, soft, No tenderness Extremities- no pretibial edema, no calf tenderness.Tenderness in left leg. Tenderness in lower back. Neuro- alert, oriented x 3; no gross focal neurologic deficits Skin- warm & dry Discharge Data Allergies Allergy/AdvReac Type Severity Reaction Status Date / Time amoxicillin [From Augmentin] Allergy Mild diarrhea Verified 02/11/24 10:34 clavulanic acid Allergy Mild diarrhea Verified 02/11/24 10:34 [From Augmentin] mirtazapine [From Remeron] Allergy Confusion Unverified 02/11/24 10:34 Consultations 02/11/24 10:35 ED Decision to Admit Stat 02/11/24 11:31 Consult Orthopedic Surgery Routine 02/12/24 08:26 Consult Orthopedic Surgery Routine 02/12/24 16:49 Consult Pain Management Routine Ordered Studies 02/11/24 08:34 CT abd pelvis wo con Stat 02/11/24 11:03 CT knee LT wo con Stat 02/11/24 11:33 CT leg [CT tib/fib LT wo con] Stat 02/11/24 11:35 MRI Lumbar Spine [MR lumbar spine wo con] Stat 02/11/24 12:57 US venous doppler LE BI Routine 02/16/24 08:57 MR lumbar spine wo con Routine Hospital Course (1) Ambulatory dysfunction: (2) Closed left tibial fracture: (3) Bilateral lower extremity edema: Rachid Israel is an 88y/o M with PMHx of hyperlipidemia, history of CVA [2019], COPD, osteoarthritis, hereditary hemochromatosis, history of prostate cancer, urinary incontinence and other problems listed below who presented from home to the ED via EMS for evaluation secondary to back pain and ambulatory difficulty. Ambulatory Dysfunction Closed Left Tibial Fracture Oblique Nondisplaced L2 vertebral body fracture L femur XR w/ an acute to subacute fx of the proximal tibial metadiaphysis. L tib/fib XR once again shows the tibial fx, may represent an insufficiency fracture. MRI lumbar spine, CT LLE - Oblique nondisplaced L2 vertebral body fracture with associated marrow edema and mild paravertebral edema Leukocytosis likely reactive ISO pain, UA neg. Hgb stable (baseline ~11-13). Routine ortho consult, PT/OT evals, pain regimen, fall precautions, orthostatic vitals. Evaluated by pain management; recommend brace Also on oxycodone and morphine for pain control. Left LE Edema Pt w/ 1-2+ pitting edema in BLE on exam. 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 02/12 Echocardiogram: No signs of CHF Doppler studies: Negative for DVT Left lower extremity edema likely secondary to fracture Continue leg elevation Hyperlipidemia: Continue DARKROOM TECHNICIAN atorvastatin, LFTs WNL. H/O CVA: Continue DARKROOM TECHNICIAN aspirin and clopidogrel. DVT Prophylaxis: Heparin SC BID Code Status: FULL CODE PCP: Ewa Galindo MD Disposition: discussed with patient's son and family prefers patient to return to rehab after hospitalization. Patient to be transferred on Friday. Please note the above document was generated using voice recognition software. It may contain grammatical, syntax or spelling errors. Any formal questions or concerns about the content, text or information contained within the body of this dictation should be directly addressed to the provider for clarification Total Time Total Time Spent Total Time Spent (In Minutes): 35 Total Time Includes: Examination of the Patient, Discharge Planning, Medication Reconciliation, Communication With Other Providers and Other Discharge Plan Discharge Items Reason For Visit: AMBULATORY DYSFUNCTION, l TIBIAL FX Discharge Diagnosis: Ambulatory Dysfunction Closed Left Tibial Fracture Oblique Nondisplaced L2 vertebral body fracture Activity: Resume your previous activity Non-emergency contact: Primary Care Provider Call non-emergency contact if: you have any medication questions and your symptoms worsen Follow-up/Referrals: Talon Galindo [Primary Care Provider] - Diet: Regular Addtl Attending Provider Instructions: You were admitted to the hospital due to fracture on the left tibia. You were evaluated by Dr. Clay De La Cruz who recommended nonweightbearing on left leg. Please follow-up with him in 1 week. You are also evaluated for L2 fracture. Please wear brace while you are on your feet and moving around. You are prescribed Tylenol and oxycodone for pain. Limit use of oxycodone as it can lead to constipation and altered mental status. You are prescribed heparin for DVT prophylaxis for 30 days. Pending Studies at Discharge: No Stand-Alone Forms: My [facility] Skilled Items Patient informed of condition?: Yes DNR: No Discharge Level of Care: Skilled Communicable Disease: No Discharge Prognosis: Stable Lines: None Urinary Catheter: No Medications and DC Order Prescriptions: New heparin, porcine (PF) 5,000 unit/0.5 mL Syringe 5,000 unit subcut Q8H 30 Days Qty: 45 0RF diclofenac sodium [Voltaren Arthritis Pain] 1 % Gel 2 g EXT Q6H Qty: 100 0RF polyethylene glycol 3350 [Miralax] 17 gram Powder In Packet 17 g PO DAILY PRN (Reason: constipation) Qty: 30 0RF oxycodone 5 mg Tablet 5 mg PO Q6H PRN (Reason: pain) Qty: 10 0RF famotidine 20 mg Tablet 20 mg PO BID Qty: 60 0RF Continued cholecalciferol (vitamin D3) [Vitamin D3] 125 mcg (5,000 unit) Tablet 125 mcg PO QAM melatonin 10 mg Tablet 20 mg PO HS PreserVision AREDS-2 250-90-40-1 mg Capsule 1 tab PO QAM Rx Instructions: Unable to verify OTC meds at this date/time. ciclopirox 8 % solution 1 applic TOPICAL BID psyllium Powder 1 tbsp PO QAM Rx Instructions: Mix into at least 8 oz of water or juice before administering. Unable to verify OTC meds at this date/time. atorvastatin 10 mg tablet 10 mg PO QAM Qty: 30 0RF clopidogrel 75 mg tablet 75 mg PO QAM Qty: 30 0RF aspirin 81 mg Tablet,Delayed Release (Dr/Ec) 81 mg PO QAM Qty: 30 0RF Changed acetaminophen [Tylenol Extra Strength] 500 mg Tablet 650 mg PO TID 21 Days Qty: 90 0RF Discontinued lidocaine 5 % Adhesive Patch,Medicated 1 patch transdermal QAM Qty: 10 0RF celecoxib 200 mg capsule 200 mg PO DAILY prednisone 20 mg tablet See Rx Instructions .ROUTE .COMPLEX Rx Instructions: Start Date 02/10/24. Take 60mg by mouth once daily x 3 days; 40mg x 3 days; 20 mg x 5 days. Admission Data Admit Date/Time: 02/11/24 11:30 Attending Provider: Jeffery Lima Admit Provider: Ko Arita Primary Care Provider: Talon Galindo Other Providers: Mila Carrizales; Ko Arita; Clay De La Cruz; Renny Magaña; Veda Braga; Moises Cisneros [facility]
--- NOTE | 2024-02-20 17:05 | Hospitalist Progress Note ---
Date of Service February 20, 2024 Assessment & Plan (1) Ambulatory dysfunction: (2) Closed left tibial fracture: (3) Bilateral lower extremity edema: Plan Keith Israel is an 88y/o M with PMHx of hyperlipidemia, history of CVA [2019], COPD, osteoarthritis, hereditary hemochromatosis, history of prostate cancer, urinary incontinence and other problems listed below who presented from home to the ED via EMS for evaluation secondary to back pain and ambulatory difficulty. Ambulatory Dysfunction Closed Left Tibial Fracture Oblique Nondisplaced L2 vertebral body fracture L femur XR w/ an acute to subacute fx of the proximal tibial metadiaphysis. L tib/fib XR once again shows the tibial fx, may represent an insufficiency fracture. MRI lumbar spine, CT LLE - Oblique nondisplaced L2 vertebral body fracture with associated marrow edema and mild paravertebral edema Leukocytosis likely reactive ISO pain, UA neg. Hgb stable (baseline ~11-13). Routine ortho consult, PT/OT evals, pain regimen, fall precautions, orthostatic vitals. Evaluated by pain management; recommend brace Also on oxycodone and morphine for pain control. Left LE Edema Pt w/ 1-2+ pitting edema in BLE on exam. 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 02/12 Echocardiogram: No signs of CHF Doppler studies: Negative for DVT Left lower extremity edema likely secondary to fracture Continue leg elevation Hyperlipidemia: Continue PRODUCT OWNER atorvastatin, LFTs WNL. H/O CVA: Continue PRODUCT OWNER aspirin and clopidogrel. DVT Prophylaxis: Heparin SC BID Code Status: FULL CODE PCP: Ewa Galindo MD Disposition: discussed with patient's son and family prefers patient to return to rehab after hospitalization. Patient to be transferred on Friday. Please note the above document was generated using voice recognition software. It may contain grammatical, syntax or spelling errors. Any formal questions or concerns about the content, text or information contained within the body of this dictation should be directly addressed to the provider for clarification Admission and Anticipated Discharge Date Admission Date: February 11, 2024 Subjective Patient seen and examined at bedside. Comfortable; not in distress. Denies fever, chills, chest pain, shortness of breath, abdominal pain or urinary symptoms. No significant overnight events Review of Systems Review of Systems: All systems reviewed & are unremarkable except as noted in Subjective Physical Exam Physical Exam: General- oriented x 3, hard of hearing Eyes- anicteric Neck- no JVD Lungs- clear breath sounds bilaterally, No crackles, no wheezing Heart- normal rate, regular rhythm; no murmurs Abdomen- normal bowel sounds, nondistended, soft, No tenderness Extremities- no pretibial edema, no calf tenderness.Tenderness in left leg. Te nderness in lower back. Neuro- alert, oriented x 3; no gross focal neurologic deficits Skin- warm & dry Results & Data Results & Data Vital Signs (Past 12 Hours) Vital Signs Temp Pulse Pulse Resp BP Pulse Ox O2 Del Method 02/20/24 15:20 36.3 C L 66 18 113/65 96 Room Air 02/20/24 11:47 36.4 C L 60 18 104/65 99 Room Air 02/20/24 08:30 Room Air 02/20/24 08:24 36.4 C L 58 L 18 127/70 95 Room Air (2) Closed left tibial fracture Encounter type: initial encounter Tibia location: proximal Fracture morphology: unspecified fracture morphology Qualified Code(s): S82.102A - Unspecified fracture of upper end of left tibia, initial encounter for closed fracture
--- NOTE | 2024-02-21 08:51 | Orthopedic Progress Note ---
Date of Service February 21, 2024 Assessment & Plan (1) Closed fracture of left proximal tibia: This is a difficult situation with the stress fracture in his bone and his current age and health status. It has been about 2-1/2 months that he has been having the leg pain. The stress fracture is usually heal with nonoperative treatment and I still think there is time for this fracture to heal. However, he is still nonweightbearing with this fracture. The surgery would be an intramedullary nail fixation of his left tibia. At this point, given his age and his medical comorbidities, we are trying to avoid any surgical procedures. There is still time for this fracture to heal on its own. However, if it does not heal, and after discussions with the family if he would like to proceed with intramedullary nail fixation in the future we could always discuss that. At this point I think he should be nonweightbearing on the left leg. Will still to give this a chance to heal. He is orthopedically stable for discharge on Friday. He should follow-up with orthopedics in about 2 weeks for repeat x- rays and to see how he is doing. Please call the office to make an appointment. Office number is [phone]. Abdiel Parker was seen and examined at bedside this morning. Unfortunately he still having pain in his left leg. He has been unable to place any weight on it during his stay. He is also having some pain that radiates from his back down his leg to his foot. He was seen by the spine service. I went in today just to check up on him.. Review of Systems All systems reviewed & are unremarkable except as noted in HPI & below. Physical Exam On physical examination of his left leg, he has a lot of tenderness to palpation at the metadiaphyseal region of the left tibia. This is right where the fracture would be. He does not have much pain around the knee joint. When I move his leg some he complains of some pain that is radiating from his back down his leg to his foot but his bigger pain seems to be located around that fracture area.. Results & Data Results & Data Laboratory Results . Diagnostic Findings . PG Care Time/CCT Total # of Minutes Spent Total Time Spent with Patient: Total time spent is greater than 50% in coordination of care (as documented) at patient's floor/unit and/or counseling patient: Coding Level of Care Code 25348 SUB INP/OBS CARE MIN Diagnoses Closed fracture of left proximal tibia S82.102A Encounter type: initial encounter Fracture morphology: unspecified fracture morphology (1) Closed fracture of left proximal tibia Encounter type: initial encounter Fracture morphology: unspecified fracture morphology Qualified Code(s): S82.102A - Unspecified fracture of upper end of left tibia, initial encounter for closed fracture
--- NOTE | 2024-02-21 15:21 | Hospitalist Progress Note ---
Date of Service February 21, 2024 Assessment & Plan (1) Ambulatory dysfunction: (2) Closed left tibial fracture: (3) Bilateral lower extremity edema: Plan Keith Israel is an 88y/o M with PMHx of hyperlipidemia, history of CVA [2019], COPD, osteoarthritis, hereditary hemochromatosis, history of prostate cancer, urinary incontinence and other problems listed below who presented from home to the ED via EMS for evaluation secondary to back pain and ambulatory difficulty. Ambulatory Dysfunction Closed Left Tibial Fracture Oblique Nondisplaced L2 vertebral body fracture L femur XR w/ an acute to subacute fx of the proximal tibial metadiaphysis. L tib/fib XR once again shows the tibial fx, may represent an insufficiency fracture. MRI lumbar spine, CT LLE - Oblique nondisplaced L2 vertebral body fracture with associated marrow edema and mild paravertebral edema Patient last evaluated by orthopedic on 02/20recommended to continue nonweightbearing on the leg. Recommend follow-up after discharge in 2 weeks with repeat x-rays to see how is doing. Depending on follow-up; decision regarding intramedullary nail fixation to be made. For nondisplaced L2 vertebral body fracture- recommended brace Left LE Edema Pt w/ 1-2+ pitting edema in BLE on exam. 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 H/O CVA: Continue AIRPORT MAINTENANCE CHIEF aspirin and clopidogrel. DVT Prophylaxis: Heparin SC BID Code Status: FULL CODE PCP: Ewa Galindo MD Disposition: discussed with patient's son and family prefers patient to return to rehab after hospitalization. Patient to be transferred on Friday. Please note the above document was generated using voice recognition software. It may contain grammatical, syntax or spelling errors. Any formal questions or concerns about the content, text or information contained within the body of this dictation should be directly addressed to the provider for clarification Admission and Anticipated Discharge Date Admission Date: February 11, 2024 Subjective Patient continues to report back pain and left knee pain Vital signs are stable and he is saturating well on room air Review of Systems Review of Systems: All systems reviewed & are unremarkable except as noted in Subjective Physical Exam Physical Exam: General- oriented x 3, hard of hearing Eyes- anicteric Neck- no JVD Lungs- clear breath sounds bilaterally, No crackles, no wheezing Heart- normal rate, regular rhythm; no murmurs Abdomen- normal bowel sounds, nondistended, soft, No tenderness Extremities- no pretibial edema, no calf tenderness.Tenderness in left leg. Tenderness in lower back. Neuro- alert, oriented x 3; no gross focal neurologic deficits Skin- warm & dry Results & Data Results & Data Vital Signs (Past 12 Hours) Vital Signs Temp Pulse Pulse Resp BP Pulse Ox O2 Del Method 02/21/24 13:39 36.6 C 73 16 137/76 97 Room Air 02/21/24 10:15 Room Air 02/21/24 09:51 36.5 C 68 18 140/62 98 Room Air 02/21/24 08:30 Room Air (2) Closed left tibial fracture Encounter type: initial encounter Fracture morphology: unspecified fracture morphology Tibia location: proximal Qualified Code(s): S82.102A - Unspecified fracture of upper end of left tibia, initial encounter for closed fracture
--- NOTE | 2024-02-22 10:17 | Hospitalist Progress Note ---
Date of Service February 22, 2024 Assessment & Plan (1) Ambulatory dysfunction: (2) Closed left tibial fracture: (3) Bilateral lower extremity edema: Plan Keith Israel is an 88y/o M with PMHx of hyperlipidemia, history of CVA [2019], COPD, osteoarthritis, hereditary hemochromatosis, history of prostate cancer, urinary incontinence and other problems listed below who presented from home to the ED via EMS for evaluation secondary to back pain and ambulatory difficulty. Ambulatory Dysfunction Closed Left Tibial Fracture Oblique Nondisplaced L2 vertebral body fracture L femur XR w/ an acute to subacute fx of the proximal tibial metadiaphysis. L tib/fib XR once again shows the tibial fx, may represent an insufficiency fracture. MRI lumbar spine, CT LLE - Oblique nondisplaced L2 vertebral body fracture with associated marrow edema and mild paravertebral edema Patient last evaluated by orthopedic on 02/20recommended to continue nonweightbearing on the leg. Recommend follow-up after discharge in 2 weeks with repeat x-rays to see how is doing. Depending on follow-up; decision regarding intramedullary nail fixation to be made. For nondisplaced L2 vertebral body fracture- recommended TLSO brace Continue pain control regimen Left LE Edema Pt w/ 1-2+ pitting edema in BLE on exam. 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 02/12 Echocardiogram: No signs of CHF Doppler studies: Negative for DVT Left lower extremity edema likely secondary to fracture Continue leg elevation Hyperlipidemia: Continue RECYCLING OR RUBBISH COLLECTOR atorvastatin, LFTs WNL. 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 DVT Prophylaxis: Heparin SC BID Code Status: FULL CODE PCP: Ewa Galindo MD Disposition: discussed with patient's son and family prefers patient to return to rehab after hospitalization. Patient to be transferred on Friday. Please note the above document was generated using voice recognition software. It may contain grammatical, syntax or spelling errors. Any formal questions or concerns about the content, text or information contained within the body of this dictation should be directly addressed to the provider for clarification Admission and Anticipated Discharge Date Admission Date: February 11, 2024 Subjective Patient seen and examined at bedside. Reports continued pain at the fracture site Denies fever, chills, chest pain, shortness of breath, abdominal pain or urinary symptoms. No significant overnight events Review of Systems Review of Systems: All systems reviewed & are unremarkable except as noted in Subjective Physical Exam Physical Exam: General- oriented x 3, hard of hearing Eyes- anicteric Neck- no JVD Lungs- clear breath sounds bilaterally, No crackles, no wheezing Heart- normal rate, regular rhythm; no murmurs Abdomen- normal bowel sounds, nondistended, soft, No tenderness Extremities- no pretibial edema, no calf tenderness.Tenderness in left leg. Tenderness in lower back. Neuro- alert, oriented x 3; no gross focal neurologic deficits Skin- warm & dry Results & Data Results & Data Vital Signs (Past 12 Hours) Vital Signs Temp Pulse Pulse Resp BP Pulse Ox O2 Del Method 02/22/24 09:13 Room Air 02/22/24 08:26 36.5 C 63 16 104/61 Room Air 02/22/24 07:10 36.4 C L 62 18 144/72 H 96 Room Air (2) Closed left tibial fracture Encounter type: initial encounter Fracture morphology: unspecified fracture morphology Tibia location: proximal Qualified Code(s): S82.102A - Unspecified fracture of upper end of left tibia, initial encounter for closed fracture
--- NOTE | 2024-02-23 09:41 | Hospitalist Progress Note ---
Date of Service February 23, 2024 Assessment & Plan (1) Ambulatory dysfunction: (2) Closed left tibial fracture: (3) Bilateral lower extremity edema: Plan Keith Israel is an 88y/o M with PMHx of hyperlipidemia, history of CVA [2019], COPD, osteoarthritis, hereditary hemochromatosis, history of prostate cancer, urinary incontinence and other problems listed below who presented from home to the ED via EMS for evaluation secondary to back pain and ambulatory difficulty. Ambulatory Dysfunction Closed Left Tibial Fracture Oblique Nondisplaced L2 vertebral body fracture L femur XR w/ an acute to subacute fx of the proximal tibial metadiaphysis. L tib/fib XR once again shows the tibial fx, may represent an insufficiency fracture. MRI lumbar spine, CT LLE - Oblique nondisplaced L2 vertebral body fracture with associated marrow edema and mild paravertebral edema Patient last evaluated by orthopedic on 02/20recommended to continue nonweightbearing on the leg. Recommend follow-up after discharge in 2 weeks with repeat x-rays to see how is doing. Depending on follow-up; decision regarding intramedullary nail fixation to be made. For nondisplaced L2 vertebral body fracture- recommended TLSO brace Continue pain control regimen Left LE Edema Pt w/ 1-2+ pitting edema in BLE on exam. 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 02/12 Echocardiogram: No signs of CHF Doppler studies: Negative for DVT Left lower extremity edema likely secondary to fracture Continue leg elevation Hyperlipidemia: Continue GEOLOGY TECHNICIAN atorvastatin, LFTs WNL. H/O CVA: Continue GEOLOGY TECHNICIAN aspirin and clopidogrel. DVT Prophylaxis: Heparin SC BID Code Status: FULL CODE PCP: Ewa Galindo MD Disposition: discussed with patient's son and family prefers patient to return to rehab after hospitalization. Patient to be transferred on Friday. Please note the above document was generated using voice recognition software. It may contain grammatical, syntax or spelling errors. Any formal questions or concerns about the content, text or information contained within the body of this dictation should be directly addressed to the provider for clarification Admission and Anticipated Discharge Date Admission Date: February 11, 2024 Subjective Patient seen and examined at bedside. Reports continued pain at the fracture site; feels slight improved compared to previous days; is more optimistic Review of Systems Review of Systems: All systems reviewed & are unremarkable except as noted in Subjective Physical Exam Physical Exam: General- oriented x 3, hard of hearing Eyes- anicteric Neck- no JVD Lungs- clear breath sounds bilaterally, No crackles, no wheezing Heart- normal rate, regular rhythm; no murmurs Abdomen- normal bowel sounds, nondistended, soft, No tenderness Extremities- no pretibial edema, no calf tenderness.Tenderness in left leg. Tenderness in lower back. Neuro- alert, oriented x 3; no gross focal neurologic deficits Skin- warm & dry Results & Data Results & Data Vital Signs (Past 12 Hours) Vital Signs Temp Pulse Resp BP Pulse Ox O2 Del Method 02/23/24 08:30 Room Air 02/23/24 07:49 36.4 C L 61 16 106/61 95 Room Air (2) Closed left tibial fracture Encounter type: initial encounter Fracture morphology: unspecified fracture morphology Tibia location: proximal Qualified Code(s): S82.102A - Unspecified fracture of upper end of left tibia, initial encounter for closed fracture
--- NOTE | 2024-02-24 12:35 | Hospitalist Progress Note ---
Date of Service February 24, 2024 Assessment & Plan (1) Ambulatory dysfunction: (2) Closed left tibial fracture: (3) Bilateral lower extremity edema: Plan Keith Israel is an 88y/o M with PMHx of hyperlipidemia, history of CVA [2019], COPD, osteoarthritis, hereditary hemochromatosis, history of prostate cancer, urinary incontinence and other problems listed below who presented from home to the ED via EMS for evaluation secondary to back pain and ambulatory difficulty. Ambulatory Dysfunction Closed Left Tibial Fracture Oblique Nondisplaced L2 vertebral body fracture L femur XR w/ an acute to subacute fx of the proximal tibial metadiaphysis. L tib/fib XR once again shows the tibial fx, may represent an insufficiency fracture. MRI lumbar spine, CT LLE - Oblique nondisplaced L2 vertebral body fracture with associated marrow edema and mild paravertebral edema Patient last evaluated by orthopedic on 02/20recommended to continue nonweightbearing on the leg. Recommend follow-up after discharge in 2 weeks with repeat x-rays to see how is doing. Depending on follow-up; decision regarding intramedullary nail fixation to be made. For nondisplaced L2 vertebral body fracture- recommended TLSO brace Continue pain control regimen Left LE Edema Pt w/ 1-2+ pitting edema in BLE on exam. 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 02/12 Echocardiogram: No signs of CHF Doppler studies: Negative for DVT Left lower extremity edema likely secondary to fracture Continue leg elevation Hyperlipidemia: Continue MARBLE MECHANIC HELPER atorvastatin, LFTs WNL. H/O CVA: Continue MARBLE MECHANIC HELPER aspirin and clopidogrel. DVT Prophylaxis: Heparin SC BID Code Status: FULL CODE PCP: Ewa Galindo MD Disposition: discussed with patient's son and family prefers patient to return to rehab after hospitalization. Awaiting bed for transfer Please note the above document was generated using voice recognition software. It may contain grammatical, syntax or spelling errors. Any formal questions or concerns about the content, text or information contained within the body of this dictation should be directly addressed to the provider for clarification Admission and Anticipated Discharge Date Admission Date: February 11, 2024 Subjective Family at bedside. Patient is comfortable;not in any distress. He is sitting on a chair at the side of the bed. Review of Systems Review of Systems: All systems reviewed & are unremarkable except as noted in Subjective Physical Exam Physical Exam: General- oriented x 3, hard of hearing Eyes- anicteric Neck- no JVD Lungs- clear breath sounds bilaterally, No crackles, no wheezing Heart- normal rate, regular rhythm; no murmurs Abdomen- normal bowel sounds, nondistended, soft, No tenderness Extremities- no pretibial edema, no calf tenderness.Tenderness around left knee. Tenderness in lower back. Neuro- alert, oriented x 3; no gross focal neurologic deficits Skin- warm & dry Results & Data Results & Data Vital Signs (Past 12 Hours) Vital Signs Temp Pulse Resp BP Pulse Ox O2 Del Method 02/24/24 07:32 36.8 C 59 L 16 120/69 95 Room Air 02/24/24 07:30 Room Air (2) Closed left tibial fracture Encounter type: initial encounter Tibia location: proximal Fracture morphology: unspecified fracture morphology Qualified Code(s): S82.102A - Unspecified fracture of upper end of left tibia, initial encounter for closed fracture
[2024-02-24 19:56] VITALS: RESP 18
[2024-02-25 08:02] VITALS: TEMP 97.3; O2SAT 98
[2024-02-25 11:48] VITALS: BP 118/66; PULSE 72
--- NOTE | 2024-02-25 11:52 | Discharge Summary ---
Date of Service February 25, 2024 Admission HPI Per Admitting Provider Keith Israel is an 88y/o M with PMHx of hyperlipidemia, history of CVA [2019], COPD, osteoarthritis, hereditary hemochromatosis, history of prostate cancer, urinary incontinence and other problems listed below who presented from home to the ED via EMS for evaluation secondary to back pain and ambulatory difficulty. History obtained from patient, family at bedside and associated chart review. Most recent confinement 12/31-01/02 for ambulatory dysfunction and right rib fracture. He was ultimately discharged to [facility] for rehabilitation services. Patient had a fall that occurred on December 12. He was seen and evaluated in the ED following that fall. X-ray of the left knee at that time was negative and patient was discharged home with instructions for supportive care. He is back in for evaluation today due to low back pain and ambulatory difficulty. Patient reports that he has had ongoing lower back pain for the past couple of months since his fall in November, but it is now getting worse and he is complaining of radiculopathy symptoms down his left lower extremity. reports that he is unable to ambulate much at all, he has a bedside commode available and sleeps in the recliner in their living room primarily with limited mobility overall. Son states that he can no longer bear any weight on his left lower extremity. mentions that he almost fell last night when he stood up from his recliner, but she ended up catching him and he did not strike his body off of the floor. No recent falls since being home from [facility] reported. Patient denies any lightheadedness or dizziness when standing. No SOB, chest pain or abdominal pain. Patient has been dealing with urinary incontinence secondary to his immobility. expresses that his ambulation has not significantly improved since his stay at [facility] for rehabilitation therapy. Patient wears an incontinence diaper at baseline due to his urinary incontinence and also some stool incontinence as well. Admission Exam Per Admitting Provider General: NAD, laying down in bed, pleasant, conversing appropriately, appears uncomfortable w/ movement. A+Ox3, euthymic affect. HEENT: Normocephalic, atraumatic. PERRL, conjunctivae normal, anicteric sclerae. External ear and nose normal, oropharynx normal. Respiratory: Normal respiratory effort, lung sounds decreased throughout, no wheeze, rales, rhonchi. No accessory muscle use. Cardiovascular: Regular rate, rhythm, no murmur, normal peripheral pulses, no BLE edema. Vessels: No JVD. Abdomen/GI: Normal bowel sounds, soft, nontender, no hepatosplenomegaly. Extremities/Musculoskeletal: Very limited mobility of LLE, significant pain w/ palpation of L park region. Neurologic: EOMI, accommodation nl, no face palsy, no dysarthria. CN's II-XI not formally tested but appear grossly intact bilaterally. Skin: No rashes, normal color, warm/dry. Area of swelling overlying anterior proximal L park region, minor bruising noted as well. Principal Diagnosis Ambulatory Dysfunction Closed Left Tibial Fracture Oblique Nondisplaced L2 vertebral body fracture Discharge Exam General- oriented x 3, hard of hearing Eyes- anicteric Neck- no JVD Lungs- clear breath sounds bilaterally, No crackles, no wheezing Heart- normal rate, regular rhythm; no murmurs Abdomen- normal bowel sounds, nondistended, soft, No tenderness Extremities- no pretibial edema, no calf tenderness. Tenderness around left knee. Tenderness in lower back. Neuro- alert, oriented x 3; no gross focal neurologic deficits Skin- warm & dry Discharge Data Allergies Allergy/AdvReac Type Severity Reaction Status Date / Time amoxicillin [From Augmentin] Allergy Mild diarrhea Verified 02/11/24 10:34 clavulanic acid Allergy Mild diarrhea Verified 02/11/24 10:34 [From Augmentin] mirtazapine [From Remeron] Allergy Confusion Unverified 02/11/24 10:34 Consultations 02/11/24 10:35 ED Decision to Admit Stat 02/11/24 11:31 Consult Orthopedic Surgery Routine 02/12/24 08:26 Consult Orthopedic Surgery Routine 02/12/24 16:49 Consult Pain Management Routine Ordered Studies 02/11/24 08:34 CT abd pelvis wo con Stat 02/11/24 11:03 CT knee LT wo con Stat 02/11/24 11:33 CT leg [CT tib/fib LT wo con] Stat 02/11/24 11:35 MRI Lumbar Spine [MR lumbar spine wo con] Stat 02/11/24 12:57 US venous doppler LE BI Routine 02/16/24 08:57 MR lumbar spine wo con Routine Hospital Course (1) Ambulatory dysfunction: (2) Closed left tibial fracture: (3) Bilateral lower extremity edema: Plan Per prior attending with addendum: Keith Israel is an 88y/o M with PMHx of hyperlipidemia, history of CVA [2019], COPD, osteoarthritis, hereditary hemochromatosis, history of prostate cancer, urinary incontinence and other problems listed below who presented from home to the ED via EMS for evaluation secondary to back pain and ambulatory difficulty. Ambulatory Dysfunction Closed Left Tibial Fracture Oblique Nondisplaced L2 vertebral body fracture L femur XR w/ an acute to subacute fx of the proximal tibial metadiaphysis. L tib/fib XR once again shows the tibial fx, may represent an insufficiency fracture. MRI lumbar spine, CT LLE - Oblique nondisplaced L2 vertebral body fracture with associated marrow edema and mild paravertebral edema Patient last evaluated by orthopedic on 02/20recommended to continue nonweight bearing on the leg. Recommend follow-up after discharge in 2 weeks with repeat x-rays to see how is doing. Depending on follow-up; decision regarding intramedullary nail fixation to be made. For nondisplaced L2 vertebral body fracture- recommended TLSO brace Continue pain control regimen Left LE Edema Pt w/ 1-2+ pitting edema in BLE on exam. Not on any diuretic therapy [employer]. 02/12 Echocardiogram: No signs of CHF Doppler studies: Negative for DVT Left lower extremity edema likely secondary to fracture Continue leg elevation Hyperlipidemia: Continue [employer] atorvastatin, LFTs WNL. H/O CVA: Continue [employer] aspirin and clopidogrel. DVT Prophylaxis: Heparin SC BID Code Status: FULL CODE PCP: Ewa Galindo MD Disposition: discussed with patient's son and family prefers patient to return to rehab after hospitalization. Awaiting bed for transfer Addendum 02/25/2024: Patient was seen and examined at bedside, patient reports pain under control. Patient denies any new medical concerns. He is hemodynamically stable and eager to get discharged. He is being discharged to snf with following instructions at the point of discharge: You were admitted to the hospital due to fracture on the left tibia. You were evaluated by Dr. Clay De La Cruz who recommended nonweightbearing on left leg. Please follow-up with him in 2 weeks with an xray. You are also evaluated for L2 fracture. Please wear brace while you are on your feet and moving around. You are prescribed Tylenol and oxycodone for pain. Limit use of oxycodone as it can lead to constipation and altered mental status. You can use OTC laxatives/stool softener with a goal of 1-2 bowel movements a day. You are prescribed heparin for DVT prophylaxis for 30 days. Please note the above document was generated using voice recognition software. It may contain grammatical, syntax or spelling errors. Any formal questions or concerns about the content, text or information contained within the body of this dictation should be directly addressed to the provider for clarification Home Health Attestation I certify that this patient is under my care and that I, or a physicians fitness assistant working with me, had a face to-face encounter that meets the home health [id number] encounter requirements with this patient. The encounter with the patient was in whole, or in part, for the following medical condition, which is the primary reason for home health care (list medical condition): I certify that, based on my findings, the following services are medically necessary home health services: My clinical findings support the need for the above services because: Further, I certify that my clinical findings support that this patient is homebound (i.e. absences from home require considerable and taxing effort and are for medical reasons or yazidism services or infrequently or of short dura tion when for other reasons) because: Certification for Home Health Services: Based on the above findings, I certify that this patient is confined to the home and needs intermittent care home care, physical therapy and/or speech therapy or continues to need occupational therapy. The patient is under my care, and I have initiated the establishment of the plan of care. This patient will be followed by a physician who will periodically review the plan of care. Total Time Total Time Spent Total Time Spent (In Minutes): 35 Discharge Plan Discharge Items Patient Disposition: Transfer Group Home Fac Reason For Visit: AMBULATORY DYSFUNCTION, L TIBIAL FX Discharge Diagnosis: Ambulatory Dysfunction Closed Left Tibial Fracture Oblique Nondisplaced L2 vertebral body fracture Activity: Resume your previous activity Non-emergency contact: Primary Care Provider Call non-emergency contact if: you have any medication questions and your symptoms worsen Follow-up/Referrals: Talon Galindo [Primary Care Provider] - Diet: Regular Addtl Attending Provider Instructions: You were admitted to the hospital due to fracture on the left tibia. You were evaluated by Dr. Clay De La Cruz who recommended nonweightbearing on left leg. Please follow-up with him in 2 weeks with an xray. You are also evaluated for L2 fracture. Please wear brace while you are on your feet and moving around. You are prescribed Tylenol and oxycodone for pain. Limit use of oxycodone as it can lead to constipation and altered mental status. You can use OTC laxatives/stool softener with a goal of 1-2 bowel movements a day. You are prescribed heparin for DVT prophylaxis for 30 days. Pending Studies at Discharge: No Stand-Alone Forms: My [facility] Skilled Items Patient informed of condition?: Yes DNR: No Discharge Level of Care: Skilled Communicable Disease: No Discharge Prognosis: Stable Lines: None Urinary Catheter: No Medications and DC Order Prescriptions: New heparin, porcine (PF) 5,000 unit/0.5 mL Syringe 5,000 unit subcut Q8H 30 Days Qty: 45 0RF diclofenac sodium [Voltaren Arthritis Pain] 1 % Gel 2 g EXT Q6H Qty: 100 0RF polyethylene glycol 3350 [Miralax] 17 gram Powder In Packet 17 g PO DAILY PRN (Reason: constipation) Qty: 30 0RF oxycodone 5 mg Tablet 5 mg PO Q6H PRN (Reason: pain) Qty: 10 0RF famotidine 20 mg Tablet 20 mg PO BID Qty: 60 0RF Continued cholecalciferol (vitamin D3) [Vitamin D3] 125 mcg (5,000 unit) Tablet 125 mcg PO QAM melatonin 10 mg Tablet 20 mg PO HS PreserVision AREDS-2 250-90-40-1 mg Capsule 1 tab PO QAM Rx Instructions: Unable to verify OTC meds at this date/time. ciclopirox 8 % solution 1 applic TOPICAL BID psyllium Powder 1 tbsp PO QAM Rx Instructions: Mix into at least 8 oz of water or juice before administering. Unable to verify OTC meds at this date/time. atorvastatin 10 mg tablet 10 mg PO QAM Qty: 30 0RF clopidogrel 75 mg tablet 75 mg PO QAM Qty: 30 0RF aspirin 81 mg Tablet,Delayed Release (Dr/Ec) 81 mg PO QAM Qty: 30 0RF Changed acetaminophen [Tylenol Extra Strength] 500 mg Tablet 650 mg PO TID 21 Days Qty: 90 0RF Discontinued lidocaine 5 % Adhesive Patch,Medicated 1 patch transdermal QAM Qty: 10 0RF celecoxib 200 mg capsule 200 mg PO DAILY prednisone 20 mg tablet See Rx Instructions .ROUTE .COMPLEX Rx Instructions: Start Date 02/10/24. Take 60mg by mouth once daily x 3 days; 40mg x 3 days; 20 mg x 5 days. Discharge Orders: Discharge Order (Routine); Ordered 02/25/24 Ordered By: Ko Arita Admission Data Admit Date/Time: 02/11/24 11:30 Attending Provider: Ko Arita Admit Provider: Ko Arita Primary Care Provider: Talon Galindo Other Providers: Mila Carrizales; Ko Arita; Clay De La Cruz; Renny Magaña; Veda Braga; Moises Cisneros [facility]
--- NOTE | 2024-02-26 13:26 | Coding Query ---
CODING QUERY To promote full compliance with coding requirements relating to patient care, provider participation is requested in all cases of ethnology teacher uncertainty. Please assist us with the question(s) below: Clinical Indicators: History and Physical: * Patient had a fall that occurred on December 12. * X-ray of the left knee at that time was negative and patient was discharged home * Patient reports that he has had ongoing lower back pain for the past couple of months since his fall in November * radiculopathy symptoms down his left lower extremity * unable to ambulate much at all Discharge Summary: * L tib/fib XR once again shows the tibial fx, may represent an insufficiency fracture * Oblique Nondisplaced L2 vertebral body fracture Coding Question(s): Are you able to provide further specificity of the vertebral body fracture? 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 Thank you Luna Fong Principal Diagnosis: "that condition established after study, to be chiefly responsible for occasioning the admission of the patient to the hospital for care." Co-Existing Principal Diagnosis: "when two or more diagnoses equally meet the criteria for principal diagnosis as determined by the circumstances of admission, diagnostic work up, and/or therapy provided, and the Alphabetic Index, Tabular List, or another coding guideline does not provide sequencing direction, any one of the diagnoses may be sequenced first." "When the physician has documented what appears to be a current diagnosis in the body of the record, but has not included the diagnosis in the final diagnostic statement, the physician should be asked whether the diagnosis should be added." (Source Coding [facility] 2 QTR90. p3-4) JOIE
== END 2024-02-25 13:15 | DRG 544 ==
LOC: ED 08:24 → 2N 11:30 → SUATTDRO 11:30 → 2N 11:56 → 3E 02-14 16:35

== ENCOUNTER 2024-03-16 18:05 | Inpatient (IN) ==
[2024-03-16] MEDS: ONDANSETRON INJ 2 MG/ML 2 ML VIAL IV STA (18:22)
[2024-03-16] MEDS: MoRPHine SULFATE 4 MG/ML 1 ML CARP\\VIAL IV PRN (18:22)
[2024-03-16 18:36] LABS: Basophils # (auto) 0.03 K/uL (0.00-0.20); Basophils % (auto) 0.3 %; Eosinophils % (auto) 1.9 %; Hematocrit (blood only) 31.2 % (42.0-52.0); Hemoglobin 10.4 g/dl (14.0-18.0); Immature Granulocytes # (auto) 0.12 K/uL (0.01-0.20); Immature Granulocytes % (auto) 1.1 %; Lymphocytes # (auto) 4.14 K/uL (1.20-3.40); Lymphocytes % (auto) 38.9 %; Mean Corpuscular Hemoglobin 29.6 pg (25.0-34.0); Mean Corpuscular Hgb Conc 33.3 g/dL (32.0-36.0); Mean Corpuscular Volume 88.9 fL (80.0-100.0); Mean Platelet Volume 9.4 fL (9.4-12.4); Monocytes # (auto) 1.19 K/uL (0.11-0.59); Monocytes % (auto) 11.2 %; Neutrophils # (auto) 4.95 K/uL (1.40-6.50); Neutrophils % (auto) 46.6 %; Platelet Count 256 K/uL (130-400); RDW Coefficient of Variation 14.6 % (11.5-14.5); RDW Standard Deviation 47.2 fL (36.4-46.3); Red Blood Count 3.51 M/uL (4.70-6.10); White Blood Count 10.63 K/ul (4.8-10.8)
--- NOTE | 2024-03-16 18:38 | Emergency Department Note ---
Impression & Plan Fall, Closed fracture of left proximal tibia, Closed right femoral fracture ED Provider Note NAME: ARCHANA HADLEY AGE: 88 SEX: M : 1935 ARRIVES VIA: Ambulance INFORMANT: Patient, EMS ED PROVIDER(S): Lamberto Lopez DO CHIEF COMPLAINT: Leg pain HPI: The patient is an 88-year-old male who presented to the emergency department from his personal [facility] after a fall. The patient fell backwards when he twisted his right leg. The patient denies having any head injury. He denies having any neck pain or loss of conscious. The patient was made a trauma alert upon arrival to the emergency department. The patient received pain medication prior to arrival. There is no reported bleeding. The patient denies having any numbness in the leg. ROS: See above HPI for pertinent positives & negatives. A total of 10 systems reviewed and were otherwise negative. PAST MEDICAL HISTORY: See Below PAST SURGICAL HISTORY: See Below FAMILY HISTORY: See Below SOCIAL HISTORY: See Below HOME MEDICATIONS: See Below ALLERGIES: See Below VITALS: See Below PHYSICAL EXAMINATION: GENERAL: The patient is awake and alert. He is very anxious and appears to be uncomfortable. EYES: The conjunctivae are clear. The pupils are round and reactive. EARS, NOSE, MOUTH AND THROAT: The nose is without any evidence of any deformity. NECK: The neck is nontender and supple. RESPIRATORY: Normal respiratory effort is noted there is no evidence of wheezing rhonchi or rales CARDIOVASCULAR: Regular rate and rhythm noted there no murmurs rubs or gallops normal S1 normal S2. GASTROINTESTINAL: The abdomen is soft. Abdomen is nontender. BACK: No midline tenderness or or step-off noted range of motion in flexion extension as well as rotation no signs of muscle spasm noted MUSCULOSKELETAL/EXTREMITIES: The right lower extremity is externally rotated and shortened. There is significant tenderness over the right thigh. There is also tenderness over the left knee. Range of motion in the left lower extremity appears intact and painless. SKIN: Skin is warm and dry. Pedal edema was noted bilaterally. NEUROLOGIC: Patient is awake alert and oriented x3 MEDICAL DECISION MAKING: The patient is an 88-year-old male who presented to the emergency department as a trauma alert. The patient had a fall from a standing position. He did not strike his head. He has no neck pain. The patient has severe right lower extremity pain. On physical exam he had external rotation as well. The patient was treated with pain medication prior to arrival. He was also treated with pain medication in the emergency department. I discussed the patient's laboratory and radiographic studies with him and his family. He was found to have a distal right femur fracture. This was treated with splinting the emergency department. I discussed his fracture with the on-call orthopedic physician as well as the on-call [facility] hospitalist. They have agreed to evaluate the patient in the emergency department for further management and disposition this would likely require surgical intervention. Triage Nursing notes reviewed. Prior medical records reviewed Vital Signs: reviewed and remarkable for no significant abnormalities Differential diagnosis: Fracture, dislocation, contusion, intra-abdominal, pneumothorax, intrathoracic, intracranial, neurologic, compartment syndrome, rhabdomyolysis, as well as other pathologies. ER treatment provided: See below Diagnostics interpreted by me: ECG: EKG was obtained in the emergency department. My interpretation is sinus rhythm at 77 bpm. Early transition was noted. Nonspecific ST segment abnormalities were noted. There is no PVCs. This was compared to a tracing from February 11, 2024. No significant changes were noted. Cardiac Monitoring: An order was placed for continuous cardiac monitoring. The monitor shows a rate of 72 bpm with sinus rhythm. Laboratory studies: As stated above and show below. Imaging studies: See below. Radiographic imaging was reviewed by myself Consultation(s): I discussed this case with Dr. Alvarado who is on-call for orthopedics. I discussed this case with Dr. Madrigal who is on for the [facility]ist group. Past Med/Surg History Problem List (Updated 03/16/24 @ 23:32 by Lamberto Lopez DO) Closed right femoral fracture (Acute) Closed fracture of left proximal tibia (Acute) Fall (Acute) Right femoral fracture L2 vertebral fracture Left lumbar radiculopathy Bilateral lower extremity edema Closed fracture of left proximal tibia (Acute) Sciatica (Acute) Spinal stenosis (Acute) Closed left tibial fracture Osteoarthritis involving multiple joints on both sides of body Contusion of left knee Abrasion (Acute) Fall (Acute) Ambulatory dysfunction (Acute) Acute knee pain (Acute) Right rib fracture Ambulatory dysfunction Left leg pain Left knee pain Back pain Lumbar stenosis with neurogenic claudication (Chronic) Head injury (Acute) Lumbar contusion (Acute) Frequent falls (Chronic) Constipation Edema (Chronic) Abnormal MRI, pelvis Skin ulcers of both feet Traumatic wound (Acute) Stroke-like symptoms (Acute) Elevated troponin (Acute) Left sided numbness (Acute) Left leg weakness (Acute) Carcinoma of prostate (Chronic) DVT prophylaxis Discharge planning issues CVA (cerebral vascular accident) Dyslipidemia, goal LDL below 70 Arthritis of right knee Status post knee replacement COPD (chronic obstructive pulmonary disease) H/O: CVA (cerebrovascular accident) 2019 ([facility]), residual memory problems and shuffling of feet Medical History History of urinary incontinence "wears depends" History of COVID-19 Approximately 2020 > all symptoms resolved Poor historian History of squamous cell carcinoma History of basal cell carcinoma Hearing deficit B/L [place] Chronic bronchitis Chronic cough "worked in the [employer]" Osteoarthritis Obesity Hereditary hemochromatosis Monitoring, labs have been "WNL" History of TIA (transient ischemic attack) 3.5 years ago Anemia Chronic back pain Hyperlipidemia H/O intracranial hemorrhage 20 + years ago Prostate cancer s/p XRT only - 15 years ago Surgical History History of total knee arthroplasty History of colonoscopy History of prostate biopsy History of tooth extraction History of cataract surgery History of lumbar surgery History of squamous cell carcinoma excision History of basal cell carcinoma (BCC) excision Family History Father Coronary heart disease Sister Cancer Other No family history of adverse response to anesthesia Social History Smoking Status: Former smoker Cigarettes Per Day: on on occasion; Second Hand Exposure: No; Do You Dip or Chew Tobacco: No; Hx Alcohol Use: No Hx Substance Use: No Preferred Language: Wallisian Communication Ability: Effective [employer]per Required: No Beliefs That Will Affect Care: None marital status: Current Living Situation: Spouse Feels Safe at Home: Yes Assistive Devices: Glasses, Hearing Aid - Bilateral and Walker Allergies Allergies Allergy/AdvReac Type Severity Reaction Status Date / Time amoxicillin [From Augmentin] Allergy Mild diarrhea Verified 03/16/24 19:12 clavulanic acid Allergy Mild diarrhea Verified 03/16/24 19:12 [From Augmentin] mirtazapine [From Remeron] Allergy Confusion Unverified 03/16/24 19:12 Home Meds Home Medications Medication Instructions Recorded Confirmed cholecalciferol (vitamin D3) 125 125 mcg PO QAM 04/11/22 03/16/24 mcg (5,000 unit) tablet (Vitamin D3) melatonin 10 mg tablet 20 mg PO HS 04/11/22 03/16/24 vit C 250 mg-vit E 90 mg-zinc 40 1 tab PO QAM 04/11/22 03/16/24 mg-copper 1 [id number] capsule (PreserVision AREDS-2) psyllium 1 tbsp PO QAM 01/01/24 03/16/24 celecoxib 100 mg capsule 100 mg PO .DAILY AFTER SUPPER 03/16/24 03/16/24 famotidine 20 mg tablet 20 mg PO AMHS 03/16/24 03/16/24 multivitamin-ferrous 1 tab PO .DAILY AFTER LUNCH 03/16/24 03/16/24 fumarate-folic acid 18 mg-400 mcg tablet oxycodone 30 mg tablet 30 mg PO QDB 03/16/24 03/16/24 oxycodone 30 mg tablet,oral ONLY 30 mg PO Q6H PRN pain scale 5-10 03/16/24 03/16/24 (not feeding tubes) polyvinyl alcohol-povidone (PF) 2 drp OPB BID 03/16/24 03/16/24 1.4 %-0.6 % eye drops in a dropperette (Refresh Classic (PF)) trazodone 50 mg tablet 50 mg PO HS 03/16/24 03/16/24 Previous Rx's Medication Instructions Recorded acetaminophen 500 mg tablet 650 mg (1.3 x 500 mg) PO TID 21 02/20/24 (Tylenol Extra Strength) days #90 tabs aspirin 81 mg tablet,delayed 81 mg PO QAM #30 tabs 02/20/24 release atorvastatin 10 mg tablet 10 mg PO QAM #30 tabs 02/20/24 clopidogrel 75 mg tablet 75 mg PO QAM #30 tabs 02/20/24 diclofenac sodium 1 % topical gel 2 g EXT Q6H #100 grams 02/20/24 (Voltaren Arthritis Pain) heparin, porcine (PF) 5,000 5,000 unit (0.5 mL) subcut Q8H 30 02/20/24 unit/0.5 mL injection syringe days #45 mL polyethylene glycol 3350 17 gram 17 g PO DAILY PRN constipation #30 02/20/24 oral powder packet (Miralax) ea Results & Data (ED) Vital Signs Vital Signs - 24 hr 03/16/24 18:08 03/16/24 18:08 03/16/24 18:08 Temperature 36.7 C 36.7 C 36.7 C Temperature Source Oral Oral Pulse Rate 84 84 Pulse Rate [Apical] 84 Pulse Rhythm Regular Pulse Rhythm [Apical] Respiratory Rate 18 18 18 Respiratory Effort / Characteristics Non-Labored Spontaneous Respiratory Depth Normal Respiratory Pattern Blood Pressure 125/72 Blood Pressure [Right Arm] 125/72 Blood Pressure Mean [Right Arm] 89 Pulse Oximetry 96 95 98 Oxygen Delivery Method Room Air Room Air Room Air Oxygen Flow Rate Sepsis Recent Fever Within 48 Hours No Sepsis New/Unexplained Change in Mental Status No Sepsis Action Taken by Nursing No Action Required 03/16/24 18:08 03/16/24 18:08 03/16/24 18:25 Temperature 36.7 C Temperature Source Oral Pulse Rate 81 Pulse Rate [Apical] 84 Pulse Rhythm Pulse Rhythm [Apical] Respiratory Rate 23 Respiratory Effort / Characteristics Non-Labored Respiratory Depth Normal Respiratory Pattern Regular Blood Pressure Blood Pressure [Right Arm] 125/72 Blood Pressure Mean [Right Arm] 89 Pulse Oximetry 98 98 Oxygen Delivery Method Room Air Room Air Oxygen Flow Rate Sepsis Recent Fever Within 48 Hours Sepsis New/Unexplained Change in Mental Status Sepsis Action Taken by Nursing 03/16/24 18:44 03/16/24 19:00 03/16/24 20:00 Temperature Temperature Source Pulse Rate Pulse Rate [Apical] 79 71 Pulse Rhythm Pulse Rhythm [Apical] Respiratory Rate 12 12 Respiratory Effort / Characteristics Non-Labored Spontaneous Non-Labored Respiratory Depth Normal Normal Respiratory Pattern Blood Pressure Blood Pressure [Right Arm] 102/67 93/60 L Blood Pressure Mean [Right Arm] 78 71 Pulse Oximetry 100 98 98 Oxygen Delivery Method Nasal Cannula Nasal Cannula Nasal Cannula Oxygen Flow Rate 2 2 2 Sepsis Recent Fever Within 48 Hours Sepsis New/Unexplained Change in Mental Status Sepsis Action Taken by Nursing 03/16/24 20:00 03/16/24 21:00 Temperature Temperature Source Pulse Rate Pulse Rate [Apical] 71 74 Pulse Rhythm Pulse Rhythm [Apical] Regular Respiratory Rate 12 14 Respiratory Effort / Characteristics Non-Labored Spontaneous Non-Labored Spontaneous Respiratory Depth Normal Normal Respiratory Pattern Blood Pressure Blood Pressure [Right Arm] 93/60 L 133/76 Blood Pressure Mean [Right Arm] 71 95 Pulse Oximetry 98 100 Oxygen Delivery Method Nasal Cannula Nasal Cannula Oxygen Flow Rate 2 2 Sepsis Recent Fever Within 48 Hours Sepsis New/Unexplained Change in Mental Status Sepsis Action Taken by [facility] Medications Current Medication List: was personally reviewed by me Laboratory Data Attestation: I reviewed the patient's lab results. 03/16/24 18:15 03/16/24 18:15 Lab Results 03/16/24 03/16/24 03/16/24 Range/Units 18:15 18:25 20:54 WBC 10.63 (4.8-10.8) K/ul RBC 3.51 L (4.70-6.10) M/uL Hgb 10.4 L (14.0-18.0) g/dl Hct 31.2 L (42.0-52.0) % MCV 88.9 (80.0-100.0) fL MCH 29.6 (25.0-34.0) pg MCHC 33.3 (32.0-36.0) g/dL RDW Std Deviation 47.2 H (36.4-46.3) fL RDW Coeff of Ness 14.6 H (11.5-14.5) % Plt Count 256 (130-400) K/uL MPV 9.4 (9.4-12.4) fL Immature Gran % (Auto) 1.1 % Neut % (Auto) 46.6 % Lymph % (Auto) 38.9 % [place] % (Auto) 11.2 % Eos % (Auto) 1.9 % Baso % (Auto) 0.3 % Neut # (Auto) 4.95 (1.40-6.50) K/uL Lymph # (Auto) 4.14 H (1.20-3.40) K/uL [place] # (Auto) 1.19 H (0.11-0.59) K/uL Eos # (Auto) 0.20 (0.00-0.50) K/uL Baso # (Auto) 0.03 (0.00-0.20) K/uL Immature Gran # (Auto) 0.12 (0.01-0.20) K/uL PT 10.9 (9.0-12.0) Seconds INR 1.0 (0.9-1.1) APTT 28 (21-31) Seconds PTT Ratio 1.0 Sodium 136 (136-145) mmol/L Potassium 4.0 (3.5-5.1) mmol/L Chloride 102 (98-107) mmol/L Carbon Dioxide 24 (21-32) mmol/L Anion Gap 10 (3-11) BUN 24 H (6-23) mg/dl Creatinine 1.38 (0.6-1.4) mg/dl Est Cr Clr Drug Dosing 43.1 ml/min Est GFR ( Amer) 52.2 ml/min Est GFR (Non-Af Amer) 45.0 ml/min BUN/Creatinine Ratio 17.4 (10-20) Glucose 114 H (70-99(Fasting)) mg/dl Calcium 9.0 (8.6-10.3) mg/dl Total Bilirubin 0.4 (0.2-1.0) mg/dl AST 12 L (13-39) U/L ALT 10 (7-52) U/L Alkaline Phosphatase 89 (34-104) U/L Troponin I High Sens 4.4 (0-20) pg/ml Total Protein 6.2 (6.0-8.3) gm/dl Albumin 3.8 (3.4-5.0) gm/dl Globulin 2.4 L (2.5-4.0) gm/dl Albumin/Globulin Ratio 1.6 (0.9-2) Lipase 37 (11-82) U/L Urine Color Dark Yellow Urine Appearance Clear (Clear) Urine pH 5.0 (4.5-7.5) Ur Specific [place] 1.029 (1.000-1.030) Urine Protein Trace H (Negative) Urine Glucose (UA) Negative (Negative) Urine Ketones Trace H (Negative) Urine Blood Negative (Negative) Urine Nitrite Negative (Negative) Urine Bilirubin Negative (Negative) Urine Urobilinogen Negative (Negative) Ur Leukocyte Esterase Negative (Negative) Urine WBC (Auto) 0-5 (0-5) /hpf Urine RBC (Auto) 0-2 (0-2) /hpf U Hyaline Cast (Auto) 0-2 (0-2) /lpf U Epithel Cells (Auto) 0-2 (0-2) /hpf Urine Bacteria (Auto) None Seen (None Seen) Blood Type B Positive Antibody Screen NEGATIVE Administered Medications Sodium Chloride (Nss) 1,000 mls @ 75 mls/hr IV .[id number] ONE Stop: 03/17/24 08:50 Last Admin: 03/16/24 19:54 Dose: 75 mls/hr Documented By: DIANA Discontinued Medications Ketorolac Tromethamine (Ketorolac Tromethamine 15 Mg/Ml Vial) 15 mg IV NOW ONE Stop: 03/16/24 21:46 Last Admin: 03/16/24 22:08 Dose: 15 mg Documented By: DIANA Morphine Sulfate (Morphine Sulfate 4 Mg/Ml 1 Ml Carp\\Vial) 4 mg IV Q15M PRN PRN Reason: Pain Stop: 03/30/24 18:11 Last Admin: 03/16/24 19:18 Dose: 4 mg Documented By: Admin: 03/16/24 18:22 Dose: 4 mg Documented By: DIANA Ondansetron HCl (Ondansetron Inj 2 Mg/Ml 2 Ml Vial) 4 mg IV NOW STA Stop: 03/16/24 18:13 Last Admin: 03/16/24 18:22 Dose: 4 mg Documented By: DIANA Imaging Data Attestation: I personally reviewed and interpreted this imaging study as follows: My Impression: X-ray of the right femur and pelvis was obtained in the emergency department. My interpretation is comminuted and displaced right distal femur fracture, there is no definite pelvic fracture, final report below. X-ray of the left knee was obtained in the emergency department. My interpretation is previous left proximal tibial fracture, callus is noted, final report pending. 1 view chest x-ray was obtained in the emergency department. My interpretation is cardiomegaly, there is no free air or definite infiltrate, final report below. Radiologist's Impression: Femur X-Ray 03/16/24 00:00 XR femur RT 2V routine, XR pelvis 1-2V routine CLINICAL HISTORY: TRAUMA RT FEMUR FX TECHNIQUE: 2 radiographic views of the right femur and one view of the pelvis were obtained. Comparison: Comparison is made to CT abdomen pelvis 02/11/2024 FINDINGS: There is a mildly comminuted spiral fracture of the distal femoral shaft. Degenerative changes are seen in the spine. Total knee arthroplasty is seen. Soft tissue swelling is seen. IMPRESSION: Mildly comminuted and displaced fracture of the right femoral shaft is seen. ACT 112: Negative or not required by law. Electronically signed by: Adrian Sands M.D. 03/16/2024 6:51 PM Chest X-Ray 03/16/24 18:12 XR chest 1V portable CLINICAL HISTORY: fall TECHNIQUE: Single frontal radiograph of the chest was obtained. Comparison: Comparison is made to chest radiograph 02/11/2024 FINDINGS: No lines and tubes are seen. Cardiomegaly is noted. Reticular interstitial opacities are seen. No evidence of pleural effusion or pneumothorax. IMPRESSION: No acute chest disease. Cardiomegaly is noted. ACT 112: Negative or not required by law. Electronically signed by: Adrian Sands M.D. 03/16/2024 6:37 PM Pelvis X-Ray 03/16/24 18:12 XR femur RT 2V routine, XR pelvis 1-2V routine CLINICAL HISTORY: TRAUMA RT FEMUR FX TECHNIQUE: 2 radiographic views of the right femur and one view of the pelvis were obtained. Comparison: Comparison is made to CT abdomen pelvis 02/11/2024 FINDINGS: There is a mildly comminuted spiral fracture of the distal femoral shaft. Degenerative changes are seen in the spine. Total knee arthroplasty is seen. Soft tissue swelling is seen. IMPRESSION: Mildly comminuted and displaced fracture of the right femoral shaft is seen. ACT 112: Negative or not required by law. Electronically signed by: Adrian Sands M.D. 03/16/2024 6:51 PM Discharge Plan Visit Data Chief Complaint: Trauma Stated Complaint: TRAUMA ALERT ED Provider: Lamberto Lopez Discharge Problem: Fall, Closed fracture of left proximal tibia, Closed right femoral fracture Patient Disposition: Admitted As Inpatient Discharge Instructions Interventions: ED Discharge Assessment Last Done: 03/16/24 22:14 Discharge Problem: Fall Qualifiers: Encounter type: initial encounter Qualified Code(s): W19.XXXA - Unspecified fall, initial encounter Closed fracture of left proximal tibia Qualifiers: Encounter type: initial encounter Fracture morphology: unspecified fracture morphology Qualified Code(s): S82.102A - Unspecified fracture of upper end of left tibia, initial encounter for closed fracture Closed right femoral fracture Qualifiers: Encounter type: subsequent encounter Femur location: proximal epiphysis F racture alignment: nondisplaced Fracture healing: with routine healing Qualified Code(s): S72.024D - Nondisplaced fracture of epiphysis (separation) (upper) of right femur, subsequent encounter for closed fracture with routine healing
--- NOTE | 2024-03-16 18:53 | XRay Report ---
XR femur RT 2V routine, XR pelvis 1-2V routine CLINICAL HISTORY: TRAUMA RT FEMUR FX TECHNIQUE: 2 radiographic views of the right femur and one view of the pelvis were obtained. Comparison: Comparison is made to CT abdomen pelvis 02/11/2024 FINDINGS: There is a mildly comminuted spiral fracture of the distal femoral shaft. Degenerative changes are se en in the spine. Total knee arthroplasty is seen. Soft tissue swelling is seen. IMPRESSION: Mildly comminuted and displaced fracture of the right femoral shaft is seen. ACT 112: Negative or not required by law. Electronically signed by: Adrian Sands M.D. 03/16/2024 6:51 PM
[2024-03-16 18:57] LABS: Albumin Globulin Ratio 1.6 (0.9-2); Albumin Level 3.8 gm/dl (3.4-5.0); BUN Creatinine Ratio 17.4 (10-20); Bilirubin,Total 0.4 mg/dl (0.2-1.0); Creatinine Clr Calc Pharmacy 43.1 ml/min; Est GFR (African American) 52.2 ml/min; Globulin 2.4 gm/dl (2.5-4.0); Total Protein 6.2 gm/dl (6.0-8.3)
[2024-03-16 19:02] LABS: Partial Thromboplastin Time 28 Seconds (21-31); Prothrombin Time 10.9 Seconds (9.0-12.0)
[2024-03-16 19:03] LABS: Troponin I High Sensitivity 4.4 pg/ml (0-20)
[2024-03-16] MEDS ORDERED: ACETAMINOPHEN 325 MG TAB PO PRN (19:25)
[2024-03-16] MEDS: SODIUM CHLORIDE 0.9% 1,000 ML IV ONE (19:54)
--- NOTE | 2024-03-16 20:38 | History & Physical Report ---
Date of Service March 16, 2024 Assessment & Plan (1) Fall: (2) Right femoral fracture: (3) Ambulatory dysfunction: (4) Closed left tibial fracture: (5) CVA (cerebral vascular accident): (6) Dyslipidemia, goal LDL below 70: (7) Hearing deficit: Plan This is an 88yo M with a PMH of hyperlipidemia, history of CVA (2019), COPD, osteoarthritis, hereditary hemochromatosis, history of prostate cancer, urinary incontinence and other problems listed below who presents with from [facility] after fall and was found to have a mildly comminuted and displaced fracture of the right femoral shaft. Please see Dr. Bullard's addendum for assessment and plan details. I spent a total of 60 minutes coordinating, documenting, and providing care for this patient excluding time spent in the performance of separately billed services. History of Present Illness Chief Complaint: Fall Primary Care Provider: Talon Galindo This is an 88yo M with a PMH of hyperlipidemia, history of CVA (2019), COPD, osteoarthritis, hereditary hemochromatosis, history of prostate cancer, urinary incontinence and other problems listed below who presents with from [facility] after fall. Patient was admitted to our service 3 weeks ago after a fall resulting in the left tibial fracture as well as being found to have an L2 compression fracture. Patient was discharged to [facility] personal[facility]ustod[facility], where he is still residing. Was attempting to transfer from his bed to his chair without assistance earlier today and fell backwards onto right leg in a twisting motion after losing his balance. Denies any head trauma or LOC. Presented with significant pain in right leg above knee. No F/C, lightheadedness, headache, CP, SOB, N/V, abd pain, dysuria, diarrhea or constipation. Allergies Allergy/AdvReac Type Severity Reaction Status Date / Time amoxicillin [From Augmentin] Allergy Mild diarrhea Verified 03/16/24 19:12 clavulanic acid Allergy Mild diarrhea Verified 03/16/24 19:12 [From Augmentin] mirtazapine [From Remeron] Allergy Confusion Unverified 03/16/24 19:12 Home Medications Medication Instructions Recorded Confirmed Type cholecalciferol (vitamin D3) 125 125 mcg PO QAM 04/11/22 03/16/24 History mcg (5,000 unit) tablet (Vitamin D3) melatonin 10 mg tablet 20 mg PO HS 04/11/22 03/16/24 History vit C 250 mg-vit E 90 mg-zinc 40 1 tab PO QAM 04/11/22 03/16/24 History mg-copper 1 [id number] capsule (PreserVision AREDS-2) psyllium 1 tbsp PO QAM 01/01/24 03/16/24 History acetaminophen 500 mg tablet 650 mg (1.3 x 500 mg) PO TID 21 02/20/24 03/16/24 Rx (Tylenol Extra Strength) days #90 tabs aspirin 81 mg tablet,delayed 81 mg PO QAM #30 tabs 02/20/24 03/16/24 Rx release atorvastatin 10 mg tablet 10 mg PO QAM #30 tabs 02/20/24 03/16/24 Rx clopidogrel 75 mg tablet 75 mg PO QAM #30 tabs 02/20/24 03/16/24 Rx diclofenac sodium 1 % topical gel 2 g EXT Q6H #100 grams 02/20/24 03/16/24 Rx (Voltaren Arthritis Pain) heparin, porcine (PF) 5,000 5,000 unit (0.5 mL) subcut Q8H 30 02/20/24 03/16/24 Rx unit/0.5 mL injection syringe days #45 mL polyethylene glycol 3350 17 gram 17 g PO DAILY PRN constipation #30 02/20/24 03/16/24 Rx oral powder packet (Miralax) ea celecoxib 100 mg capsule 100 mg PO .DAILY AFTER SUPPER 03/16/24 03/16/24 History famotidine 20 mg tablet 20 mg PO AMHS 03/16/24 03/16/24 History multivitamin-ferrous 1 tab PO .DAILY AFTER LUNCH 03/16/24 03/16/24 History fumarate-folic acid 18 mg-400 mcg tablet oxycodone 30 mg tablet 30 mg PO QDB 03/16/24 03/16/24 History oxycodone 30 mg tablet,oral ONLY 30 mg PO Q6H PRN pain scale 5-10 03/16/24 03/16/24 History (not feeding tubes) polyvinyl alcohol-povidone (PF) 2 drp OPB BID 03/16/24 03/16/24 History 1.4 %-0.6 % eye drops in a dropperette (Refresh Classic (PF)) trazodone 50 mg tablet 50 mg PO HS 03/16/24 03/16/24 History Past Med/Surg History Problem List (Updated 03/16/24 @ 23:32 by Lamberto Lopez DO) Closed right femoral fracture (Acute) Closed fracture of left proximal tibia (Acute) Fall (Acute) Right femoral fracture L2 vertebral fracture Left lumbar radiculopathy Bilateral lower extremity edema Closed fracture of left proximal tibia (Acute) Sciatica (Acute) Spinal stenosis (Acute) Closed left tibial fracture Osteoarthritis involving multiple joints on both sides of body Contusion of left knee Abrasion (Acute) Fall (Acute) Ambulatory dysfunction (Acute) Acute knee pain (Acute) Right rib fracture Ambulatory dysfunction Left leg pain Left knee pain Back pain Lumbar stenosis with neurogenic claudication (Chronic) Head injury (Acute) Lumbar contusion (Acute) Frequent falls (Chronic) Constipation Edema (Chronic) Abnormal MRI, pelvis Skin ulcers of both feet Traumatic wound (Acute) Stroke-like symptoms (Acute) Elevated troponin (Acute) Left sided numbness (Acute) Left leg weakness (Acute) Carcinoma of prostate (Chronic) DVT prophylaxis Discharge planning issues CVA (cerebral vascular accident) Dyslipidemia, goal LDL below 70 Arthritis of right knee Status post knee replacement COPD (chronic obstructive pulmonary disease) H/O: CVA (cerebrovascular accident) 2019 ([facility]), residual memory problems and shuffling of feet Medical History History of urinary incontinence "wears depends" History of COVID-19 Approximately 2020 > all symptoms resolved Poor historian History of squamous cell carcinoma History of basal cell carcinoma Hearing deficit B/L [place] Chronic bronchitis Chronic cough "worked in the [employer]" Osteoarthritis Obesity Hereditary hemochromatosis Monitoring, labs have been "WNL" History of TIA (transient ischemic attack) 3.5 years ago Anemia Chronic back pain Hyperlipidemia H/O intracranial hemorrhage 20 + years ago Prostate cancer s/p XRT only - 15 years ago Surgical History History of total knee arthroplasty History of colonoscopy History of prostate biopsy History of tooth extraction History of cataract surgery History of lumbar surgery History of squamous cell carcinoma excision History of basal cell carcinoma (BCC) excision Family History Father Coronary heart disease Sister Cancer Other No family history of adverse response to anesthesia Social History Smoking Status: Never smoker Cigarettes Per Day: on on occasion; Second Hand Exposure: No; Do You Dip or Chew Tobacco: No; Hx Alcohol Use: No Hx Substance Use: No Preferred Language: Welsh Communication Ability: Effective Signal Wirer Required: No Beliefs That Will Affect Care: None marital status: Current Living Situation: Rehab Current Living Situation Comment: [facility] Feels Safe at Home: Yes Safety Concerns: Feels Safe At This Time Assistive Devices: Glasses, Hearing Aid - Bilateral and Walker Review of Systems Review of Systems: At least ten systems reviewed and negative except as noted in the HPI. Physical Exam Physical Exam: General Appearance: WD/WN, vitals as above, NAD, sitting up in bed, slow to speak but answers questions appropriately Head: normocephalic, atraumatic Eyes: normal inspection, PERRL, conjunctivae normal, anicteric sclerae ENT: hard of hearing, external ear and nose normal, oropharynx normal Neck: normal visual inspection, trachea midline, no thyromegaly Respiratory: normal respiratory effort, lungs clear to auscultation, no wheeze, rales, rhonchi. No accessory muscle use Cardiovascular: regular rate, rhythm, normal peripheral pulses, trace BLE edema. Vessels: no JVD Chest: normal inspection of chest Abdomen/GI: normal bowel sounds, soft, nontender, no hepatosplenomegaly Extremities/Musculoskeletal: + RLE externally rotated and shortened, wrap in place R thigh, TTP. No cyanosis or clubbing, extremities motor strength 5/5 Neurologic: PERRL, EOMI, accommodation nl, no face palsy, no dysarthria, CN's II-XI intact bilaterally and moves all extremities Psychiatric: A+Ox3, euthymic affect Skin: no rashes, normal color, warm/dry Results & Data Results & Data Vital Signs (Past 12 Hours) Vital Signs Temp Pulse Pulse Resp BP BP Pulse Ox 03/16/24 19:00 79 12 102/67 98 03/16/24 18:44 100 03/16/24 18:25 81 03/16/24 18:08 36.7 C 84 23 125/72 98 03/16/24 18:08 98 03/16/24 18:08 36.7 C 84 18 125/72 98 03/16/24 18:08 36.7 C 84 18 125/72 95 03/16/24 18:08 36.7 C 84 18 96 O2 Del Method O2 Flow Rate 03/16/24 19:00 Nasal Cannula 2 03/16/24 18:44 Nasal Cannula 2 03/16/24 18:25 03/16/24 18:08 Room Air 03/16/24 18:08 Room Air 03/16/24 18:08 Room Air 03/16/24 18:08 Room Air 03/16/24 18:08 Room Air Laboratory Results Short CBC 03/16/24 Range/Units 18:15 WBC 10.63 (4.8-10.8) K/ul Hgb 10.4 L (14.0-18.0) g/dl Hct 31.2 L (42.0-52.0) % Plt Count 256 (130-400) K/uL BMP 03/16/24 18:15 Sodium 136 Potassium 4.0 Chloride 102 Carbon Dioxide 24 BUN 24 H Creatinine 1.38 Glucose 114 H Calcium 9.0 Liver Function 03/16/24 Range/Units 18:15 Total Bilirubin 0.4 (0.2-1.0) mg/dl AST 12 L (13-39) U/L ALT 10 (7-52) U/L Alkaline Phosphatase 89 (34-104) U/L Albumin 3.8 (3.4-5.0) gm/dl Diagnostic Findings Femur X-Ray 03/16/24 00:00 XR femur RT 2V routine, XR pelvis 1-2V routine CLINICAL HISTORY: TRAUMA RT FEMUR FX TECHNIQUE: 2 radiographic views of the right femur and one view of the pelvis were obtained. Comparison: Comparison is made to CT abdomen pelvis 02/11/2024 FINDINGS: There is a mildly comminuted spiral fracture of the distal femoral shaft. Degenerative changes are seen in the spine. Total knee arthroplasty is seen. Soft tissue swelling is seen. IMPRESSION: Mildly comminuted and displaced fracture of the right femoral shaft is seen. ACT 112: Negative or not required by law. Electronically signed by: Adrian Sands M.D. 03/16/2024 6:51 PM Chest X-Ray 03/16/24 18:12 XR chest 1V portable CLINICAL HISTORY: fall TECHNIQUE: Single frontal radiograph of the chest was obtained. Comparison: Comparison is made to chest radiograph 02/11/2024 FINDINGS: No lines and tubes are seen. Cardiomegaly is noted. Reticular interstitial opacities are seen. No evidence of pleural effusion or pneumothorax. IMPRESSION: No acute chest disease. Cardiomegaly is noted. ACT 112: Negative or not required by law. Electronically signed by: Adrian Sands M.D. 03/16/2024 6:37 PM Pelvis X-Ray 03/16/24 18:12 XR femur RT 2V routine, XR pelvis 1-2V routine CLINICAL HISTORY: TRAUMA RT FEMUR FX TECHNIQUE: 2 radiographic views of the right femur and one view of the pelvis were obtained. Comparison: Comparison is made to CT abdomen pelvis 02/11/2024 FINDINGS: There is a mildly comminuted spiral fracture of the distal femoral shaft. Degenerative changes are seen in the spine. Total knee arthroplasty is seen. Soft tissue swelling is seen. IMPRESSION: Mildly comminuted and displaced fracture of the right femoral shaft is seen. ACT 112: Negative or not required by law. Electronically signed by: Adrian Sands M.D. 03/16/2024 6:51 PM Supervising Physician Co-Signing Physician Notes IM ATTENDING : Patient seen and examined. History obtained from patient and records. Limited history from patient secondary to hearing impairment. Concur with salient points upon review of preceding documentation by Ms. Eugenie Gutierrez PA-C. I take responsibility for plan of care below. FINAL ASSESSMENT AND PLAN as follows : Traumatic right femoral fracture Hypertension, BP on the lower side History CVA History hereditary hemochromatosis Hyperlipidemia on statin Rx Acute on chronic anemia, hemoglobin drop from baseline, possibly from fracture bleed Prostate cancer status post radiation Skin cancer as per records Chronic pain on narcotics Past tobacco abuse Admit to [facility] Orthopedics consult Re: Right femoral fracture (Patient known to Dr. De La Cruz.) Acceptable risk for cardiac complications resulting from prospective procedure Revised Cardiac Risk Index (RCRI): 1. High-risk type of surgery (examples include vascular and any open intraperitoneal or intrathoracic procedures). No 2. History of ischemic heart disease (history of myocardial infarction or positive exercise test, current compliant of chest pain considered to be secondary to myocardial ischemia, use of nitrate therapy, or ECG with pathological Q waves; do not count prior coronary revascularization procedure unless one of the other criteria for ischemic heart disease is present). No 3. History of heart failure. No 4. History of cerebrovascular disease. Yes 5. Diabetes mellitus requiring treatment with insulin. No 6. Preoperative serum creatinine >2.0. No Pt has revised cardiac index score of 1 points. (Class I Risk.) 6 % 30-day risk of , NC, or cardiac arrest. Acceptable risk for cardiac complications if surgery recommended by Orthopedics and patient/family agreeable to attendant procedural benefits and risks.. IVF given borderline BP Hold antiplatelet Rx for now given hemoglobin drop from baseline Resume when hemoglobin stable. Follow H&H, transfuse PRBC if hemoglobin less than 8 and or for symptomatic anemia Hold parameters for maintenance narcotic and trazodone home meds for sedation/confusion. DVT prophylaxis. SCDs Re: Possible procedure, hemoglobin drop from baseline DNR as per patient's prior directives. Patient requesting updates providers. Awa Lindy, contact #[phone]. Text document was generated using Cazoodle voice recognition software. It may contain grammatical or spelling errors. Kindly contact undersigned for clarification of any documentation item in question. (1) Fall Encounter type: initial encounter Qualified Code(s): W19.XXXA - Unspecified fall, initial encounter (4) Closed left tibial fracture Encounter type: initial encounter Fracture morphology: unspecified fracture morphology Tibia location: proximal Qualified Code(s): S82.102A - Unspecified fracture of upper end of left tibia, initial encounter for closed fracture
[2024-03-16 21:08] LABS: Appearance Urine Clear (Clear); Bacteria Urine Automated None Seen (None Seen); Bilirubin Urine Negative (Negative); Blood Urine Negative (Negative); Cast Urine Automated 0-2 /lpf (0-2); Color Urine Dark Yellow; Epithelial Cell Urine Auto 0-2 /hpf (0-2); Glucose Urine UA Negative (Negative); Ketones Urine Trace (Negative); Leukocyte Esterase Urine Negative (Negative); Nitrite Urine Negative (Negative); Protein Urine Trace (Negative); RBC Urine Automated 0-2 /hpf (0-2); Specific Gravity Urine 1.029 (1.000-1.030); Urobilinogen Urine Negative (Negative); WBC Urine Automated 0-5 /hpf (0-5)
[2024-03-16] MEDS ORDERED: PROMETHAZINE 6.25 MG/50.25 ML BAG IV PRN (21:52)
[2024-03-16] MEDS: KETOROLAC TROMETHAMINE 15 MG/ML VIAL IV ONE (22:08)
[2024-03-16] MEDS ORDERED: bisacodyL 10 MG SUPP PR PRN (22:14)
[2024-03-16] MEDS ORDERED: NALOXONE HCL 0.4 MG/1 ML VIAL/CARP IV PRN (22:14)
[2024-03-16] MEDS ORDERED: ARTIFICIAL TEARS OP PRN (23:22)
[2024-03-17] MEDS: DICLOFENAC SOD 1% GEL 100 GM TUBE EXT SCH (00:02)
[2024-03-17] MEDS: traZODone HCL 50 MG TAB PO SCH (01:08)
[2024-03-17] MEDS: MoRPHine SULFATE 4 MG/ML 1 ML CARP\\VIAL IV PRN (01:16)
[2024-03-17 04:41] LABS: Basophils # (auto) 0.02 K/uL (0.00-0.20); Basophils % (auto) 0.2 %; Eosinophils # (auto) 0.16 K/uL (0.00-0.50); Eosinophils % (auto) 1.9 %; Hematocrit (blood only) 26.2 % (42.0-52.0); Hemoglobin 8.6 g/dl (14.0-18.0); Immature Granulocytes # (auto) 0.13 K/uL (0.01-0.20); Immature Granulocytes % (auto) 1.5 %; Lymphocytes # (auto) 2.56 K/uL (1.20-3.40); Lymphocytes % (auto) 29.9 %; Mean Corpuscular Hemoglobin 30.1 pg (25.0-34.0); Mean Corpuscular Hgb Conc 32.8 g/dL (32.0-36.0); Mean Corpuscular Volume 91.6 fL (80.0-100.0); Mean Platelet Volume 9.6 fL (9.4-12.4); Monocytes # (auto) 1.08 K/uL (0.11-0.59); Monocytes % (auto) 12.6 %; Neutrophils % (auto) 53.9 %; Platelet Count 215 K/uL (130-400); RDW Coefficient of Variation 14.5 % (11.5-14.5); RDW Standard Deviation 48.8 fL (36.4-46.3); Red Blood Count 2.86 M/uL (4.70-6.10); White Blood Count 8.55 K/ul (4.8-10.8)
[2024-03-17 05:01] LABS: BUN Creatinine Ratio 16.2 (10-20); Calcium 8.7 mg/dl (8.6-10.3); Creatinine Clr Calc Pharmacy 38.6 ml/min; Est GFR (African American) 45.7 ml/min; Est GFR (Non-African American) 39.4 ml/min; Potassium 4.8 mmol/L (3.5-5.1)
--- NOTE | 2024-03-17 07:03 | XRay Report ---
LEFT KNEE 2 VIEWS CLINICAL HISTORY: Fall. FINDINGS: AP and crosstable lateral views of the left knee are correlated with CT scan of the left ti citlalli and fibula dated 02/11/2024. The skeletal structures are heterogeneously osteopenic. No acute frac ture is identified. Again seen is a subacute/healing transverse fracture through the proximal tibial metadiaphysis. This appears to extend to the articular surface. There is mild tricompartmental degene rative joint space narrowing. No joint effusion is seen. Soft tissue edema is present throughout the left leg. Atherosclerotic calcification is noted in the popliteal artery. IMPRESSION: 1. No acute fracture is identified. 2. Again seen is a subacute/healing transverse fracture through the proximal tibial metadiaphysis. Electronically signed by: Claus Bowden M.D. 03/17/2024 7:01 AM
[2024-03-17] MEDS: oxyCODONE HCL IR 30 MG TAB (IMMEDIATE RELEASE) PO SCH (08:15)
--- NOTE | 2024-03-17 09:14 | Orthopedic Consultation ---
Date of Service March 17, 2024 Assessment & Plan (1) Closed right femoral fracture: NPO. Plan for retrograde IM nailing today with Dr. Gutierrez. Procedure explained and consent obtained. I did call his and update her with the plan as well. Pain seems reasonably controlled for now. His right leg is splinted. (2) Closed fracture of left proximal tibia: History of Present Illness Reason for Consultation: . Requesting Physician: . Attending Physician: Ko Arita MD .Keith is a 88 year old patient who fell yesterday and fractured his right femur. He is about 3 months s/p left proximal tibia fracture and was seeing Dr. De La Cruz for this. He denies pain at this time in the left tibia. No other injuries. He did have a right tka by Dr Motta about 4 years ago. Allergies Allergy/AdvReac Type Severity Reaction Status Date / Time amoxicillin [From Augmentin] Allergy Mild diarrhea Verified 03/16/24 19:12 clavulanic acid Allergy Mild diarrhea Verified 03/16/24 19:12 [From Augmentin] mirtazapine [From Remeron] Allergy Confusion Unverified 03/16/24 19:12 Home Medications Medication Instructions Recorded Confirmed Type cholecalciferol (vitamin D3) 125 125 mcg PO QAM 04/11/22 03/16/24 History mcg (5,000 unit) tablet (Vitamin D3) melatonin 10 mg tablet 20 mg PO HS 04/11/22 03/16/24 History vit C 250 mg-vit E 90 mg-zinc 40 1 tab PO QAM 04/11/22 03/16/24 History mg-copper 1 [id number] capsule (PreserVision AREDS-2) psyllium 1 tbsp PO QAM 01/01/24 03/16/24 History acetaminophen 500 mg tablet 650 mg (1.3 x 500 mg) PO TID 21 02/20/24 03/16/24 Rx (Tylenol Extra Strength) days #90 tabs aspirin 81 mg tablet,delayed 81 mg PO QAM #30 tabs 02/20/24 03/16/24 Rx release atorvastatin 10 mg tablet 10 mg PO QAM #30 tabs 02/20/24 03/16/24 Rx clopidogrel 75 mg tablet 75 mg PO QAM #30 tabs 02/20/24 03/16/24 Rx diclofenac sodium 1 % topical gel 2 g EXT Q6H #100 grams 02/20/24 03/16/24 Rx (Voltaren Arthritis Pain) heparin, porcine (PF) 5,000 5,000 unit (0.5 mL) subcut Q8H 30 02/20/24 03/16/24 Rx unit/0.5 mL injection syringe days #45 mL polyethylene glycol 3350 17 gram 17 g PO DAILY PRN constipation #30 02/20/24 03/16/24 Rx oral powder packet (Miralax) ea celecoxib 100 mg capsule 100 mg PO .DAILY AFTER SUPPER 03/16/24 03/16/24 History famotidine 20 mg tablet 20 mg PO AMHS 03/16/24 03/16/24 History multivitamin-ferrous 1 tab PO .DAILY AFTER LUNCH 03/16/24 03/16/24 History fumarate-folic acid 18 mg-400 mcg tablet oxycodone 30 mg tablet 30 mg PO QDB 03/16/24 03/16/24 History oxycodone 30 mg tablet,oral ONLY 30 mg PO Q6H PRN pain scale 5-10 03/16/24 03/16/24 History (not feeding tubes) polyvinyl alcohol-povidone (PF) 2 drp OPB BID 03/16/24 03/16/24 History 1.4 %-0.6 % eye drops in a dropperette (Refresh Classic (PF)) trazodone 50 mg tablet 50 mg PO HS 03/16/24 03/16/24 History Past Med/Surg History Problem List Closed right femoral fracture (Acute) Closed fracture of left proximal tibia (Acute) Fall (Acute) Right femoral fracture L2 vertebral fracture Left lumbar radiculopathy Bilateral lower extremity edema Closed fracture of left proximal tibia (Acute) Sciatica (Acute) Spinal stenosis (Acute) Closed left tibial fracture Osteoarthritis involving multiple joints on both sides of body Contusion of left knee Abrasion (Acute) Fall (Acute) Ambulatory dysfunction (Acute) Acute knee pain (Acute) Right rib fracture Ambulatory dysfunction Left leg pain Left knee pain Back pain Lumbar stenosis with neurogenic claudication (Chronic) Head injury (Acute) Lumbar contusion (Acute) Frequent falls (Chronic) Constipation Edema (Chronic) Abnormal MRI, pelvis Skin ulcers of both feet Traumatic wound (Acute) Stroke-like symptoms (Acute) Elevated troponin (Acute) Left sided numbness (Acute) Left leg weakness (Acute) Carcinoma of prostate (Chronic) DVT prophylaxis Discharge planning issues CVA (cerebral vascular accident) Dyslipidemia, goal LDL below 70 Arthritis of right knee Status post knee replacement COPD (chronic obstructive pulmonary disease) H/O: CVA (cerebrovascular accident) 2019 ([facility]), residual memory problems and shuffling of feet Medical History History of urinary incontinence "wears depends" History of COVID-19 Approximately 2020 > all symptoms resolved Poor historian History of squamous cell carcinoma History of basal cell carcinoma Hearing deficit B/L [place] Chronic bronchitis Chronic cough "worked in the [employer]" Osteoarthritis Obesity Hereditary hemochromatosis Monitoring, labs have been "WNL" History of TIA (transient ischemic attack) 3.5 years ago Anemia Chronic back pain Hyperlipidemia H/O intracranial hemorrhage 20 + years ago Prostate cancer s/p XRT only - 15 years ago Surgical History History of total knee arthroplasty History of colonoscopy History of prostate biopsy History of tooth extraction History of cataract surgery History of lumbar surgery History of squamous cell carcinoma excision History of basal cell carcinoma (BCC) excision Family History Father Coronary heart disease Sister Cancer Other No family history of adverse response to anesthesia Social History Smoking Status: Never smoker Cigarettes Per Day: on on occasion; Second Hand Exposure: No; Do You Dip or Chew Tobacco: No; Hx Alcohol Use: No Hx Substance Use: No Preferred Language: Kuwaiti Communication Ability: Effective Cream Gatherer Required: No Beliefs That Will Affect Care: None marital status: Current Living Situation: Rehab Current Living Situation Comment: [facility] Feels Safe at Home: Yes Safety Concerns: Feels Safe At This Time Assistive Devices: Glasses, Hearing Aid - Bilateral and Walker Review of Systems All systems reviewed & are unremarkable except as noted in HPI & below. Physical Exam .alert and oriented. NAD Right leg: splint intact. Able to dorsiflex and plantarflex. NVI. +swelling of the lower leg. Left leg: palpable callous formation at the site of the left proximal tibia fracture. No tenderness. Results & Data Results & Data Laboratory Results . Diagnostic Findings .xrays show a displaced right mid-distal 1/3 periprosthetic femur fracture PG Care Time/CCT Total # of Minutes Spent Total Time Spent with Patient: Total time spent is greater than 50% in coordination of care (as documented) at patient's floor/unit and/or counseling patient: Coding Level of Care Code 03217 IN/OBS CONSULT LVL 4,60M Diagnoses Closed right femoral fracture S72.024D Encounter type: subsequent encounter Femur location: proximal epiphysis Fracture alignment: nondisplaced Fracture healing: with routine healing Closed fracture of left proximal tibia S82.102A Encounter type: initial encounter Fracture morphology: unspecified fracture morphology (1) Closed right femoral fracture Encounter type: subsequent encounter Femur location: proximal epiphysis Fracture alignment: nondisplaced Fracture healing: with routine healing Qualified Code(s): S72.024D - Nondisplaced fracture of epiphysis (separation) (upper) of right femur, subsequent encounter for closed fracture with routine healing (2) Closed fracture of left proximal tibia Encounter type: initial encounter Fracture morphology: unspecified fracture morphology Qualified Code(s): S82.102A - Unspecified fracture of upper end of left tibia, initial encounter for closed fracture
[2024-03-17] MEDS: ATORVASTATIN 10 MG TAB PO SCH (10:01)
[2024-03-17] MEDS: FAMOTIDINE 20 MG TAB PO SCH (10:01)
[2024-03-17] MEDS: CHOLECALCIFEROL 125 MCG (5,000 UNITS) TAB PO SCH (10:01)
[2024-03-17] MEDS: CEROVITE ADV FORMULA TAB PO SCH (10:02)
[2024-03-17] MEDS: ACETAMINOPHEN 325 MG TAB PO SCH (10:03)
--- OUTSIDE RECORDS SUMMARY | 2024-03-17 11:12 | External Medical Summary | Summary of Care ---
Author Name Unknown Organization [facility] Address [address] [place] [address] Phone [phone] Care Team Providers Care Manufacturing Software Engineer Name Role Phone Ewa Galindo MD Primary Care Provider [phone] Encounter Details Date Type Department Care Team (Late st Contact Info) Description 03/15/2024 Orders Only Lab Mobile Phlebotomy [facility] [address] [place] [address] Ewa Galindo MD [address] [place] [address] [place] [address] Routine medical exam* Allergies Active Allergy Reactions Criticality Noted Date Comments Amoxicillin-Pot Clavulanate Diarrhea 08/03/19 09 documented as of this encounter (statuses as of 03/15/2024) Medications Medication Sig Dispensed Refills Start Date End Date Status SPIRULINA 500 MG PO TABS unknown Active MULTIVITAMINS PO TABS daily Act mckenzie DAILY HERBS PROSTATE PO CAPS unknown Active CALCIUM + D 600-200 MG-UNIT PO TABS unknown Active atorvaSTATin (LIPITOR) 80 MG Tablet Take 80 mg by mouth daily. Active aspirin enteric coated 81 MG TBEC Take 81 mg by mouth daily. Active documented as of this encounter (statuses as of 03/15/2024) Active Problems Problem Noted Date Diagnosed Date Degeneration of lumbosacral intervertebral disc 05/25/2014 Degeneration of cervical intervertebral disc 08/2013 documented as of this encounter (statuses as of 03/15/2024) Social History Tobacco Use Types Packs/Day Years Used Date Smoking Tobacco: Never Smokeless Tobacco: Never Alcohol Use Standard Drinks/Week Comments No 0 (1 standard drink = 0.6 oz pur e alcohol) Utilities Answer Date Recorded Do you have trouble paying y our heating, water, or electric bill? (Adult - for ages 18 years and over) Not on file 12/09/2023 Is your family able to pay t he heat, water, or electric bill? (Household - for ages 0-17 years) Not on file 12/09/2023 Does your family have access to good internet? (Household - for ages 0-17 years) Not on file 12/09/2023 Social Connections Answer Date Recorded How often do you feel lonely or isolated from those around you? (Adult - for ages 18 years and over) Not on file 12/09/2023 Sex and Gender Information Value Date Recorded Sex Assigned at Not on file Gender Identity Not on file Sexual Orientation Not on file documented as of this encounter Plan of Treatment Upcoming Encounters Date Type Department Care Team (Late st Contact Info) Description 03/15/2024 5:00 AM EDT Laboratory Lab Mobile Phlebotomy [facility] [address] [place] [address] [place] [address] Arrived Scheduled Orders Name Type Priority Associated Diagnoses Orde r Schedule CBC Lab Routine Routine medical exam Expected: 03/15/2024, Expires: 03/15/2025 BASIC METABOLIC PANEL Lab Routine Routine medical exam Expected: 03/15/2024, Expires: 03/15/2025 Health Maintenance Due Date Last Done Comments Depression Screening 1947 DTap/Tdap Vaccines (1 - Tdap) 1953 Zoster Vaccines (1 of 2) 1984 Pneumococcal Vaccine: 65+ Ye ars (1 of 1 - PCV) 1999 COVID-19 Vaccine (2023-2 5 season) 2024 Influenza Vaccine (FLU shot) (#1) 2024 HPV (Gardasil) Vaccine Aged Out No lo nger eligible based on patient's age to complete this topic Hepatitis B Vaccine Aged Out No longe r eligible based on patient's age to complete this topic MENINGOCOCCAL (MENACTRA/MENVEO) Aged Out No longer eligible based on patient's age to complete this topic documented as of this encounter Medical Devices Not on filedocumented as of this encounter Visit Diagnoses Diagnosis Routine medical exam- Primary Routine general medical examination at a health care facility documented in this encounter Care Teams Manufacturing Software Engineer Relationship Specialty Start Date End Date Ewa Galindo MD [address] [place] [address] PCP - General 01/24/06 documented as of this encounter
--- OUTSIDE RECORDS SUMMARY | 2024-03-17 11:12 | External Medical Summary ---
Author Name Unknown Address Unknown Organization [id number] [address] [place] [id number] Laboratory Report Ordering Provider Test Date Status NATALIE PLEITEZ 03/15/2024 05:22:00 Final Observation Date Value Abnormality Reference (Units ) Status WBC, Total 03/15/2024 05:22:00 8.15 4.00-10.8 0 (K/uL) Final RBC 03/15/2024 05:22:00 3.63 4.50-5.25 (M/uL) Final Hemoglobin 03/15/2024 05:22:00 10.7 Below low normal 14 .0-16.8 (g/dL) Final HCT 03/15/2024 05:22:00 33.3 Below low normal 40. 0-48.4 (%) Final MCV 03/15/2024 05:22:00 91.7 82.0-99.5 (fL) Final MCH 03/15/2024 05:22:00 29.5 27.0-34.0 (pg) Final MCHC 03/15/2024 05:22:00 32.1 32.0-36.0 (g/dL) Final RDW 03/15/2024 05:22:00 14.7 11.5-15.5 (%) Final Platelets 03/15/2024 05:22:00 263 140-400 (K /uL) Final MPV 03/15/2024 05:22:00 9.8 6.6-11.1 ( fL) Final Performing Location [facility] [address] [place] [id number]
--- OUTSIDE RECORDS SUMMARY | 2024-03-17 11:13 | External Medical Summary ---
Author Name Unknown Address Unknown Organization [id number] [address] [place] [id number] Laboratory Report Ordering Provider Test Date Status NATALIE PLEITEZ 03/15/2024 05:22:00 Final Observation Date Value Abnormality Reference (Units ) Status BUN 03/15/2024 05:22:00 25 Above high normal 6-20 (mg/dL) Final Creatinine 03/15/2024 05:22:00 1.5 Above high normal 0.6-1.2 (mg/dL) Final Glomerular filtration rate/1.73 sq M.predicted [Volume Rate/Area] in Serum, Plasma or Blood by Creatinine-based formula (CKD-EPI) 03/15/2024 05:22:00 43 Below low normal >=60 (mL/min) Final eGFR is calculated based on the CKD-EPI 2020 equation. Sodium 03/15/2024 05:22:00 139 135-146 (m mol/L) Final Potassium 03/15/2024 05:22:00 4.7 3.5-5.1 (m mol/L) Final Cl 03/15/2024 05:22:00 101 98-107 (mm ol/L) Final CO2 03/15/2024 05:22:00 27 22-32 (mmo l/L) Final Anion gap 03/15/2024 05:22:00 11 7-15 (mmol /L) Final Glucose 03/15/2024 05:22:00 111 70-120 (mg /dL) Final Calcium 03/15/2024 05:22:00 9.5 8.4-10.2 ( mg/dL) Final Performing Location [facility] [address] [place] [id number]
--- NOTE | 2024-03-17 12:09 | Hospitalist Progress Note ---
Date of Service March 17, 2024 Assessment & Plan (1) Closed right femoral fracture: Plan 88-year-old male with PMH of HLD, CVA 2019, COPD, osteoarthritis, hereditary hemochromatosis, prostate cancer, urinary incontinence presents from [facility] after a fall and was found to have mildly comminuted displaced fracture of the right femoral shaft. 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 This time, he was attempting to transfer from his bed to chair without assistance and fell backwards onto his right leg in a twisting motion after losing his balance. He denied any head trauma or loss of consciousness. He is being managed for the following: Traumatic right femoral fracture Comes in with fall, noted to have right femoral shaft fracture. RCRI 1, acceptable risk for cardiac complication for the much needed Sx. N.p.o. until surgery, hold antiplatelets and DVT prophylaxis. Orthopedics on board, for surgery today. Resume DAPT and DVT prophylaxis once bleeding risks deemed minimal per surgery team. Monitor H&H, transfuse for hemoglobin less than 8 or for symptomatic anemia. Hold parameters for maintenance narcotic and trazodone home meds for sedation/confusion. Acute on chronic anemia, hemoglobin drop from baseline, possibly from fracture bleed Hypertension, BP on the lower side, hold BP meds. Other chronic medical conditions: Continue with/resume home meds as and when able. History CVA History hereditary hemochromatosis Hyperlipidemia on statin Rx Prostate cancer status post radiation Skin cancer as per records Chronic pain on narcotics Past tobacco abuse DVT prophylaxis. SCDs Re: Possible procedure, hemoglobin drop from baseline DNR/DNI Patient Ms. Awa Israel, contact #[phone]. Updated at bedside and son. Text document was generated using mPowa voice recognition software. It may contain grammatical or spelling errors. Kindly contact undersigned for clarification of any documentation item in question. Admission and Anticipated Discharge Date Admission Date: March 16, 2024 Subjective Patient was seen and examined at bedside. Patient was lying in bed, on room air, NAD, resting comfortably. Patient reports right hip pain with movement, reports improvement in his left knee pain, denies febrile illness/sore throat/cough/chest pain in the last few weeks. Patient is n.p.o. and for surgery today. Physical Exam Physical Exam: General Appearance: WD/WN, vitals as above, NAD, sitting up in bed, slow to speak but answers questions appropriately. [id number]. Head: normocephalic, atraumatic Eyes: normal inspection, PERRL, conjunctivae normal, anicteric sclerae ENT: hard of hearing, external ear and nose normal, oropharynx normal Neck: normal visual inspection, trachea midline, no thyromegaly Respiratory: normal respiratory effort, lungs clear to auscultation, no wheeze, rales, rhonchi. No accessory muscle use Cardiovascular: regular rate, rhythm, normal peripheral pulses, 1+ BLE edema. Vessels: no JVD Chest: normal inspection of chest Abdomen/GI: normal bowel sounds, soft, nontender, no hepatosplenomegaly Extremities/Musculoskeletal: + RLE externally rotated and shortened, wrap in place R thigh, TTP. No cyanosis or clubbing, extremities motor strength 5/5. Neurologic: PERRL, EOMI, accommodation nl, no face palsy, no dysarthria, CN's II-XI intact bilaterally and moves all extremities Psychiatric: A+Ox3, euthymic affect Skin: no rashes, normal color, warm/dry Results & Data Results & Data Vital Signs (Past 12 Hours) Vital Signs Temp Pulse Pulse Pulse Resp BP BP 03/17/24 11:57 36.2 C L 84 22 133/62 03/17/24 09:16 36.3 C L 68 16 123/71 03/17/24 08:20 61 16 106/63 03/17/24 07:34 03/17/24 06:00 65 18 95/50 L 03/17/24 03:00 67 16 109/63 03/17/24 03:00 03/17/24 02:00 71 18 104/53 L 03/17/24 01:00 72 12 96/56 L Pulse Ox Pulse Ox O2 Del Method O2 Del Method O2 Flow Rate O2 Flow Rate 03/17/24 11:57 96 Room Air 03/17/24 09:16 100 Room Air 03/17/24 08:20 100 Nasal Cannula 2 03/17/24 07:34 100 Nasal Cannula 2 03/17/24 06:00 100 Nasal Cannula 2 03/17/24 03:00 100 Room Air 2 03/17/24 03:00 99 Nasal Cannula 2 03/17/24 02:00 100 Nasal Cannula 2 03/17/24 01:00 100 Nasal Cannula 2 (1) Closed right femoral fracture Encounter type: subsequent encounter Femur location: proximal epiphysis Fracture alignment: nondisplaced Fracture healing: with routine healing Qualified Code(s): S72.024D - Nondisplaced fracture of epiphysis (separation) (upper) of right femur, subsequent encounter for closed fracture with routine healing
[2024-03-17] MEDS: LACTATED RINGER'S 1,000 ML IV SCH (12:11)
[2024-03-17] MEDS ORDERED: ATROPINE SULFATE 0.1 MG/ML 10ML SYR IV PRN (13:07)
[2024-03-17] MEDS ORDERED: ePHEDrine sulfate 50 MG/ML AMP IV PRN (13:07)
[2024-03-17] MEDS ORDERED: ONDANSETRON INJ 2 MG/ML 2 ML VIAL IV PRN ×2 (13:07→17:36)
[2024-03-17] MEDS ORDERED: ROCURONIUM BROMIDE 10 MG/ML 5 ML VIAL IV ONE ×2 (13:12→14:03)
[2024-03-17] MEDS ORDERED: fentaNYL citrate PF 100 MCG/2 ML VIAL ONE ×2 (13:12→14:03)
--- NOTE | 2024-03-17 13:16 | History & Physical Bridge Note ---
Date of Service March 17, 2024 History & Physical Bridge Note I have examined the patient, reviewed the History & Physical and in the interval since the performance of the History & Physical I have noted the following changes of clinical significance: no changes noted
--- NOTE | 2024-03-17 13:21 | Anesthesiology Consultation ---
Date of Service March 17, 2024 Assessment & Plan (1) Encounter for pre-operative examination: Chart Review Chart Review: Acceptable Risk for Surgery and Patient NOT seen in Pre Admission Testing preop hospitalist eval: Acceptable risk for cardiac complications resulting from prospective procedure R evised Cardiac Risk Index (RCRI): 1. High-risk type of surgery (examples include vascular and any open intraperitoneal or intrathoracic procedures). No 2. History of ischemic heart disease (history of myocardial infarction or positive exercise test, current compliant of chest pain considered to be secondary to myocardial ischemia, use of nitrate therapy, or ECG with pathological Q waves; do not count prior coronary revascularization procedure unless one of the other criteria for ischemic heart disease is present). No 3. History of heart failure. No 4. History of cerebrovascular disease. Yes 5. Diabetes mellitus requiring treatment with insulin. No 6. Preoperative serum creatinine >2.0. No Pt has revised cardiac index score of 1 points. (Class I Risk.) 6 % 30-day risk of , RI, or cardiac arrest. Acceptable risk for cardiac complications if surgery recommended by Orthopedics and patient/family agreeable to attendant procedural benefits and risks.. Consults Requested none History Surgery Operation Date: 03/17/24 07:00 Proposed Procedures p Right Femur Retrograde Nail - Oz Gutierrez MD Height/Weight Height: 5 ft 10 in Weight: 100.4 kg Allergies Allergy/AdvReac Type Severity Reaction Status Date / Time mirtazapine [From Remeron] Allergy Confusion Verified 03/17/24 12:04 amoxicillin [From Augmentin] AdvReac Mild diarrhea Verified 03/17/24 12:04 clavulanic acid AdvReac Mild diarrhea Verified 03/17/24 12:04 [From Augmentin] Medications Home Medications Medication Instructions Recorded Confirmed Last Taken cholecalciferol (vitamin D3) 125 125 mcg PO QAM 04/11/22 03/16/24 06/26/22 mcg (5,000 unit) tablet (Vitamin D3) melatonin 10 mg tablet 20 mg PO HS 04/11/22 03/16/24 06/26/22 17:00 vit C 250 mg-vit E 90 mg-zinc 40 1 tab PO QAM 04/11/22 03/16/24 06/26/22 mg-copper 1 [id number] capsule (PreserVision AREDS-2) psyllium 1 tbsp PO QAM 01/01/24 03/16/24 Unknown acetaminophen 500 mg tablet 650 mg (1.3 x 500 mg) PO TID 21 02/20/24 03/16/24 Unknown (Tylenol Extra Strength) days #90 tabs aspirin 81 mg tablet,delayed 81 mg PO QAM #30 tabs 02/20/24 03/16/24 Unknown release atorvastatin 10 mg tablet 10 mg PO QAM #30 tabs 02/20/24 03/16/24 Unknown clopidogrel 75 mg tablet 75 mg PO QAM #30 tabs 02/20/24 03/16/24 Unknown diclofenac sodium 1 % topical gel 2 g EXT Q6H #100 grams 02/20/24 03/16/24 Unknown (Voltaren Arthritis Pain) heparin, porcine (PF) 5,000 5,000 unit (0.5 mL) subcut Q8H 30 02/20/24 03/16/24 Unknown unit/0.5 mL injection syringe days #45 mL polyethylene glycol 3350 17 gram 17 g PO DAILY PRN constipation #30 02/20/24 03/16/24 Unknown oral powder packet (Miralax) ea celecoxib 100 mg capsule 100 mg PO .DAILY AFTER SUPPER 03/16/24 03/16/24 Unknown famotidine 20 mg tablet 20 mg PO AMHS 03/16/24 03/16/24 Unknown multivitamin-ferrous 1 tab PO .DAILY AFTER LUNCH 03/16/24 03/16/24 Unknown fumarate-folic acid 18 mg-400 mcg tablet oxycodone 30 mg tablet 30 mg PO QDB 03/16/24 03/16/24 Unknown oxycodone 30 mg tablet,oral ONLY 30 mg PO Q6H PRN pain scale 5-10 03/16/24 03/16/24 Unknown (not feeding tubes) polyvinyl alcohol-povidone (PF) 2 drp OPB BID 03/16/24 03/16/24 Unknown 1.4 %-0.6 % eye drops in a dropperette (Refresh Classic (PF)) trazodone 50 mg tablet 50 mg PO HS 03/16/24 03/16/24 Unknown Active Medications Generic Name Dose Route Start Last Admin Trade Name Freq PRN Reason Stop Dose Admin Acetaminophen 650 mg 03/17/24 09:00 03/17/24 10:03 Acetaminophen 325 Mg Tab PO 04/16/24 08:59 650 mg TID TESSIE Administration Atorvastatin Calcium 10 mg 03/17/24 09:00 03/17/24 10:01 Atorvastatin 10 Mg Tab PO 04/16/24 08:59 10 mg QAM TESSIE Administration Diclofenac Sodium 2 gm 03/16/24 23:00 03/17/24 10:02 Diclofenac Sod 1% Gel 100 Gm Tube EXT 04/15/24 22:59 2 gm Q6H TESSIE Administration Protocol Famotidine 20 mg 03/17/24 09:00 03/17/24 10:01 Famotidine 20 Mg Tab PO 04/16/24 08:59 20 mg AMHS TESSIE Administration Lactated Ringer's 1,000 mls @ 15 mls/hr 03/17/24 12:15 03/17/24 12:11 Lr IV 04/16/24 12:14 15 mls/hr .Q24H TESSIE Administration Morphine Sulfate 4 mg 03/16/24 21:52 03/17/24 01:16 Morphine Sulfate 4 Mg/Ml 1 Ml Carp\\Vial IV 03/30/24 21:51 4 mg Q4H PRN Administration Pain Multivitamins/Minerals 1 tab 03/17/24 09:00 03/17/24 10:02 Cerovite Adv Formula Tab PO 04/16/24 08:59 1 tab QAM TESSIE Administration Oxycodone HCl 30 mg 03/17/24 07:30 03/17/24 08:15 Oxycodone Hcl Ir 30 Mg Tab (Immediate Release) PO 03/31/24 07:29 Not Given QDB TESSIE Trazodone HCl 50 mg 03/17/24 00:40 03/17/24 01:08 Trazodone Hcl 50 Mg Tab PO 04/16/24 00:39 50 mg HS TESSIE Administration Vitamin D 125 mcg 03/17/24 09:00 03/17/24 10:01 Cholecalciferol 125 Mcg (5,000 Units) Tab PO 04/16/24 08:59 125 mcg QAM TESSIE Administration NPO Date Last Intake of Fluids: 03/16/24 Time Last Intake of Fluids: 17:00 Date Last Intake of Solids: 03/16/24 Time Last Intake of Solids: 18:00 Past Medical History Medical History (Updated 03/17/24 @ 13:24 by Alfred Neff MD) Encounter for pre-operative examination History of urinary incontinence "wears depends" History of COVID-19 Approximately 2019 > all symptoms resolved Poor historian History of squamous cell carcinoma History of basal cell carcinoma Hearing deficit B/L [place] Chronic bronchitis Chronic cough "worked in the mywaves" Osteoarthritis Obesity Hereditary hemochromatosis Monitoring, labs have been "WNL" History of TIA (transient ischemic attack) 3.5 years ago Anemia Chronic back pain Hyperlipidemia H/O intracranial hemorrhage 20 + years ago Prostate cancer s/p XRT only - 15 years ago Exercise / Class Metabolic Activity III < 4 Walking/Shop/Light housework Past Family History Family History Father Coronary heart disease Sister Cancer Other No family history of adverse response to anesthesia Past Surgical History Surgical History History of total knee arthroplasty History of colonoscopy History of prostate biopsy History of tooth extraction History of cataract surgery History of lumbar surgery History of squamous cell carcinoma excision History of basal cell carcinoma (BCC) excision Social History Smoking Status: Never smoker tobacco type: cigars Smoking cigarettes per day: on on occasion Do You Dip or Chew Tobacco: No Hx Alcohol Use: No Hx Substance Use: No substance use type: does not use Physical Exam Vital Signs Last Vital Signs Temp 36.2 C L 03/17/24 11:57 Pulse 84 03/17/24 11:57 Resp 22 03/17/24 11:57 BP 133/62 03/17/24 11:57 Pulse Ox 96 03/17/24 11:57 O2 Del Method Room Air 03/17/24 11:57 O2 Flow Rate 2 03/17/24 08:20 Testing Laboratory Results 03/17/24 03:57 03/17/24 03:57 PT 10.9 Seconds (9.0-12.0) 03/16/24 18:15 INR 1.0 (0.9-1.1) 03/16/24 18:15 APTT 28 Seconds (21-31) 03/16/24 18:15 Urine Color Dark Yellow 03/16/24 20:54 Urine Appearance Clear (Clear) 03/16/24 20:54 Urine pH 5.0 (4.5-7.5) 03/16/24 20:54 Ur Specific [place] 1.029 (1.000-1.030) 03/16/24 20:54 Urine Protein Trace (Negative) H 03/16/24 20:54 Urine Glucose (UA) Negative (Negative) 03/16/24 20:54 Urine Ketones Trace (Negative) H 03/16/24 20:54 Urine Nitrite Negative (Negative) 03/16/24 20:54 Ur Leukocyte Esterase Negative (Negative) 03/16/24 20:54 Urine WBC (Auto) 0-5 /hpf (0-5) 03/16/24 20:54 Urine RBC (Auto) 0-2 /hpf (0-2) 03/16/24 20:54 U Hyaline Cast (Auto) 0-2 /lpf (0-2) 03/16/24 20:54 U Epithel Cells (Auto) 0-2 /hpf (0-2) 03/16/24 20:54 Urine Bacteria (Auto) None Seen (None Seen) 03/16/24 20:54 Blood Type B Positive 03/16/24 18:25 Antibody Screen NEGATIVE 03/16/24 18:25 Electrocardiogram Date: 03/16/24 HR 77. Accelerated junctional rhythm. LAD. Chest X-Ray Date: 03/16/24 XR chest 1V portable CLINICAL HISTORY: fall TECHNIQUE: Single frontal radiograph of the chest was obtained. Comparison: Comparison is made to chest radiograph 02/11/2024 FINDINGS: No lines and tubes are seen. Cardiomegaly is noted. Reticular interstitial opacities are seen. No evidence of pleural effusion or pneumothorax. IMPRESSION: No acute chest disease. Cardiomegaly is noted. Echocardiogram Date: 02/11/24 EF 60-65% Mild LVH No RWMA No .
[2024-03-17] MEDS ORDERED: ONDANSETRON INJ 2 MG/ML 2 ML VIAL ONE (14:03)
[2024-03-17] MEDS ORDERED: PROPOFOL IV EMULSION 10 MG/ML 100 ML VIAL IV ONE (14:03)
[2024-03-17] MEDS ORDERED: DEXAMETHASONE SOD INJ 4 MG/ML VIAL ONE (14:03)
[2024-03-17] MEDS ORDERED: SUGAMMADEX SODIUM 200 MG/2 ML VIAL IV ONE (14:08)
[2024-03-17] MEDS ORDERED: PHENYLEPHRINE HCL 10 MG/ML VIAL ONE (14:08)
[2024-03-17] MEDS ORDERED: ceFAZolin 330 MG/ML 1 GM VIAL ONE (14:11)
[2024-03-17] MEDS: ceFAZolin 2000MG 2,000 MG/15 ML SYR IV ONE (14:15)
[2024-03-17] MEDS: TRANEXAMIC ACID / 0.7% NACL 1000MG/100ML BAG IV ONE (14:15)
[2024-03-17] MEDS: BUPIVACAINE/EPINEPHRINE 0.5% MPF 1:200,000 30 ML VIAL ONE (15:26)
--- NOTE | 2024-03-17 15:44 | Fluoroscopy Report ---
FL femur RT 2V CLINICAL HISTORY: RIGHT RETROGRADE FEMUR NAILacute fracture of the right femur COMPARISON STUDY: 03/16/2024 FLUOROSCOPY TIME: 119.9 seconds FLUOROSCOPY IMAGES: 3 EXPOSURE DOSE: 36.50 mGy FINDINGS: Status post placement of an intertrochanteric nail with distal cannulated screws fixating t he acute mid to distal femoral diaphyseal fracture. There is persistent displacement however this has improved from prior. Partially imaged knee arthroplasty. IMPRESSION: Fluoroscopic assistance as above. ACT 112: Negative or not required by law. Electronically signed by: William Chan M.D. 03/17/2024 3:43 PM
--- NOTE | 2024-03-17 16:03 | Operative Report ---
PG Post Operative Report Pre & Post Diagnosis Operation Date: 03/17/24 07:00 Pre-Op Diagnosis: Closed right periprosthetic femoral fracture Post-Op Diagnosis: Closed right periprosthetic femoral fracture I identified the patient and participated in the time-out.: Yes Procedure Operation Date: 03/17/24 07:00 Actual Procedures p Right Femur Retrograde Nail(Right) - Oz Gutierrez MD Surgeon Oz Gutierrez MD Residential Direct Support Professional Kiran Moreno PA-C Estimated Blood Loss 100 Findings Consistent with Post-Op Diagnosis Operative findings revealed a slightly comminuted displaced distal femoral periprosthetic femur fracture around a total knee replacement Specimens None Anesthesia Type General Complications none Disposition Accompanied Patient To Recovery: No Indications Patient is an 88-year-old gent with multiple medical comorbidities who sustained a mechanical fall yesterday. He was brought to emergency room where x-rays of the right periprosthetic femur fracture. He was admitted by the hospitalist service, medically optimized indicated for surgical fixation. Of note, the patient does have a currently healing tibial diaphyseal stress fracture. Description of Procedure Operative implants consist of: 1. Synthes 13 mm x 3 and 20 mm retrograde nail. 2. 5 mm interlocking screws x 2. 3. 85 mm of distal spiral blade x 1. 4. Titanium end cap X 1. The patient was taken the op room, identified, placed on the operative table in supine position. All contractors were appropriately padded. IV antibiotics provided by anesthesia team. A general anesthetic and been implemented as the patient has been on Plavix. The right lower extremity splint was removed. The right entire leg was scrubbed with Hibiclens, prepped with ChloraPrep and draped in usual sterile fashion. A direct anterior approach the knee was then performed using a previous total knee incision. Sharp dissection Through subcutaneous tissue down the extensor mechanism. A medial parapatellar arthrotomy incision was performed. I resected some of the scar to allow visualization of the notch area. Upon visualization of the notch the tibial post was extremely tall. Did not allow for a entryway into the box. Therefore had to remove about 5 mm of the superior aspect of the post. This is about 25% of most of the post. The knee was still straight stable in flexion and extension after removal. A guidewire was then placed in the central aspect of the femur through the intercondylar notch area in both AP and lateral planes. Was T[place]. Was overreamed with 13 mm reamer. I then applied some traction to the femur and reduced the fracture as best as possible. A guidewire was placed across the fracture site. We measured for nail length and 320 mm nail was selected. I then overreamed the guidewire up to a size 14. A 320 mm x 13 mm retrograde IM nail was then placed over the guidewire and tapped into position. We tried to hold the fracture reduced is much as possi ble. Attention then drawn toward distal interlocking. Using the distal locking aiming arm a stab incision was made over the lateral aspect the femur. A proximal interlocking screw was placed followed by the helical blade. The distal setscrew/and Screw was then placed to fix the helical blade and a fixed position. Some distal x-rays were obtained. Attention drawn proximally. Using a perfect tanana technique a proximal interlocking screw was placed in the dynamic hole. Stab incision was made. The drill was used and the screw was placed. Some final x-rays were obtained. Attention drawn toward closing. All wounds were irrigated extensively. I injected locally with the 30 cc of half percent Marcaine with epinephrine. I examined the knee and the knee was perfectly stable. Extensor Metros then closed with #1 Vicryl suture in a [id number] fashion. The IT band laterally was closed with #1 Vicryl suture in [id number] fashion. Subcutaneous tissues of all wounds were then closed with 2 Dexon suture in a buried interrupted fashion the skin was then closed with 3-0 nylon suture. The leg was then cleaned and dried a sterile dressing with Xeroform, 4 fours, sterile ABD pad, sterile cast padding, Dayday bandage and knee immobilizer were applied. The patient was then brought out of general esthesia and transferred to the recovery in stable condition. Patient tolerated the procedure well and there are no complications. Kiran Moreno, physician distribution center assistant, was present for the entire procedure. His assistance was required for proper patient positioning, prepping and draping, surgical exposure, retraction, perform the technical details of the operation, placement of hardware, closure of the incision site and placement of sterile bandage and postoperative knee immobilizer. I attest to the content of the Intraoperative Record and any orders documented therein. Any exceptions are noted below.
[2024-03-17] MEDS: fentaNYL citrate PF 100 MCG/2 ML VIAL IV PRN (16:10)
[2024-03-17] MEDS: ACETAMINOPHEN 1000 MG/100 ML IV IV ONE (16:30)
--- NOTE | 2024-03-17 16:57 | Anesthesiology Progress Note ---
Date of Service March 17, 2024 Anesthesia Post Procedure Vital Signs Vital Signs: Temp Pulse Pulse Pulse Resp BP BP 03/17/24 16:45 36.4 C L 106 H 16 124/61 03/17/24 16:35 110 H 20 130/70 03/17/24 16:25 112 H 24 144/83 H 03/17/24 16:15 105 H 20 148/87 H 03/17/24 16:05 90 18 158/74 H 03/17/24 15:55 36.3 C L 89 14 149/73 H 03/17/24 11:57 36.2 C L 84 22 133/62 03/17/24 09:16 36.3 C L 68 16 123/71 03/17/24 08:20 61 16 106/63 03/17/24 07:34 03/17/24 06:00 65 18 95/50 L 03/17/24 03:00 67 16 109/63 03/17/24 03:00 03/17/24 02:00 71 18 104/53 L 03/17/24 01:00 72 12 96/56 L 03/16/24 23:17 72 03/16/24 23:17 03/16/24 23:17 36.9 C 71 13 103/51 L 03/16/24 22:33 71 16 102/58 L 03/16/24 22:32 71 16 102/58 L 03/16/24 22:32 03/16/24 22:27 78 03/16/24 21:00 74 14 133/76 03/16/24 20:00 71 12 93/60 L 03/16/24 20:00 71 12 93/60 L 03/16/24 19:00 79 12 102/67 03/16/24 18:44 03/16/24 18:25 81 03/16/24 18:08 36.7 C 84 23 125/72 03/16/24 18:08 03/16/24 18:08 36.7 C 84 18 125/72 03/16/24 18:08 36.7 C 84 18 125/72 03/16/24 18:08 36.7 C 84 18 Pulse Ox Pulse Ox O2 Del Method O2 Del Method O2 Flow Rate O2 Flow Rate 03/17/24 16:45 92 Room Air 03/17/24 16:35 93 Room Air 03/17/24 16:25 92 Room Air 03/17/24 16:15 94 Oxymask 3 03/17/24 16:05 99 Oxymask 6 03/17/24 15:55 99 Oxymask 6 03/17/24 11:57 96 Room Air 03/17/24 09:16 100 Room Air 03/17/24 08:20 100 Nasal Cannula 2 03/17/24 07:34 100 Nasal Cannula 2 03/17/24 06:00 100 Nasal Cannula 2 03/17/24 03:00 100 Room Air 2 03/17/24 03:00 99 Nasal Cannula 2 03/17/24 02:00 100 Nasal Cannula 2 03/17/24 01:00 100 Nasal Cannula 2 03/16/24 23:17 03/16/24 23:17 Nasal Cannula 2 03/16/24 23:17 100 Nasal Cannula 2 03/16/24 22:33 100 Nasal Cannula 2 03/16/24 22:32 100 Nasal Cannula 2 03/16/24 22:32 100 Nasal Cannula 2 03/16/24 22:27 03/16/24 21:00 100 Nasal Cannula 2 03/16/24 20:00 98 Nasal Cannula 2 03/16/24 20:00 98 Nasal Cannula 2 03/16/24 19:00 98 Nasal Cannula 2 03/16/24 18:44 100 Nasal Cannula 2 03/16/24 18:25 03/16/24 18:08 98 Room Air 03/16/24 18:08 98 Room Air 03/16/24 18:08 98 Room Air 03/16/24 18:08 95 Room Air 03/16/24 18:08 96 Room Air Pain Intensity Right Knee: Pain Intensity: 10 Right Leg: Pain Intensity: 8 Left Leg: Pain Intensity: 8 Transfer of Care Handoff Completed per policy Notes Mental Status: alert / awake / arousable Patient Amnestic to Procedure: Yes Nausea / Vomiting: adequately controlled Pain: improving with treatment Airway Patency, RR, SpO2: stable & adequate BP & HR: stable & adequate Hydration State: stable & adequate Anesthetic Complications: no major complications apparent Notes: Patient with stable vital signs but is confused in recovery room. Keeps stating he wants to get OOB despite constant redirecting and informing him he had surgery on his right leg. Spoke with patient's hospitalist attending to inform him of patient's current status and suggested that patient might need a one-to-one given the concern for pulling his IV/trying to get out of bed. Hospitalist stated he would be down to see patient shortly and determine next course of action.
[2024-03-17] MEDS ORDERED: bisacodyL 10 MG SUPP PR PRN (17:36)
[2024-03-17] MEDS ORDERED: ALUMINUM/MAGNESIUM SUSP 30 ML UDC PO PRN (17:36)
[2024-03-17] MEDS ORDERED: MAGNESIUM HYDROXIDE SUSP 30 ML UDC PO PRN (17:36)
[2024-03-17] MEDS ORDERED: NALOXONE HCL 0.4 MG/1 ML VIAL/CARP IV PRN (17:36)
[2024-03-17] MEDS ORDERED: METOCLOPRAMIDE HCL INJ 5 MG/ML 2 ML VIAL IV PRN (17:36)
[2024-03-17] MEDS: ACETAMINOPHEN 1,000 MG/100 ML VIAL IV STA (17:38)
[2024-03-17] MEDS: SODIUM CHLORIDE 0.9% 1,000 ML IV SCH (17:56)
[2024-03-17] MEDS: PRENATAL VITAMIN 1 TAB PO SCH (18:02)
[2024-03-17] MEDS: ASCORBIC ACID 500 MG TAB PO SCH (18:21)
[2024-03-17] MEDS: ASPIRIN 81 MG ECTAB PO SCH (18:22)
[2024-03-17 20:19] LABS: Hematocrit (blood only) 26.1 % (42.0-52.0); Hemoglobin 8.5 g/dl (14.0-18.0)
[2024-03-17] MEDS: SENNA 8.6 MG TAB PO SCH (20:27)
[2024-03-17] MEDS: MELATONIN 3 MG TAB PO PRN (20:27)
[2024-03-17] MEDS: DOCUSATE SODIUM 100 MG CAP PO SCH (20:27)
[2024-03-17] MEDS ORDERED: traZODone HCL 50 MG TAB PO SCH (21:00)
[2024-03-17] MEDS: ceFAZolin 2000MG 2,000 MG/15 ML SYR IV SCH (22:15)
[2024-03-17] MEDS: ACETAMINOPHEN 500 MG TAB PO SCH (22:16)
[2024-03-17] MEDS: TRANEXAMIC ACID / 0.7% NACL 1,000 MG/100 ML BAG IV SCH (22:22)
--- NOTE | 2024-03-17 22:36 | Electrocardiogram Report ---
Test Reason : Blood Pressure : */* mmHG Vent. Rate : 77 BPM Atrial Rate : * BPM P-R Int : 276 ms QRS Dur : 94 ms QT Int : 392 ms P-R-T Axes : * -33 30 degrees QTcB Int : 443 ms Sinus rhythm with 1st degree A-V block Left axis deviation Abnormal ECG When compared with ECG of 11-Feb-2024 08:54, No significant change Confirmed by Bernard Carpenter ([id number]) on 03/17/2024 10:36:18 PM Referred By: REFERRED SELF Confirmed By: Bernard Carpenter
[2024-03-18] MEDS: HALOPERIDOL LACTATE 5 MG/ML 1 ML VIAL IM PRN (05:49)
[2024-03-18] MEDS ORDERED: oxyCODONE HCL IR 30 MG TAB (IMMEDIATE RELEASE) PO STA (06:06)
[2024-03-18] MEDS ORDERED: HALOPERIDOL LACTATE 5 MG/ML 1 ML VIAL IM PRN (06:09)
[2024-03-18] MEDS: HALOPERIDOL LACTATE 5 MG/ML 1 ML VIAL IM STA (06:16)
[2024-03-18] MEDS: SODIUM CHLORIDE 0.9% 1,000 ML IV ONE (06:20)
[2024-03-18] MEDS: oxyCODONE HCL IR 30 MG TAB (IMMEDIATE RELEASE) PO STA (06:50)
[2024-03-18] MEDS: ACETAMINOPHEN 1,000 MG/100 ML VIAL IV STA (06:55)
[2024-03-18] MEDS: HYDROmorphone INJ 0.5 MG/0.5 ML SYR IV STA (06:58)
[2024-03-18] MEDS ORDERED: oxyCODONE HCL IR 30 MG TAB (IMMEDIATE RELEASE) PO SCH (07:30)
[2024-03-18] MEDS: PSYLLIUM or GUAR GUM FIBER 4GM PACKET PO SCH (08:33)
[2024-03-18] MEDS: MULTIVITAMIN TAB PO SCH (08:34)
[2024-03-18] MEDS: CLOPIDOGREL BISULFATE 75 MG TAB PO SCH (08:34)
[2024-03-18 09:11] LABS: Hematocrit (blood only) 22.8 % (42.0-52.0); Hemoglobin 7.4 g/dl (14.0-18.0); Mean Corpuscular Hemoglobin 29.4 pg (25.0-34.0); Mean Corpuscular Hgb Conc 32.5 g/dL (32.0-36.0); Mean Corpuscular Volume 90.5 fL (80.0-100.0); Mean Platelet Volume 9.4 fL (9.4-12.4); Platelet Count 210 K/uL (130-400); RDW Coefficient of Variation 14.5 % (11.5-14.5); RDW Standard Deviation 47.6 fL (36.4-46.3); Red Blood Count 2.52 M/uL (4.70-6.10); White Blood Count 16.01 K/ul (4.8-10.8)
[2024-03-18] MEDS: oxyCODONE HCL IR 5 MG TAB (IMMEDIATE RELEASE) PO PRN (09:30)
[2024-03-18 10:12] LABS: Calcium 8.5 mg/dl (8.6-10.3); Magnesium 1.8 mg/dl (1.7-2.4); Potassium 4.5 mmol/L (3.5-5.1)
[2024-03-18 10:17] LABS: BUN Creatinine Ratio 19.7 (10-20); Creatinine Clr Calc Pharmacy 43.4 ml/min; Est GFR (African American) 52.6 ml/min; Est GFR (Non-African American) 45.4 ml/min; Phosphorus 4.1 mg/dl (2.5-4.9)
[2024-03-18 10:27] LABS: Appearance Urine Clear (Clear); Bilirubin Urine Negative (Negative); Blood Urine Negative (Negative); Color Urine Yellow; Glucose Urine UA Negative (Negative); Ketones Urine Trace (Negative); Leukocyte Esterase Urine Negative (Negative); Nitrite Urine Negative (Negative); Protein Urine Negative (Negative); Specific Gravity Urine 1.021 (1.000-1.030); Urobilinogen Urine Negative (Negative); pH Urine 5.5 (4.5-7.5)
[2024-03-18] MEDS ORDERED: SODIUM CHLORIDE 0.9% 250 ML IV PRN (12:05)
--- NOTE | 2024-03-18 12:19 | Hospitalist Progress Note ---
Date of Service March 18, 2024 Assessment & Plan (1) Closed right femoral fracture: Plan 88-year-old male with PMH of HLD, CVA 2019, COPD, osteoarthritis, hereditary hemochromatosis, prostate cancer, urinary incontinence presents from [facility] after a fall and was found to have mildly comminuted displaced fracture of the right femoral shaft. 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 This time, he was attempting to transfer from his bed to chair without assistance and fell backwards onto his right leg in a twisting motion after losing his balance. He denied any head trauma or loss of consciousness. He is being managed for the following: Traumatic right femoral fracture Comes in with fall, noted to have right femoral shaft fracture. s/p Right Femur Retrograde Nail(Right) 03/17 c/w pain Mx, c/w bowel regimen. Hold parameters for maintenance narcotic and trazodone home meds for sedation/confusion. PT/OT Will need DVT px started once bleeding risk deemed minimal per Ortho. DAPT resumed. Orthopedics on board, will follow recs. Acute blood loss anemia: Baseline hemoglobin around 11-12. admitting Hb of 10.4, s/p rt hip sx on 03/17, 03/18 Hb 7.4 a/w increase in HR. Will transfuse 1 unit prbc. Repeat HnH an hour after 1 unit. Hypertension, BP on the lower side, hold BP meds. assess daily for resuming. Other chronic medical conditions: Continue with/resume home meds as and when able. History CVA History hereditary hemochromatosis Hyperlipidemia on statin Rx Prostate cancer status post radiation Skin cancer as per records Chronic pain on narcotics Past tobacco abuse DVT prophylaxis. SCDs Re: s/p procedure, hemoglobin drop from baseline DNR/DNI Patient Ms. Awa Israel, contact #[phone]. Updated at bedside and son. Text document was generated using [employer] voice recognition software. It may contain grammatical or spelling errors. Kindly contact undersigned for clarification of any documentation item in question. Admission and Anticipated Discharge Date Admission Date: March 16, 2024 Subjective Patient was seen and examined at bedside. Patient was lying in bed, on room air, NAD, resting comfortably. Patient reports right hip pain under control w/ pain meds, is oriented x 2. denies febrile illness/sore throat/cough/chest pain in the last few weeks. has not moved bowel. Pt is eating ok. Will dc ivf as pt will be getting 1 unit prbc. Physical Exam Physical Exam: General Appearance: WD/WN, vitals as above, NAD, sitting up in bed, slow to speak but answers questions appropriately. [place]. Head: normocephalic, atraumatic Eyes: normal inspection, PERRL, conjunctivae normal, anicteric sclerae ENT: hard of hearing, external ear and nose normal, oropharynx normal Neck: normal visual inspection, trachea midline, no thyromegaly Respiratory: normal respiratory effort, lungs clear to auscultation, no wheeze, rales, rhonchi. No accessory muscle use Cardiovascular: regular rate, rhythm, normal peripheral pulses, 1+ BLE edema. Vessels: no JVD Chest: normal inspection of chest Abdomen/GI: normal bowel sounds, soft, nontender, no hepatosplenomegaly Extremities/Musculoskeletal: + Right hip w/ clean dressing wo soakage, wrap in place R thigh. No cyanosis or clubbing, extremities motor strength 5/5. Neurologic: PERRL, EOMI, accommodation nl, no face palsy, no dysarthria, CN's II-XI intact bilaterally and moves all extremities Psychiatric: A+Ox3, euthymic affect Skin: no rashes, normal color, warm/dry Results & Data Results & Data Vital Signs (Past 12 Hours) Vital Signs Temp Pulse Resp BP Pulse Ox O2 Del Method 03/18/24 08:09 36.6 C 106 H 20 116/61 93 Room Air 03/18/24 03:28 36.8 C 95 H 20 102/61 96 Room Air (1) Closed right femoral fracture Encounter type: subsequent encounter Femur location: proximal epiphysis Fracture alignment: nondisplaced Fracture healing: with routine healing Qualified Code(s): S72.024D - Nondisplaced fracture of epiphysis (separation) (upper) of right femur, subsequent encounter for closed fracture with routine healing
[2024-03-18] MEDS: HYDROmorphone INJ 0.5 MG/0.5 ML SYR IV PRN (12:30)
--- NOTE | 2024-03-18 12:45 | Orthopedic Progress Note ---
Date of Service March 18, 2024 Assessment & Plan (1) Closed right femoral fracture: Plan: 88-year-old gentleman with multiple medical comorbidities now postop day 1 from IM nailing/retrograde IM nailing of a right periprosthetic femur fracture. He is doing pretty well. Appears comfortable. He is neurologically intact. Plan: 1. DVT prophylaxis including thigh-high teds, SCDs, back on his Plavix. 2. PT/OT. He can fully weight-bear on this right leg. Will get any use a knee immobilizer for the first couple weeks to make sure his knee does not buckle on him make this to hopefully bit easier. 3. Pain control doing okay with current pain regimen. 4. Medical management as per the medicine service. 5. Disposition he will likely need a rehab stay. He is orthopedically okay for discharge anytime medically stable. I need to see him back 2 to 3 weeks out from surgery date. Any orthopedic questions can be direct me at [phone]. (2) Closed fracture of left proximal tibia: (3) Bilateral lower extremity edema: Admission and Anticipated Discharge Date Admission Date: March 16, 2024 Subjective 88-year-old gentleman postop day 1 from retrograde nailing of a right periprosthetic femur fracture. He is doing pretty well. No real complaints this morning. Is comfortable in bed. No chest pain or shortness of breath. Not feeling dizzy or lightheaded. Physical Exam Physical Exam: Physical examination was a pleasant elderly male. He is lying bed looks pretty comfortable. Examination the right leg reveals the dressing be clean dry and intact. He can dorsiflex and plantarflex his foot appropriately. He is neurologically intact. No signs of drainage. Results & Data Vital Signs (Past 12 Hours) Vital Signs Temp Pulse Resp BP Pulse Ox O2 Del Method 03/18/24 08:09 36.6 C 106 H 20 116/61 93 Room Air 03/18/24 03:28 36.8 C 95 H 20 102/61 96 Room Air Laboratory Results Hemoglobin is 7.4. Hematocrit is 22.8. Electrolytes are stable. (1) Closed right femoral fracture Encounter type: subsequent encounter Femur location: proximal epiphysis Fracture alignment: nondisplaced Fracture healing: with routine healing Qualified Code(s): S72.024D - Nondisplaced fracture of epiphysis (separation) (upper) of right femur, subsequent encounter for closed fracture with routine healing (2) Closed fracture of left proximal tibia Encounter type: initial encounter Fracture morphology: unspecified fracture morphology Qualified Code(s): S82.102A - Unspecified fracture of upper end of left tibia, initial encounter for closed fracture
[2024-03-18] MEDS: traMADol HCL 50 MG TABLET PO PRN (13:00)
[2024-03-18] MEDS: ACETAMINOPHEN 1,000 MG/100 ML VIAL IV SCH (13:10)
[2024-03-18] MEDS ORDERED: ACETAMINOPHEN 500 MG TAB PO SCH (14:00)
[2024-03-18 19:04] LABS: Hematocrit (blood only) 22.9 % (42.0-52.0); Hemoglobin 7.8 g/dl (14.0-18.0)
--- NOTE | 2024-03-19 07:43 | Orthopedic Progress Note ---
Date of Service March 19, 2024 Assessment & Plan (1) Closed right femoral fracture: Plan: 88-year-old gentleman with multiple medical comorbidities now postop day 2 from retrograde IM nailing of a periprosthetic femur fracture around a total knee. Orthopedically seems to be doing pretty well. Is been bit confused overnight. Pain seems to be controlled. He is neurologically intact. Plan: 1. DVT prophylaxis including [place] teds, SCDs, and he is back on his Plavix. 2. PT/OT. He can fully weight-bear on the right leg. Working to keep in the knee immobilizer for the first 2 weeks and let his quad function return is some concern about him falling or his knee giving out. Work on knee range of motion 0 to 90 degrees over the next 6 weeks. 3. Medical management as per the medicine service. 4. Disposition he is orthopedically okay for discharge anytime medically stable. He is zak likely need a rehab or care home facility stay. I need to see him back 2 to 3 weeks out from surgery date. Any orthopedic questions can be directly [phone]. (2) Closed fracture of left proximal tibia: Admission and Anticipated Discharge Date Admission Date: March 16, 2024 Subjective 88-year-old gentleman with multiple medical comorbidities now postop day 2 from IM nailing of distal periprosthetic femur fracture. This is done with a retrograde nail. He has been a bit confused overnight. Denies any real major pain this morning. No new complaints. No chest pain or shortness of breath. Physical Exam Physical Exam: Physical examination was a pleasant elderly male. He is sitting up in bed looks pretty comfortable. Examination the right leg reveals dressing be clean dry and intact he can dorsiflex and plantarflex his foot appropriately. He is neurologically intact. Results & Data Vital Signs (Past 12 Hours) Vital Signs Temp Pulse Resp BP BP Pulse Ox Pulse Ox 03/19/24 07:18 36.6 C 85 20 124/68 92 03/19/24 05:34 92 03/18/24 21:25 92 03/18/24 19:50 36.4 C L 82 14 115/66 88 L O2 Del Method O2 Del Method 03/19/24 07:18 Room Air 03/19/24 05:34 Room Air 03/18/24 21:25 Room Air 03/18/24 19:50 Room Air Laboratory Results Labs this morning are pending. (1) Closed right femoral fracture Encounter type: subsequent encounter Femur location: proximal epiphysis Fracture alignment: nondisplaced Fracture healing: with routine healing Qualified Code(s): S72.024D - Nondisplaced fracture of epiphysis (separation) (upper) of right femur, subsequent encounter for closed fracture with routine healing (2) Closed fracture of left proximal tibia Encounter type: initial encounter Fracture morphology: unspecified fracture morphology Qualified Code(s): S82.102A - Unspecified fracture of upper end of left tibia, initial encounter for closed fracture
[2024-03-19 08:28] LABS: Hematocrit (blood only) 23.8 % (42.0-52.0); Hemoglobin 7.8 g/dl (14.0-18.0); Mean Corpuscular Hemoglobin 30.1 pg (25.0-34.0); Mean Corpuscular Hgb Conc 32.8 g/dL (32.0-36.0); Mean Corpuscular Volume 91.9 fL (80.0-100.0); Mean Platelet Volume 9.3 fL (9.4-12.4); Platelet Count 195 K/uL (130-400); RDW Coefficient of Variation 15.3 % (11.5-14.5); RDW Standard Deviation 50.9 fL (36.4-46.3); Red Blood Count 2.59 M/uL (4.70-6.10); White Blood Count 10.76 K/ul (4.8-10.8)
[2024-03-19] MEDS: POLYETHYLENE (MIRALAX) 17 GM PACK PO PRN (08:29)
[2024-03-19 09:50] LABS: BUN Creatinine Ratio 19.9 (10-20); Calcium 8.6 mg/dl (8.6-10.3); Creatinine Clr Calc Pharmacy 43.7 ml/min; Est GFR (African American) 53.1 ml/min; Est GFR (Non-African American) 45.8 ml/min; Magnesium 1.9 mg/dl (1.7-2.4); Phosphorus 3.7 mg/dl (2.5-4.9); Potassium 4.3 mmol/L (3.5-5.1)
[2024-03-19] MEDS: oxyCODONE HCL IR 30 MG TAB (IMMEDIATE RELEASE) PO SCH (11:20)
--- NOTE | 2024-03-19 12:32 | Hospitalist Progress Note ---
Date of Service March 19, 2024 Assessment & Plan (1) Closed right femoral fracture: Plan 88-year-old male with PMH of HLD, CVA 2019, COPD, osteoarthritis, hereditary hemochromatosis, prostate cancer, urinary incontinence presents from [facility] [place] after a fall and was found to have mildly comminuted displaced fracture of the right femoral shaft. 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 This time, he was attempting to transfer from his bed to chair without assistance and fell backwards onto his right leg in a twisting motion after losing his balance. He denied any head trauma or loss of consciousness. He is being managed for the following: Traumatic right femoral fracture Comes in with fall, noted to have right femoral shaft fracture. s/p Right Femur Retrograde Nail(Right) 03/17 c/w pain Mx, c/w bowel regimen. Hold parameters for maintenance narcotic and trazodone home meds for sedation/confusion. PT/OT Ortho evaled, teds, scds and DAPT regimen as part of DVT Px. can fully weight bear on right. ok for dc. f/u w/ ortho in 2 weeks. Acute blood loss anemia: Baseline hemoglobin around 11-12. admitting Hb of 10.4, s/p rt hip sx on 03/17, 03/18 Hb 7.4 a/w increase in HR. s/p 1 unit prbc 03/18. Hb 7.8, HR is controlled, follow HnH in AM. Hypertension, BP fairly ok. Other chronic medical conditions: Continue with/resume home meds as and when able. History CVA History hereditary hemochromatosis Hyperlipidemia on statin Rx Prostate cancer status post radiation Skin cancer as per records Chronic pain on narcotics Past tobacco abuse DVT prophylaxis. SCDs Re: s/p procedure DNR/DNI Patient Ms. Awa Israel, contact #[phone]. pt/ot, cm to assist w/ dc plan. If HnH stable adeline AM, likely can dc to rehab. Text document was generated using [employer] voice recognition software. It may contain grammatical or spelling errors. Kindly contact undersigned for clarification of any documentation item in question. Admission and Anticipated Discharge Date Admission Date: March 16, 2024 Subjective Patient was seen and examined at bedside. Patient was lying in bed, on room air, NAD, resting comfortably. Patient reports right hip pain under control w/ pain meds. denies febrile illness/sore throat/cough/chest pain in the last few weeks. has not moved bowel. Pt is eating ok. no BM after Sx per RN. c/w bowel regimen. Was agitated in early AM requiring soft restraints, was calm and conversing at bedside exam. Physical Exam Physical Exam: General Appearance: WD/WN, vitals as above, NAD, sitting up in bed, slow to speak but answers questions appropriately. [place]. Head: normocephalic, atraumatic Eyes: normal inspection, PERRL, conjunctivae normal, anicteric sclerae ENT: hard of hearing, external ear and nose normal, oropharynx normal Neck: normal visual inspection, trachea midline, no thyromegaly Respiratory: normal respiratory effort, lungs clear to auscultation, no wheeze, rales, rhonchi. No accessory muscle use Cardiovascular: regular rate, rhythm, normal peripheral pulses, 1+ BLE edema. Vessels: no JVD Chest: normal inspection of chest Abdomen/GI: normal bowel sounds, soft, nontender, no hepatosplenomegaly Extremities/Musculoskeletal: + Right hip w/ clean incision. No cyanosis or clubbing, extremities motor strength 5/5. Neurologic: PERRL, EOMI, accommodation nl, no face palsy, no dysarthria, CN's II-XI intact bilaterally and moves all extremities Psychiatric: A+Ox3, euthymic affect Skin: no rashes, normal color, warm/dry Results & Data Results & Data Vital Signs (Past 12 Hours) Vital Signs Temp Pulse Resp BP Pulse Ox Pulse Ox O2 Del Method 03/19/24 09:00 92 03/19/24 07:18 36.6 C 85 20 124/68 92 Room Air 03/19/24 05:34 92 O2 Del Method 03/19/24 09:00 Room Air 03/19/24 07:18 03/19/24 05:34 Room Air (1) Closed right femoral fracture Encounter type: subsequent encounter Femur location: proximal epiphysis Fracture alignment: nondisplaced Fracture healing: with routine healing Qualified Code(s): S72.024D - Nondisplaced fracture of epiphysis (separation) (upper) of right femur, subsequent encounter for closed fracture with routine healing
[2024-03-20 07:00] LABS: Hematocrit (blood only) 22.6 % (42.0-52.0); Hemoglobin 7.4 g/dl (14.0-18.0); Mean Corpuscular Hemoglobin 30.3 pg (25.0-34.0); Mean Corpuscular Hgb Conc 32.7 g/dL (32.0-36.0); Mean Corpuscular Volume 92.6 fL (80.0-100.0); Mean Platelet Volume 9.2 fL (9.4-12.4); Nucleated RBC # (auto) 0.02 K/uL (0.00-0.12); Nucleated RBC % (auto) 0.2 %; Platelet Count 185 K/uL (130-400); RDW Coefficient of Variation 15.5 % (11.5-14.5); RDW Standard Deviation 52.4 fL (36.4-46.3); Red Blood Count 2.44 M/uL (4.70-6.10); White Blood Count 9.16 K/ul (4.8-10.8)
--- NOTE | 2024-03-20 07:24 | Orthopedic Progress Note ---
Date of Service March 20, 2024 Assessment & Plan (1) Closed right femoral fracture: Plan: 88-year-old gentleman smoker medical comorbidities now postop day 3 from retrograde IM nailing of a right periprosthetic femur fracture. He is also got a subacute left tibial diaphyseal fracture which has been healing for several months. He is anemic but chronically anemic. Looks to be pretty asymptomatic. Vital signs stable. Pain seems to be reasonably controlled. Plan: 1. DVT prophylaxis including Thiede teds, SCDs, and back on his Plavix. 2. PT/OT. Weight-bear as tolerated. He can fully weight-bear on the right leg. Working to keep in the knee immobilizer while weightbearing for the first couple weeks. 3. Pain control seems be doing okay with current pain regimen. 4. Disposition he is orthopedically okay for discharge anytime medically stable . I think they are looking for rehab or [facility] facility options. I need to see him back 2 to 3 weeks out from surgery date. Any orthopedic questions can be directly [phone]. (2) Closed fracture of left proximal tibia: Admission and Anticipated Discharge Date Admission Date: March 16, 2024 Subjective 88-year-old gentleman with multiple medical comorbidities now postop day 3 from retrograde IM nailing of a right periprosthetic femur fracture. Seems to be doing okay. Some pain. Nothing out of the ordinary. Denies any other complaints. Physical Exam Physical Exam: Physical exam shows a pleasant elderly male. Lying bed looks pretty comfortable. Examination of the right leg reveals the dressing be clean dry and intact. There is no drainage. He can dorsiflex and plantarflex his foot appropriately. He is neurologically intact. Results & Data Vital Signs (Past 12 Hours) Vital Signs Temp Resp BP Pulse Ox O2 Del Method 03/19/24 22:54 Room Air 03/19/24 19:39 36.6 C 18 130/68 93 Room Air Laboratory Results Hemoglobin is 7.4. Hematocrit is 22.6. Electrolytes are pending (1) Closed right femoral fracture Encounter type: subsequent encounter Femur location: proximal epiphysis Fracture alignment: nondisplaced Fracture healing: with routine healing Qualified Code(s): S72.024D - Nondisplaced fracture of epiphysis (separation) (upper) of right femur, subsequent encounter for closed fracture with routine healing (2) Closed fracture of left proximal tibia Encounter type: initial encounter Fracture morphology: unspecified fracture morphology Qualified Code(s): S82.102A - Unspecified fracture of upper end of left tibia, initial encounter for closed fracture
[2024-03-20 07:34] LABS: BUN Creatinine Ratio 19.5 (10-20); Calcium 8.3 mg/dl (8.6-10.3); Creatinine Clr Calc Pharmacy 46.5 ml/min; Est GFR (African American) 57.1 ml/min; Est GFR (Non-African American) 49.3 ml/min; Potassium 4.5 mmol/L (3.5-5.1)
--- NOTE | 2024-03-20 13:25 | Hospitalist Progress Note ---
Date of Service March 20, 2024 Assessment & Plan (1) Closed right femoral fracture: Plan Mr Israel is an 88-year-old male with PMH of HLD, CVA 2019, COPD, osteoarthritis, hereditary hemochromatosis, prostate cancer, urinary incontinence presents from [facility] after a fall and was found to have mildly comminuted displaced fracture of the right femoral shaft. Patient was admitted to our service 02/10-02/24 after a fall resulting in left tibial fracture/L2 compression fracture ----> he was discharged to [facility], was receiving heparin for DVT prophylaxis at [facility]. This time, he was attempting to transfer from his bed to chair without assistance and fell melisa kwards onto his right leg in a twisting motion after losing his balance. He denied any head trauma or loss of consciousness. Patient underwent right femur retrograde nail on 03/17. Post op course un complicated thus far. Pending placement Friday. #Mechanical Fall c/b right periprosthetic femur fracture s/p Right Femur Retrograde Nail(Right) 03/17 c/w pain regimen c/w bowel regimen. Hold parameters for maintenance narcotic and trazodone home meds for sedation/confusion. PT/OT: plan for rehab Ortho evaled, teds, scds and plavix/asa -Weight-bear as tolerated. keep in the knee immobilizer while weightbearing for the first couple weeks. -follow up with Dr Gutierrez in 2 to 3 weeks out from surgery date. Any orthopedic questions can be directly [phone]. #Acute blood loss anemia:, post op Baseline hemoglobin around 11-12. admitting Hb of 10.4, s/p rt hip sx on 03/17, 03/18 Hb 7.4 a/w increase in HR. s/p 1 unit prbc 03/18. hemoglobin stable #Hx of Hypertension given age and recent falls, will prefer loose control, no indications for med mgmt at this time #Prior CVA continue DAPT #HLD continue statin Other chronic medical conditions: Continue with/resume home meds as and when able. History hereditary hemochromatosis Prostate cancer status post radiation Skin cancer as per records Chronic pain on narcotics Past tobacco abuse DVT prophylaxis. SCDs Re: s/p procedure DNR/DNI Patient Ms. Awa Israel, contact #[phone]. Stable for DC to rehab when bed available Admission and Anticipated Discharge Date Admission Date: March 16, 2024 Subjective NAEO Reports feeling well, states pain is controlled and only exacerbated with certain movements Physical Exam Constitutional: WD/WN, vitals as above Respiratory: normal respiratory effort, lungs clear to auscultation Cardiovascular: RRR, no murmur, no edema Musculoskeletal: right knee immobilizer in place Results & Data Results & Data Vital Signs (Past 12 Hours) Vital Signs Temp Pulse Resp BP Pulse Ox O2 Del Method 03/20/24 07:27 36.9 C 76 18 127/74 91 Room Air Laboratory Results Short CBC 03/20/24 Range/Units 06:37 WBC 9.16 (4.8-10.8) K/ul Hgb 7.4 L (14.0-18.0) g/dl Hct 22.6 L (42.0-52.0) % Plt Count 185 (130-400) K/uL BMP 03/20/24 06:37 Sodium 135 L Potassium 4.5 Chloride 105 Carbon Dioxide 24 BUN 25 H Creatinine 1.28 Glucose 108 H Calcium 8.3 L Medications Administered Home Medications Medication Instructions Recorded Confirmed Last Taken cholecalciferol (vitamin D3) 125 125 mcg PO QAM 04/11/22 03/16/24 06/26/22 mcg (5,000 unit) tablet (Vitamin D3) melatonin 10 mg tablet 20 mg PO HS 04/11/22 03/16/24 06/26/22 17:00 vit C 250 mg-vit E 90 mg-zinc 40 1 tab PO QAM 04/11/22 03/16/24 06/26/22 mg-copper 1 [id number] capsule (PreserVision AREDS-2) psyllium 1 tbsp PO QAM 01/01/24 03/16/24 Unknown acetaminophen 500 mg tablet 650 mg (1.3 x 500 mg) PO TID 21 02/20/24 03/16/24 Unknown (Tylenol Extra Strength) days #90 tabs aspirin 81 mg tablet,delayed 81 mg PO QAM #30 tabs 02/20/24 03/16/24 Unknown release atorvastatin 10 mg tablet 10 mg PO QAM #30 tabs 02/20/24 03/16/24 Unknown clopidogrel 75 mg tablet 75 mg PO QAM #30 tabs 02/20/24 03/16/24 Unknown diclofenac sodium 1 % topical gel 2 g EXT Q6H #100 grams 02/20/24 03/16/24 Unknown (Voltaren Arthritis Pain) heparin, porcine (PF) 5,000 5,000 unit (0.5 mL) subcut Q8H 30 02/20/24 03/16/24 Unknown unit/0.5 mL injection syringe days #45 mL polyethylene glycol 3350 17 gram 17 g PO DAILY PRN constipation #30 02/20/24 03/16/24 Unknown oral powder packet (Miralax) ea celecoxib 100 mg capsule 100 mg PO .DAILY AFTER SUPPER 03/16/24 03/16/24 Unknown famotidine 20 mg tablet 20 mg PO AMHS 03/16/24 03/16/24 Unknown multivitamin-ferrous 1 tab PO .DAILY AFTER LUNCH 03/16/24 03/16/24 Unknown fumarate-folic acid 18 mg-400 mcg tablet oxycodone 30 mg tablet 30 mg PO QDB 03/16/24 03/16/24 Unknown oxycodone 30 mg tablet,oral ONLY 30 mg PO Q6H PRN pain scale 5-10 03/16/24 03/16/24 Unknown (not feeding tubes) polyvinyl alcohol-povidone (PF) 2 drp OPB BID 03/16/24 03/16/24 Unknown 1.4 %-0.6 % eye drops in a dropperette (Refresh Classic (PF)) trazodone 50 mg tablet 50 mg PO HS 03/16/24 03/16/24 Unknown Active Medications Generic Name Dose Route Start Last Admin Trade Name Freq PRN Reason Stop Dose Admin Ascorbic Acid 500 mg 03/17/24 17:36 03/20/24 08:16 Ascorbic Acid 500 Mg Tab PO 04/16/24 17:35 500 mg BIDM TESSIE Administration Aspirin 81 mg 03/17/24 17:36 03/20/24 08:16 Aspirin 81 Mg Ectab PO 04/16/24 17:35 81 mg QAM TESSIE Administration Atorvastatin Calcium 10 mg 03/17/24 09:00 03/20/24 08:16 Atorvastatin 10 Mg Tab PO 04/16/24 08:59 10 mg QAM TESSIE Administration Clopidogrel Bisulfate 75 mg 03/18/24 09:00 03/20/24 08:16 Clopidogrel Bisulfate 75 Mg Tab PO 04/17/24 08:59 75 mg QAM TESSIE Administration Diclofenac Sodium 2 gm 03/16/24 23:00 03/20/24 10:26 Diclofenac Sod 1% Gel 100 Gm Tube EXT 04/15/24 22:59 2 gm Q6H TESSIE Administration Protocol Docusate Sodium 100 mg 03/17/24 21:00 03/20/24 08:20 Docusate Sodium 100 Mg Cap PO 04/16/24 20:59 100 mg BID TESSIE Administration Famotidine 20 mg 03/17/24 09:00 03/20/24 08:21 Famotidine 20 Mg Tab PO 04/16/24 08:59 20 mg AMHS TESSIE Administration Hydromorphone HCl 0.5 mg 03/17/24 17:36 03/18/24 22:53 Hydromorphone Inj 0.5 Mg/0.5 Ml Syr IV 03/31/24 17:35 0.5 mg Q4H PRN Administration Pain or Pre PT Acetaminophen 1,000 mg in 100 mls @ 400 mls/hr 03/18/24 14:00 03/20/24 14:20 Ofirmev IV 03/21/24 13:59 0 mls/hr Q8H TESSIE Infusion Melatonin 9 mg 03/16/24 22:14 03/19/24 20:19 Melatonin 3 Mg Tab PO 04/15/24 22:13 9 mg HS PRN Administration insomnia Multivitamins 1 tab 03/18/24 09:00 03/20/24 08:16 Multivitamin Tab PO 04/17/24 08:59 1 tab QAM TESSIE Administration Multivitamins/Minerals 1 tab 03/17/24 09:00 03/20/24 08:16 Cerovite Adv Formula Tab PO 04/16/24 08:59 1 tab QAM TESSIE Administration Oxycodone HCl 5 - 10 mg 03/16/24 19:25 03/20/24 13:53 Oxycodone Hcl Ir 5 Mg Tab (Immediate Release) PO 03/30/24 19:24 10 mg QID PRN Administration Pain Oxycodone HCl 30 mg 03/19/24 07:30 03/20/24 08:15 Oxycodone Hcl Ir 30 Mg Tab (Immediate Release) PO 04/02/24 07:29 30 mg QDB TESSIE Administration Polyethylene Glycol 17 gm 03/16/24 22:14 03/19/24 08:29 Polyethylene (Miralax) 17 Gm Pack PO 04/15/24 22:13 17 gm DAILY PRN Administration constipation Prenat Multivit/[place]/Iron/Folic Ac 1 tab 03/17/24 11:30 03/20/24 12:20 Vitamin 1 Tab PO 04/16/24 11:29 1 tab QDL TESSIE Administration Psyllium Hydrophilic Mucilloid 4 gm 03/18/24 09:00 03/20/24 08:17 Psyllium Or Guar Gum Fiber 4gm Packet PO 04/17/24 08:59 4 gm QAM TESSIE Administration Sennosides 17.2 mg 03/17/24 21:00 03/19/24 20:19 Senna 8.6 Mg Tab PO 04/16/24 20:59 17.2 mg HS TESSIE Administration Tramadol HCl 25 mg 03/18/24 12:28 03/19/24 17:07 Tramadol Hcl 50 Mg Tablet PO 04/17/24 12:27 25 mg Q6H PRN Administration Moderate Pain (Scale 4, 5, 6) Trazodone HCl 50 mg 03/17/24 00:40 03/19/24 20:19 Trazodone Hcl 50 Mg Tab PO 04/16/24 00:39 50 mg HS TESSIE Administration Vitamin D 125 mcg 03/17/24 09:00 03/20/24 08:16 Cholecalciferol 125 Mcg (5,000 Units) Tab PO 04/16/24 08:59 125 mcg QAM TESSIE Administration (1) Closed right femoral fracture Encounter type: subsequent encounter Femur location: proximal epiphysis Fracture alignment: nondisplaced Fracture healing: with routine healing Qualified Code(s): S72.024D - Nondisplaced fracture of epiphysis (separation) (upper) of right femur, subsequent encounter for closed fracture with routine healing
--- NOTE | 2024-03-21 10:20 | Orthopedic Progress Note ---
Date of Service March 21, 2024 Assessment & Plan (1) Closed right femoral fracture: Plan: 88-year-old gentleman 4 days out from IM nailing of a right periprosthetic femur fracture. He is doing pretty well. Pain seems to be controlled. Wounds healing appropriately. He is neurologically intact. Plan: 1. DVT prophylaxis including thigh-high teds, SCDs, and back on his Plavix. 2. PT/OT. He can fully weight-bear on his right leg. Limited knee motion from 0 to 90 degrees. 3. Pain control doing okay with current pain regimen. 4. Disposition he is orthopedically okay for discharge anytime. I believe he is planning on going to rehab tomorrow. (2) Closed fracture of left proximal tibia: Admission and Anticipated Discharge Date Admission Date: March 16, 2024 Subjective 88-year-old gentleman now postop day 4 from retrograde nailing of a right periprosthetic femur fracture. He is doing okay. Really no pain at all while in bed. Some moderate pain with immobilization. No new complaints. Denies any real chest pain or shortness of breath. Physical Exam Physical Exam: Physical exam shows a pleasant large male. He is lying bed looks pretty comfortable. Examination of the right leg reveals the dressing be clean dry and intact. Incision sites look well-approximated. Minimal drainage. He is neurologically intact. Results & Data Vital Signs (Past 12 Hours) Vital Signs Temp Pulse Resp BP Pulse Ox Pulse Ox O2 Del Method 03/21/24 07:28 36.4 C L 78 20 108/63 93 Room Air 03/21/24 07:00 92 O2 Del Method 03/21/24 07:28 03/21/24 07:00 Room Air (1) Closed right femoral fracture Encounter type: subsequent encounter Femur location: proximal epiphysis Fracture alignment: nondisplaced Fracture healing: with routine healing Qualified Code(s): S72.024D - Nondisplaced fracture of epiphysis (separation) (upper) of right femur, subsequent encounter for closed fracture with routine healing (2) Closed fracture of left proximal tibia Encounter type: initial encounter Fracture morphology: unspecified fracture morphology Qualified Code(s): S82.102A - Unspecified fracture of upper end of left tibia, initial encounter for closed fracture
[2024-03-21] MEDS: ACETAMINOPHEN 500 MG TAB PO SCH (14:57)
--- NOTE | 2024-03-21 15:13 | Hospitalist Progress Note ---
Date of Service March 21, 2024 Assessment & Plan (1) Closed right femoral fracture: Plan Mr Israel is an 88-year-old male with PMH of HLD, CVA 2019, COPD, osteoarthritis, hereditary hemochromatosis, prostate cancer, urinary incontinence presents from [facility] after a fall and was found to have mildly comminuted displaced fracture of the right femoral shaft. Patient was admitted to our service 02/10-02/24 after a fall resulting in left tibial fracture/L2 compression fracture ----> he was discharged to [facility], was receiving heparin for DVT prophylaxis at [facility]. This time, he was attempting to transfer from his bed to chair without assistance and fell melisa kwards onto his right leg in a twisting motion after losing his balance. He denied any head trauma or loss of consciousness. Patient underwent right femur retrograde nail on 03/17. Post op course un complicated thus far; however, today is more agitated and restless. Family at bedside ( and son) who reviewed all medications. Family decision made that no further opioids to be given as well as no medications for agitation/delirium. 1:1 sitter to return to bedside. #Mechanical Fall c/b right periprosthetic femur fracture s/p Right Femur Retrograde Nail(Right) 03/17 c/w pain regimen c/w bowel regimen. Per family patient is not on trazodone at home nor is patient on senior living antipsychotics PT/OT: plan for rehab Ortho evaled, teds, scds and plavix/asa -Weight-bear as tolerated. keep in the knee immobilizer while weightbearing for the first couple weeks. -follow up with Dr Gutierrez in 2 to 3 weeks out from surgery date. Any orthopedic questions can be directly [phone]. #Oblique Nondisplaced L2 vertebral body fracture MRI lumbar spine, CT LLE - Oblique nondisplaced L2 vertebral body fracture with associated marrow edema and mild paravertebral edema Conservative management #Acute blood loss anemia:, post op Baseline hemoglobin around 11-12. admitting Hb of 10.4, s/p rt hip sx on 03/17, 03/18 Hb 7.4 a/w increase in HR. s/p 1 unit prbc 03/18. hemoglobin stable #Hypertension given age and recent falls, will prefer loose control, no indications for med mgmt at this time #Prior CVA continue DAPT #HLD continue statin Other chronic medical conditions: Continue with/resume home meds as and when able. History hereditary hemochromatosis Prostate cancer status post radiation Skin cancer as per records Past tobacco abuse DVT prophylaxis. SCDs Re: s/p procedure DNR/DNI Patient Ms. Awa Israel, contact #[phone]. Given agitation, will likely hold on discharge and assess how patient is doing without opioids. Admission and Anticipated Discharge Date Admission Date: March 16, 2024 Subjective 1: 1 sitter removed as patient was doing better day prior; however, patient agitated this am Patient reported pain and required repositioning Patient reports back is mostly cause of pain Physical Exam Constitutional: pleasant when situated, agitated 2/2 pain and restless this morning Respiratory: normal respiratory effort, lungs clear to auscultation Cardiovascular: RRR, no murmur, no edema Results & Data Results & Data Vital Signs (Past 12 Hours) Vital Signs Temp Pulse Resp BP Pulse Ox Pulse Ox O2 Del Method 03/21/24 08:00 Room Air 03/21/24 07:28 36.4 C L 78 20 108/63 93 Room Air 03/21/24 07:00 92 O2 Del Method 03/21/24 08:00 03/21/24 07:28 03/21/24 07:00 Room Air Medications Administered Home Medications Medication Instructions Recorded Confirmed Last Taken cholecalciferol (vitamin D3) 125 125 mcg PO QAM 04/11/22 03/16/24 06/26/22 mcg (5,000 unit) tablet (Vitamin D3) melatonin 10 mg tablet 20 mg PO HS 04/11/22 03/16/24 06/26/22 17:00 vit C 250 mg-vit E 90 mg-zinc 40 1 tab PO QAM 04/11/22 03/16/24 06/26/22 mg-copper 1 [id number] capsule (PreserVision AREDS-2) psyllium 1 tbsp PO QAM 01/01/24 03/16/24 Unknown acetaminophen 500 mg tablet 650 mg (1.3 x 500 mg) PO TID 21 02/20/24 03/16/24 Unknown (Tylenol Extra Strength) days #90 tabs aspirin 81 mg tablet,delayed 81 mg PO QAM #30 tabs 02/20/24 03/16/24 Unknown release atorvastatin 10 mg tablet 10 mg PO QAM #30 tabs 02/20/24 03/16/24 Unknown clopidogrel 75 mg tablet 75 mg PO QAM #30 tabs 02/20/24 03/16/24 Unknown diclofenac sodium 1 % topical gel 2 g EXT Q6H #100 grams 02/20/24 03/16/24 Unknown (Voltaren Arthritis Pain) heparin, porcine (PF) 5,000 5,000 unit (0.5 mL) subcut Q8H 30 02/20/24 03/16/24 Unknown unit/0.5 mL injection syringe days #45 mL polyethylene glycol 3350 17 gram 17 g PO DAILY PRN constipation #30 02/20/24 03/16/24 Unknown oral powder packet (Miralax) ea celecoxib 100 mg capsule 100 mg PO .DAILY AFTER SUPPER 03/16/24 03/16/24 Unknown famotidine 20 mg tablet 20 mg PO AMHS 03/16/24 03/16/24 Unknown multivitamin-ferrous 1 tab PO .DAILY AFTER LUNCH 03/16/24 03/16/24 Unknown fumarate-folic acid 18 mg-400 mcg tablet oxycodone 30 mg tablet 30 mg PO QDB 03/16/24 03/16/24 Unknown oxycodone 30 mg tablet,oral ONLY 30 mg PO Q6H PRN pain scale 5-10 03/16/24 03/16/24 Unknown (not feeding tubes) polyvinyl alcohol-povidone (PF) 2 drp OPB BID 03/16/24 03/16/24 Unknown 1.4 %-0.6 % eye drops in a dropperette (Refresh Classic (PF)) trazodone 50 mg tablet 50 mg PO HS 03/16/24 03/16/24 Unknown Active Medications Generic Name Dose Route Start Last Admin Trade Name Freq PRN Reason Stop Dose Admin Acetaminophen 1,000 mg 03/21/24 14:30 03/21/24 14:57 Acetaminophen 500 Mg Tab PO 04/20/24 14:29 1,000 mg Q8H TESSIE Administration Ascorbic Acid 500 mg 03/17/24 17:36 03/21/24 07:45 Ascorbic Acid 500 Mg Tab PO 04/16/24 17:35 500 mg BIDM TESSIE Administration Aspirin 81 mg 03/17/24 17:36 03/21/24 07:46 Aspirin 81 Mg Ectab PO 04/16/24 17:35 81 mg QAM TESSIE Administration Atorvastatin Calcium 10 mg 03/17/24 09:00 03/21/24 07:45 Atorvastatin 10 Mg Tab PO 04/16/24 08:59 10 mg QAM TESSIE Administration Clopidogrel Bisulfate 75 mg 03/18/24 09:00 03/21/24 07:46 Clopidogrel Bisulfate 75 Mg Tab PO 04/17/24 08:59 75 mg QAM TESSIE Administration Diclofenac Sodium 2 gm 03/16/24 23:00 03/21/24 11:07 Diclofenac Sod 1% Gel 100 Gm Tube EXT 04/15/24 22:59 2 gm Q6H TESSIE Administration Protocol Docusate Sodium 100 mg 03/17/24 21:00 03/21/24 08:02 Docusate Sodium 100 Mg Cap PO 04/16/24 20:59 100 mg BID TESSIE Administration Famotidine 20 mg 03/17/24 09:00 03/21/24 08:01 Famotidine 20 Mg Tab PO 04/16/24 08:59 20 mg AMHS TESSIE Administration Multivitamins/Minerals 1 tab 03/17/24 09:00 03/21/24 07:45 Cerovite Adv Formula Tab PO 04/16/24 08:59 1 tab QAM TESSIE Administration Polyethylene Glycol 17 gm 03/16/24 22:14 03/19/24 08:29 Polyethylene (Miralax) 17 Gm Pack PO 04/15/24 22:13 17 gm DAILY PRN Administration constipation Prenat Multivit/[place]/Iron/Folic Ac 1 tab 03/17/24 11:30 03/21/24 11:07 Vitamin 1 Tab PO 04/16/24 11:29 1 tab QDL TESSIE Administration Psyllium Hydrophilic Mucilloid 4 gm 03/18/24 09:00 03/21/24 08:07 Psyllium Or Guar Gum Fiber 4gm Packet PO 04/17/24 08:59 4 gm QAM TESSIE Administration Sennosides 17.2 mg 03/17/24 21:00 03/20/24 21:34 Senna 8.6 Mg Tab PO 04/16/24 20:59 17.2 mg HS TESSIE Administration Tramadol HCl 25 mg 03/18/24 12:28 03/19/24 17:07 Tramadol Hcl 50 Mg Tablet PO 04/17/24 12:27 25 mg Q6H PRN Administration Moderate Pain (Scale 4, 5, 6) Vitamin D 125 mcg 03/17/24 09:00 03/21/24 07:46 Cholecalciferol 125 Mcg (5,000 Units) Tab PO 04/16/24 08:59 125 mcg QAM TESSIE Administration (1) Closed right femoral fracture Encounter type: subsequent encounter Femur location: proximal epiphysis Fracture alignment: nondisplaced Fracture healing: with routine healing Qualified Code(s): S72.024D - Nondisplaced fracture of epiphysis (separation) (upper) of right femur, subsequent encounter for closed fracture with routine healing
[2024-03-21] MEDS: MELATONIN 3 MG TAB PO SCH (21:40)
[2024-03-22] MEDS: TAMSULOSIN HCL 0.4 MG CAP PO PRN (02:18)
[2024-03-22] MEDS: ACETAMINOPHEN 1,000 MG/100 ML VIAL IV STA (06:11)
--- NOTE | 2024-03-22 09:10 | Orthopedic Progress Note ---
Date of Service March 22, 2024 Assessment & Plan (1) Closed right femoral fracture: Plan: 88-year-old gent with multiple medical comorbidities now 5 days out from retrograde IM nailing of a periprosthetic femur fracture. Orthopedically seems to be doing okay. A bit confused. Pain seems to be controlled. He is neurologically intact. A little bloody drainage on the front of his dressing but everything else looks good. Plan: 1. DVT prophylaxis including Thiede teds, SCDs, and he is on Plavix. 2. PT/OT. He can weight-bear as tolerated. We can use a knee immobilizer as needed based on his quad function. He can begin some gentle knee motion 0 to 90 degrees max. 3. Pain control doing okay with current pain regimen. 4. Disposition the plan is to send him to intermediate facility I believe today. He will need to follow back in my clinic in 2 to 3 weeks. Any orthopedic questions can be directly [phone]. (2) Closed fracture of left proximal tibia: Admission and Anticipated Discharge Date Admission Date: March 16, 2024 Subjective 88-year-old gentleman now postoperative day 5 from IM nailing of a harris prosthetic femur fracture. He is a bit confused this morning. Pain seems to be controlled. Denies any chest pain or shortness of breath. No other complaints other than some back pain. Physical Exam Physical Exam: Physical examination was a pleasant elderly male. He sitting up in bed looks pretty comfortable. He is talking but appears somewhat confused. Examination of the right leg reveals the dressing to be in place please get a little bit of bloody drainage on the anterior aspect of his knee at the superior aspect. Legs well aligned. Thigh is soft and supple. He is neurologically intact. Results & Data Vital Signs (Past 12 Hours) Vital Signs Temp Pulse Resp BP Pulse Ox O2 Del Method O2 Flow Rate 03/22/24 07:14 36.6 C 84 17 119/68 90 Room Air 03/22/24 00:38 Nasal Cannula 3 (1) Closed right femoral fracture Encounter type: subsequent encounter Femur location: proximal epiphysis Fracture alignment: nondisplaced Fracture healing: with routine healing Qualified Code(s): S72.024D - Nondisplaced fracture of epiphysis (separation) (upper) of right femur, subsequent encounter for closed fracture with routine healing (2) Closed fracture of left proximal tibia Encounter type: initial encounter Fracture morphology: unspecified fracture morphology Qualified Code(s): S82.102A - Unspecified fracture of upper end of left tibia, initial encounter for closed fracture
--- NOTE | 2024-03-22 11:19 | Hospitalist Progress Note ---
Date of Service March 22, 2024 Assessment & Plan (1) Closed right femoral fracture: Plan Mr Israel is an 88-year-old male with PMH of HLD, CVA 2019, COPD, osteoarthritis, hereditary hemochromatosis, prostate cancer, urinary incontinence presents from [facility] after a fall and was found to have mildly comminuted displaced fracture of the right femoral shaft. Patient was admitted to our service 02/10-02/24 after a fall resulting in left tibial fracture/L2 compression fracture ----> he was discharged to [facility], was receiving heparin for DVT prophylaxis at [facility]. This time, he was attempting to transfer from his bed to chair without assistance and fell melisa kwards onto his right leg in a twisting motion after losing his balance. He denied any head trauma or loss of consciousness. Patient underwent right femur retrograde nail on 03/17. Post op course un complicated thus far; however, today is more agitated and restless. Family at bedside ( and son) who reviewed all medications. Family decision made that no further opioids to be given as well as no medications for agitation/delirium. 1:1 sitter to return to bedside. #Delirium superimposed on dementia Discontinuing opioids, attempting more conservative management for pain Reorientation as able avoid benzos and antipsychotics as able labs in am #Mechanical Fall c/b right periprosthetic femur fracture s/p Right Femur Retrograde Nail(Right) 03/17 c/w pain regimen -Multiple medications discontinued at family request c/w bowel regimen. Per family patient is not on trazodone at home nor is patient on long term care phlebotomist antipsychotics PT/OT: plan for rehab Ortho evaled, teds, scds and plavix/asa -Weight-bear as tolerated. keep in the knee immobilizer while weightbearing for the first couple weeks. -follow up with Dr Gutierrez in 2 to 3 weeks out from surgery date. Any orthopedic questions can be directly [phone]. #Oblique Nondisplaced L2 vertebral body fracture MRI lumbar spine, CT LLE - Oblique nondisplaced L2 vertebral body fracture with associated marrow edema and mild paravertebral edema Conservative management #Acute blood loss anemia:, post op Baseline hemoglobin around 11-12. admitting Hb of 10.4, s/p rt hip sx on 03/17, 03/18 Hb 7.4 a/w increase in HR. s/p 1 unit prbc 03/18. hemoglobin stable #Hypertension given age and recent falls, will prefer loose control, no indications for med mgmt at this time #Prior CVA continue DAPT #HLD continue statin Other chronic medical conditions: Continue with/resume home meds as and when able. History hereditary hemochromatosis Prostate cancer status post radiation Skin cancer as per records Past tobacco abuse DVT prophylaxis. SCDs Re: s/p procedure DNR/DNI Patient Ms. Awa Israel, contact #[phone]. Given agitation, will likely hold on discharge and assess how patient is doing without opioids. Admission and Anticipated Discharge Date Admission Date: March 16, 2024 Subjective NAEO Pleasant and conversational this am, less agitated than day prior Physical Exam Constitutional: WD/WN, vitals as above Respiratory: normal respiratory effort, lungs clear to auscultation Cardiovascular: RRR, no murmur, no edema Results & Data Results & Data Vital Signs (Past 12 Hours) Vital Signs Temp Pulse Resp BP Pulse Ox Pulse Ox O2 Del Method 03/22/24 08:55 Room Air 03/22/24 07:14 36.6 C 84 17 119/68 90 Room Air 03/22/24 07:00 90 03/22/24 00:38 Nasal Cannula O2 Del Method O2 Flow Rate 03/22/24 08:55 03/22/24 07:14 03/22/24 07:00 Room Air 03/22/24 00:38 3 (1) Closed right femoral fracture Encounter type: subsequent encounter Femur location: proximal epiphysis Fracture alignment: nondisplaced Fracture healing: with routine healing Qualified Code(s): S72.024D - Nondisplaced fracture of epiphysis (separation) (upper) of right femur, subsequent encounter for closed fracture with routine healing
[2024-03-22] MEDS: ACETAMINOPHEN 500 MG TAB PO SCH (13:20)
[2024-03-22 13:36] LABS: Hematocrit (blood only) 22.8 % (42.0-52.0); Hemoglobin 7.7 g/dl (14.0-18.0); Mean Corpuscular Hemoglobin 30.8 pg (25.0-34.0); Mean Corpuscular Hgb Conc 33.8 g/dL (32.0-36.0); Mean Corpuscular Volume 91.2 fL (80.0-100.0); Mean Platelet Volume 9.3 fL (9.4-12.4); Platelet Count 247 K/uL (130-400); RDW Coefficient of Variation 16.2 % (11.5-14.5); RDW Standard Deviation 52.5 fL (36.4-46.3)
[2024-03-22 13:50] LABS: Calcium 8.5 mg/dl (8.6-10.3); Creatinine Clr Calc Pharmacy 53.6 ml/min; Est GFR (African American) 67.9 ml/min; Est GFR (Non-African American) 58.6 ml/min; Potassium 4.3 mmol/L (3.5-5.1)
[2024-03-22] MEDS: KETOROLAC TROMETHAMINE 15 MG/ML VIAL IV ONE ×2 (16:14→22:09)
[2024-03-22] MEDS: COUGH DROP (SUGAR FREE) LOZ 24 LOZ/1 BOX BUCCAL ONE (20:04)
--- NOTE | 2024-03-23 13:25 | Hospitalist Progress Note ---
Date of Service March 23, 2024 Assessment & Plan (1) Closed right femoral fracture: Plan Mr Israel is an 88-year-old male with PMH of HLD, CVA 2019, COPD, osteoarthritis, hereditary hemochromatosis, prostate cancer, urinary incontinence presents from [facility] after a fall and was found to have mildly comminuted displaced fracture of the right femoral shaft. Patient was admitted to our service 02/10-02/24 after a fall resulting in left tibial fracture/L2 compression fracture ----> he was discharged to [facility], was receiving heparin for DVT prophylaxis at [facility]. This time, he was attempting to transfer from his bed to chair without assistance and fell backwa rds onto his right leg in a twisting motion after losing his balance. He denied any head trauma or loss of consciousness. Patient underwent right femur retrograde nail on 03/17. Post op course uncom plicated thus far; however, today is more agitated and restless. Family at bedside ( and son) who reviewed all medications. Family decision made that no further opioids to be given as well as no medications for agitation/delirium. 1:1 sitter to return to bedside per family request Course complicated by delirium. Discussed case at length with son as well as medication review. Family presented list of medications (anticholinergics, antipsychotics) which was discussed as likely not the best option for patient as these precipitate often worse delirium/risk for falls etc. Agreed for pain management consult to discuss the best options to aid patient in recovery and exhaust resources for optimizing patient for discharge. #Delirium superimposed on dementia Discontinuing opioids, attempting more conservative management for pain Reorientation as able avoid benzos and antipsychotics as able Attempt to management pain as likely precipitating factor to delirium -Family agreed to pain management physician consult #Mechanical Fall c/b right periprosthetic femur fracture s/p Right Femur Retrograde Nail(Right) 03/17 c/w pain regimen -Multiple medications discontinued at family request c/w bowel regimen. 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 keep in the knee immobilizer while weightbearing for the first couple weeks. -follow up with Dr Gutierrez in 2 to 3 weeks out from surgery date. Any orthopedic questions can be directly [phone]. #Oblique Nondisplaced L2 vertebral body fracture MRI lumbar spine, CT LLE - Oblique nondisplaced L2 vertebral body fracture with associated marrow edema and mild paravertebral edema Conservative management #Acute blood loss anemia:, post op Baseline hemoglobin around 11-12. admitting Hb of 10.4, s/p rt hip sx on 03/17, 03/18 Hb 7.4 a/w increase in HR. s/p 1 unit prbc 03/18. hemoglobin stable #Hypertension given age and recent falls, will prefer loose control, no indications for med mgmt at this time #Prior CVA continue DAPT #HLD continue statin Other chronic medical conditions: Continue with/resume home meds as and when able. History hereditary hemochromatosis Prostate cancer status post radiation Skin cancer as per records Past tobacco abuse DVT prophylaxis. SCDs Re: s/p procedure DNR/DNI Patient Ms. Awa Israel, contact #[phone]. Given agitation, will likely hold on discharge and assess how patient is doing without opioids. Admission and Anticipated Discharge Date Admission Date: March 16, 2024 Subjective Patient with continued fluctuating mental status iso delirium, partially provoked by pain exacerbated by hospital setting Family discussed various medications--discussed concerns with certain agents requested will likely exacerbate delirium Patient with multiple pain factors--ultimately given limited consensus on pain management, agreed to pain management consult Physical Exam Constitutional: sitting in bedside chair, trying to input calculations on calculator, oriented to self and location "hospital" not time/date/situation at time of exam (varies) Respiratory: normal respiratory effort, lungs clear to auscultation Cardiovascular: RRR, no murmur, no edema Results & Data Results & Data Vital Signs (Past 12 Hours) Vital Signs Temp Pulse Resp BP Pulse Ox O2 Del Method 03/23/24 10:18 Room Air 03/23/24 07:16 36.6 C 74 18 135/66 91 Room Air Laboratory Results Short CBC 03/22/24 Range/Units 13:01 WBC 9.10 (4.8-10.8) K/ul Hgb 7.7 L (14.0-18.0) g/dl Hct 22.8 L (42.0-52.0) % Plt Count 247 (130-400) K/uL BMP 03/22/24 13:01 Sodium 137 Potassium 4.3 Chloride 104 Carbon Dioxide 25 BUN 20 Creatinine 1.11 Glucose 113 H Calcium 8.5 L Medications Administered Home Medications Medication Instructions Recorded Confirmed Last Taken cholecalciferol (vitamin D3) 125 125 mcg PO QAM 04/11/22 03/16/24 06/26/22 mcg (5,000 unit) tablet (Vitamin D3) melatonin 10 mg tablet 20 mg PO HS 04/11/22 03/16/24 06/26/22 17:00 vit C 250 mg-vit E 90 mg-zinc 40 1 tab PO QAM 04/11/22 03/16/24 06/26/22 mg-copper 1 [id number] capsule (PreserVision AREDS-2) psyllium 1 tbsp PO QAM 01/01/24 03/16/24 Unknown acetaminophen 500 mg tablet 650 mg (1.3 x 500 mg) PO TID 21 02/20/24 03/16/24 Unknown (Tylenol Extra Strength) days #90 tabs aspirin 81 mg tablet,delayed 81 mg PO QAM #30 tabs 02/20/24 03/16/24 Unknown release atorvastatin 10 mg tablet 10 mg PO QAM #30 tabs 02/20/24 03/16/24 Unknown clopidogrel 75 mg tablet 75 mg PO QAM #30 tabs 02/20/24 03/16/24 Unknown diclofenac sodium 1 % topical gel 2 g EXT Q6H #100 grams 02/20/24 03/16/24 Unknown (Voltaren Arthritis Pain) heparin, porcine (PF) 5,000 5,000 unit (0.5 mL) subcut Q8H 30 02/20/24 03/16/24 Unknown unit/0.5 mL injection syringe days #45 mL polyethylene glycol 3350 17 gram 17 g PO DAILY PRN constipation #30 02/20/24 03/16/24 Unknown oral powder packet (Miralax) ea celecoxib 100 mg capsule 100 mg PO .DAILY AFTER SUPPER 03/16/24 03/16/24 Unknown famotidine 20 mg tablet 20 mg PO AMHS 03/16/24 03/16/24 Unknown multivitamin-ferrous 1 tab PO .DAILY AFTER LUNCH 03/16/24 03/16/24 Unknown fumarate-folic acid 18 mg-400 mcg tablet oxycodone 30 mg tablet 30 mg PO QDB 03/16/24 03/16/24 Unknown oxycodone 30 mg tablet,oral ONLY 30 mg PO Q6H PRN pain scale 5-10 03/16/24 0 03/16/24 Unknown (not feeding tubes) polyvinyl alcohol-povidone (PF) 2 drp OPB BID 03/16/24 03/16/24 Unknown 1.4 %-0.6 % eye drops in a dropperette (Refresh Classic (PF)) trazodone 50 mg tablet 50 mg PO HS 03/16/24 03/16/24 Unknown Active Medications Generic Name Dose Route Start Last Admin Trade Name Freq PRN Reason Stop Dose Admin Acetaminophen 1,000 mg 03/22/24 14:00 03/23/24 05:26 Acetaminophen 500 Mg Tab PO 04/21/24 13:59 1,000 mg Q8H TESSIE Administration Ascorbic Acid 500 mg 03/17/24 17:36 03/23/24 07:52 Ascorbic Acid 500 Mg Tab PO 04/16/24 17:35 500 mg BIDM TESSIE Administration Aspirin 81 mg 03/17/24 17:36 03/23/24 07:53 Aspirin 81 Mg Ectab PO 04/16/24 17:35 81 mg QAM TESSIE Administration Atorvastatin Calcium 10 mg 03/17/24 09:00 03/23/24 07:53 Atorvastatin 10 Mg Tab PO 04/16/24 08:59 10 mg QAM TESSIE Administration Clopidogrel Bisulfate 75 mg 03/18/24 09:00 03/23/24 07:52 Clopidogrel Bisulfate 75 Mg Tab PO 04/17/24 08:59 75 mg QAM TESSIE Administration Diclofenac Sodium 2 gm 03/16/24 23:00 03/23/24 11:01 Diclofenac Sod 1% Gel 100 Gm Tube EXT 04/15/24 22:59 2 gm Q6H TESSIE Administration Protocol Docusate Sodium 100 mg 03/17/24 21:00 03/23/24 07:52 Docusate Sodium 100 Mg Cap PO 04/16/24 20:59 100 mg BID TESSIE Administration Famotidine 20 mg 03/17/24 09:00 03/23/24 07:55 Famotidine 20 Mg Tab PO 04/16/24 08:59 20 mg AMHS TESSIE Administration Melatonin 9 mg 03/21/24 21:00 03/22/24 19:50 Melatonin 3 Mg Tab PO 04/20/24 20:59 9 mg HS TESSIE Administration Multivitamins/Minerals 1 tab 03/17/24 09:00 03/23/24 07:52 Cerovite Adv Formula Tab PO 04/16/24 08:59 1 tab QAM TESSIE Administration Polyethylene Glycol 17 gm 03/16/24 22:14 03/19/24 08:29 Polyethylene (Miralax) 17 Gm Pack PO 04/15/24 22:13 17 gm DAILY PRN Administration constipation Prenat Multivit/[place]/Iron/Folic Ac 1 tab 03/17/24 11:30 03/23/24 11:01 Vitamin 1 Tab PO 04/16/24 11:29 1 tab QDL TESSIE Administration Psyllium Hydrophilic Mucilloid 4 gm 03/18/24 09:00 03/23/24 07:53 Psyllium Or Guar Gum Fiber 4gm Packet PO 04/17/24 08:59 4 gm QAM TESSIE Administration Sennosides 17.2 mg 03/17/24 21:00 03/22/24 19:50 Senna 8.6 Mg Tab PO 04/16/24 20:59 17.2 mg HS TESSIE Administration Tamsulosin HCl 0.4 mg 03/17/24 17:36 03/22/24 02:18 Tamsulosin Hcl 0.4 Mg Cap PO 04/16/24 17:35 0.4 mg QAM PRN Administration UNABLE to void Vitamin D 125 mcg 03/17/24 09:00 03/23/24 07:53 Cholecalciferol 125 Mcg (5,000 Units) Tab PO 04/16/24 08:59 125 mcg QAM TESSIE Administration (1) Closed right femoral fracture Encounter type: subsequent encounter Femur location: proximal epiphysis Fracture alignment: nondisplaced Fracture healing: with routine healing Qualified Code(s): S72.024D - Nondisplaced fracture of epiphysis (separation) (upper) of right femur, subsequent encounter for closed fracture with routine healing
--- NOTE | 2024-03-24 08:56 | Pain Management Consultation ---
Date of Consultation March 24, 2024 Assessment & Plan (1) Closed right femoral fracture: Encounter type: subsequent encounter Femur location: proximal epiphysis Fracture alignment: nondisplaced Fracture healing: with routine healing Qualified Code(s): S72.024D - Nondisplaced fracture of epiphysis (separation) (upper) of right femur, subsequent encounter for closed fracture with routine healing (2) Closed fracture of left proximal tibia: Encounter type: initial encounter Fracture morphology: unspecified fracture morphology Qualified Code(s): S82.102A - Unspecified fracture of upper end of left tibia, initial encounter for closed fracture (3) L2 vertebral fracture: Encounter type: initial encounter Fracture morphology: unspecified fracture morphology Fracture type: closed Qualified Code(s): S32.029A - Unspecified fracture of second lumbar vertebra, initial encounter for closed fracture (4) Spinal stenosis: Neurogenic claudication status: unspecified Spinal region: lumbar Qualified Code(s): M48.061 - Spinal stenosis, lumbar region without neurogenic claudication (5) Chronic back pain: (6) History of lumbar surgery: Plan 1. If family decision remains that no further opioids to be given, as well as no medications for agitation/delirium, then that certainly does not leave much, if any, more potent options available for pain control beyond the currently ordered acetaminophen. * With this noted, continue acetaminophen 1,000 mg Q8H. 2. Pain seems relatively controlled this AM when patient at rest. If attempting to lay patient flat supine, he has significant left lumbar/flank/hip pain. * Possibly from L2 fracture? * Continue LSO brace during transfers and when OOB. 3. Family not present for visit today, but if pain becomes more of an issue, and they want to focus more on controlling that, then they may need to give consideration for tramadol, Nucynta, or Butrans patch. 4. Bedside nurses this AM state that he is better today as far as not being agitated, and he seems quite a bit less confused. The sitter that was present said she was with the patient yesterday, and comparatively he is doing better today. He does still struggle to voice his pain concerns, but he does seem to respond relatively appropriately to questioning. 5. No interventional pain procedure with steroid is currently recommended do to presence of fractures. 6. Recommend PT/OT as able to avoid deconditioning 7. Pain management service will sign off at this time; can follow peripherally as needed. History of Present Illness Reason for Consultation: severe pain c/b agitation and delirim w/ opioids Requesting Physician: Gianna Abreu MD Attending Physician: Ko Arita MD History of Present Illness Patient is an 88-year-old male previously/recently known to the pain management service for admission at the end of January due to back pain and ambulatory dysfunction. Relative to that visit, the patient had a fall occurring in late November and was admitted in early December for ambulatory dysfunction and right rib fracture, then was ultimately discharged to [facility] for rehabilitative services. The patient developed progressive difficulties with with his ambulatory dysfunction, which led to that admission. At that time, he was complaining of left-sided low back pain and left lower extremity radicular pain to the level of the ankle, which seem to be in a predominant L4/5 distribution pattern. Patient described the pain as sharp, burning and shooting in characteristic aggravated with any movement. He reports his pain was 50% axial in the left lumbosacral region and 50% radicular as described above. He denied any overt weaknesses but reported significant difficulty with any ambulation due to pain with movement and any attempted weightbearing. An MRI was attempted during that admission, but he had difficulty lying still and the images were of poor quality. The patient was found to have a closed fracture of the left proximal tibia upon the prior admission, which was nondisplaced and no surgical intervention had been recommended. He has reported a remote history of lumbar spine surgery and prior injection therapies greater than 15 years ago. He was uncertain as to the levels previously treated. He did eventually undergo a repeat lumbar spine MRI on 02/16/2024 was found to have an oblique nondisplaced L2 vertebral body fracture. He previously noted mild pain relief with oxycodone 5 mg x 4 hours. Patient experienced a fall at his personal half-way on 03/16/2024, and then he again presented to the emergency department. The patient reported falling backwards after twisting his right leg, which was from a standing position. The patient was experiencing severe right lower extremity pain while in the ED. On physical exam he had abnormal external rotation noted to the right lower extremity. Upon imaging studies, he was found to have a distal right femur fracture above a right knee prosthesis. This was treated with splinting the emergency department. Patient did undergo right femur retrograde IM nailing by Dr. Gutierrez on 03/17/2024. It seemed to use doing relatively well postoperatively with pain control and otherwise. However, on 03/22/2024 it was noted that he was becoming more agitated and restless. After discussion about the patient's care, the family made a decision that no further opioids were to be given, and they also did not want any medications for agitation or delirium. A one-on-one sitter was ordered to be at bedside for the patient. Pain management service was consulted "to discuss the best options to aid patient in recovery and exhaust resources for optimizing patient for discharge". Case discussed with Dr. Veda Braga. Allergies Allergy/AdvReac Type Severity Reaction Status Date / Time mirtazapine [From Remeron] Allergy Confusion Verified 03/17/24 12:04 amoxicillin [From Augmentin] AdvReac Mild diarrhea Verified 03/17/24 12:04 clavulanic acid AdvReac Mild diarrhea Verified 03/17/24 12:04 [From Augmentin] Home Medications Medication Instructions Recorded Confirmed Type cholecalciferol (vitamin D3) 125 125 mcg PO QAM 04/11/22 03/16/24 History mcg (5,000 unit) tablet (Vitamin D3) melatonin 10 mg tablet 20 mg PO HS 04/11/22 03/16/24 History vit C 250 mg-vit E 90 mg-zinc 40 1 tab PO QAM 04/11/22 03/16/24 History mg-copper 1 rx-yteopk-sxdrif capsule (PreserVision AREDS-2) psyllium 1 tbsp PO QAM 01/01/24 03/16/24 History acetaminophen 500 mg tablet 650 mg (1.3 x 500 mg) PO TID 21 02/20/24 03/16/24 Rx (Tylenol Extra Strength) days #90 tabs aspirin 81 mg tablet,delayed 81 mg PO QAM #30 tabs 02/20/24 03/16/24 Rx release atorvastatin 10 mg tablet 10 mg PO QAM #30 tabs 02/20/24 03/16/24 Rx clopidogrel 75 mg tablet 75 mg PO QAM #30 tabs 02/20/24 03/16/24 Rx diclofenac sodium 1 % topical gel 2 g EXT Q6H #100 grams 02/20/24 03/16/24 Rx (Voltaren Arthritis Pain) heparin, porcine (PF) 5,000 5,000 unit (0.5 mL) subcut Q8H 30 02/20/24 03/16/24 Rx unit/0.5 mL injection syringe days #45 mL polyethylene glycol 3350 17 gram 17 g PO DAILY PRN constipation #30 02/20/24 03/16/24 Rx oral powder packet (Miralax) ea celecoxib 100 mg capsule 100 mg PO .DAILY AFTER SUPPER 03/16/24 03/16/24 History famotidine 20 mg tablet 20 mg PO AMHS 03/16/24 03/16/24 History multivitamin-ferrous 1 tab PO .DAILY AFTER LUNCH 03/16/24 03/16/24 History fumarate-folic acid 18 mg-400 mcg tablet oxycodone 30 mg tablet 30 mg PO QDB 03/16/24 03/16/24 History oxycodone 30 mg tablet,oral ONLY 30 mg PO Q6H PRN pain scale 5-10 03/16/24 03/16/24 History (not feeding tubes) polyvinyl alcohol-povidone (PF) 2 drp OPB BID 03/16/24 03/16/24 History 1.4 %-0.6 % eye drops in a dropperette (Refresh Classic (PF)) trazodone 50 mg tablet 50 mg PO HS 03/16/24 03/16/24 History Patient History Medical History (Updated 03/17/24 @ 13:24 by Alfred Neff MD) Encounter for pre-operative examination History of urinary incontinence "wears depends" History of COVID-19 Approximately 2019 > all symptoms resolved Poor historian History of squamous cell carcinoma History of basal cell carcinoma Hearing deficit B/L [place] Chronic bronchitis Chronic cough "worked in the [employer]" Osteoarthritis Obesity Hereditary hemochromatosis Monitoring, labs have been "WNL" History of TIA (transient ischemic attack) 3.5 years ago Anemia Chronic back pain Hyperlipidemia H/O intracranial hemorrhage 20 + years ago Prostate cancer s/p XRT only - 15 years ago Surgical History History of total knee arthroplasty History of colonoscopy History of prostate biopsy History of tooth extraction History of cataract surgery History of lumbar surgery History of squamous cell carcinoma excision History of basal cell carcinoma (BCC) excision Family History Father Coronary heart disease Sister Cancer Other No family history of adverse response to anesthesia Social History Smoking Status: Never smoker Cigarettes Per Day: on on occasion; Second Hand Exposure: No; Do You Dip or Chew Tobacco: No; Hx Alcohol Use: No Hx Substance Use: No Preferred Language: [place] Communication Ability: Effective 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 Mood and affect is appropriate. Does not appear in acute distress. Voices pain with attempt to passively lie flat supine in the bed. HEAD: Normocephalic; atraumatic. NECK: Trachea is midline. CHEST: Regular chest respiration and excursion. BACK: Nontender to left lumbar, flank, hip, and lower abdominal regions. Patient does indicate pain to this area however. NEURO: Awake, alert, and oriented. SKIN: No lesions, erythema, or rashes noted. Results (Pain Clinic) Diagnostic Review MRI Findings: MRI OF THE LUMBAR SPINE WITHOUT CONTRAST CLINICAL HISTORY: Left lower extremity radiculopathy. COMPARISON STUDY: Lumbar spine MRI February 11, 2024. Lumbar spine MRI July 14, 2018. CT of the abdomen and pelvis February 11, 2024. TECHNIQUE: Utilizing a 1.5 Beena magnet and dedicated coil, multiplanar, multiecho imaging of the lumbar spine was performed without IV contrast. FINDINGS: For purposes of numbering on this exam, the L5-S1 disc space is assigned to axial image 31 of 36. Vertebral body heights are maintained. There is an oblique nondisplaced fracture which extends through the L2 vertebral body. This extends to the anterior cortex and superior endplate. There is no retropulsion or loss of vertebral body height. Moderate associated marrow edema is present. There is minimal paravertebral edema. No additional lumbar spine fractures are present. There is no suspicious marrow replacement. A 1.9 cm hemangioma within L1 vertebral body is incidentally noted. There are discogenic changes at multiple levels. There are stable postoperative findings following L3-L4 laminectomy. Prominent epidural fat within the lower lumbar and sacral canal cyst is unchanged. L1-2: There is mild facet arthrosis with ligamentous hypertrophy. Central canal and neural foramen are patent. L2-3: There is moderate facet arthrosis with ligamentous hypertrophy. There is disc space narrowing with mild disc bulge. There is mild narrowing of the central canal. The neural foramen are patent. L3-4: Moderate disc space narrowing is noted. Postoperative findings following laminectomy. This central canal stenosis. There is mild right neural foraminal stenosis. Left neural foramen is patent. L4-5: There is moderate to space narrowing. Facet arthrosis with ligamentous hypertrophy is present. Postoperative findings are noted. Mild central canal stenosis as well as mild during of both neural foramen. L5-S1: The central canal and neural foramen are patent. IMPRESSION: 1. Oblique nondisplaced L2 vertebral body fracture with associated marrow edema and mild paravertebral edema. No retropulsion. No extension into the posterior elements. This is suggestive of a subacute fracture. No additional lumbar spine fractures. 2. Stable postoperative findings following L3-L4 laminectomy. 3. Moderate multilevel degenerative disc disease and facet arthrosis within the lumbar spine. No severe central canal stenosis. ACT 112: Negative or not required by law. Electronically signed by: Lupillo Wagner M.D. 02/16/2024 1:48 PM Dictated: 02/16/24 1334 Transcribed: 02/16/24 1334 Radiology Findings: Knee X-Ray 03/16/24 18:12 LEFT KNEE 2 VIEWS CLINICAL HISTORY: Fall. FINDINGS: AP and crosstable lateral views of the left knee are correlated with CT scan of the left tibia and fibula dated 02/11/2024. The skeletal structures are heterogeneously osteopenic. No acute fracture is identified. Again seen is a subacute/healing transverse fracture through the proximal tibial metadiaphysis. This appears to extend to the articular surface. There is mild tricompartmental degenerative joint space narrowing. No joint effusion is seen. Soft tissue edema is present throughout the left leg. Atherosclerotic calcification is noted in the popliteal artery. IMPRESSION: 1. No acute fracture is identified. 2. Again seen is a subacute/healing transverse fracture through the proximal tibial metadiaphysis. Electronically signed by: Claus Bowden M.D. 03/17/2024 7:01 AM Pelvis X-Ray 03/16/24 18:12 XR femur RT 2V routine, XR pelvis 1-2V routine CLINICAL HISTORY: TRAUMA RT FEMUR FX TECHNIQUE: 2 radiographic views of the right femur and one view of the pelvis were obtained. Comparison: Comparison is made to CT abdomen pelvis 02/11/2024 FINDINGS: There is a mildly comminuted spiral fracture of the distal femoral shaft. Degenerative changes are seen in the spine. Total knee arthroplasty is seen. Soft tissue swelling is seen. IMPRESSION: Mildly comminuted and displaced fracture of the right femoral shaft is seen. ACT 112: Negative or not required by law. Electronically signed by: Adrian aSnds M.D. 03/16/2024 6:51 PM Femur X-Ray 03/17/24 00:00 FL femur RT 2V CLINICAL HISTORY: RIGHT RETROGRADE FEMUR NAILacute fracture of the right femur COMPARISON STUDY: 03/16/2024 FLUOROSCOPY TIME: 119.9 seconds FLUOROSCOPY IMAGES: 3 EXPOSURE DOSE: 36.50 mGy FINDINGS: Status post placement of an intertrochanteric nail with distal cannulated screws fixating the acute mid to distal femoral diaphyseal fracture. There is persistent displacement however this has improved from prior. Partially imaged knee arthroplasty. IMPRESSION: Fluoroscopic assistance as above. ACT 112: Negative or not required by law. Electronically signed by: William Chan M.D. 03/17/2024 3:43 PM
[2024-03-24 11:18] LABS: Hematocrit (blood only) 24.5 % (42.0-52.0); Hemoglobin 7.9 g/dl (14.0-18.0); Mean Corpuscular Hemoglobin 30.3 pg (25.0-34.0); Mean Corpuscular Hgb Conc 32.2 g/dL (32.0-36.0); Mean Corpuscular Volume 93.9 fL (80.0-100.0); Mean Platelet Volume 8.8 fL (9.4-12.4); Platelet Count 279 K/uL (130-400); RDW Coefficient of Variation 17.1 % (11.5-14.5); RDW Standard Deviation 55.9 fL (36.4-46.3); Red Blood Count 2.61 M/uL (4.70-6.10)
[2024-03-24 11:33] LABS: BUN Creatinine Ratio 19.6 (10-20); Calcium 8.3 mg/dl (8.6-10.3); Creatinine Clr Calc Pharmacy 53.1 ml/min; Est GFR (African American) 67.1 ml/min; Est GFR (Non-African American) 57.9 ml/min; Phosphorus 3.7 mg/dl (2.5-4.9); Potassium 4.2 mmol/L (3.5-5.1)
[2024-03-24] MEDS: LIDOCAINE 5% 1 PATCH TD SCH (14:55)
--- NOTE | 2024-03-24 17:15 | Hospitalist Progress Note ---
Date of Service March 24, 2024 Assessment & Plan (1) Closed right femoral fracture: Plan 88-year-old male with PMH of HLD, CVA 2019, COPD, osteoarthritis, hereditary hemochromatosis, prostate cancer, urinary incontinence presents from [facility] after a fall and was found to have mildly comminuted displaced fracture of the right femoral shaft. Patient was admitted to our service 02/10-02/24 after a fall resulting in left tibial fracture/L2 compression fracture ----> he was discharged to [facility], was receiving heparin for DVT prophylaxis at [facility]. This time, he was attempting to transfer from his bed to chair without assistance and fell backwards onto his right leg in a twisting motion after losing his balance. He denied any head trauma or loss of consciousness. Patient underwent right femur retrograde nail on 03/17. Post op course complicated by delirium. #Delirium superimposed on dementia No opioids per family choice, attempting more conservative management for pain Reorientation as able avoid benzos and antipsychotics as able Attempt to management pain as likely precipitating factor to delirium Pain Mx evaled, appreciate recs. Family w/ bring LSO brace for the pt adeline Added lidocaine patch. #Mechanical Fall c/b right periprosthetic femur fracture s/p Right Femur Retrograde Nail(Right) 03/17 c/w pain regimen -Multiple medications discontinued at family request c/w bowel regimen. 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 keep in the knee immobilizer while weightbearing for the first couple weeks. -follow up with Dr Gutierrez in 2 to 3 weeks out from surgery date. Any orthopedic questions can be directly [phone]. #Oblique Nondisplaced L2 vertebral body fracture MRI lumbar spine, CT LLE - Oblique nondisplaced L2 vertebral body fracture with associated marrow edema and mild paravertebral edema Conservative management , use lso brace. #Acute blood loss anemia:, post op Baseline hemoglobin around 11-12. admitting Hb of 10.4, s/p rt hip sx on 03/17, 03/18 Hb 7.4 a/w increase in HR. s/p 1 unit prbc 03/18. hemoglobin stable #Hypertension given age and recent falls, will prefer loose control, no indications for med mgmt at this time #Prior CVA continue DAPT #HLD continue statin Other chronic medical conditions: Continue with/resume home meds as and when able. History hereditary hemochromatosis Prostate cancer status post radiation Skin cancer as per records Past tobacco abuse DVT prophylaxis. SCDs Re: s/p procedure DNR/DNI Patient Ms. Awa Israel, contact #[phone]. Time spent 70 minutes. Admission and Anticipated Discharge Date Admission Date: March 16, 2024 Subjective Patient was seen and examined at bedside. Patient was lying in recliner, on room air, oriented times control, reports feeling better, reports fairly under control pain. Patient is eating okay, reports moving bowels. Per RN, patient had a good night sleep last night, patient is overall feeling better today. Later in the day, patient's family [son and ] visited at bedside., I spent well about 30 minutes while trying to update them the plan of care and possible outcomes of worsening delirium given old age/frailty/hip fracture/need for pain medication. They declined any opiate related pain medication, explained why NSAIDs is not safe in old age population, they agreed with lidocaine patch. Answered all their questions. Physical Exam Physical Exam: General Appearance: WD/WN, vitals as above, NAD, sitting up in bed, slow to speak but answers questions appropriately. [place]. Head: normocephalic, atraumatic Eyes: normal inspection, PERRL, conjunctivae normal, anicteric sclerae ENT: hard of hearing, external ear and nose normal, oropharynx normal Neck: normal visual inspection, trachea midline, no thyromegaly Respiratory: normal respiratory effort, lungs clear to auscultation, no wheeze, rales, rhonchi. No accessory muscle use Cardiovascular: regular rate, rhythm, normal peripheral pulses, 1+ BLE edema. Vessels: no JVD Chest: normal inspection of chest Abdomen/GI: normal bowel sounds, soft, nontender, no hepatosplenomegaly Extremities/Musculoskeletal: + Right hip w/ clean incision. No cyanosis or club karlie, extremities motor strength 5/5. Neurologic: PERRL, EOMI, accommodation nl, no face palsy, no dysarthria, CN's II-XI intact bilaterally and moves all extremities Psychiatric: A+Ox3, euthymic affect Skin: no rashes, normal color, warm/dry Results & Data Results & Data Vital Signs (Past 12 Hours) Vital Signs Temp Pulse Resp BP Pulse Ox Pulse Ox O2 Del Method 03/24/24 15:00 93 03/24/24 11:00 94 03/24/24 08:00 Room Air 03/24/24 07:57 36.6 C 71 18 139/67 95 Room Air 03/24/24 07:00 93 O2 Del Method 03/24/24 15:00 Room Air 03/24/24 11:00 Room Air 03/24/24 08:00 03/24/24 07:57 03/24/24 07:00 Room Air (1) Closed right femoral fracture Encounter type: subsequent encounter Femur location: proximal epiphysis Fracture alignment: nondisplaced Fracture healing: with routine healing Qualified Code(s): S72.024D - Nondisplaced fracture of epiphysis (separation) (upper) of right femur, subsequent encounter for closed fracture with routine healing
[2024-03-24] MEDS: PNEUMOCOCCAL VACCINE (PCV20) 20-VAL CONJ-DIP CRM/PF 0.5 ML SYR IM ONE (20:09)
--- NOTE | 2024-03-25 08:09 | Orthopedic Progress Note ---
Date of Service March 25, 2024 Assessment & Plan (1) Closed right femoral fracture: Plan: 88-year-old gentleman now little over a week out from IM nailing of a periprosthetic femur fracture. Orthopedically seems to be pretty stable. Pain seems to be controlled. Wounds look to be healing appropriately. Plan: 1. DVT prophylaxis including thigh-high teds, SCDs, and he is back on his Plavix. 2. PT/OT. He can fully weight-bear as tolerated on his right leg. Limit knee motion 0 to 90 degrees for the first several weeks. 3. Pain control doing okay with current pain regimen. 4. Medical management as per the medicine service. 5. Disposition he is orthopedically okay for discharge anytime medically stable. I need to see him back 2 to 3 weeks out from surgery date. Any orthopedic questions can be directed me me at [phone]. Admission and Anticipated Discharge Date Admission Date: March 16, 2024 Subjective 88-year-old gentleman now postop day 8 from a retrograde IM nail for a periprosthetic femur fracture. He seems to be doing okay. No new complaints today. Still little bit tired this morning. Physical Exam Physical Exam: Physical exam shows a pleasant elderly male. Lying bed looks pretty comfortable. Examination of the right leg and knee reveal the incisions revealed nice. There is no drainage. Some mild swelling. He can dorsiflex and plantarflex his foot appropriately Results & Data Vital Signs (Past 12 Hours) Vital Signs Temp Pulse Resp BP Pulse Ox O2 Del Method 03/25/24 07:52 36.4 C L 68 20 137/70 95 Room Air 03/24/24 20:50 36.4 C L 89 18 143/70 H 97 Room Air 03/24/24 20:30 Room Air (1) Closed right femoral fracture Encounter type: subsequent encounter Femur location: proximal epiphysis Fracture alignment: nondisplaced Fracture healing: with routine healing Qualified Code(s): S72.024D - Nondisplaced fracture of epiphysis (separation) (upper) of right femur, subsequent encounter for closed fracture with routine healing
--- NOTE | 2024-03-25 15:06 | Hospitalist Progress Note ---
Date of Service March 25, 2024 Assessment & Plan (1) Closed right femoral fracture: Plan 88-year-old male with PMH of HLD, CVA 2019, COPD, osteoarthritis, hereditary hemochromatosis, prostate cancer, urinary incontinence presents from [facility] after a fall and was found to have mildly comminuted displaced fracture of the right femoral shaft. Patient was admitted to our service 02/10-02/24 after a fall resulting in left tibial fracture/L2 compression fracture ----> he was discharged to [facility], was receiving heparin for DVT prophylaxis at [facility]. This time, he was attempting to transfer from his bed to chair without assistance and fell backwards onto his right leg in a twisting motion after losing his balance. He denied any head trauma or loss of consciousness. Patient underwent right femur retrograde nail on 03/17. Post op course complicated by delirium. #Delirium superimposed on dementia No opioids per family choice, attempting more conservative management for pain Reorientation as able avoid benzos and antipsychotics as able Attempt to management pain as likely precipitating factor to delirium Pain Mx evaled, appreciate recs. LSO brace w/ activity for pain mx. c/w lidocaine patch. #Mechanical Fall c/b right periprosthetic femur fracture s/p Right Femur Retrograde Nail(Right) 03/17 c/w pain regimen -Multiple medications discontinued at family request c/w bowel regimen. Per family patient is not on trazodone at home nor is patient on care home antipsychotics PT/OT: plan for rehab Ortho evaled, teds, scds and plavix/asa -Weight-bear as tolerated. keep in the knee immobilizer while weightbearing for the first couple weeks. -follow up with Dr Gutierrez in 2 to 3 weeks out from surgery date. Any orthopedic questions can be directly [phone]. #Oblique Nondisplaced L2 vertebral body fracture MRI lumbar spine, CT LLE - Oblique nondisplaced L2 vertebral body fracture with associated marrow edema and mild paravertebral edema Conservative management , use lso brace. #Acute blood loss anemia:, post op Baseline hemoglobin around 11-12. admitting Hb of 10.4, s/p rt hip sx on 03/17, 03/18 Hb 7.4 a/w increase in HR. s/p 1 unit prbc 03/18. hemoglobin stable #Hypertension given age and recent falls, will prefer loose control, no indications for med mgmt at this time #Prior CVA continue DAPT #HLD continue statin Other chronic medical conditions: Continue with/resume home meds as and when able. History hereditary hemochromatosis Prostate cancer status post radiation Skin cancer as per records Past tobacco abuse DVT prophylaxis. SCDs Re: s/p procedure DNR/DNI Patient Ms. Awa Israel, contact #[phone]. likely dc adeline. family updated at bedside. time spent: 55 min. Admission and Anticipated Discharge Date Admission Date: March 16, 2024 Subjective Patient was seen and examined at bedside. Patient was lying in recliner, on room air, reports feeling better, reports pain fairly under control pain. Patient is eating okay, reports moving bowels. Pt's son and at bedside, who were also updated on plan of care. Physical Exam Physical Exam: General Appearance: WD/WN, vitals as above, NAD, sitting up in bed, slow to speak but answers questions appropriately. QAWALANGIN. Head: normocephalic, atraumatic Eyes: normal inspection, PERRL, conjunctivae normal, anicteric sclerae ENT: hard of hearing, external ear and nose normal, oropharynx normal Neck: normal visual inspection, trachea midline, no thyromegaly Respiratory: normal respiratory effort, lungs clear to auscultation, no wheeze, rales, rhonchi. No accessory muscle use Cardiovascular: regular rate, rhythm, normal peripheral pulses, 1+ BLE edema. Vessels: no JVD Chest: normal inspection of chest Abdomen/GI: normal bowel sounds, soft, nontender, no hepatosplenomegaly Extremities/Musculoskeletal: + Right hip w/ clean incision. No cyanosis or clubbing, extremities motor strength 5/5. Neurologic: PERRL, EOMI, accommodation nl, no face palsy, no dysarthria, CN's II-XI intact bilaterally and moves all extremities Psychiatric: A+Ox3, euthymic affect Skin: no rashes, normal color, warm/dry Results & Data Results & Data Vital Signs (Past 12 Hours) Vital Signs Temp Pulse Resp BP Pulse Ox O2 Del Method 03/25/24 07:52 36.4 C L 68 20 137/70 95 Room Air (1) Closed right femoral fracture Encounter type: subsequent encounter Femur location: proximal epiphysis Fracture alignment: nondisplaced Fracture healing: with routine healing Qualified Code(s): S72.024D - Nondisplaced fracture of epiphysis (separation) (upper) of right femur, subsequent encounter for closed fracture with routine healing
[2024-03-26 07:55] VITALS: RESP 18; TEMP 98.8; O2SAT 94
--- NOTE | 2024-03-26 09:11 | Discharge Summary ---
Discharge Summary Date of Service March 26, 2024 Principal Dx & Hospital Course #1 = Principal Diagnosis (1) Fall: (2) Closed right femoral fracture: Rachid Israel is an 88y/o M with PMHx significant for hyperlipidemia, history of CVA [2019], COPD, dementia, osteoarthritis, hereditary hemochromatosis, history of prostate cancer and urinary incontinence who presented to the ED from [facility] on 03/16/24 after sustaining a fall and was found to have mildly comminuted displaced fracture of the right femoral shaft. Right Periprosthetic Femur Fracture S/P Fall: Patient was admitted to our service 02/11/24-02/25/24 after a fall resulting in left tibial fracture/L2 compression fracture --> he was discharged to [facility], was receiving heparin for DVT prophylaxis at [facility]. This time, he was attempting to transfer from his bed to chair without assistance and fell backwards onto his right leg in a twisting motion after losing his balance. He denied any head trauma or loss of consciousness. Patient underwent IM nailing/retrograde IM nailing of his right periprosthetic femur fracture performed by Dr. Gutierrez on 03/17/24. He can fully weight-bear as tolerated on his right leg with limited right knee motion of 0 to 90 degrees for the first several weeks per orthopedic surgery's recommendation. Can use a knee immobilizer PRN for better support as well. Patient is being discharged today to [place] at [facility] for rehabilitation therapy. Will have a follow-up appointment with [facility] in approximately 1 to 2 weeks. Post-Operative Delirium Superimposed on Dementia: Course complicated by delirium. Case was previously discussed at length with the patient's son as well as medication review. Family was presented with a list of medications (anticholinergics, antipsychotics) which was discussed as likely not the best option for patient as these precipitate often worse delirium/risk for falls and other events. Patient met with pain management on 03/24/2024. Recommended scheduled Tylenol and LSO brace during transfers and when OOB. Instructed patient to continue with lidocaine patch application and PRN Tylenol for pain control at time of discharge. Patient no longer taking trazodone. Oblique Nondisplaced L2 Vertebral Body Fracture: Lumbar spine MRI from previous admission revealed an oblique nondisplaced L2 vertebral body subacute fracture with associated marrow edema and mild paravertebral edema. This was treated with conservative management including LSO bracing, this is to be continued at time of discharge. Post-Operative Acute Blood Loss Anemia: Baseline Hgb around 11-12, admitting Hgb was 10.4 on 03/16/24. Hgb was 7.4 on 03/18/2024 with an increase in heart rate. He is s/p 1 unit of PRBCs on 02/27/2024. Hemoglobin has since remained stable, 7.9 at time of discharge. HTN: Prefer loose BP control given his age and recent falls. No indications for medical management at this time. Other Chronic Medical Conditions: HLD/CVA history --> Continue ASA, Plavix and atorvastatin at time of discharge. PCP: Ewa Galindo MD [[place]] Disposition: Patient is being discharged in stable condition to [place] at [facility] for rehabilitation services. Patient seen in collaboration with Dr. Arita. Please see addendum. I spent a total of 50 minutes coordinating, documenting, and providing care for this patient excluding time spent in the performance of separately billed services. This included personally reviewing all current laboratories and imaging studies, medical reconciliation, outpatient chart review and discussion with specialists. This chart was completed in part utilizing Speech Voice Recognition Software. Grammatical errors, random word insertions, pronoun errors, and incomplete sentences are an occasional consequence of this system due to software limitations, ambient noise, and hardware issues. Any formal questions or concerns about the content, text, or information contained within the body of this dictation should be directly addressed to the provider for clarification. Notes For Next Care Provider Patient can fully weight-bear as tolerated on his right leg, limited knee motion of 0 to 90 degrees for the first several weeks per orthopedic surgery. Patient will need a follow-up appointment in 1 to 2 weeks with [facility], Dr. Oz Gutierrez. Medication Changes From Visit Patient no longer taking trazodone, otherwise no other medication changes were made during this admission. Admission HPI Per Admitting Provider This is an 88yo M with a PMH of hyperlipidemia, history of CVA (2019), COPD, osteoarthritis, hereditary hemochromatosis, history of prostate cancer, urinary incontinence and other problems listed below who presents with from [facility] after fall. Patient was admitted to our service 3 weeks ago after a fall resulting in the left tibial fracture as well as being found to have an L2 compression fracture. Patient was discharged to [facility], where he is still residing. Was attempting to transfer from his bed to his chair without assistance earlier today and fell backwards onto right leg in a twisting motion after losing his balance. Denies any head trauma or LOC. Presented with significant pain in right leg above knee. No F/C, lightheadedness, headache, CP, SOB, N/V, abd pain, dysuria, diarrhea or constipation. Admission Exam Per Admitting Provider General Appearance: WD/WN, vitals as above, NAD, sitting up in bed, slow to speak but answers questions appropriately Head: normocephalic, atraumatic Eyes: normal inspection, PERRL, conjunctivae normal, anicteric sclerae ENT: hard of hearing, external ear and nose normal, oropharynx normal Neck: normal visual inspection, trachea midline, no thyromegaly Respiratory: normal respiratory effort, lungs clear to auscultation, no wheeze, rales, rhonchi. No accessory muscle use Cardiovascular: regular rate, rhythm, normal peripheral pulses, trace BLE edema. Vessels: no JVD Chest: normal inspection of chest Abdomen/GI: normal bowel sounds, soft, nontender, no hepatosplenomegaly Extremities/Musculoskeletal: + RLE externally rotated and shortened, wrap in place R thigh, TTP. No cyanosis or clubbing, extremities motor strength 5/5 Neurologic: PERRL, EOMI, accommodation nl, no face palsy, no dysarthria, CN's II-XI intact bilaterally and moves all extremities Psychiatric: A+Ox3, euthymic affect Skin: no rashes, normal color, warm/dry Discharge Exam General: WD/WN, vitals as above, NAD, sitting up in bed, able to answer questions appropriately, very HUSLIA. A+Ox3, euthymic affect. HEENT: Normocephalic, atraumatic. PERRL, conjunctivae normal, anicteric sclerae. External ear and nose normal, oropharynx normal. Respiratory: Normal respiratory effort, lungs clear to auscultation, no wheeze, rales, rhonchi. No accessory muscle use. Cardiovascular: Regular rate, rhythm, no murmur, normal peripheral pulses, +1 BLE edema. Vessels: No JVD. Abdomen/GI: Normal bowel sounds, soft, nontender, no hepatosplenomegaly. Extremities/Musculoskeletal: Surgical site bandaging intact over right hip region, able to move all extremities. Neurologic: EOMI, no focal deficits, CN's II-XI not formally tested but appear grossly intact bilaterally. Skin: No rashes, normal color, warm/dry. Updated Medication List Medication Instructions Recorded Confirmed Type cholecalciferol (vitamin D3) 125 125 mcg PO QAM 04/11/22 03/16/24 History mcg (5,000 unit) tablet (Vitamin D3) melatonin 10 mg tablet 20 mg PO HS 04/11/22 03/16/24 History vit C 250 mg-vit E 90 mg-zinc 40 1 tab PO QAM 04/11/22 03/16/24 History mg-copper 1 rq-rlepxu-naamfu capsule (PreserVision AREDS-2) psyllium 1 tbsp PO QAM 01/01/24 03/16/24 History acetaminophen 500 mg tablet 650 mg (1.3 x 500 mg) PO TID 21 02/20/24 03/16/24 Rx (Tylenol Extra Strength) days #90 tabs aspirin 81 mg tablet,delayed 81 mg PO QAM #30 tabs 02/20/24 03/16/24 Rx release atorvastatin 10 mg tablet 10 mg PO QAM #30 tabs 02/20/24 03/16/24 Rx clopidogrel 75 mg tablet 75 mg PO QAM #30 tabs 02/20/24 03/16/24 Rx diclofenac sodium 1 % topical gel 2 g EXT Q6H #100 grams 02/20/24 03/16/24 Rx (Voltaren Arthritis Pain) heparin, porcine (PF) 5,000 5,000 unit (0.5 mL) subcut Q8H 30 02/20/24 03/16/24 Rx unit/0.5 mL injection syringe days #45 mL polyethylene glycol 3350 17 gram 17 g PO DAILY PRN constipation #30 02/20/24 03/16/24 Rx oral powder packet (Miralax) ea famotidine 20 mg tablet 20 mg PO AMHS 03/16/24 03/16/24 History multivitamin-ferrous 1 tab PO .DAILY AFTER LUNCH 03/16/24 03/16/24 History fumarate-folic acid 18 mg-400 mcg tablet polyvinyl alcohol-povidone (PF) 2 drp OPB BID 03/16/24 03/16/24 History 1.4 %-0.6 % eye drops in a dropperette (Refresh Classic (PF)) Hospital Stay Data Consultations 03/16/24 18:46 ED Decision to Admit Stat 03/16/24 19:21 ED Decision to Admit Stat 03/16/24 22:14 Consult Orthopedic Surgery Routine 03/23/24 11:28 Consult Pain Management Routine Procedures Performed Operation Date: 03/17/24 07:00 Actual Procedures p Right Femur Retrograde Nail(Right) - Oz Gutierrez MD Diagnostic Imagining Performed 03/17/24 FL femur RT 2V Routine Discharge Instructions Given to Patient (Per Discharging Provider) Eloy Paula were admitted to the hospital after sustaining a fall and found to have a right femur fracture. You underwent surgery for this fracture on 03/17/[address] Oz Gutierrez. You were seen and evaluated by physical therapy and occupational therapy. You are being discharged to [place] at [facility] for rehabilitation services. You will have a follow-up appointment scheduled in approximately 1 to 2 weeks with [facility] to see Dr. Oz Gutierrez. Continue to utilize OTC 4% lidocaine patches topically on your right hip region for better pain control per stemmer machine's recommendation. These can be found at multiple local stores, including but not limited to [employer] and [employer]. You can continue to use glng-ohr-pjesufi pain medication such as Tylenol as well. You have stopped taking your trazodone, otherwise all of your other medications can be continued as previously prescribed. You can weight-bear as tolerated on your right leg per orthopedic surgery. However, limit bending your right knee for the first few weeks until your follow-up appointment with Dr. Oz Gutierrez. Limit narcotic use, such as oxycodone, as these medications can alter your mental status and cause you to become delirious therefore making you more prone to falls and further injury. SEEK MEDICAL ATTENTION IF YOU HAVE: * temperature above 101F * chest pain or trouble breathing * abdominal pain, nausea, vomiting * diarrhea, dark stools or bloody stools * any unanswered questions or concerns Call 911 if symptoms are severe. Please take good care of yourself. It has been a pleasure taking care of you. If you have any questions regarding your recent hospitalization please contact [facility] and request Te Gonzalez @ [phone]. Total Time Total Time Spent Total Time Spent (In Minutes): 50 Supervising Physician Co-Signing Physician Notes Patient was seen and examined at bedside as a follow-up of close right femoral fracture status post repair. Patient doing well, reports pain under control, patient and the family does not want NSAIDs and opiates pain medication for now. They want to go with more conservative approach to pain management with heat compression, lidocaine patch 4%, diclofenac gel, Tylenol, physical therapy. Patient reports tolerating conservative approach well. Patient is being discharged to rehab today. Patient to follow-up with orthopedics on discharge. I have seen and examined the patient and have discussed the case with the provider above. I agree with the assessment and plan as stated.
--- NOTE | 2024-03-26 13:51 | Orthopedic Progress Note ---
Date of Service March 26, 2024 Assessment & Plan (1) Closed right femoral fracture: Plan: 88-year-old gentleman with multiple medical comorbidities now 9 days out from retrograde IM nailing of a right periprosthetic femur fracture. He seems to be doing reasonably well. Wounds are healing appropriately. Plan: 1. DVT prophylaxis including Thiede teds, SCDs, and he is back on his Plavix. 2. PT/OT. He can fully weight-bear as tolerated. Will limit his knee motion from 0 to 90 degrees for now. 3. Pain control doing okay with current pain regimen. 4. Medical management as per the medicine service. 5. Disposition I believe he is hoping to go to rehab. He is certainly stable anytime from the orthopedic standpoint. I did see him back 2 to 3 weeks out from surgery date. Admission and Anticipated Discharge Date Admission Date: March 16, 2024 Subjective 88-year-old gentleman now 1 9 days out from retrograde IM nailing of a right periprosthetic femur fracture. He seems to be doing well this morning. He continues to have some moderate pain in his right leg. Seems pretty manageable. No new complaints. Physical Exam Physical Exam: Physical nation is a pleasant elderly male. Lying bed looks pretty comfortable. Examination of the right leg reveals the leg to be well aligned. Some moderate swelling. Incisions are well-approximated. There is no drainage. He is neurologically intact. Results & Data Vital Signs (Past 12 Hours) Vital Signs Temp Pulse Resp BP Pulse Ox O2 Del Method 03/26/24 08:00 Room Air 03/26/24 07:55 37.1 C 72 18 141/59 H 94 Room Air (1) Closed right femoral fracture Encounter type: subsequent encounter Femur location: proximal epiphysis Fracture alignment: nondisplaced Fracture healing: with routine healing Qualified Code(s): S72.024D - Nondisplaced fracture of epiphysis (separation) (upper) of right femur, subsequent encounter for closed fracture with routine healing
[2024-03-26 14:52] VITALS: BP 137/73; PULSE 97
== END 2024-03-26 14:52 | DRG 481 ==
LOC: ED 18:05 → SUATTDRO 21:49 → EDINP 21:49 → 3N 22:14 → 3W 03-17 17:44